=== PATIENT | male | born 1960 | race Caucasian/White ===

== ENCOUNTER → 2018-11-26 09:20 | Outpatient (CLI) | payer BC, SELFPAY ==
[2018-11-26 09:55] LABS: Adenovirus F 40/41, stool Not Detected (NotDetected); Astrovirus Not Detected (NotDetected); Campylobacter Not Detected (NotDetected); Cryptosporidium Not Detected (NotDetected); Cyclospora Cayetanesis Not Detected (NotDetected); Entamoeba histolytica Not Detected (NotDetected); Enteroaggregative E coli Not Detected (NotDetected); Enteropathogenic E coli Not Detected (NotDetected); Enterotoxigenic E coli Not Detected (NotDetected); Giardia lamblia Not Detected (NotDetected); Norovirus Not Detected (NotDetected); Plesimonas Shigalloides, PCR Not Detected (NotDetected); Rotavirus A Not Detected (NotDetected); Salmonella, PCR Not Detected (NotDetected); Sapovirus Not Detected (NotDetected); Shiga-like toxin E coli Not Detected (NotDetected); Shigella Enterovasive E coli Not Detected (NotDetected); Vibrio Cholerae Not Detected (NotDetected); Vibrio, PCR Not Detected (NotDetected); Yersinia Entercolitica, PCR Not Detected (NotDetected)
[2018-11-26 13:57] LABS: Clostridium Difficile A/B, PCR Detected (NotDetected)
[2018-11-30 03:28] LABS: H. pylori Stool Ag, EIA Positive (Negative)
== END ==
PROVIDERS: Visit Provider Dietitian, Registered
DX: K21.9 Gastro-esophageal reflux disease without esophagitis (principal); R19.5 Other fecal abnormalities; Z86.19 Personal history of other infectious and parasitic diseases
CPT/HCPCS: 87177; 87338; 87507

== ENCOUNTER → 2019-05-22 14:19 | Outpatient (CLI) | payer BC, SELFPAY ==
[2019-05-22 14:25] LABS: Adenovirus F 40/41, stool Not Detected (NotDetected); Astrovirus Not Detected (NotDetected); Campylobacter Not Detected (NotDetected); Clostridium Difficile A/B, PCR Not Detected (NotDetected); Cryptosporidium Not Detected (NotDetected); Cyclospora Cayetanesis Not Detected (NotDetected); Entamoeba histolytica Not Detected (NotDetected); Enteroaggregative E coli Not Detected (NotDetected); Enteropathogenic E coli Not Detected (NotDetected); Enterotoxigenic E coli Not Detected (NotDetected); Giardia lamblia Not Detected (NotDetected); Norovirus Not Detected (NotDetected); Plesimonas Shigalloides, PCR Not Detected (NotDetected); Rotavirus A Not Detected (NotDetected); Salmonella, PCR Not Detected (NotDetected); Sapovirus Not Detected (NotDetected); Shiga-like toxin E coli Not Detected (NotDetected); Shigella Enterovasive E coli Not Detected (NotDetected); Vibrio Cholerae Not Detected (NotDetected); Vibrio, PCR Not Detected (NotDetected); Yersinia Entercolitica, PCR Not Detected (NotDetected)
[2019-05-26 07:15] LABS: Calprotectin, Fecal 97 ug/g (0-120)
[2019-05-27 01:29] LABS: H. pylori Stool Ag, EIA Negative (Negative)
== END ==
PROVIDERS: Visit Provider Dietitian, Registered
DX: R19.5 Other fecal abnormalities (principal); K21.9 Gastro-esophageal reflux disease without esophagitis; Z86.19 Personal history of other infectious and parasitic diseases
CPT/HCPCS: 83993; 87177; 87338; 87506

== ENCOUNTER → 2020-05-02 12:52 | Outpatient (CLI) | payer BC, SELFPAY ==
[2020-05-02 14:27] LABS: Blood Urea Nitrogen 24 mg/dl (9-20); Estimated Glomerular Filt Rate 86 ml/min (>60); GFR (African American) 104 ML/MIN (>60)
== END ==
PROVIDERS: Visit Provider Physician Assistant
DX: R10.32 Left lower quadrant pain (principal)
CPT/HCPCS: 36415; 82565; 84520

== ENCOUNTER → 2020-05-03 08:38 | Outpatient (CLI) | payer BC, SELFPAY ==
--- NOTE | 2020-05-03 08:43 | CT_ITS ---
PROCEDURE: CT ABDOMEN PELVIS W CON CLINICAL INDICATION: LLQ ABD PAIN COMPARISON: CT ABDPELW CT ABD PELVIS W/ CONTRAST from 08/27/2016 TECHNIQUE: IV Contrast: 75ML Isovue 370 Oral Contrast None Axial images obtained with sagittal and coronal reformats. All CT scans at the facility use one or more dose reduction, viz: automated exposure control, ma/kV adjustment per patient size (including targeted exams where dose is matched to indication, i.e. head), or iterative reconstruction technique. FINDINGS: LOWER THORAX: No acute finding ABDOMEN & PELVIS: The liver, gallbladder, spleen, adrenal glands, pancreas, has an unremarkable appearance. There is a small hiatal hernia. No renal or ureteral calculi. There is a 3 cm left renal cyst. No evidence appendicitis. There is stranding of the fat lateral to the descending colon at the level of the iliac crest. This fat stranding has a circular target like appearance best demonstrated on series 601, image 33. This is consistent with epiploic appendagitis. No inflamed diverticula are evident at this region. No intestinal obstruction or free air. There is a small umbilical hernia containing fat. Increased density is present in the inguinal region on both sides consistent with prior inguinal hernia repair. There are few small inguinal lymph nodes present. No acute bony findings. IMPRESSION: Epiploic appendagitis involving the descending colon Dictated by: Aung Jean-Baptiste MD 05/04/2020 07:18 Aung Jean-Baptiste MD in [place] 05/04/2020 07:18
== END ==
PROVIDERS: PCP Family Medicine; Visit Provider Physician Assistant
DX: R10.32 Left lower quadrant pain (principal)
CPT/HCPCS: 74177

== ENCOUNTER 2020-06-05 11:32 | Emergency (ER) | payer BC, SELFPAY ==
[2020-06-05 13:00] VITALS: BP 115/77; PULSE 83; RESP 20; TEMP 36.7; O2SAT 98; BMI 27.3
--- NOTE | 2020-06-05 13:12 | HMH.EDUTC ---
[facility] [place] Clinical Impression: Sinusitis Qualifiers: Sinusitis location: unspecified location Chronicity: unspecified Qualified Code(s): J32.9 - Chronic sinusitis, unspecified Disposition: Home, Self-Care Condition on Discharge: Good Instructions: Sinusitis, DI for Sinusitis, Coronavirus Disease 2019, DI for COVID-19 (Suspected or Confirmed ) Additional Instructions: *Monitor Temp, Over the counter Motrin or Tylenol as directed/as needed Tylenol every 4 hours and Motrin every 6 hours (as long as your family doctor has told you that you can take it) for fever or pain. and straight to ER if unable to lower temp less than 101.0 after medication given *Warm salt water gargles may help to soothe the throat *Throat Lozenges *Warm fluids like tea with honey may help to soothe the throat *Sleep elevated *Humidifier/Vaporizer Follow up IMMEDIATELY for new or worsening symptoms or no Noticeable improvement over the next 48-72 hours. 911 for difficulty breathing or swallowing Prescriptions: Azithromycin [Z-Hector 250mg Tab] 250 mg PO DIRECTED #6 tab Prescription Printed Referrals: Herman Atwood MD [Primary Care Provider] - As needed Time of Disposition: 13:21 Medical Decision Making - Les Inquiry Pt receiving controlled substance: No Les was queried for this patient: No Vital Signs: 06/05/20 13:00 Temperature 98.1 F Temperature Source Oral Pulse Rate [Right Brachial] 83 Respiratory Rate 20 Blood Pressure [Right Arm] 115/77 Blood Pressure Mean [Right Arm] 89 Blood Pressure Source [Right Arm] Automatic Cuff Blood Pressure Position [Right Arm] Sitting 02 Sat by Pulse Oximetry 98 Oxygen Delivery Method Room Air [facility] - General Stated complaint: Covid +, fever Time Seen by Provider: 06/05/20 13:12 Mode of Arrival: Ambulatory Source of Information: Patient Limitations: No Limitations Description of Symptoms (Recalled from Triage Doc. by RN): PATIENT REPORTS HE TESTED POSITIVE FOR COVID ON 05/25 THROUGH THE HEALTH DEPARTMENT. C/O FEVER EVERYDAY SINCE HIS DIAGNOSIS HEENT Symptoms (Recalled from RN notes): No Resp Symptoms (Recalled from RN notes): No Skin Symptoms (Recalled from RN notes): No MS Symptoms (Recalled from RN notes): No Functional Status (Recalled from RN notes): WNL - History of Present Illness Provider Complaint: Patient states krzysztof the was recently DX with COVID states that he has continued to have fever on and off at night and having sinus pain and pressure and worried that it is going to move into his chest so he came in to see if he could get something for his sinus infection to help so he can get over the COVID - Related Data Previous Rx's Medication Instructions Recorded Azithromycin [Z-Hector 250mg Tab] 250 mg PO DIRECTED #6 tab 06/05/20 Allergies Allergy/AdvReac Type Severity Reaction Status Date / Time Penicillins [PENICILLINS] Allergy Intermediate RASH/SWEATI Verified 06/05/20 13:10 NG - Worker's Comp Is this a Worker's Comp case?: No [facility] History - Hepatitis A Screen Drug use history?: No High risk sexual behaviors?: No History of sexually transmitted infection?: No Currently employed?: No Childcare worker?: No Do you have indoor plumbing?: Yes Do you have electricity?: Yes Attestation statement:: This patient has been screened for Hepatitis A risk factors. I have reviewed the patient's past medical history: Yes Medical History: Reports:: Cancer - Social History Alcohol Intake: never Occupational Status: other ROS Obtained: Yes All systems reviewed & no additional complaints, Yes Systems reviewed as appropriate & no additional complaints - Constitutional Constitutional: Reports system reviewed and no additional complaints, except as docu, Reports fever(s), Reports headache(s) - ENT Ears, Nose, Mouth, and Throat: Reports sinus pain, Reports sinus pressure Physical Exam - General General appearance: alert, i
[2020-06-05 13:29] VITALS: BP 115/77; PULSE 83; RESP 20; TEMP 36.7; O2SAT 98
== END 2020-06-05 13:32 | disposition home or self-care (01) ==
PROVIDERS: Emergency Provider Nurse Practitioner; PCP Family Medicine
DX: U07.1 COVID-19 (principal); J32.9 Chronic sinusitis, unspecified; Z88.0 Allergy status to penicillin
CPT/HCPCS: 99202; G0463

== ENCOUNTER 2020-06-08 16:29 | Emergency (ER) | payer BC, SELFPAY ==
[2020-06-08 16:33] VITALS: BP 157/79; PULSE 87; RESP 18; TEMP 36.9; O2SAT 93; BMI 26.1
--- NOTE | 2020-06-08 16:46 | XR_ITS ---
PROCEDURE: XR CHEST PORTABLE CLINICAL HISTORY: soa Covid19 patient, shortness of air COMPARISON: CT CHW CT CHEST W/ CONTRAST from 09/11/2016 FINDINGS: The cardiomediastinal silhouette and pulmonary vascularity are within normal limits. The lungs are clear without infiltrates, suspicious nodules, or pleural effusions. No acute bony abnormalities. IMPRESSION: No acute findings. Dictated by: Aung Jean-Baptiste MD 06/08/2020 17:54 Aung Jean-Baptiste MD in [place] 06/08/2020 17:54
[2020-06-08 17:00] VITALS: TEMP 37.9
[2020-06-08 17:01] VITALS: BP 125/76; PULSE 82; RESP 18; O2SAT 94
[2020-06-08 17:12] LABS: Basophils % 0.2 % (0.1-2.0); Hematocrit 39.5 % (42.0-52.0); Hemoglobin 13.3 g/dL (14.1-18.0); Lymphocytes # 0.2 K/mm3 (0.7-4.5); Mean Corpuscular HGB Conc 33.7 g/dL (31.8-35.4); Mean Corpuscular Hemoglobin 31.3 pg (27.0-31.2); Mean Corpuscular Volume 92.8 fl (80-94); Mean Platelet Volume 8.4 fl (7.4-10.4); Monocytes # 0.1 K/mm3 (0.1-1.0); Monocytes % 3.2 % (1.7-9.3); Neutrophils # 3.7 K/mm3 (1.8-7.8); Neutrophils % 90.7 % (37.0-80.0); Platelet Count 107 K/mm3 (142-424); Red Blood Count 4.25 M/mm3 (4.60-6.20); Red Cell Distribution Width 13.2 % (11.5-17.5); White Blood Count 4.1 K/mm3 (4.8-10.8)
[2020-06-08 17:15] LABS: Chloride 94 mmol/L (98-107)
[2020-06-08 17:16] LABS: Potassium 3.3 mmoL/L (3.5-5.1); Sodium 132 mmol/L (136-145)
[2020-06-08 17:18] LABS: MANUAL DIFFERENTIAL MANUAL DIFFERENTIAL (MANUAL DIFF)
[2020-06-08 17:19] LABS: Anion Gap 12.3 mEq/L (5-15); Blood Urea Nitrogen 21 mg/dl (9-20); Carbon Dioxide 29 mmol/L (22.0-30.0); Creatinine Clearance Estimated 96 mL/min (50-200); Estimated Glomerular Filt Rate 86 ml/min (>60); GFR (African American) 104 ML/MIN (>60); Glucose 121 mg/dl (74-100)
[2020-06-08 17:25] LABS: Lymphocytes % 8 % (10-50); Neutrophils % 91 % (42-76); RBC Morphology Normal; Total Cells Counted 100
[2020-06-08 17:26] LABS: Platelet Estimate Slight Decrease
--- NOTE | 2020-06-08 17:26 | HMH.EDFEV ---
ED Disposition Clinical Impression: COVID-19 Disposition: Home, Self-Care Condition on Discharge: Good Additional Instructions: Return to emergency department for worsening difficulty breathing fever chills congestion or any other concerns within the next 8 hours otherwise follow-up with your primary care physician within the next few days maintain quarantine per guidelines Referrals: Herman Atwood MD [Primary Care Provider] - - Critical Care Critical Care Time: No Attestation: On 06/08/20, the high probability of a clinically significant, sudden or life threatening deterioration of the following system(s) required my full and direct attention, intervention and personal management. The time I documented below is in addition to time spent performing reported procedures but includes the following listed in this critical care notation. Medical Decision Making - Medical Records Medical records reviewed: Yes: I reviewed the patient's medical records. - Les Inquiry Pt receiving controlled substance: No Vital Signs: 06/08/20 16:33 06/08/20 17:00 06/08/20 17:01 Temperature 98.4 F 100.2 F H Temperature Source Oral Oral Pulse Rate [Left Radial] 87 82 Respiratory Rate 18 18 Blood Pressure [Right Arm] 157/79 H 125/76 Blood Pressure Mean [Right Arm] 105 92 Blood Pressure Source [Right Arm] Automatic Cuff Blood Pressure Position [Right Arm] Sitting 02 Sat by Pulse Oximetry 93 L 94 L Oxygen Delivery Method Room Air - Lab Data Lab Results 06/08/20 17:05: WBC 4.1 L, RBC 4.25 L, Hgb 13.3 L, Hct 39.5 L, MCV 92.8, MCH 31.3 H, MCHC 33.7, RDW 13.2, Plt Count 107 L, MPV 8.4, Neut % (Auto) 90.7 H, Lymph % (Auto) 6.0 L, [place] % (Auto) 3.2, Eos % (Auto) 0.0 L, Baso % (Auto) 0.2, Neut # (Auto) 3.7, Lymph # (Auto) 0.2 L, [place] # (Auto) 0.1, Eos # (Auto) 0.0, Baso # (Auto) 0.0, Total Counted 100, Neutrophils % (Manual) 91 H, Band Neutrophils % 1.0, Lymphocytes % (Manual) 8 L, Platelet Estimate Slight decrease, RBC Morphology Normal 06/08/20 17:05: Sodium 132 L, Potassium 3.3 L, Chloride 94 L, Carbon Dioxide 29, Anion Gap 12.3, BUN 21 H, Creatinine 0.90, Estimated Creat Clear 96, Estimated GFR 86, Est GFR ( Amer) 104, Glucose 121 H, Calcium 9.0 Result diagrams: 06/08/20 17:05 06/08/20 17:05 Orders (Tests/Meds): ED MEDICATIONS Generic Name Dose Route Start Last Admin Trade Name Freq PRN Reason Stop Dose Admin Sodium Chloride 1,000 mls @ 999 mls/hr 06/08/20 17:00 06/08/20 17:09 Sod Chlor 0.9% 1000ml Bag IV 06/08/20 18:00 999 mls/hr .Q1H1M KIRT Administration Discontinued Medications Generic Name Dose Route Start Last Admin Trade Name Freq PRN Reason Stop Dose Admin Ketorolac Tromethamine 30 mg 06/08/20 17:08 06/08/20 17:10 Ketorolac 30mg/Ml Vial IV 06/08/20 17:09 30 mg ONCE ONE Administration Medical Decision Narrative: 59-year-old male with COVID-19 symptoms. He is in no acute distress nontoxic-appearing sitting comfortably in the bed with normal oxygen levels. I am not concerned for pulmonary embolism at this time. He appears to be mildly dehydrated given IV fluids in the emergency department very mildly hyponatremic. Chest x-ray otherwise has no actionable items. Recommended to continue management quarantine drink fluids and given strict return precautions otherwise Fever HPI - General Chief Complaint: Fever Stated Complaint: weakness, feverish Time Seen by Provider: 06/08/20 16:30 Mode of Arrival: Ambulatory Limitations: No Limitations Description of Symptoms (Recalled from ER Triage Doc. by RN): c/o high and low fevers since he was dx with covid since the . States he can't seem to kick the covid. He is soa and has been for 2 weeks. Has a bad taste in his mouth like he did when he had stem cell cancer transplant. - History of Present Illness HPI Narrative: 59-year-old male has been diagnosed with COVID-19. He says that he is unable to kick it,
[2020-06-08 18:40] VITALS: BP 143/78; PULSE 78; RESP 18; TEMP 37.3; O2SAT 98
== END 2020-06-08 18:43 | disposition home or self-care (01) ==
PROVIDERS: Emergency Provider Emergency Medicine; PCP Family Medicine
DX: U07.1 COVID-19 (principal); E86.0 Dehydration; Z88.0 Allergy status to penicillin
CPT/HCPCS: 71045; 80048; 85007; 85025; 96365; 96375; 99283

== ENCOUNTER 2020-06-13 12:54 | Inpatient (IN) | payer BC, SELFPAY ==
[2020-06-13] VITALS (8 sets, daily range): BP systolic 91–124; BP diastolic 57–87; PULSE 59–104; RESP 17–34; TEMP 35.8–36.9; O2SAT 78–99; BMI 25.8; BMI 27.0
--- NOTE | 2020-06-13 12:55 | XR_ITS ---
PROCEDURE: XR CHEST PORTABLE CLINICAL HISTORY: low SaO2, Covid positive Covid19 pneumonia COMPARISON: CT CHW CT CHEST W/ CONTRAST from 09/11/2016 CR XR CHEST PORTABLE from 06/08/2020 FINDINGS: The cardiomediastinal silhouette and pulmonary vascularity are within normal limits. Developing opacification ground-glass attenuation is present in the left upper, left lower, and right lower lobe consistent with bilateral pneumonia No acute bony abnormalities. IMPRESSION: Bilateral pneumonia with ground-glass attenuation consistent with Covid19 pneumonia Dictated by: Aung Jean-Baptiste MD 06/13/2020 14:12 Aung Jean-Baptiste MD in [place] 06/13/2020 14:12
--- NOTE | 2020-06-13 12:56 | ECG_ITS ---
APPROVED REPORT Exam: Resting ECG HR:97 bpm ECG Measurements Heart Rate 97 AXES IL 134 P 71 QRSd 80 QRS 94 QT 358 T 55 QTc 454 Conclusion Normal sinus rhythm Rightward axis Nonspecific ST abnormality Abnormal ECG Electronically signed by : Nikolas Santana, 06/13/2020 19:36:02
--- NOTE | 2020-06-13 13:00 | PC.NURSE ---
rad at bedside
[2020-06-13 13:23] LABS: Basophils % 0.3 % (0.1-2.0); Eosinophils % 0.2 % (0.1-12.0); Hematocrit 42.8 % (42.0-52.0); Hemoglobin 14.3 g/dL (14.1-18.0); Lymphocytes # 0.2 K/mm3 (0.7-4.5); Lymphocytes % 4.3 % (10-50); Mean Corpuscular HGB Conc 33.4 g/dL (31.8-35.4); Mean Corpuscular Hemoglobin 32.5 pg (27.0-31.2); Mean Corpuscular Volume 97.3 fl (80-94); Monocytes # 0.2 K/mm3 (0.1-1.0); Monocytes % 2.9 % (1.7-9.3); Neutrophils # 5.2 K/mm3 (1.8-7.8); Neutrophils % 92.3 % (37.0-80.0); Platelet Count 82 K/mm3 (142-424); Red Blood Count 4.39 M/mm3 (4.60-6.20); Red Cell Distribution Width 14.6 % (11.5-17.5); White Blood Count 5.6 K/mm3 (4.8-10.8)
[2020-06-13 13:26] LABS: MANUAL DIFFERENTIAL MANUAL DIFFERENTIAL (MANUAL DIFF)
[2020-06-13 13:50] LABS: Lymphocytes % 11 % (10-50); Monocytes % 7 % (2-9); Neutrophils % 82 % (42-76); Platelet Estimate Moderate Decrease; RBC Morphology Normal; Total Cells Counted 100
[2020-06-13 13:53] LABS: Chloride 95 mmol/L (98-107); Sodium 132 mmol/L (136-145)
[2020-06-13 13:56] LABS: Alanine Aminotransferase 53 U/L (12-78); Albumin Level 3.6 g/dl (3.5-5.0); Albumin/Globulin Ratio 0.9 (1.1-1.8); Alkaline Phosphatase 131 U/L (38-126); Anion Gap 11.8 mEq/L (5-15); Aspartate Amino Transferase 64 U/L (17-59); Blood Urea Nitrogen 15 mg/dl (9-20); Carbon Dioxide 28 mmol/L (22.0-30.0); Creatinine Clearance Estimated 86 mL/min (50-200); Estimated Glomerular Filt Rate 76 ml/min (>60); GFR (African American) 92 ML/MIN (>60); Globulin 3.8 g/dL (1.3-3.2); Total Protein,Serum 7.4 g/dl (6.3-8.2)
[2020-06-13 13:57] LABS: Calcium 8.8 mg/dl (8.4-10.2); Glucose 138 mg/dl (74-100)
[2020-06-13 13:58] LABS: Potassium 2.8 mmoL/L (3.5-5.1)
--- NOTE | 2020-06-13 14:19 | CT_ITS ---
PROCEDURE: CT ANGIO CHEST CLINCIAL INDICATION: SOA Shortness of air, Covid19 19 COMPARISON: CT CHW CT CHEST W/ CONTRAST from 09/11/2016 CR XR CHEST PORTABLE from 06/08/2020 TECHNIQUE: IV Contrast: 70ML Isovue 370 Axial images obtained with sagittal and coronal reformats. All CT scans at the facility use one or more dose reduction, viz: automated exposure control, ma/kV adjustment per patient size (including targeted exams where dose is matched to indication, i.e. head), or iterative reconstruction technique. FINDINGS: HEART AND MEDIASTINAL STRUCTURES: No evidence of pulmonary embolus, aortic aneurysm, or aortic dissection. There are some mildly prominent mediastinal lymph nodes in the subcarinal region. LUNGS AND PLEURAL SPACES: Crazy paving pattern is present in the upper lobes peripherally and in both lower lobes consistent with ground-glass opacification superimposed upon septal thickening some which is felt to be chronic based on previous chest x-rays. An 8 mm nodular opacity is present in the left lower lobe image 64 series 3. There is trace left-sided effusion. BONY STRUCTURES: No acute bony abnormalities apparent. UPPER ABDOMEN: There is mild diffuse esophageal thickening. This is greater at the mid distal aspect and could be due to reflux esophagitis. ADDITIONAL FINDINGS: No other significant abnormalities. IMPRESSION: 1. No evidence of pulmonary embolus, aortic aneurysm, or aortic dissection. 2. Crazy paving appearance of the lungs which may be seen with Covid19 pneumonia with superimposed interstitial lung disease 3. Nonspecific 8 mm nodule left lower lobe. Convalescent follow-up suggested. Dictated by: Aung Jean-Baptiste MD 06/13/2020 15:30 Aung Jean-Baptiste MD in [place] 06/13/2020 15:30
--- NOTE | 2020-06-13 14:20 | HMH.EDGENADL ---
ED Disposition Clinical Impression: Acute hypoxemic respiratory failure due to COVID-19, Acute exacerbation of chronic obstructive airways disease Disposition: Admitted As Inpatient Condition on Discharge: Serious Referrals: Herman Atwood MD [Primary Care Provider] - - Critical Care Critical Care Time: No Attestation: On 06/13/20, the high probability of a clinically significant, sudden or life threatening deterioration of the following system(s) required my full and direct attention, intervention and personal management. The time I documented below is in addition to time spent performing reported procedures but includes the following listed in this critical care notation. Medical Decision Making - Medical Records Medical records reviewed: Yes: I reviewed the patient's medical records. - Les Inquiry Pt receiving controlled substance: No Vital Signs: 06/13/20 12:54 06/13/20 13:06 Temperature 98.5 F Temperature Source Oral Pulse Rate [Right Radial] 98 H Respiratory Rate 34 H Blood Pressure [Right Arm] 112/74 Blood Pressure Mean [Right Arm] 86 Blood Pressure Source [Right Arm] Automatic Cuff Blood Pressure Position [Right Arm] Sitting 02 Sat by Pulse Oximetry 90 L 91 L Oxygen Delivery Method Nasal Cannula Nasal Cannula Oxygen Flow Rate (LPM) 4 4 - Lab Data Lab Results 06/13/20 13:04: WBC 5.6, RBC 4.39 L, Hgb 14.3, Hct 42.8, MCV 97.3 H, MCH 32.5 H, MCHC 33.4, RDW 14.6, Plt Count 82 L, MPV 13.0 H, Neut % (Auto) 92.3 H, Lymph % (Auto) 4.3 L, [place] % (Auto) 2.9, Eos % (Auto) 0.2, Baso % (Auto) 0.3, Neut # (Auto) 5.2, Lymph # (Auto) 0.2 L, [place] # (Auto) 0.2, Eos # (Auto) 0.0, Baso # (Auto) 0.0, Total Counted 100, Neutrophils % (Manual) 82 H, Lymphocytes % (Manual) 11, Monocytes % (Manual) 7, Platelet Estimate Moderate decrease, RBC Morphology Normal 06/13/20 13:04: Sodium 132 L, Potassium 2.8 L*, Chloride 95 L, Carbon Dioxide 28, Anion Gap 11.8, BUN 15, Creatinine 1.00, Estimated Creat Clear 86, Estimated GFR 76, Est GFR ( Amer) 92, Glucose 138 H, Calcium 8.8, Total Bilirubin 1.0, AST 64 H, ALT 53, Alkaline Phosphatase 131 H, Total Protein 7.4, Albumin 3.6, Globulin 3.8 H, Albumin/Globulin Ratio 0.9 L 06/13/20 14:24: Specimen Source Right radial, O2 % 4l nc, ABG pH 7.52 H, ABG pCO2 29.7 L, ABG pO2 99.8, ABG HCO3 23.6, ABG Total CO2 24.5, ABG O2 Saturation 98, ABG Base Excess 0.7, Aung Test Acceptable Result diagrams: 06/13/20 13:04 06/13/20 13:04 Orders (Tests/Meds): ED MEDICATIONS Discontinued Medications Generic Name Dose Route Start Last Admin Trade Name Freq PRN Reason Stop Dose Admin Acetaminophen 650 mg 06/13/20 13:34 06/13/20 13:51 Acetaminophen 325mg Tab PO 06/13/20 13:35 650 mg ONCE ONE Administration Dexamethasone Sodium Phosphate 10 mg 06/13/20 14:20 06/13/20 14:42 Dexamethasone 4mg/Ml 5ml Mdv IV 06/13/20 14:21 10 mg ONCE ONE Administration Sodium Chloride 1,000 mls @ 999 mls/hr 06/13/20 13:45 06/13/20 13:52 Sod Chlor 0.9% 1000ml Bag IV 06/13/20 14:45 999 mls/hr .Q1H1M KIRT Administration Iopamidol 70 ml 06/13/20 15:10 06/13/20 15:11 Iopamidol-370 (76%);100ml Bottle IV 06/13/20 15:11 70 ml ONCE ONE Administration Potassium Chloride 40 meq 06/13/20 13:58 06/13/20 14:43 Potassium Chloride 20meq Tab PO 06/13/20 13:59 40 meq ONCE ONE Administration Sodium Chloride 50 ml 06/13/20 15:10 06/13/20 15:11 0.9 % Sodium Chloride 50 Ml Vial IV 06/13/20 15:11 50 ml ONCE ONE Administration Sodium Chloride 10 ml 06/13/20 15:10 06/13/20 15:11 Sodium Chloride 0.9% 10ml Syr (Rad Only) IV 06/13/20 15:11 10 ml ONCE ONE Administration ORDERS Category Date Time Status Full Resp Panel w/COVID ([facility]) Stat Lab 06/13/20 14:21 Received - CT Data CT Scan: Chest Time Received: 15:[address] Reviewed: Yes: I have reviewed the patient's CT results, I have viewed the radiologist's interpretation Findings
--- NOTE | 2020-06-13 14:23 | PC.NURSE ---
covid swab sent to lab at this time
--- NOTE | 2020-06-13 14:26 | PC.NURSE ---
Verbal order given to Resp for ABG
[2020-06-13 14:33] LABS: Adenovirus,PCR Not Detected (NotDetected); Bordetella Pertussis Not Detected (NotDetected); Chlamydophila Pneumoniae, PCR Not Detected (NotDetected); Coronavirus 229E Not Detected (NotDetected); Coronavirus NL63 Not Detected (NotDetected); Coronavirus OC43 Not Detected (NotDetected); Coronovirus HKU1,PCR Not Detected (NotDetected); Human Metapneumovirus Not Detected (NotDetected); Influenza A, PCR Not Detected (NotDetected); Influenza AH1, 2009 Not Detected (NotDetected); Influenza AH1, PCR Not Detected (NotDetected); Influenza AH3,PCR Not Detected (NotDetected); Influenza B, PCR Not Detected (NotDetected); Mycoplasma Pneumoniae, PCR Not Detected (NotDetected); Parainfluenza 1, PCR Not Detected (NotDetected); Parainfluenza 2, PCR Not Detected (NotDetected); Parainfluenza 3, PCR Not Detected (NotDetected); Parainfluenza 4, PCR Not Detected (NotDetected); Respiratory Syncytial Virus Not Detected (NotDetected); Rhinovirus/Enterovirus Not Detected (NotDetected)
[2020-06-13 14:47] LABS: ABG Base Excess 0.7 mmol/L (-2.4-2.3); ABG HCO3 23.6 mmhg (22.0-26.0); ABG Oxygen Saturation 98 % (90-100); ABG PCO2 29.7 mmhg (35.0-45.0); ABG PH 7.52 mmol/L (7.35-7.45); ABG PO2 99.8 mmhg (80-100); ABG TCO2 24.5 mmhg (23-27)
[2020-06-13 14:49] LABS: Allen's Test Acceptable; Source Right Radial
--- NOTE | 2020-06-13 15:00 | PC.NURSE ---
pt to CT
--- NOTE | 2020-06-13 15:59 | PC.NURSE ---
Calling Dr. Atwood at this time
--- NOTE | 2020-06-13 16:01 | PC.NURSE ---
speaking with Dr. Atwood
--- NOTE | 2020-06-13 16:04 | PC.NURSE ---
lab states approx 25 minutes left on covid swab.
--- NOTE | 2020-06-13 16:04 | PC.NURSE ---
notified house of admission
[2020-06-13 16:29] LABS: Coronavirus 19, PCR Detected (NotDetected)
--- NOTE | 2020-06-13 16:36 | P.CONPHA_ITS ---
[facility] [place] Pharm[facility] VTE Monitoring - Patient Demographics Admission date: 06/13/20 Report Date: 06/13/20 Time: 16:36 Allergies/Adverse Reactions: Patient Allergies Penicillins [PENICILLINS] Allergy (Intermediate, Verified 06/05/20 13:10) RASH/SWEATING Height: 1.73 m Weight: 77.111 kg Patient Problems: Current Active Problems Acute hypoxemic respiratory failure due to COVID-19 (Acute) Acute exacerbation of chronic obstructive airways disease (Acute) - VTE Risk Labs: VTE Related Lab Results Hgb 14.3 g/dL (14.1-18.0) 06/13/20 13:04 Hct 42.8 % (42.0-52.0) 06/13/20 13:04 Plt Count 82 K/mm3 (142-424) L 06/13/20 13:04 BUN 15 mg/dl (9-20) 06/13/20 13:04 Creatinine 1.00 mg/dl (0.66-1.25) 06/13/20 13:04 Estimated Creat Clear 86 mL/min (50-200) 06/13/20 13:04 Clinical Trial Participant: No - Prophylaxis VTE Prophylaxis Ordered?: Yes Types of VTE Prophylaxis: TEDS Knee High, Pharmacological Pharmacologic Type: Enoxaparin
--- NOTE | 2020-06-13 16:52 | HMH.HP ---
*Admission Date: 06/13/20 <Heavenly June 06/13/20 17:20> *Chief complaint: Shortness of breath <Heavenly June 06/13/20 17:20> *History of present illness: Mr. Billingsley is a 59-year-old male with a history of irritable bowel syndrome, restless leg syndrome, and lymphoma who presented to [facility] emergency room with progressive shortness of breath over the last 2 to 3 days. He states he has not felt well for about the last 2 weeks. He describes having fevers along with difficulty in breathing. He was Covid positive the end of April as was most of his family. They are all now well. He continued with the fevers and the chills and today has had trouble catching his breath. On arrival to the emergency room his O2 sats were diminished and 78%. O2 sats did improve to 91% on 4 L of oxygen per nasal cannula. He did receive a liter of IV fluids and 10 mg of dexamethasone. With work-up CTA of the chest showed no pulmonary embolus but with a crazy paving appearance of the lungs consistent with COVID-19 pneumonia super imposed on interstitial lung disease; also noted was an 8 mm nodule in the left lower lobe. Laboratory data showed a white blood cell count of 5600 with a hemoglobin of 14.3 and hematocrit of 42.8. Platelet count was low at 82. Blood gases showed a pH of 7.52 PCO2 of 29.7 PO2 of 99.8 and a bicarb of 23.6. This was on oxygen at 4 L. Blood chemistries showed a low potassium of 2.8 and a sodium of 132. He was given 40 mEq of past potassium p.o. BUN was 15 with a creatinine of 1 ;AST elevated at 64 with an ALT of 53. Alkaline phosphatase 131. Covid PCR was positive. Patient was thus admitted with COVID pneumonia with acute hypoxia. <Heavenly June 06/13/20 17:20> [facility] History Medical History: Reports:: Cancer, Gastroesophageal Reflux Disease(GERD) <Heavenly uJne 06/13/20 17:20> *Have you ever received a pneumonia vaccine?: No <Heavenly June 06/13/20 17:20> *Have you received a flu vaccine this season?: No <Heavenly June 06/13/20 17:20> Other Medical History: Reports: Other (Irritable bowel syndrome; restless leg syndrome; lymphoma diagnosed in 2017) <SladeHeavenly 06/13/20 17:20> Other Surgeries: Yes: Hernia Repair <Heavenly June 06/13/20 17:20> - *Social History Smoking Status: Former smoker <JuneHeavenly 06/13/20 17:20> Alcohol Intake: never <JuneHeavenly 06/13/20 17:20> *Occupational Status:: other (not working) <JuneHeavenly 06/13/20 17:20> *Travel in the last 8 weeks: None <June,Heavenly 06/13/20 17:20> Family Hx:: Cancer <JuneHeavenly 06/13/20 17:20> Review of Systems - Constitutional Reports fatigue, Reports fever(s), Reports lack of energy <June,Heavenly 06/13/20 17:20> - Eyes Denies change in vision <June,Heavenly 06/13/20 17:20> - ENT Denies ear pain, Denies post nasal drip, Denies sore throat <JuneHeavenly 06/13/20 17:20> - *Cardiovascular Reports shortness of breath, Reports generalized swelling, Denies chest pain, Denies irregular heart rhythm <JuneHeavenly 06/13/20 17:20> - *Respiratory Reports shortness of breath, Denies chest congestion, Denies cough, Denies coughing up blood <JuneHeavenly 06/13/20 17:20> - *Gastrointestinal Denies abdominal pain, Denies constipation, Denies heartburn, Denies nausea, Denies vomiting <JuneHeavenly 06/13/20 17:20> - *Genitourinary Denies difficulty urinating <JuneHeavenly 06/13/20 17:20> - *Musculoskeletal Denies abnormal walking, Denies joint pain, Denies body aches <June,Heavenly 06/13/20 17:20> - *Neurologic Denies abnormal walking, Denies headache(s), Denies seizure-like activity <SladeHeavenly 06/13/20 17:20> Meds Allergies Allergy/AdvReac Type Severity Reaction Status Date / Time Penicillins [PENICILLINS] Allergy Intermediate RASH/SWEATI Verified 06/05/20 13:10 NG <Herman Atwood - 06/13/20 18:18> Exam Vital signs and Labs for Last 24 Annalise
--- NOTE | 2020-06-13 16:57 | PC.NURSE ---
notified second floor pt is ready for admission, spoke with kota
--- NOTE | 2020-06-13 17:09 | PC.NURSE ---
report given johanarn
--- NOTE | 2020-06-13 17:12 | PC.NURSE ---
patient came from ed by wheelchair
[2020-06-14] VITALS (10 sets, daily range): BP systolic 97–131; BP diastolic 56–79; PULSE 63–83; RESP 17–20; TEMP 36.3–36.6; O2SAT 90–95; BMI 26.9
--- NOTE | 2020-06-14 04:06 | PC.NURSE ---
PT IS RESTING IN BED. NO COMPLAINTS OF DISCOMFORT. AT MIDNIGHT PT HAS WAS MILDLY HYPOTHERMIC WITH A RECTAL TEMP OF 95.8. PT WAS COVERED IN WARM BLANKETS AND THE TEMP IN PT'S ROOM WAS INCREASED. AFTER AN HOUR PT STATED HE WAS STARTING TO SWEAT AND ASKED IF SOME OF THE BLANKETS COULD BE REMOVED. ORAL TEMP WAS RETAKEN AND IT WAS 97.5. O2 SATURATION HAS MAINTAINED 92-94% ON 4 L NC. LUNG SOUNDS DIMINISHED WITH FINE CRACKLES IN THE BASES. ABDOMEN SOFT/ NON TENDER WITH ACTIVE BOWEL SOUNDS. PT HAD A BOWEL MOVEMENT AT THE BEGINNING OF THE SHIFT. WILL CONTINUE TO MONITOR.
[2020-06-14 05:52] LABS: Alanine Aminotransferase 37 U/L (12-78); Alkaline Phosphatase 107 U/L (38-126); Anion Gap 7.3 mEq/L (5-15); Aspartate Amino Transferase 47 U/L (17-59); Bilirubin,Total 0.5 mg/dl (0.2-1.3); Blood Urea Nitrogen 12 mg/dl (9-20); Calcium 8.4 mg/dl (8.4-10.2); Carbon Dioxide 30 mmol/L (22.0-30.0); Chloride 105 mmol/L (98-107); Creatinine Clearance Estimated 150 mL/min (50-200); Estimated Glomerular Filt Rate 137 ml/min (>60); GFR (African American) 166 ML/MIN (>60); Globulin 3.1 g/dL (1.3-3.2); Glucose 158 mg/dl (74-100); Potassium 3.3 mmoL/L (3.5-5.1); Sodium 139 mmol/L (136-145); Total Protein,Serum 6.1 g/dl (6.3-8.2)
[2020-06-14 05:57] LABS: Basophils % 0.1 % (0.1-2.0); Hematocrit 26.4 % (42.0-52.0); Lymphocytes # 0.3 K/mm3 (0.7-4.5); Lymphocytes % 9.5 % (10-50); Mean Corpuscular HGB Conc 34.9 g/dL (31.8-35.4); Mean Corpuscular Volume 91.7 fl (80-94); Mean Platelet Volume 8.9 fl (7.4-10.4); Monocytes # 0.1 K/mm3 (0.1-1.0); Monocytes % 4.1 % (1.7-9.3); Neutrophils # 2.3 K/mm3 (1.8-7.8); Neutrophils % 86.3 % (37.0-80.0); Platelet Count 71 K/mm3 (142-424); Red Blood Count 2.88 M/mm3 (4.60-6.20); Red Cell Distribution Width 14.3 % (11.5-17.5); White Blood Count 2.7 K/mm3 (4.8-10.8)
[2020-06-14 06:01] LABS: Hemoglobin 9.2 g/dL (14.1-18.0); MANUAL DIFFERENTIAL MANUAL DIFFERENTIAL (MANUAL DIFF)
--- NOTE | 2020-06-14 08:38 | HMH.ACPN2 ---
<Heavenly June - Last Filed: 06/14/20 08:38> Internal Medicine - PN: Subj *Date: 06/14/20 *Time: 08:38 Interval history: Patient states he definitely feels better this a.m. He states he is not coughing and therefore cannot produce sputum specimen. He denies chest pain. He still has shortness of breath. He rested some during the night. He was able to eat a good breakfast this morning. Exam Vital signs and Labs for Last 24 Hours: Temp Pulse Resp BP Pulse Ox 97.3 F L 73 20 131/72 90 L 06/14/20 07:32 06/14/20 07:32 06/14/20 07:32 06/14/20 07:32 06/14/20 07:32 Laboratory Results - last 24 hr 06/13/20 13:04: WBC 5.6, RBC 4.39 L, Hgb 14.3, Hct 42.8, MCV 97.3 H, MCH 32.5 H, MCHC 33.4, RDW 14.6, Plt Count 82 L, MPV 13.0 H, Neut % (Auto) 92.3 H, Lymph % (Auto) 4.3 L, [place] % (Auto) 2.9, Eos % (Auto) 0.2, Baso % (Auto) 0.3, Neut # (Auto) 5.2, Lymph # (Auto) 0.2 L, [place] # (Auto) 0.2, Eos # (Auto) 0.0, Baso # (Auto) 0.0, Total Counted 100, Neutrophils % (Manual) 82 H, Lymphocytes % (Manual) 11, Monocytes % (Manual) 7, Platelet Estimate Moderate decrease, RBC Morphology Normal 06/13/20 13:04: Sodium 132 L, Potassium 2.8 L*, Chloride 95 L, Carbon Dioxide 28, Anion Gap 11.8, BUN 15, Creatinine 1.00, Estimated Creat Clear 86, Estimated GFR 76, Est GFR ( Amer) 92, Glucose 138 H, Calcium 8.8, Total Bilirubin 1.0, AST 64 H, ALT 53, Alkaline Phosphatase 131 H, Total Protein 7.4, Albumin 3.6, Globulin 3.8 H, Albumin/Globulin Ratio 0.9 L 06/13/20 14:21: Chlamy pneumoniae PCR Not detected, Adenovirus (PCR) Not detected, B. pertussis DNA (PCR) Not detected, Coronavirus OC43 (PCR) Not detected, Coronavirus HKU1 (PCR) Not detected, Coronavirus 229E (PCR) Not detected, SARS-CoV-2 (PCR) Detected A, Coronavirus NL63 (PCR) Not detected, Human Metapneumovir PCR Not detected, Influenza A (H1) PCR Not detected, Influ A (H1N1/09) PCR Not detected, Influenza A (H3) PCR Not detected, Influenza Type A (PCR) Not detected, Influenza Type B (PCR) Not detected, M. pneumoniae (PCR) Not detected, Parainfluenza 1 (PCR) Not detected, Parainfluenza 2 (PCR) Not detected, Parainfluenza 3 (PCR) Not detected, Parainfluenza 4 (PCR) Not detected, RSV (PCR) Not detected, Entero/Rhino (PCR) Not detected 06/13/20 14:24: Specimen Source Right radial, O2 % 4l nc, ABG pH 7.52 H, ABG pCO2 29.7 L, ABG pO2 99.8, ABG HCO3 23.6, ABG Total CO2 24.5, ABG O2 Saturation 98, ABG Base Excess 0.7, Augn Test Acceptable 06/14/20 05:30: WBC 2.7 L D, RBC 2.88 L D, Hgb 9.2 L D, Hct 26.4 L, MCV 91.7, MCH 32.0 H, MCHC 34.9, RDW 14.3, Plt Count 71 L, MPV 8.9, Neut % (Auto) 86.3 H, Lymph % (Auto) 9.5 L, [place] % (Auto) 4.1, Eos % (Auto) 0.0 L, Baso % (Auto) 0.1, Neut # (Auto) 2.3, Lymph # (Auto) 0.3 L, [place] # (Auto) 0.1, Eos # (Auto) 0.0, Baso # (Auto) 0.0 06/14/20 05:30: Sodium 139, Potassium 3.3 L, Chloride 105, Carbon Dioxide 30, Anion Gap 7.3, BUN 12, Creatinine 0.60 L D, Estimated Creat Clear 150, Estimated GFR 137, Est GFR ( Amer) 166 D, Glucose 158 H, Calcium 8.4, Total Bilirubin 0.5, AST 47 D, ALT 37 D, Alkaline Phosphatase 107, Total Protein 6.1 L, Albumin 3.0 L D, Globulin 3.1, Albumin/Globulin Ratio 1.0 L I & O for Last 24 hours: Intake & Output 06/11/20 06/12/20 06/13/20 06/14/20 11:59 11:59 11:59 11:59 Intake Total 1528 / 1528 Output Total 600 / 600 Balance 928 / 928 Weight 177 lb 15.984 oz - Constitutional no acute distress Comments: Resting with head of bed elevated and appears comfortable. - *Routine Respiratory Exam Present: crackles (Bibasilar) - *Routine Cardiovascular Exam Present: RRR - *Routine Abdominal Exam Present: soft, normoactive bowel sounds. Absent: tenderness, distended - *Routine Extremities Exam Absent: edema, calf tenderness - *Routine Neurological Exam Present: alert, oriented X3 Assessment and Plan (1) Pneumonia due to COVID-19 virus Status: Acute Category: Medical Code(s): U07.1 - COVID-19; J12.82 - Pneumonia
[2020-06-14 08:57] LABS: Lymphocytes % 9 % (10-50); Monocytes % 1 % (2-9); Neutrophils % 90 % (42-76); Platelet Estimate Normal; RBC Morphology Normal; Total Cells Counted 100
--- NOTE | 2020-06-14 15:10 | PC.NURSE ---
Pt has been pleasant and cooperative this shift. A&O X4. No complaints of pain or SOA. Pt is receiving O2 via NC @ 4 LPM with sats. >90%. Lungs CTA. No edema noted. Skin is C/D/I. Pt ambulates independently to/from the bathroom and throughout the room. Pt uses the urinal to void clear, yellow urine without issue. Pt reports 2 loose, brown stools this shift thus far. 18 G peripheral IV in the LT AC is patent and infusing NS @ 100 ML/HR. VSS. Call light within reach. Will continue to monitor.
[2020-06-15] VITALS (9 sets, daily range): BP systolic 112–139; BP diastolic 62–86; PULSE 62–74; RESP 16–22; TEMP 36.2–36.5; O2SAT 90–98; BMI 27.3
[2020-06-15 05:38] LABS: Basophils % 0.1 % (0.1-2.0); Lymphocytes # 0.3 K/mm3 (0.7-4.5); Lymphocytes % 4.3 % (10-50); Mean Corpuscular HGB Conc 35.1 g/dL (31.8-35.4); Mean Corpuscular Hemoglobin 32.9 pg (27.0-31.2); Mean Corpuscular Volume 93.7 fl (80-94); Mean Platelet Volume 9.6 fl (7.4-10.4); Monocytes # 0.2 K/mm3 (0.1-1.0); Neutrophils # 5.3 K/mm3 (1.8-7.8); Neutrophils % 91.7 % (37.0-80.0); Platelet Count 52 K/mm3 (142-424); Red Blood Count 3.52 M/mm3 (4.60-6.20); Red Cell Distribution Width 14.6 % (11.5-17.5); White Blood Count 5.8 K/mm3 (4.8-10.8)
[2020-06-15 05:44] LABS: MANUAL DIFFERENTIAL MANUAL DIFFERENTIAL (MANUAL DIFF)
[2020-06-15 05:47] LABS: Hemoglobin 11.6 g/dL (14.1-18.0)
--- NOTE | 2020-06-15 06:20 | PC.NURSE ---
Pt is A&Ox4. Pt has rested well this shift. Lung sounds diminished t/o. Dry, nonproductive cough noted. Pt continues to tolerate 3L NC w/ o2 sats between 91-93%. Active bowel sounds in all 4 quads. No BM noted this shift. Pt continues to ambulate to and from bathroom independently w/ satisfactory gait and balance. No other acute changes or complaints at this time.
--- NOTE | 2020-06-15 08:10 | HMH.ACPN2 ---
<Heavenly June - Last Filed: 06/15/20 08:17> Internal Medicine - PN: Subj *Date: 06/15/20 *Time: 08:17 Interval history: Patient is definitely feeling better today. He denies shortness of breath and has a minimal cough. He states he did sleep last night. He was able to eat a good breakfast this morning. O2 sats are good on 3 L per nasal cannula. Voiding QS. Exam Vital signs and Labs for Last 24 Hours: Temp Pulse Resp BP Pulse Ox 97.2 F L 74 18 112/62 98 06/15/20 07:47 06/15/20 07:47 06/15/20 07:47 06/15/20 07:47 06/15/20 07:47 Laboratory Results - last 24 hr 06/14/20 05:30: Total Counted 100, Neutrophils % (Manual) 90 H, Lymphocytes % (Manual) 9 L, Monocytes % (Manual) 1 L, Platelet Estimate Normal, RBC Morphology Normal 06/15/20 04:35: WBC 5.8 D, RBC 3.52 L, Hgb 11.6 L D, Hct 33.0 L, MCV 93.7, MCH 32.9 H, MCHC 35.1, RDW 14.6, Plt Count 52 L D, MPV 9.6, Neut % (Auto) 91.7 H, Lymph % (Auto) 4.3 L, [place] % (Auto) 4.0, Eos % (Auto) 0.0 L, Baso % (Auto) 0.1, Neut # (Auto) 5.3, Lymph # (Auto) 0.3 L, [place] # (Auto) 0.2, Eos # (Auto) 0.0, Baso # (Auto) 0.0 I & O for Last 24 hours: Intake & Output 06/12/20 06/13/20 06/14/20 06/15/20 11:59 11:59 11:59 11:59 Intake Total 1528 / 1528 1955 / 1955 Output Total 600 / 600 500 / 500 Balance 928 / 928 1455 / 1455 Weight 177 lb 15.984 oz 180 lb Microbiology Reports for the Last 24 Hours: Microbiology 06/14/20 14:45 Sputum - Expectorated Sputum Gram Stain - Final - Constitutional no acute distress Comments: Have been the bed and is watching TV. Appears comfortable. - *Routine Respiratory Exam Absent: respiratory distress Comments: Much improved today. Minimal fine bibasilar crackles. Moving air well. - *Routine Cardiovascular Exam Present: RRR - *Routine Abdominal Exam Present: soft, normoactive bowel sounds. Absent: tenderness - *Routine Extremities Exam Absent: edema, calf tenderness - *Routine Neurological Exam Present: alert, oriented X3 Assessment and Plan (1) Pneumonia due to COVID-19 virus Status: Acute Category: Medical Code(s): U07.1 - COVID-19; J12.82 - Pneumonia due to coronavirus disease 2019 (2) Acute hypoxemic respiratory failure due to COVID-19 Status: Acute Category: Medical Code(s): U07.1 - COVID-19; J96.01 - Acute respiratory failure with hypoxia (3) Hypokalemia Status: Acute Category: Medical Code(s): E87.6 - Hypokalemia (4) Lymphoma Status: Chronic Category: Medical Code(s): C85.90 - Non-Hodgkin lymphoma, unspecified, unspecified site - Assessment and plan all Dx Assessment and Plan for all problems:: Continue current Covid pneumonia treatment. <Herman Atwood - Last Filed: 06/15/20 09:12> Internal Medicine - PN: Subj *Date: 06/15/20 *Time: 09:09 Exam Vital signs and Labs for Last 24 Hours: Temp Pulse Resp BP Pulse Ox 97.2 F L 74 18 112/62 98 06/15/20 07:47 06/15/20 07:47 06/15/20 07:47 06/15/20 07:47 06/15/20 07:47 Laboratory Results - last 24 hr 06/15/20 04:35: WBC 5.8 D, RBC 3.52 L, Hgb 11.6 L D, Hct 33.0 L, MCV 93.7, MCH 32.9 H, MCHC 35.1, RDW 14.6, Plt Count 52 L D, MPV 9.6, Neut % (Auto) 91.7 H, Lymph % (Auto) 4.3 L, [place] % (Auto) 4.0, Eos % (Auto) 0.0 L, Baso % (Auto) 0.1, Neut # (Auto) 5.3, Lymph # (Auto) 0.3 L, [place] # (Auto) 0.2, Eos # (Auto) 0.0, Baso # (Auto) 0.0, Total Counted 100, Neutrophils % (Manual) 92 H, Lymphocytes % (Manual) 4 L, Monocytes % (Manual) 4, Platelet Estimate Slight decrease, RBC Morphology Normal I & O for Last 24 hours: Intake & Output 06/12/20 06/13/20 06/14/20 06/15/20 11:59 11:59 11:59 11:59 Intake Total 1528 / 1528 1955 / 1955 Output Total 600 / 600 500 / 500 Balance 928 / 928 1455 / 1455 Weight 177 lb 15.984 oz 180 lb Microbiology Reports for the Last 24 Hours: Microbiology 06/14/20 14:45 Sputum - Expectorated Sputum Gram Stain - Final Assessme
[2020-06-15 09:05] LABS: Lymphocytes % 4 % (10-50); Monocytes % 4 % (2-9); Neutrophils % 92 % (42-76); Total Cells Counted 100
[2020-06-15 09:06] LABS: Platelet Estimate Slight Decrease; RBC Morphology Normal
--- NOTE | 2020-06-15 19:00 | PC.NURSE ---
A&OX4. PT HAS TOLERATED 3L NC WELL THROUGHOUT SHIFT. RESPIRATIONS REGULAR AND NONLABORED. LUNG SOUNDS BILATERALLY CLEAR. 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 +2 PULSES NOTED THROUGHOUT. NO EDEMA NOTED. NO PAIN REPORTED THROUGHOUT SHIFT. ACTIVE BOWEL SOUNDS HEARD IN ALL 4 QUADRANTS. SOFT AND NONTENDER ABDOMEN. NO BM REPORTED. PT VOIDS PER TOILET INDEPENDENTLY. PT RECEIVED SEVERAL ANTIBIOTICS TODAY AND TOLERATED ALL WELL. NS INFUSING AT 100ML/HR. PT HAS BEEN UP TO THE CHAIR MOST OF THE DAY. BED IN LOWEST POSITION. CALL LIGHT WITHIN REACH. VSS. WILL CONTINUE TO MONITOR.
--- NOTE | 2020-06-15 22:48 | PC.NURSE ---
[address] TRASH EMPTIED AND GLOVES REFILLED
[2020-06-16] VITALS (8 sets, daily range): BP systolic 101–131; BP diastolic 63–80; PULSE 69–84; RESP 18–22; TEMP 36.3–36.8; O2SAT 90–96; BMI 27.3
--- NOTE | 2020-06-16 03:53 | PC.NURSE ---
Pt has done well this shift. Coarse crackles remain at bilat lungs w/ clear lung sounds in all other lung [place]. Dry, nonproductive cough noted. Pt has used IS multiple times during awake hours, IS @ best= 1750. Pt continues to to tolerate 3LNC w/ o2 sats in the low 90's. Active bowel sounds in all 4 quads, no BM noted this shift. No other acute changes or complaints at this time.
[2020-06-16 05:45] LABS: Basophils % 0.2 % (0.1-2.0); Hematocrit 32.8 % (42.0-52.0); Hemoglobin 11.2 g/dL (14.1-18.0); Lymphocytes # 0.3 K/mm3 (0.7-4.5); Lymphocytes % 6.5 % (10-50); Mean Corpuscular HGB Conc 34.2 g/dL (31.8-35.4); Mean Corpuscular Hemoglobin 32.1 pg (27.0-31.2); Mean Corpuscular Volume 93.8 fl (80-94); Monocytes # 0.2 K/mm3 (0.1-1.0); Monocytes % 3.2 % (1.7-9.3); Neutrophils # 4.6 K/mm3 (1.8-7.8); Neutrophils % 90.1 % (37.0-80.0); Red Cell Distribution Width 14.3 % (11.5-17.5); White Blood Count 5.1 K/mm3 (4.8-10.8)
[2020-06-16 05:46] LABS: Platelet Count 50 K/mm3 (142-424)
[2020-06-16 05:48] LABS: MANUAL DIFFERENTIAL MANUAL DIFFERENTIAL (MANUAL DIFF)
[2020-06-16 05:50] LABS: Blood Urea Nitrogen 13 mg/dl (9-20); Carbon Dioxide 29 mmol/L (22.0-30.0); Chloride 107 mmol/L (98-107); Creatinine Clearance Estimated 151 mL/min (50-200); Estimated Glomerular Filt Rate 137 ml/min (>60); GFR (African American) 166 ML/MIN (>60); Glucose 94 mg/dl (74-100); Sodium 138 mmol/L (136-145)
[2020-06-16 06:14] LABS: Lymphocytes % 8 % (10-50); Neutrophils % 92 % (42-76); Total Cells Counted 100
[2020-06-16 06:15] LABS: Ovalocytes 1+; Platelet Estimate Slight Decrease
--- NOTE | 2020-06-16 06:50 | PC.NURSE ---
[address] TRASH EMPTIED AND WATER REFILLED
--- NOTE | 2020-06-16 06:57 | PC.NURSE ---
Addendum entered by Meena Morillo RN 06/16/20 07:07: MD Clemente returned call, no new orders Original Note: Paged MD Clemente regarding notification result of platelet count of 50. Awaiting for call back at this time
--- NOTE | 2020-06-16 08:17 | XR_ITS ---
PROCEDURE: XR CHEST PORTABLE CLINICAL HISTORY: f/u COVID pneumonia COMPARISON: CR XR CHEST PORTABLE from 06/08/[address] ANGIO CHEST from 06/13/2020 CR XR CHEST PORTABLE from 06/13/2020 FINDINGS: The cardiomediastinal silhouette and pulmonary vascularity are within normal limits. There is slight diffuse increased density in both upper lobes laterally and in both lower lobes consistent with Covid19 pneumonia which appears slightly worse. No acute bony abnormalities. IMPRESSION: Slight worsening bilateral Dictated by: Aung Jean-Baptiste MD 06/16/2020 15:52 Aung Jean-Baptiste MD in [facility] 06/16/2020 15:52
--- NOTE | 2020-06-16 08:17 | HMH.ACPN2 ---
<Angélica Gandara - Last Filed: 06/16/20 08:17> Internal Medicine - PN: Subj *Date: 06/16/20 *Time: 08:17 Interval history: Patient states he feels about the same today. He denies any pain but states he did cough throughout the night and did not rest well. He ate a good breakfast this morning. Exam Vital signs and Labs for Last 24 Hours: Temp Pulse Resp BP Pulse Ox 97.9 F 69 20 122/73 91 L 06/16/20 03:46 06/16/20 03:46 06/16/20 03:46 06/16/20 03:46 06/16/20 06:52 Laboratory Results - last 24 hr 06/15/20 04:35: Total Counted 100, Neutrophils % (Manual) 92 H, Lymphocytes % (Manual) 4 L, Monocytes % (Manual) 4, Platelet Estimate Slight decrease, RBC Morphology Normal 06/16/20 05:35: WBC 5.1, RBC 3.50 L, Hgb 11.2 L, Hct 32.8 L, MCV 93.8, MCH 32.1 H, MCHC 34.2, RDW 14.3, Plt Count 50 L, MPV 11.0 H, Neut % (Auto) 90.1 H, Lymph % (Auto) 6.5 L, [place] % (Auto) 3.2, Eos % (Auto) 0.0 L, Baso % (Auto) 0.2, Neut # (Auto) 4.6, Lymph # (Auto) 0.3 L, [place] # (Auto) 0.2, Eos # (Auto) 0.0, Baso # (Auto) 0.0, Total Counted 100, Neutrophils % (Manual) 92 H, Lymphocytes % (Manual) 8 L, Platelet Estimate Slight decrease, Ovalocytes 1+ 06/16/20 05:35: Sodium 138, Potassium 3.0 L, Chloride 107, Carbon Dioxide 29, Anion Gap 5.0, BUN 13, Creatinine 0.60 L, Estimated Creat Clear 151, Estimated GFR 137, Est GFR ( Amer) 166, Glucose 94, Calcium 8.0 L I & O for Last 24 hours: Intake & Output 06/13/20 06/14/20 06/15/20 06/16/20 11:59 11:59 11:59 11:59 Intake Total 1528 / 1528 1955 / 1955 1250 / 1250 Output Total 600 / 600 500 / 500 400 / 400 Balance 928 / 928 1455 / 1455 850 / 850 Weight 177 lb 15.984 oz 180 lb 180 lb - Constitutional no acute distress - *Routine Respiratory Exam Present: rales (bibasilar) - *Routine Cardiovascular Exam Present: RRR - *Routine Abdominal Exam Present: soft, normoactive bowel sounds. Absent: tenderness - *Routine Extremities Exam Absent: cyanosis, clubbing, edema - *Routine Skin Exam Present: warm. Absent: rash - *Routine Neurological Exam Present: alert, oriented X3 Assessment and Plan (1) Pneumonia due to COVID-19 virus Status: Acute Category: Medical Code(s): U07.1 - COVID-19; J12.82 - Pneumonia due to coronavirus disease 2019 (2) Acute hypoxemic respiratory failure due to COVID-19 Status: Acute Category: Medical Code(s): U07.1 - COVID-19; J96.01 - Acute respiratory failure with hypoxia (3) Hypokalemia Status: Acute Category: Medical Code(s): E87.6 - Hypokalemia (4) Lymphoma Status: Chronic Category: Medical Code(s): C85.90 - Non-Hodgkin lymphoma, unspecified, unspecified site (5) Thrombocytopenia Status: Acute Category: Medical Code(s): D69.6 - Thrombocytopenia, unspecified - Assessment and plan all Dx Assessment and Plan for all problems:: We will get a chest x-ray and try to wean patient's oxygen today. Will increase his potassium today as well. <Herman Atwood - Last Filed: 06/16/20 13:41> Internal Medicine - PN: Subj *Date: 06/16/20 *Time: 13:41 Exam Vital signs and Labs for Last 24 Hours: Temp Pulse Resp BP Pulse Ox 98.2 F 84 18 116/80 93 L 06/16/20 12:00 06/16/20 12:00 06/16/20 12:00 06/16/20 12:00 06/16/20 12:00 Laboratory Results - last 24 hr 06/16/20 05:35: WBC 5.1, RBC 3.50 L, Hgb 11.2 L, Hct 32.8 L, MCV 93.8, MCH 32.1 H, MCHC 34.2, RDW 14.3, Plt Count 50 L, MPV 11.0 H, Neut % (Auto) 90.1 H, Lymph % (Auto) 6.5 L, [place] % (Auto) 3.2, Eos % (Auto) 0.0 L, Baso % (Auto) 0.2, Neut # (Auto) 4.6, Lymph # (Auto) 0.3 L, [place] # (Auto) 0.2, Eos # (Auto) 0.0, Baso # (Auto) 0.0, Total Counted 100, Neutrophils % (Manual) 92 H, Lymphocytes % (Manual) 8 L, Platelet Estimate Slight decrease, Ovalocytes 1+ 06/16/20 05:35: Sodium 138, Potassium 3.0 L, Chloride 107, Carbon Dioxide 29, Anion Gap 5.0, BUN 13, Creatinine 0.60 L, Estimated Creat Clear 151, Estimated GFR 137, Est GFR ( Amer) 166, Gluco
--- NOTE | 2020-06-16 14:47 | HMH.ACPN ---
Internal Medicine - PN: Subj *Date: 06/16/20 *Time: 14:47 Exam Vital signs and Labs for Last 24 Hours: Temp Pulse Resp BP Pulse Ox 98.2 F 84 18 116/80 93 L 06/16/20 12:00 06/16/20 12:00 06/16/20 12:00 06/16/20 12:00 06/16/20 12:00 Laboratory Results - last 24 hr 06/16/20 05:35: WBC 5.1, RBC 3.50 L, Hgb 11.2 L, Hct 32.8 L, MCV 93.8, MCH 32.1 H, MCHC 34.2, RDW 14.3, Plt Count 50 L, MPV 11.0 H, Neut % (Auto) 90.1 H, Lymph % (Auto) 6.5 L, [place] % (Auto) 3.2, Eos % (Auto) 0.0 L, Baso % (Auto) 0.2, Neut # (Auto) 4.6, Lymph # (Auto) 0.3 L, [place] # (Auto) 0.2, Eos # (Auto) 0.0, Baso # (Auto) 0.0, Total Counted 100, Neutrophils % (Manual) 92 H, Lymphocytes % (Manual) 8 L, Platelet Estimate Slight decrease, Ovalocytes 1+ 06/16/20 05:35: Sodium 138, Potassium 3.0 L, Chloride 107, Carbon Dioxide 29, Anion Gap 5.0, BUN 13, Creatinine 0.60 L, Estimated Creat Clear 151, Estimated GFR 137, Est GFR ( Amer) 166, Glucose 94, Calcium 8.0 L I & O for Last 24 hours: Intake & Output 06/13/20 06/14/20 06/15/20 06/16/20 23:59 23:59 23:59 23:59 Intake Total 120 / 120 3003 / 3003 1610 / 1610 960 / 960 Output Total 600 / 600 500 / 500 1000 / 1000 Balance 120 / -180 2403 / 2403 1110 / 1110 -40 / -40 Weight 80.739 kg 80.739 kg 82 kg 81.647 kg Microbiology Reports for the Last 24 Hours: Microbiology 06/14/20 14:45 Sputum - Expectorated Sputum Gram Stain - Final 06/14/20 14:45 Sputum - Expectorated Sputum Sputum Culture - Preliminary Assessment and Plan (1) Pneumonia due to COVID-19 virus Status: Acute Category: Medical Code(s): U07.1 - COVID-19; J12.82 - Pneumonia due to coronavirus disease 2019 (2) Acute hypoxemic respiratory failure due to COVID-19 Status: Acute Category: Medical Code(s): U07.1 - COVID-19; J96.01 - Acute respiratory failure with hypoxia (3) Hypokalemia Status: Acute Category: Medical Code(s): E87.6 - Hypokalemia (4) Lymphoma Status: Chronic Category: Medical Code(s): C85.90 - Non-Hodgkin lymphoma, unspecified, unspecified site (5) Thrombocytopenia Status: Acute Category: Medical Code(s): D69.6 - Thrombocytopenia, unspecified The patient's infection will respond to the chosen ABx?: Yes Is the patient receiving the right drug, dose, and route?: Yes Could a more targeted ABx be ordered?: No
--- NOTE | 2020-06-16 19:30 | PC.NURSE ---
PATIENT IS A&O X4, LUNGS ARE DIMINISHED, PULSES EQUAL. +1 PITTING EDEMA IN BILATERAL LOWER ANKLES AND FEET. PATIENT AMBULATES IN ROOM AND TOLERATES WELL. PATIENT IS ON 2L NC AND TOLERATING WELL. NO CONCERNS AT THIS TIME.
--- NOTE | 2020-06-16 21:49 | PC.NURSE ---
[address] PT REQUESTED BED CHANGE . TRASH AND LINENS EMPTIED
[2020-06-17] VITALS: BP 125/76; PULSE 64; RESP 16; TEMP 36.5; O2SAT 94
[2020-06-17 04:00] VITALS: BP 132/75; PULSE 68; RESP 18; TEMP 36.4; O2SAT 92
[2020-06-17 05:00] VITALS: BMI 27.3
--- NOTE | 2020-06-17 06:52 | PC.NURSE ---
Pt slept well overnight. No complaints reported to staff. Lung sounds diminished t/o. Pt is independent with care. Voiding clear, yellow urine via urinal. Remains on 2LNC with sats in low 90's.
[2020-06-17 08:00] VITALS: BP 134/76; PULSE 85; RESP 18; RESP 19; TEMP 37.3; O2SAT 90; O2SAT 94
--- NOTE | 2020-06-17 08:26 | HMH.ACPN2 ---
<Angélica Gandara - Last Filed: 06/17/20 08:26> Internal Medicine - PN: Subj *Date: 06/17/20 *Time: 08:26 Interval history: Patient is feeling much better this morning. He denies any pain and states that shortness of breath has improved. His cough has also improved. He slept better last night and ate a good breakfast and is anxious to go home. Exam Vital signs and Labs for Last 24 Hours: Temp Pulse Resp BP Pulse Ox 99.2 F 85 18 134/76 90 L 06/17/20 08:00 06/17/20 08:00 06/17/20 08:00 06/17/20 08:00 06/17/20 08:00 I & O for Last 24 hours: Intake & Output 06/14/20 06/15/20 06/16/20 06/17/20 11:59 11:59 11:59 11:59 Intake Total 1528 / 1528 1955 / 1955 2210 / 2210 3352 / 3352 Output Total 600 / 600 500 / 500 1000 / 1000 400 / 400 Balance 928 / 928 1455 / 1455 1210 / 1210 2952 / 2952 Weight 177 lb 15.984 oz 180 lb 180 lb 180 lb 1.177 oz Microbiology Reports for the Last 24 Hours: Microbiology 06/14/20 14:45 Sputum - Expectorated Sputum Gram Stain - Final 06/14/20 14:45 Sputum - Expectorated Sputum Sputum Culture - Preliminary - Constitutional no acute distress - *Routine Respiratory Exam Present: rales (bibasilar rales) - *Routine Cardiovascular Exam Present: RRR - *Routine Abdominal Exam Present: soft, normoactive bowel sounds. Absent: tenderness - *Routine Extremities Exam Absent: cyanosis, clubbing, edema - *Routine Skin Exam Present: warm. Absent: rash - *Routine Neurological Exam Present: alert, oriented X3 Assessment and Plan (1) Pneumonia due to COVID-19 virus Status: Acute Category: Medical Code(s): U07.1 - COVID-19; J12.82 - Pneumonia due to coronavirus disease 2019 (2) Acute hypoxemic respiratory failure due to COVID-19 Status: Acute Category: Medical Code(s): U07.1 - COVID-19; J96.01 - Acute respiratory failure with hypoxia (3) Hypokalemia Status: Acute Category: Medical Code(s): E87.6 - Hypokalemia (4) Lymphoma Status: Chronic Category: Medical Code(s): C85.90 - Non-Hodgkin lymphoma, unspecified, unspecified site (5) Thrombocytopenia Status: Acute Category: Medical Code(s): D69.6 - Thrombocytopenia, unspecified - Assessment and plan all Dx Assessment and Plan for all problems:: Possible discharge home today with oxygen. Will discuss with Dr. Atwood. <Herman Atwood - Last Filed: 06/27/20 14:04> Internal Medicine - PN: Subj *Date: 06/27/20 *Time: 14:03 Exam Vital signs and Labs for Last 24 Hours: Temp Pulse Resp BP Pulse Ox 99.2 F 85 19 134/76 94 L 06/17/20 08:00 06/17/20 08:00 06/17/20 08:00 06/17/20 08:00 06/17/20 08:00 Assessment and Plan (1) Pneumonia due to COVID-19 virus Status: Acute Category: Medical Code(s): U07.1 - COVID-19; J12.82 - Pneumonia due to coronavirus disease 2019 (2) Acute hypoxemic respiratory failure due to COVID-19 Status: Acute Category: Medical Code(s): U07.1 - COVID-19; J96.01 - Acute respiratory failure with hypoxia (3) Hypokalemia Status: Acute Category: Medical Code(s): E87.6 - Hypokalemia (4) Lymphoma Status: Chronic Category: Medical Code(s): C85.90 - Non-Hodgkin lymphoma, unspecified, unspecified site (5) Thrombocytopenia Status: Acute Category: Medical Code(s): D69.6 - Thrombocytopenia, unspecified - Assessment and plan all Dx Assessment and Plan for all problems:: Patient seen and examined this AM. Not yet ready for discharge.
[2020-06-17 08:29] LABS: Anion Gap 4.3 mEq/L (5-15); Blood Urea Nitrogen 11 mg/dl (9-20); Calcium 7.9 mg/dl (8.4-10.2); Carbon Dioxide 31 mmol/L (22.0-30.0); Chloride 107 mmol/L (98-107); Creatinine Clearance Estimated 151 mL/min (50-200); Estimated Glomerular Filt Rate 137 ml/min (>60); GFR (African American) 166 ML/MIN (>60); Glucose 82 mg/dl (74-100); Potassium 3.3 mmoL/L (3.5-5.1); Sodium 139 mmol/L (136-145)
--- NOTE | 2020-06-17 08:56 | SW/DCPLANNER ---
Addendum entered by Zo Christianson 06/17/20 09:45: Sabine Walker stated that information has been reviewed and O2 will be delivered to this patient. Original Note: Patient information and order for home O2 and portable tank has been faxed to [facility]. This patient will discharge home today. I will follow up with Denise once patient information/order is reviewed.
--- NOTE | 2020-06-17 15:57 | HMH.DCSUM ---
General - General Admission date:: 06/13/20 <Herman Atwood - 07/12/20 12:40> 06/13/20 <Angélica Gandara - 06/17/20 16:49> Discharge date: 06/17/20 <Angélica Gandara - 06/17/20 16:49> HPI HPI: Mr. Billingsley is a 59-year-old male with a history of irritable bowel syndrome, restless leg syndrome, and lymphoma who presented to [facility] emergency room with progressive shortness of breath over the last 2 to 3 days. He states he has not felt well for about the last 2 weeks. He describes having fevers along with difficulty in breathing. He was Covid positive the end of April as was most of his family. They are all now well. He continued with the fevers and the chills and today has had trouble catching his breath. On arrival to the emergency room his O2 sats were diminished and 78%. O2 sats did improve to 91% on 4 L of oxygen per nasal cannula. He did receive a liter of IV fluids and 10 mg of dexamethasone. With work-up CTA of the chest showed no pulmonary embolus but with a crazy paving appearance of the lungs consistent with COVID-19 pneumonia super imposed on interstitial lung disease; also noted was an 8 mm nodule in the left lower lobe. Laboratory data showed a white blood cell count of 5600 with a hemoglobin of 14.3 and hematocrit of 42.8. Platelet count was low at 82. Blood gases showed a pH of 7.52 PCO2 of 29.7 PO2 of 99.8 and a bicarb of 23.6. This was on oxygen at 4 L. Blood chemistries showed a low potassium of 2.8 and a sodium of 132. He was given 40 mEq of past potassium p.o. BUN was 15 with a creatinine of 1 ;AST elevated at 64 with an ALT of 53. Alkaline phosphatase 131. Covid PCR was positive. Patient was thus admitted with COVID pneumonia with acute hypoxia. <Angélica Gandara - 06/21/20 12:03> Hospital Course Hospital Course: The patient was admitted and started on Covid protocol. He was also started on IV Zithromax and cefdinir and he was given 40 mEq of potassium for hypokalemia. Duo nebs were started as well. He continued with shortness of breath but denied any chest pain. He was able to eat. His potassium improved. He was able to wean his oxygen to 3 L with sats in the low 90s. A repeat chest x-ray was ordered and showed slight worsening of the bilateral pneumonia. By 06/17/2020 he was feeling much better. His shortness of breath improved as had his cough. He was able to eat and was anxious to go home. He was discharged home with oxygen and will follow-up with Dr. Atwood. <Angélica Gandara - 06/21/20 12:03> Objective Vital signs: Temp Pulse Resp BP Pulse Ox 99.2 F 85 19 134/76 94 L 06/17/20 08:00 06/17/20 08:00 06/17/20 08:00 06/17/20 08:00 06/17/20 08:00 <Herman Atwood - 07/12/20 12:40> Temp Pulse Resp BP Pulse Ox 99.2 F 85 19 134/76 94 L 06/17/20 08:00 06/17/20 08:00 06/17/20 08:00 06/17/20 08:00 06/17/20 08:00 <Angélica Gandara - 06/17/20 16:49> Narrative: - Constitutional no acute distress - *Routine Respiratory Exam Present: rales (bibasilar rales) - *Routine Cardiovascular Exam Present: RRR - *Routine Abdominal Exam Present: soft, normoactive bowel sounds. Absent: tenderness - *Routine Extremities Exam Absent: cyanosis, clubbing, edema - *Routine Skin Exam Present: warm. Absent: rash - *Routine Neurological Exam Present: alert, oriented X3 <Angélica Gandara - 06/21/20 12:03> Results Labs on day of discharge: Labs from last 24 hours 06/17/20 05:30 Sodium 139 Potassium 3.3 L Chloride 107 Carbon Dioxide 31 H Anion Gap 4.3 L BUN 11 Creatinine 0.60 L Estimated Creat Clear 151 Estimated GFR 137 Est GFR ( Amer) 166 Glucose 82 Calcium 7.9 L Preliminary micro results at discharge 06/14/20 14:45 Sputum Culture - Preliminary Sputum - Expectorated Sputum <Angélica Gandara - 06/17/20 16:49> DS: Diagnosis - Discharge Diagnosis (1) Pneumonia d
== END 2020-06-17 11:10 | disposition home or self-care (01) | DRG 177 ==
LOC: ER 16:03 → 2ND 16:32
PROVIDERS: Nurse Practitioner Family; Admitting Provider Family Medicine; Emergency Provider Emergency Medicine; PCP Family Medicine; Visit Provider Family Medicine
DX: U07.1 COVID-19 (principal); J96.01 Acute respiratory failure with hypoxia; J12.82 Pneumonia due to coronavirus disease 2019; C85.90 Non-Hodgkin lymphoma, unspecified, unspecified site; Z87.891 Personal history of nicotine dependence; Z88.0 Allergy status to penicillin
CPT/HCPCS: 71045; 71275; 80048; 80053; 82803; 85007; 85025; 87070; 87205; 87581; 87633; 87798; 93005; 94640; 94761; 96365; 96375; 99285; Q9967; U0003

== ENCOUNTER 2020-06-21 08:53 | Inpatient (IN) | payer BC, SELFPAY ==
[2020-06-21] VITALS (11 sets, daily range): BP systolic 87–118; BP diastolic 50–75; PULSE 71–111; RESP 19–38; TEMP 35.8–37.2; O2SAT 56–97; BMI 27.2; BMI 25.4
--- NOTE | 2020-06-21 09:03 | HMH.EDGENADL ---
ED Disposition Clinical Impression: Pneumonia due to COVID-19 virus, Elevated liver enzymes, Hyperglycemia Respiratory failure with hypoxia Qualifiers: Chronicity: acute Qualified Code(s): J96.01 - Acute respiratory failure with hypoxia Disposition: Admitted As Inpatient Condition on Discharge: Serious Referrals: Herman Atwood MD [Primary Care Provider] - - Critical Care Critical Care Time: No Attestation: On , the high probability of a clinically significant, sudden or life threatening deterioration of the following system(s) required my full and direct attention, intervention and personal management. The time I documented below is in addition to time spent performing reported procedures but includes the following listed in this critical care notation. Medical Decision Making - Medical Records Medical records reviewed: Yes: I reviewed the patient's medical records. MR Comment: Reviewed recent admission for Covid pneumonia. Noted to have some mild hyperglycemia on admission as well. Liver function tests were normal. Treated with remdesivir and steroids, Rocephin and Zithromax. Seen by Dr. Valenzuela for pulmonology. - Les Inquiry Pt receiving controlled substance: No Vital Signs: 06/21/20 09:00 06/21/20 09:24 06/21/20 09:41 Temperature 99.0 F Temperature Source Oral Pulse Rate [Right Radial] 111 H 103 H 106 H Respiratory Rate 38 H 38 H Blood Pressure [Right Arm] 118/70 107/60 L 107/60 L Blood Pressure Mean [Right Arm] 86 75 75 Blood Pressure Source [Right Arm] Automatic Cuff Automatic Cuff Automatic Cuff Blood Pressure Position [Right Arm] Sitting Sitting Sitting 02 Sat by Pulse Oximetry 92 L 94 L 91 L Oxygen Delivery Method Nasal Cannula Nasal Cannula Nasal Cannula Oxygen Flow Rate (LPM) 5 4 5 06/21/20 10:17 Temperature Temperature Source Pulse Rate [Right Radial] 104 H Respiratory Rate Blood Pressure [Right Arm] 116/50 L Blood Pressure Mean [Right Arm] 72 Blood Pressure Source [Right Arm] Automatic Cuff Blood Pressure Position [Right Arm] Sitting 02 Sat by Pulse Oximetry 95 Oxygen Delivery Method Nasal Cannula Oxygen Flow Rate (LPM) 5 - Lab Data Lab Results 06/21/20 09:13: WBC 10.0, RBC 4.33 L, Hgb 13.7 L, Hct 41.3 L, MCV 95.4 H, MCH 31.7 H, MCHC 33.2, RDW 15.2, Plt Count 51 L, MPV 9.3, Neut % (Auto) 94.5 H, Lymph % (Auto) 3.2 L, Mckenzie % (Auto) 1.9, Eos % (Auto) 0.1, Baso % (Auto) 0.1, Neut # (Auto) 9.5 H, Lymph # (Auto) 0.3 L, Mckenzie # (Auto) 0.2, Eos # (Auto) 0.0, Baso # (Auto) 0.0, Total Counted 100, Neutrophils % (Manual) 95 H, Lymphocytes % (Manual) 3 L, Monocytes % (Manual) 2, Platelet Estimate Slight decrease, RBC Morphology Normal 06/21/20 09:13: Sodium 131 L, Potassium 4.3, Chloride 96 L, Carbon Dioxide 27, Anion Gap 12.3, BUN 17, Creatinine 0.90, Estimated Creat Clear 100, Estimated GFR 86, Est GFR ( Amer) 104, Glucose 180 H, Calcium 8.7, Total Bilirubin 1.4 H, AST 141 H, ALT 141 H, Alkaline Phosphatase 143 H, Troponin I < 0.01, Total Protein 6.7, Albumin 3.4 L, Globulin 3.3 H, Albumin/Globulin Ratio 1.0 L Result diagrams: 06/21/20 09:13 06/21/20 09:13 Orders (Tests/Meds): ED MEDICATIONS Generic Name Dose Route Start Last Admin Trade Name Freq PRN Reason Stop Dose Admin Ceftriaxone Sodium 1 gm/ 50 mls @ 100 mls/hr 06/21/20 10:15 Sodium Chloride IV 07/05/20 10:14 Q24H [facility] Protocol Azithromycin 500 mg/ Sodium 250 mls @ 250 mls/hr 06/21/20 10:15 Chloride IV 07/05/20 10:14 Q24H [facility] Protocol ORDERS Category Date Time Status Troponin I Q3H Lab 06/21/20 12:30 Ordered Troponin I Q3H Lab 06/21/20 15:30 Ordered - Radiology Data #1 Image(s): Chest Image Reviewed: Yes I reviewed the patient's radiology image, Yes I have reviewed radiologist's interpretation PROCEDURE: XR CHEST PORTABLE CLINICAL HISTORY: SOA Covid19 pneumonia increasing shortness of air COMPARISON: CR XR CHEST PORTABLE from 06/08/19
--- NOTE | 2020-06-21 09:22 | XR_ITS ---
PROCEDURE: XR CHEST PORTABLE CLINICAL HISTORY: SOA Covid19 pneumonia increasing shortness of air COMPARISON: CR XR CHEST PORTABLE from 06/08/[address] ANGIO CHEST from 06/13/2020 CR XR CHEST PORTABLE from 06/13/2020 CR XR CHEST PORTABLE from 06/16/2020 FINDINGS: The cardiomediastinal silhouette and pulmonary vascularity are within normal limits. Worsening bilateral pneumonia in the mid and lower lung zones. No evidence of pneumothorax. No acute bony abnormalities. IMPRESSION: Worsening bilateral pneumonia Dictated by: Aung Jean-Baptiste MD 06/21/2020 09:59 Aung Jean-Baptiste MD in OV 06/21/2020 09:59
[2020-06-21 09:38] LABS: Basophils % 0.1 % (0.1-2.0); Chloride 96 mmol/L (98-107); Eosinophils % 0.1 % (0.1-12.0); Hematocrit 41.3 % (42.0-52.0); Hemoglobin 13.7 g/dL (14.1-18.0); Lymphocytes # 0.3 K/mm3 (0.7-4.5); Lymphocytes % 3.2 % (10-50); Mean Corpuscular HGB Conc 33.2 g/dL (31.8-35.4); Mean Corpuscular Hemoglobin 31.7 pg (27.0-31.2); Mean Corpuscular Volume 95.4 fl (80-94); Mean Platelet Volume 9.3 fl (7.4-10.4); Monocytes # 0.2 K/mm3 (0.1-1.0); Monocytes % 1.9 % (1.7-9.3); Neutrophils # 9.5 K/mm3 (1.8-7.8); Neutrophils % 94.5 % (37.0-80.0); Platelet Count 51 K/mm3 (142-424); Potassium 4.3 mmoL/L (3.5-5.1); Red Blood Count 4.33 M/mm3 (4.60-6.20); Red Cell Distribution Width 15.2 % (11.5-17.5); Sodium 131 mmol/L (136-145)
[2020-06-21 09:41] LABS: Alanine Aminotransferase 141 U/L (12-78); Albumin Level 3.4 g/dl (3.5-5.0); Alkaline Phosphatase 143 U/L (38-126); Anion Gap 12.3 mEq/L (5-15); Aspartate Amino Transferase 141 U/L (17-59); Bilirubin,Total 1.4 mg/dl (0.2-1.3); Blood Urea Nitrogen 17 mg/dl (9-20); Carbon Dioxide 27 mmol/L (22.0-30.0); Creatinine Clearance Estimated 100 mL/min (50-200); Estimated Glomerular Filt Rate 86 ml/min (>60); GFR (African American) 104 ML/MIN (>60); Globulin 3.3 g/dL (1.3-3.2); Total Protein,Serum 6.7 g/dl (6.3-8.2)
[2020-06-21 09:42] LABS: Calcium 8.7 mg/dl (8.4-10.2); Glucose 180 mg/dl (74-100)
[2020-06-21 09:46] LABS: MANUAL DIFFERENTIAL MANUAL DIFFERENTIAL (MANUAL DIFF)
[2020-06-21 09:53] LABS: Troponin I < 0.01 ng/ml (0.00-0.034)
--- NOTE | 2020-06-21 09:55 | PC.NURSE ---
MONROE GUPTA speaking with Dr. Atwood
[2020-06-21 09:56] LABS: Lymphocytes % 3 % (10-50); Monocytes % 2 % (2-9); Neutrophils % 95 % (42-76); RBC Morphology Normal; Total Cells Counted 100
[2020-06-21 09:58] LABS: Platelet Estimate Slight Decrease
--- NOTE | 2020-06-21 10:07 | PC.NURSE ---
notified care management of admission
--- NOTE | 2020-06-21 10:34 | ECG_ITS ---
APPROVED REPORT Exam: Resting ECG HR:98 bpm ECG Measurements Heart Rate 98 AXES AL 130 P 58 QRSd 80 QRS 56 QT 352 T 51 QTc 449 Conclusion Normal sinus rhythm Nonspecific T wave abnormality Abnormal ECG Electronically signed by : Nikolas Santana, 06/22/2020 05:57:29
--- NOTE | 2020-06-21 11:04 | PC.NURSE ---
notified ER MD of bp 87/57-ER MD gave verbal order for NS IV fluid bolus notified ER MD pt O2 sat drops with any exertions, having a conversation with pt and sat drops from 96% on 5L to 92-91% on 5L per nc, continues with rapid respirations will continue to monitor
--- NOTE | 2020-06-21 11:49 | HMH.HP ---
*Admission Date: 06/21/20 <Heavenly June - 06/21/20 12:14> *Chief complaint: Shortness of breath with decrease of O2 sats in the 60s. <Heavenly June - 06/21/20 12:14> *History of present illness: Mr. Billingsley is a 59-year-old male patient with a history of irritable bowel syndrome, restless leg syndrome, GERD, and lymphoma who was recently discharged from [facility] on 06/17/2020 after a 4-day stay with pneumonia due to Covid 19 with acute hypoxemia respiratory failure who presented again to [facility] emergency room with progressive shortness of breath over the last 48 hours. He states he has been using his oxygen as needed and yesterday found his O2 sats to be in the 60s. This did improve somewhat with nasal oxygen at 3 to 4 L/min. He denies any significant cough or pain. He has been eating as usual without vomiting or diarrhea. With evaluation in the emergency room temperature was 99. Heart rate was tachycardia at 111. Laboratory data revealed white blood cell count of 10,000 with a hemoglobin of 13.7 and hematocrit of 41.3. He had 94.5% neutrophils. Platelet count was noted to be low at 51,000. Electrolytes revealed a sodium of 131 potassium of 4.3. BUN was 17 and creatinine was 0.9. Total bilirubin was slightly elevated at 1.4 with an AST elevated at 141 and ALT elevated at 141. Alkaline phosphatase was also elevated at 143. Troponin I was normal at 0.01. Blood sugar was at 180. He was started on Rocephin and Zithromax. CXR showed worsening bilateral pneumonia. At the time of this exam patient is lying on a stretcher in the emergency room awaiting admission. He appears not to feel well. His breathing is easy and unlabored. He denies any chest pain. O2 sats are running anywhere from 93 to 97 on oxygen at 5 L/min per nasal cannula. Blood pressure is slightly low in the 90s systolic. Also he did receive a liter of IV fluids as a bolus. <Heavenly June - 06/21/20 12:30> [facility] History Medical History: Reports:: Cancer (lymphoma), Gastroesophageal Reflux Disease(GERD) Denies:: Diabetes Mellitus Type 1, Diabetes Mellitus Type 2, MRSA <Heavenly June 01/26/21 12:14> *Have you ever received a pneumonia vaccine?: No <Heavenly June 06/21/20 12:14> *Have you received a flu vaccine this season?: No <Heavenly June 06/21/20 12:14> Other Medical History: Reports: Chemotherapy, Other (Irritable bowel syndrome; restless leg syndrome; lymphoma diagnosed in 2017) <Veronica Junehy 06/21/20 12:14> Other Surgeries: Yes: Hernia Repair <Veronica Junehy 06/21/20 12:14> - *Social History Smoking Status: Former smoker <[facility] 12:14> Alcohol Intake: never <Heavenly June 06/21/20 12:14> *Occupational Status:: employed <Veronica Junehy 06/21/20 12:14> *Travel in the last 8 weeks: None <Veronica Junehy 06/21/20 12:14> Family Hx:: Cancer <Veronica Junehy 06/21/20 12:14> Review of Systems - Constitutional Reports lack of energy, Denies fever(s) <Veronica Junehy 06/21/20 12:14> - Eyes Denies change in vision <SladeHeavenly 06/21/20 12:14> Comments: does wear glasses <SladeHeavenly 06/21/20 12:14> - ENT Denies ear pain, Denies sore throat <JuneHeavenly 06/21/20 12:14> - *Cardiovascular Reports shortness of breath, Denies chest pain <SladeHeavenly 06/21/20 12:14> - *Respiratory Reports cough, Reports shortness of breath <SladeHeavenly 06/21/20 12:14> - *Gastrointestinal Denies abdominal pain, Denies change in stools, Denies nausea, Denies vomiting <Veronica Junehy 06/21/20 12:14> - *Genitourinary Denies difficulty urinating <Veronica Junehy 06/21/20 12:14> - *Musculoskeletal Denies abnormal walking <JnueHeavenly 06/21/20 12:14> - *Neurologic Denies headache(s) <Heavenly June - 06/21/20 12:14> Meds Home Medications Medication Instructions Recorded Confirmed Type No Known Home Medications 06/14/20 06/21/20 History <Rai
--- NOTE | 2020-06-21 12:15 | PC.NURSE ---
contacted second floor to check on status room being ready for pt, steward/stewardess bath states they are waiting on pts assigned room to be cleaned.
--- NOTE | 2020-06-21 12:26 | P.CONPHA_ITS ---
[facility] Pharmacy VTE Monitoring - Patient Demographics Admission date: 06/21/20 Report Date: 06/21/20 Time: 12:27 Allergies/Adverse Reactions: Patient Allergies Penicillins [PENICILLINS] Allergy (Intermediate, Verified 06/05/20 13:10) RASH/SWEATING Height: 1.73 m Weight: 81.193 kg Patient Problems: Current Active Problems Acute exacerbation of chronic obstructive airways disease (Acute) Pneumonia due to COVID-19 virus (Acute) Respiratory failure with hypoxia (Acute) Elevated liver enzymes (Acute) Hyperglycemia (Acute) Hypotension (Acute) - VTE Risk Labs: VTE Related Lab Results Hgb 13.7 g/dL (14.1-18.0) L 06/21/20 09:13 Hct 41.3 % (42.0-52.0) L 06/21/20 09:13 Plt Count 51 K/mm3 (142-424) L 06/21/20 09:13 BUN 17 mg/dl (9-20) 06/21/20 09:13 Creatinine 0.90 mg/dl (0.66-1.25) 06/21/20 09:13 Estimated Creat Clear 100 mL/min (50-200) 06/21/20 09:13 Clinical Trial Participant: No - Prophylaxis VTE Prophylaxis Ordered?: Yes Types of VTE Prophylaxis: TEDS Knee High
[2020-06-21 13:22] LABS: Troponin I < 0.01 ng/ml (0.00-0.034)
--- NOTE | 2020-06-21 14:02 | PC.NURSE ---
Spoke w/ Félix Gamboa RN, made aware that we will be moving pt to 216 because of availability of monitoring. Stat clean ordered for room and housekeeping notified.
--- NOTE | 2020-06-21 14:41 | PC.NURSE ---
report given to NELA Hollis
--- NOTE | 2020-06-21 14:48 | PC.NURSE ---
came from ed by marisela
--- NOTE | 2020-06-21 15:05 | PC.NURSE ---
RESPIRATORY CARE NOTE: 1505- PT WAS GIVEN A SPUTUM CUP AT THIS BY THE RN- PT UNABLE TO PRODUCE SPECIMEN BUT WILL TRY AT A LATER TIME.
--- NOTE | 2020-06-21 17:28 | PC.NURSE ---
Since arriving to floor pt's O2 demands increased, O2 @ 6 L per nasal cannula to maintain sat > 90%. Auscultation of lungs reveal crackles in bilat bases. Abdomen soft, non-tender w/ active BS. Pt reports poor appetite. Has had diarrhea, last BM this morning. Voiding w/o difficulty. No edema noted. Skin intact. Pt has ambulated w/ standby assist to bathroom w/ no safety concerns. Uses call costa appropriately. A&Ox4. Denies pain. Currently sitting up in bed eating dinner tray. Pt BP low, but MAP > 65. Remains afebrile. No needs voiced. VSS
[2020-06-22] VITALS (8 sets, daily range): BP systolic 94–110; BP diastolic 54–75; PULSE 64–89; RESP 16–20; TEMP 36.3–36.8; O2SAT 90–100
--- NOTE | 2020-06-22 04:45 | PC.NURSE ---
AxOx4, remains on 6L NC with O2 sats 90-100%, reports SOA with exertion, fine crackles to bilateral bases, respiratory rate 19-20, HR 80-90, no complaints of chest pain, systolic BP has been greater than 100 this shift, ambulating with SB assist to BR
--- NOTE | 2020-06-22 05:34 | PC.NURSE ---
pt O2 turned down to 5L at this time
--- NOTE | 2020-06-22 09:05 | HMH.ACPN2 ---
<Heavenly June - Last Filed: 06/22/20 09:07> Internal Medicine - PN: Subj *Date: 06/22/20 *Time: 09:07 Interval history: Patient had a diaphoretic spell during the night requiring a linen change. He had another one this morning and really wants to take a shower. He continues to be dyspneic with any exertion. He has been out of bed and ambulated in the room. He has minimal nonproductive cough. He remains on oxygen at 5 to 6 L/min with O2 sats running around 90. He is able to eat. Exam Vital signs and Labs for Last 24 Hours: Temp Pulse Resp BP Pulse Ox 98.2 F 89 18 101/65 L 90 L 06/22/20 08:00 06/22/20 08:00 06/22/20 08:00 06/22/20 08:00 06/22/20 08:00 Laboratory Results - last 24 hr 06/21/20 09:13: WBC 10.0, RBC 4.33 L, Hgb 13.7 L, Hct 41.3 L, MCV 95.4 H, MCH 31.7 H, MCHC 33.2, RDW 15.2, Plt Count 51 L, MPV 9.3, Neut % (Auto) 94.5 H, Lymph % (Auto) 3.2 L, Carolina % (Auto) 1.9, Eos % (Auto) 0.1, Baso % (Auto) 0.1, Neut # (Auto) 9.5 H, Lymph # (Auto) 0.3 L, Carolina # (Auto) 0.2, Eos # (Auto) 0.0, Baso # (Auto) 0.0, Total Counted 100, Neutrophils % (Manual) 95 H, Lymphocytes % (Manual) 3 L, Monocytes % (Manual) 2, Platelet Estimate Slight decrease, RBC Morphology Normal 06/21/20 09:13: Sodium 131 L, Potassium 4.3, Chloride 96 L, Carbon Dioxide 27, Anion Gap 12.3, BUN 17, Creatinine 0.90, Estimated Creat Clear 100, Estimated GFR 86, Est GFR ( Amer) 104, Glucose 180 H, Calcium 8.7, Total Bilirubin 1.4 H, AST 141 H, ALT 141 H, Alkaline Phosphatase 143 H, Troponin I < 0.01, Total Protein 6.7, Albumin 3.4 L, Globulin 3.3 H, Albumin/Globulin Ratio 1.0 L 06/21/20 12:46: Troponin I < 0.01 I & O for Last 24 hours: Intake & Output 06/19/20 06/20/20 06/21/20 06/22/20 11:59 11:59 11:59 11:59 Intake Total 1909 Balance 1909 Weight 179 lb 167 lb 5 oz - Constitutional no acute distress Comments: Alert and oriented. Able to speak in full sentences although it is obviously dyspneic. - *Routine Respiratory Exam Present: diminished air movement (Although improved). Absent: wheezes - *Routine Cardiovascular Exam Present: RRR - *Routine Abdominal Exam Present: soft, normoactive bowel sounds. Absent: tenderness, distended - *Routine Extremities Exam Absent: edema, calf tenderness - *Routine Neurological Exam Present: alert, oriented X3 Assessment and Plan (1) Pneumonia due to COVID-19 virus Status: Acute Category: Medical Code(s): U07.1 - COVID-19; J12.82 - Pneumonia due to coronavirus disease 2019 (2) Elevated liver enzymes Status: Acute Category: Medical Code(s): R74.8 - Abnormal levels of other serum enzymes (3) Hyperglycemia Status: Acute Category: Medical Code(s): R73.9 - Hyperglycemia, unspecified (4) Respiratory failure with hypoxia Status: Acute Qualifiers: Chronicity: acute Qualified Code(s): J96.01 - Acute respiratory failure with hypoxia Category: Medical Code(s): J96.91 - Respiratory failure, unspecified with hypoxia (5) Hypotension Status: Acute Category: Medical Code(s): I95.9 - Hypotension, unspecified - Assessment and plan all Dx Assessment and Plan for all problems:: Continue with current Covid care. We will continue also IV fluids at 100/hr due to marginally low blood pressure. Pulmonology has been consulted. <Herman Atwood - Last Filed: 06/22/20 12:52> Internal Medicine - PN: Subj *Date: 06/22/20 *Time: 12:51 Exam Vital signs and Labs for Last 24 Hours: Temp Pulse Resp BP Pulse Ox 98.2 F 89 18 101/65 L 90 L 06/22/20 08:00 06/22/20 08:00 06/22/20 08:00 06/22/20 08:00 06/22/20 08:00 Laboratory Results - last 24 hr 06/21/20 12:46: Troponin I < 0.01 06/22/20 09:20: Hemoglobin A1c 5.6 06/22/20 09:20: WBC 2.9 L D, RBC 3.47 L, Hgb 10.6 L, Hct 33.2 L, MCV 95.5 H, MCH 30.5, MCHC 31.9, RDW 14.8, Plt Count 41 L*, MPV 10.6 H, Neut % (Auto) 85.7 H, Lymph % (Auto) 10.2, Carolina % (Auto)
[2020-06-22 09:43] LABS: Basophils % 0.1 % (0.1-2.0); Hematocrit 33.2 % (42.0-52.0); Hemoglobin 10.6 g/dL (14.1-18.0); Lymphocytes # 0.3 K/mm3 (0.7-4.5); Lymphocytes % 10.2 % (10-50); Mean Corpuscular HGB Conc 31.9 g/dL (31.8-35.4); Mean Corpuscular Hemoglobin 30.5 pg (27.0-31.2); Mean Corpuscular Volume 95.5 fl (80-94); Mean Platelet Volume 10.6 fl (7.4-10.4); Monocytes # 0.1 K/mm3 (0.1-1.0); Neutrophils # 2.5 K/mm3 (1.8-7.8); Neutrophils % 85.7 % (37.0-80.0); Red Blood Count 3.47 M/mm3 (4.60-6.20); Red Cell Distribution Width 14.8 % (11.5-17.5); White Blood Count 2.9 K/mm3 (4.8-10.8)
[2020-06-22 09:51] LABS: Chloride 108 mmol/L (98-107)
[2020-06-22 09:52] LABS: Hemoglobin A1C 5.6 % (4.0-6.0); Potassium 3.5 mmoL/L (3.5-5.1); Sodium 137 mmol/L (136-145)
[2020-06-22 09:54] LABS: Alanine Aminotransferase 96 U/L (12-78); Aspartate Amino Transferase 66 U/L (17-59); Blood Urea Nitrogen 14 mg/dl (9-20); Creatinine Clearance Estimated 169 mL/min (50-200); Estimated Glomerular Filt Rate 170 ml/min (>60); GFR (African American) 205 ML/MIN (>60)
[2020-06-22 09:55] LABS: Albumin Level 2.7 g/dl (3.5-5.0); Alkaline Phosphatase 104 U/L (38-126); Anion Gap 6.5 mEq/L (5-15); Bilirubin,Total 0.7 mg/dl (0.2-1.3); Calcium 7.9 mg/dl (8.4-10.2); Carbon Dioxide 26 mmol/L (22.0-30.0); Globulin 2.7 g/dL (1.3-3.2); Glucose 164 mg/dl (74-100); Total Protein,Serum 5.4 g/dl (6.3-8.2)
--- NOTE | 2020-06-22 09:55 | HMH.PULMCON ---
*Admission Date: 06/21/20 *Reason for consult:: Acute hypoxic respiratory failure, COVID-19 pneumonia *History of present illness: Mr. Billingsley is 59-year-old male with recent diagnosis of COVID-19 pneumonia admitted to the hospital for 4 days, which he received remdesivir and dexamethasone along with azithromycin and cefdinir and eventually discharged home 4 days later as an oxygen saturations improved on 3 L nasal cannula presented to hospital again with worsening respiratory failure [facility] History Medical History: Reports:: Cancer (lymphoma), Gastroesophageal Reflux Disease(GERD) Denies:: Diabetes Mellitus Type 1, Diabetes Mellitus Type 2, MRSA *Have you ever received a pneumonia vaccine?: Yes *Have you received a flu vaccine this season?: Yes Other Medical History: Reports: Chemotherapy, Other (Irritable bowel syndrome; restless leg syndrome; lymphoma diagnosed in 2017) Other Surgeries: Yes: Hernia Repair - *Social History Smoking Status: Former smoker Alcohol Intake: never *Occupational Status:: employed *Travel in the last 8 weeks: None Family Hx:: No significant family history ROS - Cons Reports body ache(s), Reports chills - Card Reports shortness of breath, Reports shortness of breath with activity, Denies leg swelling - Resp Respiratory: Reports shortness of breath, Reports chest congestion, Reports cough, Reports dyspnea, Reports dyspnea on exertion, Reports excessive phlegm production Meds Home Medications Medication Instructions Recorded Confirmed Type No Known Home Medications 06/14/20 06/21/20 History Allergies Allergy/AdvReac Type Severity Reaction Status Date / Time Penicillins [PENICILLINS] Allergy Intermediate RASH/SWEATI Verified 06/05/20 13:10 NG Exam - Constitutional Constitutional:: Absent: no acute distress - HENMT Exam HENMT: Present: normocephalic - Neck Exam Neck:: Present: normal visual inspection - Respiratory Exam Respiratory:: Present: able to speak in complete sentences Comments: Patient appear to be in mild respiratory distress, on 6 L nasal cannula saturating 85%. Bilateral predominantly lower lobe coarse breath sounds. - Cardiovascular Exam Cardiac:: Present: S1, S2 - GI Exam GI:: Present: soft - Skin Exam Skin: Present: warm, no rash - Neurological Exam Neurological: Present: alert, awake, normal cognition - Extremities Exam Extremities: Present: no cyanosis, no clubbing, no edema Internal Medicine - CN: Reslt - Labs CBC & Chem 7: 06/22/20 09:20 06/22/20 09:20 Labs: BMP 06/22/20 09:20 Sodium 137 Potassium 3.5 Chloride 108 H Cardiac Enzymes 06/21/20 Range/Units 12:46 Troponin I < 0.01 (0.00-0.034) ng/ml Assessment and Plan (1) Pneumonia due to COVID-19 virus Status: Acute Category: Medical Code(s): U07.1 - COVID-19; J12.82 - Pneumonia due to coronavirus disease 2019 (2) Elevated liver enzymes Status: Acute Category: Medical Code(s): R74.8 - Abnormal levels of other serum enzymes (3) Hyperglycemia Status: Acute Category: Medical Code(s): R73.9 - Hyperglycemia, unspecified (4) Respiratory failure with hypoxia Status: Acute Qualifiers: Chronicity: acute Qualified Code(s): J96.01 - Acute respiratory failure with hypoxia Category: Medical Code(s): J96.91 - Respiratory failure, unspecified with hypoxia (5) Hypotension Status: Acute Category: Medical Code(s): I95.9 - Hypotension, unspecified - Assessment and plan all Dx Assessment and Plan for all problems:: #COVID-19 pneumonia: #Hypoxic respiratory failure: 59-year-old male never smoker no prior respiratory complaints before COVID-19 pneumonia, recently admitted for COVID-19 pneumonia, discharged on 3 L nasal cannula presented to the hospital with worsening respiratory failure is with intermittent productive cough. 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
[2020-06-22 12:22] LABS: MANUAL DIFFERENTIAL MANUAL DIFFERENTIAL (MANUAL DIFF); Platelet Count 41 K/mm3 (142-424)
[2020-06-22 12:24] LABS: Lymphocytes % 7 % (10-50); Monocytes % 7 % (2-9); Neutrophils % 86 % (42-76); Platelet Estimate Marked Decrease; RBC Morphology Normal; Total Cells Counted 100
--- NOTE | 2020-06-22 12:49 | CA_ITS ---
APPROVED REPORT EXAM: Comprehensive 2D, Doppler, and color-flow Echocardiogram Plater Hot Dip: Jenny Castaneda CRT Ht: 5 ft 8 in Wt: 167lbs BSA: 1.89 BP: 94/52 mmHg Indications: Covid, COPD, lymphoma, GERD, Chemo 2D Dimensions LVOT 1.93 cm (M/F) 1.5-2.5 M-Mode Dimensions RVDd 4.50 cm (0.9-2.6) LA Diam 4.58 cm (1.9-4.0) LVDd 6.18 cm (3.5-5.7) Ao Diam 4.26 cm (2.0-3.7) LVDs 5.02 cm (3.5-5.7) IVSd 1.04 cm (0.6-1.1) PWd 0.60 cm (0.6-1.1) EF (Teich) 38.10% FS 18.80% EDV (Teich) 192.60 mL ESV (Teich) 119.30 mL LV Diastology E Decel Time 277.00 (160-240 msec) E/A Ratio 0.79 MED E' 8.90 (< 7 cm/sec) MED A' 15.20 cm/s E'/MED E' Ratio 7.03 (>14) LAT E' 11.80 (<10 cm/sec) LAT A' 15.60 cm/s E/LAT E' Ratio 5.31 (>14) Aortic Valve AO Peak GR. 6.50 mmHg Mitral Valve MV A Velocity 80.00 (40-130 cm/s) E/A Ratio 0.79 MV Decel. Time 277.00 (160-240 ms) Pulmonary Valve PV Peak Velocity 65.00 (50-150 cm/s) Tricuspid Valve TR P. Velocity 362.00 cm/s RAP Estimate 10.00 mmHg RVSP 62.60 mmHg Left Ventricle Left atrium is mildly enlarged, left ventricle is normal size, left ventricle wall thickness is upper limit of normal, visually estimated ejection fraction 50% with no regional wall motion abnormality, grade 1 diastolic dysfunction seen with tissue Doppler evidence of raise left atrial pressure. Right Ventricle Right atrium and right ventricle qualitatively normal size and contractility. Aortic Valve Aortic valve is minimally thickened and fibrosed, there is no aortic stenosis or aortic insufficiency. Mitral Valve Mitral valve is grossly normal, there is trace mitral regurgitation. Tricuspid Valve Tricuspid valve is grossly normal, there is mild tricuspid regurgitation, tricuspid regurgitation jet velocity is inadequate for calculation of the right ventricular systolic pressure. Pulmonic Valve Pulmonic valve is poorly visualized. Great Vessels Aortic root is normal size. Pericardium No significant pericardial effusion noted. Conclusion 1. Mildly enlarged left atrium, normal left ventricular size, visually estimated ejection fraction 50% with no regional wall motion abnormality, grade 1 diastolic dysfunction seen without tissue Doppler evidence of raise left atrial pressure. 2. Trace mitral and mild tricuspid regurgitation. 3. No significant pericardial effusion noted. Electronically signed by : Feliciano Roberts, 06/22/2020 18:13:28
--- NOTE | 2020-06-22 14:11 | PC.NURSE ---
Did call and speak with Martha in Dr. Kohli office to make him aware of pts 41 plt count.
[2020-06-22 15:20] LABS: C-Reactive Protein 95.5 mg/L (0-4)
[2020-06-22 15:23] LABS: D-Dimer 7.16 ug/mL (0.0-0.5)
[2020-06-22 15:26] LABS: NT Pro Brain Natriuretic Pep. 668 pg/mL (0-125)
--- NOTE | 2020-06-22 15:50 | HMH.PHACONS ---
- Pharmacy Consult Date: 06/22/20 Time: 15:50 Referring provider: DR. PACHECO Reason for Consult:: VANCOMYCIN DOSING Allergies and ADEs:: Allergies Allergy/AdvReac Type Severity Reaction Status Date / Time Penicillins [PENICILLINS] Allergy Intermediate RASH/SWEATI Verified 06/05/20 13:10 NG Home Medications:: Home Medications Medication Instructions Recorded Confirmed Type No Known Home Medications 06/14/20 06/21/20 History Height: 1.73 m Weight: 75.892 kg Laboratory Results:: Laboratory Results - last 24 hr 06/22/20 09:20: Hemoglobin A1c 5.6 06/22/20 09:20: WBC 2.9 L D, RBC 3.47 L, Hgb 10.6 L, Hct 33.2 L, MCV 95.5 H, MCH 30.5, MCHC 31.9, RDW 14.8, Plt Count 41 L*, MPV 10.6 H, Neut % (Auto) 85.7 H, Lymph % (Auto) 10.2, [place] % (Auto) 4.0, Eos % (Auto) 0.0 L, Baso % (Auto) 0.1, Neut # (Auto) 2.5, Lymph # (Auto) 0.3 L, [place] # (Auto) 0.1, Eos # (Auto) 0.0, Baso # (Auto) 0.0, Total Counted 100, Neutrophils % (Manual) 86 H, Lymphocytes % (Manual) 7 L, Monocytes % (Manual) 7, Platelet Estimate Marked decrease, RBC Morphology Normal 06/22/20 09:20: Sodium 137, Potassium 3.5, Chloride 108 H, Carbon Dioxide 26, Anion Gap 6.5, BUN 14, Creatinine 0.50 L D, Estimated Creat Clear 169, Estimated GFR 170, Est GFR ( Amer) 205 D, Glucose 164 H, Calcium 7.9 L, Total Bilirubin 0.7, AST 66 H D, ALT 96 H D, Alkaline Phosphatase 104, Total Protein 5.4 L, Albumin 2.7 L D, Globulin 2.7, Albumin/Globulin Ratio 1.0 L 06/22/20 14:30: D-Dimer 7.16 H 06/22/20 14:30: NT-Pro-B Natriuret Pep 668 H 06/22/20 14:30: C-Reactive Protein 95.5 H Medical History: Reports:: Cancer (lymphoma), Gastroesophageal Reflux Disease(GERD) Denies:: Diabetes Mellitus Type 1, Diabetes Mellitus Type 2, MRSA Assessment and Plan (1) Pneumonia due to COVID-19 virus Status: Acute Category: Medical Code(s): U07.1 - COVID-19; J12.82 - Pneumonia due to coronavirus disease 2019 (2) Elevated liver enzymes Status: Acute Category: Medical Code(s): R74.8 - Abnormal levels of other serum enzymes (3) Hyperglycemia Status: Acute Category: Medical Code(s): R73.9 - Hyperglycemia, unspecified (4) Respiratory failure with hypoxia Status: Acute Qualifiers: Chronicity: acute Qualified Code(s): J96.01 - Acute respiratory failure with hypoxia Category: Medical Code(s): J96.91 - Respiratory failure, unspecified with hypoxia (5) Hypotension Status: Acute Category: Medical Code(s): I95.9 - Hypotension, unspecified - Assessment and plan all Dx Assessment and Plan for all problems:: BASED ON PATIENT FACTORS, RECOMMEND VANCOMYCIN 1500 MG IV ONCE, THEN VANCOMYCIN 1250 MG IV Q8H. PHARMACY WILL FOLLOW DAILY AND ADJUST APPROPRIATE.
--- NOTE | 2020-06-22 19:02 | PC.NURSE ---
RT collected SPT and sent to lab from 2nd floor at 1800
--- NOTE | 2020-06-22 19:54 | PC.NURSE ---
Pt alert and oriented and able to make needs known. Pt will desat with exertion. Has been on 5-6 L NC. Meds per jul. CB in reach. Has been up to chair most of this shift. VSS
[2020-06-23] VITALS (8 sets, daily range): BP systolic 98–151; BP diastolic 61–71; PULSE 53–75; RESP 18–22; TEMP 36.3–36.5; O2SAT 88–100; BMI 26.2
--- NOTE | 2020-06-23 04:32 | PC.NURSE ---
shift summary pts lung sounds are clear but diminished sats remained 90% or above will resting in bed with a . when the pt would stand to use his bedside urinal his sats would drop to 78-82%, pts sats would recover within 5 minutes. pts respiratory rate maintained 18-24. pts urine is clear and dark yellow in color. pt is alertand oriented X4.
[2020-06-23 05:48] LABS: Alanine Aminotransferase 73 U/L (12-78); Albumin Level 2.3 g/dl (3.5-5.0); Alkaline Phosphatase 74 U/L (38-126); Anion Gap 6.5 mEq/L (5-15); Aspartate Amino Transferase 51 U/L (17-59); Bilirubin,Total 0.6 mg/dl (0.2-1.3); Blood Urea Nitrogen 11 mg/dl (9-20); Calcium 7.7 mg/dl (8.4-10.2); Carbon Dioxide 26 mmol/L (22.0-30.0); Chloride 107 mmol/L (98-107); Creatinine Clearance Estimated 211 mL/min (50-200); Estimated Glomerular Filt Rate 219 ml/min (>60); GFR (African American) 266 ML/MIN (>60); Globulin 2.4 g/dL (1.3-3.2); Glucose 130 mg/dl (74-100); Potassium 4.5 mmoL/L (3.5-5.1); Sodium 135 mmol/L (136-145); Total Protein,Serum 4.7 g/dl (6.3-8.2)
--- NOTE | 2020-06-23 08:44 | HMH.ACPN2 ---
<Angélica Gandara - Last Filed: 06/23/20 08:44> Internal Medicine - PN: Subj *Date: 06/23/20 *Time: 08:44 Interval history: Patient states he feels a little bit better today. His sats drop in the 70s on occasion. He denies any chest pain but does still feel short of breath and has a slight cough. He states he slept off and on throughout the night and he was able to eat some breakfast this morning. Exam Vital signs and Labs for Last 24 Hours: Temp Pulse Resp BP Pulse Ox 97.5 F L 75 20 104/65 L 91 L 06/23/20 08:00 06/23/20 08:00 06/23/20 08:00 06/23/20 08:00 06/23/20 08:00 Laboratory Results - last 24 hr 06/22/20 09:20: Hemoglobin A1c 5.6 06/22/20 09:20: WBC 2.9 L D, RBC 3.47 L, Hgb 10.6 L, Hct 33.2 L, MCV 95.5 H, MCH 30.5, MCHC 31.9, RDW 14.8, Plt Count 41 L*, MPV 10.6 H, Neut % (Auto) 85.7 H, Lymph % (Auto) 10.2, [place] % (Auto) 4.0, Eos % (Auto) 0.0 L, Baso % (Auto) 0.1, Neut # (Auto) 2.5, Lymph # (Auto) 0.3 L, [place] # (Auto) 0.1, Eos # (Auto) 0.0, Baso # (Auto) 0.0, Total Counted 100, Neutrophils % (Manual) 86 H, Lymphocytes % (Manual) 7 L, Monocytes % (Manual) 7, Platelet Estimate Marked decrease, RBC Morphology Normal 06/22/20 09:20: Sodium 137, Potassium 3.5, Chloride 108 H, Carbon Dioxide 26, Anion Gap 6.5, BUN 14, Creatinine 0.50 L D, Estimated Creat Clear 169, Estimated GFR 170, Est GFR ( Amer) 205 D, Glucose 164 H, Calcium 7.9 L, Total Bilirubin 0.7, AST 66 H D, ALT 96 H D, Alkaline Phosphatase 104, Total Protein 5.4 L, Albumin 2.7 L D, Globulin 2.7, Albumin/Globulin Ratio 1.0 L 06/22/20 14:30: D-Dimer 7.16 H 06/22/20 14:30: NT-Pro-B Natriuret Pep 668 H 06/22/20 14:30: C-Reactive Protein 95.5 H 06/23/20 05:25: Sodium 135 L, Potassium 4.5 D, Chloride 107, Carbon Dioxide 26, Anion Gap 6.5, BUN 11, Creatinine 0.40 L, Estimated Creat Clear 211, Estimated GFR 219, Est GFR ( Amer) 266 D, Glucose 130 H D, Calcium 7.7 L, Total Bilirubin 0.6, AST 51, ALT 73, Alkaline Phosphatase 74, Total Protein 4.7 L, Albumin 2.3 L D, Globulin 2.4, Albumin/Globulin Ratio 1.0 L I & O for Last 24 hours: Intake & Output 06/20/20 06/21/20 06/22/20 06/23/20 11:59 11:59 11:59 11:59 Intake Total 1909 / 1909 2870 / 2870 Output Total 300 / 300 Balance 1909 / 1909 2570 / 2570 Weight 179 lb 167 lb 5 oz 173 lb 1 oz Microbiology Reports for the Last 24 Hours: Microbiology 06/22/20 17:43 Sputum - Expectorated Sputum Gram Stain - Final Radiology Reports for the Last 24 Hours: Echo Conclusion 1. Mildly enlarged left atrium, normal left ventricular size, visually estimated ejection fraction 50% with no regional wall motion abnormality, grade 1 diastolic dysfunction seen without tissue Doppler evidence of raise left atrial pressure. 2. Trace mitral and mild tricuspid regurgitation. 3. No significant pericardial effusion noted. - Constitutional no acute distress - *Routine Respiratory Exam Present: rales (bibasilar) - *Routine Cardiovascular Exam Present: RRR - *Routine Abdominal Exam Present: soft, normoactive bowel sounds. Absent: tenderness - *Routine Extremities Exam Absent: cyanosis, clubbing, edema - *Routine Skin Exam Present: warm. Absent: rash - *Routine Neurological Exam Present: alert, oriented X3 Assessment and Plan (1) Pneumonia due to COVID-19 virus Status: Acute Category: Medical Code(s): U07.1 - COVID-19; J12.82 - Pneumonia due to coronavirus disease 2019 (2) Elevated liver enzymes Status: Acute Category: Medical Code(s): R74.8 - Abnormal levels of other serum enzymes (3) Hyperglycemia Status: Acute Category: Medical Code(s): R73.9 - Hyperglycemia, unspecified (4) Respiratory failure with hypoxia Status: Acute Qualifiers: Chronicity: acute Qualified Code(s): J96.01 - Acute respiratory failure with hypoxia Category: Medical Code(s): J96.91 - Respiratory failure, unspecified with hypoxia (5) Hypotension Status: Acute [place]
--- NOTE | 2020-06-23 09:30 | CT_ITS ---
PROCEDURE: CT ANGIO CHEST CLINCIAL INDICATION: Elevated D-Dimer Elevated D-dimer, Covid19 pneumonia COMPARISON: CT CHW CT CHEST W/ CONTRAST from 09/11/[address] ANGIO CHEST from 06/13/2020 TECHNIQUE: IV Contrast: 70ML Isovue 370 Axial images obtained with sagittal and coronal reformats. All CT scans at the facility use one or more dose reduction, viz: automated exposure control, ma/kV adjustment per patient size (including targeted exams where dose is matched to indication, i.e. head), or iterative reconstruction technique. FINDINGS: HEART AND MEDIASTINAL STRUCTURES: No evidence of pulmonary embolus, aortic aneurysm, or aortic dissection.. There are mildly prominent subcarinal lymph nodes measuring up to 2 x 1.4 cm slightly larger compared to the previous exam. LUNGS AND PLEURAL SPACES: COPD changes. Extensive crazy paving pattern in both lung bases with increased reticular markings peripherally in the upper lobes compatible with Covid19 pneumonia not significantly changed since 06/13/2020. Scattered atelectatic changes are present. Trace left-sided effusion. No cavitation BONY STRUCTURES: No acute bony abnormalities apparent. UPPER ABDOMEN: Small hiatal hernia. Gas is present in the esophagus which may be due to reflux. ADDITIONAL FINDINGS: No other significant abnormalities. IMPRESSION: 1. No evidence of pulmonary embolus. 2. Changes consistent with Covid19 pneumonia not significantly changed Dictated by: Aung Jean-Baptiste MD 06/23/2020 17:19 Aung Jean-Baptiste MD in [place] 06/23/2020 17:19
--- NOTE | 2020-06-23 09:31 | HMH.PULMPN ---
Internal Medicine - PN: Subj *Date: 06/23/20 *Time: 13:20 Interval history: No acute respite events overnight. Patient respiratory status remained stable. Exam - Constitutional Constitutional:: Present: no acute distress, comfortable - HENMT Exam HENMT: Present: normocephalic, atraumatic - Neck Exam Neck:: Present: normal visual inspection, thyroid normal - Respiratory Exam Respiratory:: Present: able to speak in complete sentences Comments: In mild respiratory distress. Continue to be on 6 L nasal cannula saturating 85 to 90%. Auscultation revealed bilateral predominantly lower lobe coarse breath sounds unchanged from yesterday. - Cardiovascular Exam Cardiac:: Present: regular rhythm - GI Exam GI:: Present: soft - Skin Exam Skin: Present: warm, no rash - Neurological Exam Neurological: Present: alert, awake, normal cognition - Extremities Exam Extremities: Present: no cyanosis, no clubbing, no edema Assessment and Plan (1) Pneumonia due to COVID-19 virus Status: Acute Category: Medical Code(s): U07.1 - COVID-19; J12.82 - Pneumonia due to coronavirus disease 2019 (2) Elevated liver enzymes Status: Acute Category: Medical Code(s): R74.8 - Abnormal levels of other serum enzymes (3) Hyperglycemia Status: Acute Category: Medical Code(s): R73.9 - Hyperglycemia, unspecified (4) Respiratory failure with hypoxia Status: Acute Qualifiers: Chronicity: acute Qualified Code(s): J96.01 - Acute respiratory failure with hypoxia Category: Medical Code(s): J96.91 - Respiratory failure, unspecified with hypoxia (5) Hypotension Status: Acute Category: Medical Code(s): I95.9 - Hypotension, unspecified - Assessment and plan all Dx Assessment and Plan for all problems:: #COVID-19 pneumonia: #Hypoxic respiratory failure: 59-year-old male never smoker no prior respiratory complaints before COVID-19 pneumonia, recently admitted for COVID-19 pneumonia, discharged on 3 L nasal cannula presented to the hospital with worsening respiratory failure is with intermittent productive cough. 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 Chest x-ray on this admission reviewed, worsening right lower lobe pulmonary endplate. CT from prior admission did not show any evidence of PE however showed bilateral diffuse groundglass opacities with interstitial edema/crazy paving pattern, underlying pulmonary fibrosis / pulmonary edema cannot be completely ruled out. Interval Update: Patient D-dimer elevated at 7.16, will proceed with CTA. Patient echocardiogram showed normal LV systolic function but showed grade 1 diastolic dysfunction. RV size and contractility within normal limits. Patient continued to receive vancomycin and cefepime awaiting cultures, sputum and appropriate sample, will repeat sputum cultures Plan: - CTA - Continue oxygen supplementation with O2 saturation goal of 88 to 92%. - Nasal MRSA PCR - Continue vancomycin and Cefepime awaiting culture results for the treatment of HAP. - Continue remdesivir and dexamethasone for COVID-19 pneumonia - F/U MAYDA, ANCA, CRP, RF,CCP - DuoNebs every 6 hours as needed #Rest of the medical management as per primary team #Thank you for involving pulmonary in this patient care. We will continue to follow.
[2020-06-23 15:49] LABS: Vancomycin,Trough 11.8 ug/mL (5.0-10.0)
--- NOTE | 2020-06-23 15:49 | PC.NURSE ---
PT HAS BEEN SITTING UP IN THE CHAIR MOST OF THE SHIFT. ALERT AND ORIENTED X4. PT'S O2 SATURATION DROPS TO THE 70'S WITH VERY MINIMAL ACTIVITY. PT STATES HE DOES NOT FEEL SOA AT ALL AND STATES HE DOES NOT HURT IN HIS CHEST. PT STATES THE ONE SYMPTOM THAT HE FINDS VERY AGGRAVATING IS THE DRY COUGH. PT IS EATING AND DRINKING WELL. USING URINAL TO VOID. SKIN C/D/I. TEDS NOTED TO BLE. LUNG SOUNDS DIMINISHED. ABDOMEN SOFT/NON TENDER WITH ACTIVE BOWEL SOUNDS. VSS. WILL CONTINUE TO MONITOR.
[2020-06-24] VITALS (9 sets, daily range): BP systolic 93–115; BP diastolic 58–72; PULSE 61–73; RESP 18–22; TEMP 36.1–36.5; O2SAT 90–96; BMI 26.2; BMI 26.0
--- NOTE | 2020-06-24 06:41 | PC.NURSE ---
pt is AxOx4, remains on 4L NC with O2 sats 91-97%, does desat to the mid 70's with exertion, no complaints of chest pain
--- NOTE | 2020-06-24 08:34 | HMH.ACPN2 ---
<Angélica Gandara - Last Filed: 06/24/20 08:34> Internal Medicine - PN: Subj *Date: 06/24/20 *Time: 08:34 Interval history: Patient states he is feeling a little bit better this morning. He is still short of breath with any exertion and has some shortness of breath at rest. His oxygen saturations have been in the 90s on 4 L. He denies any pain and states he slept better other than getting moved in the middle of the night. He did eat breakfast this morning. Exam Vital signs and Labs for Last 24 Hours: Temp Pulse Resp BP Pulse Ox 97.0 F L 64 22 107/59 L 92 L 06/24/20 08:00 06/24/20 08:00 06/24/20 08:00 06/24/20 08:00 06/24/20 08:00 Laboratory Results - last 24 hr 06/23/20 15:25: Vancomycin Trough 11.8 H I & O for Last 24 hours: Intake & Output 06/21/20 06/22/20 06/23/20 06/24/20 11:59 11:59 11:59 11:59 Intake Total 1909 / 1909 2870 / 2870 3506 / 3506 Output Total 300 / 300 1500 / 1500 Balance 1909 / 1909 2570 / 2570 2005 Weight 179 lb 167 lb 5 oz 173 lb 1 oz 173 lb 6 oz - Constitutional no acute distress - *Routine Respiratory Exam Present: rales (bibasilar rales - improved air movement) - *Routine Cardiovascular Exam Present: RRR - *Routine Abdominal Exam Present: soft, normoactive bowel sounds. Absent: tenderness - *Routine Extremities Exam Absent: cyanosis, clubbing, edema - *Routine Skin Exam Present: warm. Absent: rash - *Routine Neurological Exam Present: alert, oriented X3 Assessment and Plan (1) Pneumonia due to COVID-19 virus Status: Acute Category: Medical Code(s): U07.1 - COVID-19; J12.82 - Pneumonia due to coronavirus disease 2019 (2) Elevated liver enzymes Status: Acute Category: Medical Code(s): R74.8 - Abnormal levels of other serum enzymes (3) Hyperglycemia Status: Acute Category: Medical Code(s): R73.9 - Hyperglycemia, unspecified (4) Respiratory failure with hypoxia Status: Acute Qualifiers: Chronicity: acute Qualified Code(s): J96.01 - Acute respiratory failure with hypoxia Category: Medical Code(s): J96.91 - Respiratory failure, unspecified with hypoxia (5) Hypotension Status: Acute Category: Medical Code(s): I95.9 - Hypotension, unspecified - Assessment and plan all Dx Assessment and Plan for all problems:: We will discuss further care with Dr. Atwood and continue Covid protocol. <Herman Atwood - Last Filed: 06/25/20 08:05> Internal Medicine - PN: Subj *Date: 06/25/20 *Time: 08:04 Exam Vital signs and Labs for Last 24 Hours: Temp Pulse Resp BP Pulse Ox 97.5 F L 52 L 22 111/63 97 06/25/20 04:00 06/25/20 04:00 06/25/20 04:00 06/25/20 04:00 06/25/20 04:00 Laboratory Results - last 24 hr 06/22/20 10:35: Anti-Cycl Citrul Peptide 5 06/24/20 09:52: Sodium 137, Potassium 3.2 L D, Chloride 100, Carbon Dioxide 30, Anion Gap 10.2, BUN 13, Creatinine 0.60 L D, Estimated Creat Clear 146, Estimated GFR 137, Est GFR ( Amer) 166 D, Glucose 97, Calcium 8.5 D, Total Bilirubin 0.7, AST 43, ALT 75, Alkaline Phosphatase 98, Total Protein 5.7 L, Albumin 2.9 L D, Globulin 2.8, Albumin/Globulin Ratio 1.0 L 06/25/20 04:30: Sodium 135 L, Potassium 3.7, Chloride 103, Carbon Dioxide 31 H, Anion Gap 4.7 L, BUN 13, Creatinine 0.60 L, Estimated Creat Clear 144, Estimated GFR 137, Est GFR ( Amer) 166, Glucose 99, Calcium 7.9 L, Total Bilirubin 0.6, AST 38, ALT 59, Alkaline Phosphatase 76, Total Protein 4.7 L, Albumin 2.4 L D, Globulin 2.3, Albumin/Globulin Ratio 1.0 L I & O for Last 24 hours: Intake & Output 06/22/20 06/23/20 06/24/20 06/25/20 11:59 11:59 11:59 11:59 Intake Total 1909 2870 / 2870 3866 / 3866 6072 / 6072 Output Total 300 / 300 2700 / 2700 3200 / 3200 Balance 1909 2570 / 2570 1166 / 1166 2872 / 2872 Weight 167 lb 5 oz 173 lb 1 oz 171 lb 15.369 oz 167 lb 7 oz Microbiology Reports for the Last 24 Hours: Microbiology 06/22
--- NOTE | 2020-06-24 09:08 | HMH.PHACONS ---
- Pharmacy Consult Date: 06/24/20 Time: 09:08 Referring provider: DR. PACHECO Reason for Consult:: VANCOMYCIN LEVEL Allergies and ADEs:: Allergies Allergy/AdvReac Type Severity Reaction Status Date / Time Penicillins [PENICILLINS] Allergy Intermediate RASH/SWEATI Verified 06/05/20 13:10 NG Home Medications:: Home Medications Medication Instructions Recorded Confirmed Type No Known Home Medications 06/14/20 06/21/20 History Height: 1.73 m Weight: 78.642 kg Laboratory Results:: Laboratory Results - last 24 hr 06/23/20 15:25: Vancomycin Trough 11.8 H Medical History: Reports:: Cancer (lymphoma), Gastroesophageal Reflux Disease(GERD) Denies:: Diabetes Mellitus Type 1, Diabetes Mellitus Type 2, MRSA Assessment and Plan (1) Pneumonia due to COVID-19 virus Status: Acute Category: Medical Code(s): U07.1 - COVID-19; J12.82 - Pneumonia due to coronavirus disease 2019 (2) Elevated liver enzymes Status: Acute Category: Medical Code(s): R74.8 - Abnormal levels of other serum enzymes (3) Hyperglycemia Status: Acute Category: Medical Code(s): R73.9 - Hyperglycemia, unspecified (4) Respiratory failure with hypoxia Status: Acute Qualifiers: Chronicity: acute Qualified Code(s): J96.01 - Acute respiratory failure with hypoxia Category: Medical Code(s): J96.91 - Respiratory failure, unspecified with hypoxia (5) Hypotension Status: Acute Category: Medical Code(s): I95.9 - Hypotension, unspecified - Assessment and plan all Dx Assessment and Plan for all problems:: BASED ON VANCOMCYIN TROUGH LEVEL OF 11.8 MCG/ML, RECOMMENDED CONTINUING WITH VANCOMYCIN 1250 MG Q8H AT THIS TIME.
[2020-06-24 10:12] LABS: Alanine Aminotransferase 75 U/L (12-78); Albumin Level 2.9 g/dl (3.5-5.0); Alkaline Phosphatase 98 U/L (38-126); Anion Gap 10.2 mEq/L (5-15); Aspartate Amino Transferase 43 U/L (17-59); Bilirubin,Total 0.7 mg/dl (0.2-1.3); Blood Urea Nitrogen 13 mg/dl (9-20); Carbon Dioxide 30 mmol/L (22.0-30.0); Chloride 100 mmol/L (98-107); Creatinine Clearance Estimated 146 mL/min (50-200); Estimated Glomerular Filt Rate 137 ml/min (>60); GFR (African American) 166 ML/MIN (>60); Globulin 2.8 g/dL (1.3-3.2); Glucose 97 mg/dl (74-100); Potassium 3.2 mmoL/L (3.5-5.1); Sodium 137 mmol/L (136-145); Total Protein,Serum 5.7 g/dl (6.3-8.2)
--- NOTE | 2020-06-24 10:22 | SW/DCPLANNER ---
Addendum entered by Zo Christianson 06/27/20 09:34: This patient does have portable O2 tank in his room per nurse ([place]). Addendum entered by Zo Christianson 06/27/20 09:28: This patient will discharge home today. Patient already has home O2 with [facility]. I will make sure patient has a portable O2 tank prior to discharge. Original Note: This patient currently has home O2/portable tank with [facility].
[2020-06-24 10:24] LABS: Calcium 8.5 mg/dl (8.4-10.2)
[2020-06-24 10:40] LABS: Anti-Cyclic Citrullinated Pept 5 units (0-19)
--- NOTE | 2020-06-24 11:10 | HMH.PULMPN ---
Internal Medicine - PN: Subj *Date: 06/24/20 *Time: 11:10 Interval history: No acute respite events overnight. Exam - Constitutional Constitutional:: Present: no acute distress, comfortable - HENMT Exam HENMT: Present: normocephalic - Neck Exam Neck:: Present: normal visual inspection - Respiratory Exam Respiratory:: Present: able to speak in complete sentences, normal respiratory effort, crackles - Cardiovascular Exam Cardiac:: Present: S1, S2 - GI Exam GI:: Present: soft, no hepatosplenomegaly - Skin Exam Skin: Present: warm, no rash - Neurological Exam Neurological: Present: alert, awake, normal cognition - Extremities Exam Extremities: Present: no cyanosis, no clubbing, no edema Assessment and Plan (1) Pneumonia due to COVID-19 virus Status: Acute Category: Medical Code(s): U07.1 - COVID-19; J12.82 - Pneumonia due to coronavirus disease 2019 (2) Elevated liver enzymes Status: Acute Category: Medical Code(s): R74.8 - Abnormal levels of other serum enzymes (3) Hyperglycemia Status: Acute Category: Medical Code(s): R73.9 - Hyperglycemia, unspecified (4) Respiratory failure with hypoxia Status: Acute Qualifiers: Chronicity: acute Qualified Code(s): J96.01 - Acute respiratory failure with hypoxia Category: Medical Code(s): J96.91 - Respiratory failure, unspecified with hypoxia (5) Hypotension Status: Acute Category: Medical Code(s): I95.9 - Hypotension, unspecified - Assessment and plan all Dx Assessment and Plan for all problems:: #COVID-19 pneumonia: #Hypoxic respiratory failure: 59-year-old male never smoker no prior respiratory complaints before COVID-19 pneumonia, recently admitted for COVID-19 pneumonia, discharged on 3 L nasal cannula presented to the hospital with worsening respiratory failure is with intermittent productive cough. 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 Chest x-ray on this admission reviewed, worsening right lower lobe pulmonary endplate. CT from prior admission did not show any evidence of PE however showed bilateral diffuse groundglass opacities with interstitial edema/crazy paving pattern, underlying pulmonary fibrosis / pulmonary edema cannot be completely ruled out. CTA from this admission relatively unchanged from prior no evidence of PE. No obvious evidence of airspace disease noted. Patient continued to have interstitial edema/crazy paving pattern. Patient D-dimer elevated at 7.16, will proceed with CTA. Patient echocardiogram showed normal LV systolic function but showed grade 1 diastolic dysfunction. RV size and contractility within normal limits. Patient continued to receive vancomycin and cefepime awaiting cultures, sputum and appropriate sample, will repeat sputum cultures. Respiratory status improved from yesterday. Now on 4 L nasal cannula saturating 90 to 92%. Plan: - Lasix 40 IV once - Follow with nasal MRSA culture and discontinue vancomycin if negative. - Can de-escalate cefepime to levofloxacin on discharge - Continue oxygen supplementation with O2 saturation goal of 88 to 92%. . - Continue remdesivir and dexamethasone for COVID-19 pneumonia untill discharge - F/U MAYDA, ANCA, CRP, RF,CCP - DuoNebs every 6 hours as needed #Rest of the medical management as per primary team #Thank you for involving pulmonary in this patient care. We will continue to follow.
--- NOTE | 2020-06-24 14:50 | PC.NURSE ---
HE IS AOX4, ABLE TO MAKE NEEDS KNOWN TO STAFF, HAS BEEN UP TO CHAIR FOR MOST OF SHIFT AND TOLERATED WELL. HE STILL REQUIRES 3LNC FOR O2 SUPPORT, BREATH SOUNDS DIMINISHED T/O LUNG GARCIA, HE DENIES N/V/D OR ABD PAIN, ON PALPATION IS ABD IS SOFT AND NON-TENDER, PT HAS TOLERATED DIET AND HAS A NORMAL APPETITE. HE HAS BEEN USING THE URINAL FOR ELIMINATION, PT HAS DIURESED WELL FOLLOWING IV LASIX, PT DENIES ANY PAIN AND HAS NO NEEDS AT THIS TIME, WILL CONTINUE TO MONITOR.
[2020-06-25] VITALS (8 sets, daily range): BP systolic 92–117; BP diastolic 52–66; PULSE 52–68; RESP 18–22; TEMP 36.4–36.7; O2SAT 88–97; BMI 25.3
--- NOTE | 2020-06-25 02:01 | PC.NURSE ---
A&OX4. PT HAS TOLERATED 3L NC WELL THROUGHOUT SHIFT. RESPIRATIONS REGULAR AND UNLABORED. DIMINISHED LUNG SOUNDS NOTED THROUGHOUT. NO COUGH NOTED. HAND ROLL SKINNER EQUAL. +2 PULSES NOTED THROUGHOUT. NO EDEMA NOTED. ACTIVE BOWEL SOUNDS HEARD IN ALL 4 QUADRANTS. SOFT AND NONTENDER ABDOMEN. NO BM REPORTED THUS FAR. PT VOIDS PER URINAL AND TOILET INDEPENDENTLY. NS INFUSING AT 100ML/HR. PT HAS RECEIVED CEFEPIME AND VANC THIS SHIFT AND TOLERATED WELL. NO REPORTS OF PAIN, SOB, OR NAUSEA THUS FAR. PT HAS SLEPT WELL THIS SHIFT. PT HAS REMAINED AFEBRILE. BED IN LOWEST POSITION. CALL LIGHT WITHIN REACH. VSS. WILL CONTINUE TO MONITOR.
[2020-06-25 05:10] LABS: Chloride 103 mmol/L (98-107); Potassium 3.7 mmoL/L (3.5-5.1); Sodium 135 mmol/L (136-145)
[2020-06-25 05:12] LABS: Alanine Aminotransferase 59 U/L (12-78); Alkaline Phosphatase 76 U/L (38-126); Aspartate Amino Transferase 38 U/L (17-59); Bilirubin,Total 0.6 mg/dl (0.2-1.3); Blood Urea Nitrogen 13 mg/dl (9-20); Creatinine Clearance Estimated 144 mL/min (50-200); Estimated Glomerular Filt Rate 137 ml/min (>60); GFR (African American) 166 ML/MIN (>60)
[2020-06-25 05:13] LABS: Albumin Level 2.4 g/dl (3.5-5.0); Anion Gap 4.7 mEq/L (5-15); Calcium 7.9 mg/dl (8.4-10.2); Carbon Dioxide 31 mmol/L (22.0-30.0); Globulin 2.3 g/dL (1.3-3.2); Glucose 99 mg/dl (74-100); Total Protein,Serum 4.7 g/dl (6.3-8.2)
--- NOTE | 2020-06-25 08:39 | PC.NURSE ---
Notified Dr. Atwood of positive MRSA screen at approx 0830
--- NOTE | 2020-06-25 08:43 | PC.NURSE ---
91% on 4 L NC, and denies soa at this time.
--- NOTE | 2020-06-25 08:46 | HMH.ACPN2 ---
Internal Medicine - PN: Subj *Date: 06/25/20 *Time: 08:46 Interval history: He is sleeping better at night. O2 sat still dropped to the low 80s with activity. Still has some dry cough. He is nervous about going home. Exam Vital signs and Labs for Last 24 Hours: Temp Pulse Resp BP Pulse Ox 97.5 F L 68 20 99/55 L 88 L 06/25/20 04:00 06/25/20 08:00 06/25/20 08:00 06/25/20 08:00 06/25/20 08:00 Laboratory Results - last 24 hr 06/22/20 10:35: Anti-Cycl Citrul Peptide 5 06/24/20 09:52: Sodium 137, Potassium 3.2 L D, Chloride 100, Carbon Dioxide 30, Anion Gap 10.2, BUN 13, Creatinine 0.60 L D, Estimated Creat Clear 146, Estimated GFR 137, Est GFR ( Amer) 166 D, Glucose 97, Calcium 8.5 D, Total Bilirubin 0.7, AST 43, ALT 75, Alkaline Phosphatase 98, Total Protein 5.7 L, Albumin 2.9 L D, Globulin 2.8, Albumin/Globulin Ratio 1.0 L 06/25/20 04:30: Sodium 135 L, Potassium 3.7, Chloride 103, Carbon Dioxide 31 H, Anion Gap 4.7 L, BUN 13, Creatinine 0.60 L, Estimated Creat Clear 144, Estimated GFR 137, Est GFR ( Amer) 166, Glucose 99, Calcium 7.9 L, Total Bilirubin 0.6, AST 38, ALT 59, Alkaline Phosphatase 76, Total Protein 4.7 L, Albumin 2.4 L D, Globulin 2.3, Albumin/Globulin Ratio 1.0 L I & O for Last 24 hours: Intake & Output 06/22/20 06/23/20 06/24/20 06/25/20 11:59 11:59 11:59 11:59 Intake Total 1909 2870 / 2870 3866 / 3866 6072 / 6072 Output Total 300 / 300 2700 / 2700 3200 / 3200 Balance 1909 2570 / 2570 1166 / 1166 2872 / 2872 Weight 167 lb 5 oz 173 lb 1 oz 171 lb 15.369 oz 167 lb 7 oz Microbiology Reports for the Last 24 Hours: Microbiology 06/22/20 14:30 Nose - Nasal MRSA Culture - Final 06/22/20 17:43 Sputum - Expectorated Sputum Gram Stain - Final 06/22/20 17:43 Sputum - Expectorated Sputum Sputum Culture - Final Normal Respiratory Rohini Narrative: No respiratory distress at rest. Color is good. Chest with a few scattered rhonchi. No wheezes. Heart is regular. Assessment and Plan (1) Pneumonia due to COVID-19 virus Status: Acute Category: Medical Code(s): U07.1 - COVID-19; J12.82 - Pneumonia due to coronavirus disease 2019 (2) Elevated liver enzymes Status: Acute Category: Medical Code(s): R74.8 - Abnormal levels of other serum enzymes (3) Hyperglycemia Status: Acute Category: Medical Code(s): R73.9 - Hyperglycemia, unspecified (4) Respiratory failure with hypoxia Status: Acute Qualifiers: Chronicity: acute Qualified Code(s): J96.01 - Acute respiratory failure with hypoxia Category: Medical Code(s): J96.91 - Respiratory failure, unspecified with hypoxia (5) Hypotension Status: Acute Category: Medical Code(s): I95.9 - Hypotension, unspecified - Assessment and plan all Dx Assessment and Plan for all problems:: DC IV fluids. Continue antibiotics and remdesivir. Nasal PCR was positive. He is on vancomycin. Possible discharge in the next 1 to 2 days.
[2020-06-25 12:19] LABS: Anti-Cyclic Citrullinated Pept 3 units (0-19)
--- NOTE | 2020-06-25 14:32 | HMH.ACPN ---
Internal Medicine - PN: Subj *Date: 06/25/20 *Time: 14:32 Exam Vital signs and Labs for Last 24 Hours: Temp Pulse Resp BP Pulse Ox 98 F 60 18 107/66 L 88 L 06/25/20 12:00 06/25/20 12:00 06/25/20 12:00 06/25/20 12:00 06/25/20 08:00 Laboratory Results - last 24 hr 06/22/20 14:30: Anti-Cycl Citrul Peptide 3 06/25/20 04:30: Sodium 135 L, Potassium 3.7, Chloride 103, Carbon Dioxide 31 H, Anion Gap 4.7 L, BUN 13, Creatinine 0.60 L, Estimated Creat Clear 144, Estimated GFR 137, Est GFR ( Amer) 166, Glucose 99, Calcium 7.9 L, Total Bilirubin 0.6, AST 38, ALT 59, Alkaline Phosphatase 76, Total Protein 4.7 L, Albumin 2.4 L D, Globulin 2.3, Albumin/Globulin Ratio 1.0 L I & O for Last 24 hours: Intake & Output 06/22/20 06/23/20 06/24/20 06/25/20 23:59 23:59 23:59 23:59 Intake Total 1909 / 2029 4466 / 4466 2220 / 2220 4572 / 4572 Output Total 1800 / 1800 3700 / 3700 1350 / 1350 Balance 1909 2666 / 2666 -1480 / -1480 3222 / 3222 Weight 78.5 kg 78 kg 75.948 kg Microbiology Reports for the Last 24 Hours: Microbiology 06/22/20 14:30 Nose - Nasal MRSA Culture - Final Assessment and Plan (1) Pneumonia due to COVID-19 virus Status: Acute Category: Medical Code(s): U07.1 - COVID-19; J12.82 - Pneumonia due to coronavirus disease 2019 (2) Elevated liver enzymes Status: Acute Category: Medical Code(s): R74.8 - Abnormal levels of other serum enzymes (3) Hyperglycemia Status: Acute Category: Medical Code(s): R73.9 - Hyperglycemia, unspecified (4) Respiratory failure with hypoxia Status: Acute Qualifiers: Chronicity: acute Qualified Code(s): J96.01 - Acute respiratory failure with hypoxia Category: Medical Code(s): J96.91 - Respiratory failure, unspecified with hypoxia (5) Hypotension Status: Acute Category: Medical Code(s): I95.9 - Hypotension, unspecified The patient's infection will respond to the chosen ABx?: Yes Is the patient receiving the right drug, dose, and route?: Yes Could a more targeted ABx be ordered?: No
[2020-06-25 15:50] LABS: Vancomycin,Trough 19.1 ug/mL (5.0-10.0)
--- NOTE | 2020-06-25 19:37 | PC.NURSE ---
Alert and oriented x 4. No acute changes. VSS. Remains on 4 L NC. Refused teds after wearing most of shift r/t them hurting legs. Meds given per jul.
[2020-06-26 03:51] VITALS: BP 111/62; PULSE 64; RESP 18; TEMP 36.5; O2SAT 90
[2020-06-26 05:00] VITALS: BMI 25.7
[2020-06-26 06:06] LABS: Chloride 104 mmol/L (98-107); Potassium 3.5 mmoL/L (3.5-5.1); Sodium 135 mmol/L (136-145)
[2020-06-26 06:09] LABS: Alanine Aminotransferase 71 U/L (12-78); Albumin Level 2.3 g/dl (3.5-5.0); Alkaline Phosphatase 81 U/L (38-126); Anion Gap 4.5 mEq/L (5-15); Aspartate Amino Transferase 45 U/L (17-59); Bilirubin,Total 0.6 mg/dl (0.2-1.3); Blood Urea Nitrogen 13 mg/dl (9-20); Calcium 8.1 mg/dl (8.4-10.2); Carbon Dioxide 30 mmol/L (22.0-30.0); Creatinine Clearance Estimated 169 mL/min (50-200); Estimated Glomerular Filt Rate 170 ml/min (>60); GFR (African American) 205 ML/MIN (>60); Globulin 2.4 g/dL (1.3-3.2); Glucose 81 mg/dl (74-100); Total Protein,Serum 4.7 g/dl (6.3-8.2)
--- NOTE | 2020-06-26 06:56 | PC.NURSE ---
Pt is A&Ox4 and has ambulated in room a few times this shift and tolerated well. Pt started shift on 4LPM NC, able to wean back to 3LPM with sats mid 90s and holding sats well. Pt denies any SOB. Lungs diminished on lung auscultation. HR is RRR and sinus jesus alberto/nsr on tele. VSS, call light within reach. Pt reports he rested well during the night.
[2020-06-26 07:05] VITALS: O2SAT 87
[2020-06-26 08:00] VITALS: BP 109/60; PULSE 62; RESP 20; TEMP 36.5; O2SAT 92
--- NOTE | 2020-06-26 08:14 | HMH.PHACONS ---
- Pharmacy Consult Date: 06/26/20 Time: 08:14 Referring provider: DR. PACHECO Reason for Consult:: VANCOMYCIN TROUGH LEVEL Allergies and ADEs:: Allergies Allergy/AdvReac Type Severity Reaction Status Date / Time Penicillins [PENICILLINS] Allergy Intermediate RASH/SWEATI Verified 06/05/20 13:10 NG Home Medications:: Home Medications Medication Instructions Recorded Confirmed Type No Known Home Medications 06/14/20 06/21/20 History Height: 1.73 m Weight: 76.884 kg Laboratory Results:: Laboratory Results - last 24 hr 06/22/20 14:30: Anti-Cycl Citrul Peptide 3 06/25/20 15:15: Vancomycin Trough 19.1 H 06/26/20 05:45: Sodium 135 L, Potassium 3.5, Chloride 104, Carbon Dioxide 30, Anion Gap 4.5 L, BUN 13, Creatinine 0.50 L, Estimated Creat Clear 169, Estimated GFR 170, Est GFR ( Amer) 205 D, Glucose 81, Calcium 8.1 L, Total Bilirubin 0.6, AST 45, ALT 71, Alkaline Phosphatase 81, Total Protein 4.7 L, Albumin 2.3 L, Globulin 2.4, Albumin/Globulin Ratio 1.0 L Medical History: Reports:: Cancer (lymphoma), Gastroesophageal Reflux Disease(GERD) Denies:: Diabetes Mellitus Type 1, Diabetes Mellitus Type 2, MRSA Assessment and Plan (1) Pneumonia due to COVID-19 virus Status: Acute Category: Medical Code(s): U07.1 - COVID-19; J12.82 - Pneumonia due to coronavirus disease 2019 (2) Elevated liver enzymes Status: Acute Category: Medical Code(s): R74.8 - Abnormal levels of other serum enzymes (3) Hyperglycemia Status: Acute Category: Medical Code(s): R73.9 - Hyperglycemia, unspecified (4) Respiratory failure with hypoxia Status: Acute Qualifiers: Chronicity: acute Qualified Code(s): J96.01 - Acute respiratory failure with hypoxia Category: Medical Code(s): J96.91 - Respiratory failure, unspecified with hypoxia (5) Hypotension Status: Acute Category: Medical Code(s): I95.9 - Hypotension, unspecified - Assessment and plan all Dx Assessment and Plan for all problems:: BASED ON VANCOMYCIN TROUGH LEVEL AND PATIENT FACTORS, RECOMMEND CHANGING INTERVAL TO VANCOMYCIN 1250 MG IV Q12H. PHARMACY WILL CONTINUE TO MONITOR DAILY AND ADJUST APPROPRIATE.
--- NOTE | 2020-06-26 08:45 | HMH.ACPN2 ---
Internal Medicine - PN: Subj *Date: 06/26/20 *Time: 08:45 Interval history: He rested well last night. He has been stable on 4 L of nasal oxygen. He still desaturates with activity but recovers quickly. Cough is improved. Exam Vital signs and Labs for Last 24 Hours: Temp Pulse Resp BP Pulse Ox 97.7 F 62 20 109/60 L 92 L 06/26/20 08:00 06/26/20 08:00 06/26/20 08:00 06/26/20 08:00 06/26/20 08:00 Laboratory Results - last 24 hr 06/22/20 14:30: Anti-Cycl Citrul Peptide 3 06/25/20 15:15: Vancomycin Trough 19.1 H 06/26/20 05:45: Sodium 135 L, Potassium 3.5, Chloride 104, Carbon Dioxide 30, Anion Gap 4.5 L, BUN 13, Creatinine 0.50 L, Estimated Creat Clear 169, Estimated GFR 170, Est GFR ( Amer) 205 D, Glucose 81, Calcium 8.1 L, Total Bilirubin 0.6, AST 45, ALT 71, Alkaline Phosphatase 81, Total Protein 4.7 L, Albumin 2.3 L, Globulin 2.4, Albumin/Globulin Ratio 1.0 L I & O for Last 24 hours: Intake & Output 06/23/20 06/24/20 06/25/20 06/26/20 11:59 11:59 11:59 11:59 Intake Total 2870 / 2870 3866 / 3866 6432 / 6432 1650 / 1650 Output Total 300 / 300 2700 / 2700 3200 / 3200 2250 / 2250 Balance 2570 / 2570 1166 / 1166 3232 / 3232 -600 / -600 Weight 173 lb 1 oz 171 lb 15.369 oz 167 lb 7 oz 169 lb 8 oz Microbiology Reports for the Last 24 Hours: Microbiology 06/22/20 14:30 Nose - Nasal MRSA Culture - Final Narrative: Alert and oriented. Color is good. No respiratory distress. Chest with a few crackles. No wheezes. Extremities no edema. Assessment and Plan (1) Pneumonia due to COVID-19 virus Status: Acute Category: Medical Code(s): U07.1 - COVID-19; J12.82 - Pneumonia due to coronavirus disease 2019 (2) Elevated liver enzymes Status: Acute Category: Medical Code(s): R74.8 - Abnormal levels of other serum enzymes (3) Hyperglycemia Status: Acute Category: Medical Code(s): R73.9 - Hyperglycemia, unspecified (4) Respiratory failure with hypoxia Status: Acute Qualifiers: Chronicity: acute Qualified Code(s): J96.01 - Acute respiratory failure with hypoxia Category: Medical Code(s): J96.91 - Respiratory failure, unspecified with hypoxia (5) Hypotension Status: Acute Category: Medical Code(s): I95.9 - Hypotension, unspecified - Assessment and plan all Dx Assessment and Plan for all problems:: He remains anxious about going home. Discussed disposition and will plan for discharge tomorrow.
[2020-06-26 11:44] VITALS: BP 107/71; PULSE 62; RESP 20; TEMP 36.4; O2SAT 95
--- NOTE | 2020-06-26 15:22 | PC.NURSE ---
Pt alert and oriented and able to make needs known verbally. RR even and unlabored at this time. Pt is in NAD and continues on 3 L NC. Pt has been up to chair all of this shift. Have encouraged use of incentive spirometer. Pt feeds self and is independent to bathroom. Mx continues this shift. S1,S2. Refuses teds. Meds given per jul.
[2020-06-26 16:00] VITALS: BP 101/52; PULSE 65; RESP 18; TEMP 36.8; O2SAT 96
--- NOTE | 2020-06-26 18:40 | PC.NURSE ---
Pt is alert and oriented x 4 and able to make needs known. RR even and unlabored. Pt is on 3 L NC at this time. Pt states he continues to feel improvement. CB in reach. S1,S2 heart sounds. VSS. Meds given per jul. Did do full bed -sheet change. States he had a reg bm this am.
[2020-06-26 20:00] VITALS: BP 109/67; PULSE 54; TEMP 36.3; O2SAT 93; O2SAT 95
[2020-06-27] VITALS: BP 116/68; PULSE 55; RESP 18; TEMP 36.5; O2SAT 92
[2020-06-27 04:00] VITALS: BP 120/70; PULSE 54; RESP 20; TEMP 36.7; O2SAT 96
[2020-06-27 05:00] VITALS: BMI 25.3
[2020-06-27 07:09] VITALS: O2SAT 92
[2020-06-27 08:00] VITALS: BP 105/62; PULSE 57; RESP 18; TEMP 36.6; O2SAT 89
--- NOTE | 2020-06-27 08:00 | PC.NURSE ---
While vitals were obtained, patient's SpO2 was 89% on 3L/NC. Patient stated he just got back from the bathroom and did not feel more short of breath than normal. I waited for about 5 minutes and checked oxygen again and was still at 89%. Nurse was notified and stated that oxygen takes a while to come back up when he goes to the bathroom. Will monitor patient and recheck
[2020-06-27 08:30] VITALS: O2SAT 95
--- NOTE | 2020-06-27 08:58 | P.PN_ITS ---
Internal Medicine - PN: Subj *Date: 06/27/20 *Time: 11:18 Interval history: No acute respiratory events overnight. Exam - Constitutional Constitutional:: Present: no acute distress, comfortable - HENMT Exam HENMT: Present: normocephalic, atraumatic - Eye Exam Eyes:: Present: normal appearance both eyes and related structures - Neck Exam Neck:: Present: normal visual inspection, thyroid normal - Respiratory Exam Respiratory:: Present: able to speak in complete sentences, crackles. Absent: wheezing - Cardiovascular Exam Cardiac:: Present: S1, S2 - GI Exam GI:: Present: soft, no hepatosplenomegaly - Skin Exam Skin: Present: warm, no rash - Neurological Exam Neurological: Present: alert, awake, normal cognition - Extremities Exam Extremities: Present: no cyanosis, no clubbing, no edema Assessment and Plan (1) Pneumonia due to COVID-19 virus Status: Acute Category: Medical Code(s): U07.1 - COVID-19; J12.82 - Pneumonia due to coronavirus disease 2019 (2) Elevated liver enzymes Status: Acute Category: Medical Code(s): R74.8 - Abnormal levels of other serum enzymes (3) Hyperglycemia Status: Acute Category: Medical Code(s): R73.9 - Hyperglycemia, unspecified (4) Respiratory failure with hypoxia Status: Acute Qualifiers: Chronicity: acute Qualified Code(s): J96.01 - Acute respiratory failure with hypoxia Category: Medical Code(s): J96.91 - Respiratory failure, unspecified with hypoxia (5) Hypotension Status: Acute Category: Medical Code(s): I95.9 - Hypotension, unspecified - Assessment and plan all Dx Assessment and Plan for all problems:: #COVID-19 pneumonia: #Hypoxic respiratory failure: 59-year-old male never smoker no prior respiratory complaints before COVID-19 pneumonia, recently admitted for COVID-19 pneumonia, discharged on 3 L nasal cannula presented to the hospital with worsening respiratory failure is with intermittent productive cough. 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 Chest x-ray on this admission reviewed, worsening right lower lobe pulmonary endplate. CT from prior admission did not show any evidence of PE however showed bilateral diffuse groundglass opacities with interstitial edema/crazy paving pattern, underlying pulmonary fibrosis / pulmonary edema cannot be completely ruled out. Patient D-dimer elevated at 7.16, , CTA from this admission relatively unchanged from prior no evidence of PE. No obvious evidence of airspace disease noted. Patient continued to have interstitial edema/crazy paving pattern. Patient echocardiogram showed normal LV systolic function but showed grade 1 diastolic dysfunction. RV size and contractility within normal limits. Patient continued to receive vancomycin and cefepime, sputum culture showed normal respiratory lubna, and appropriate sample. Nasal MRSA culture positive Plan: - Continue vancomycin for total of 7 days, Discontinue Cefepime - Continue oxygen supplementation with O2 saturation goal of 88 to 92%. - Anti-CCP WNL, F/U MAYDA, ANCA, RF -CRP elevated at 95.5. . - Continue remdesivir and dexamethasone for COVID-19 pneumonia untill discharge - DuoNebs every 6 hours as needed, consider discharging on albuterol as needed #Rest of the medical management as per primary team #Thank you for involving pulmonary in this patient care. We will continue to follow.
--- NOTE | 2020-06-27 08:58 | PC.NURSE ---
Pt is A&Ox4 and has ambulated in room and to the BR and tolerated well. Pt has denied any N/V/D, pain, or SOB this shift. Pt has continued on 3LPM NC with sats mid 90s. Lungs diminished on auscultation and audible wheezes when pt ambulates. Pt has had a shower and up to chair this am. Pt reports she has rested well over night. Skin tear to RUE. Steri-strips in place. Call light within reach
--- NOTE | 2020-06-27 09:05 | HMH.ACPN2 ---
<Heavenly June - Last Filed: 06/27/20 09:05> Internal Medicine - PN: Subj *Date: 06/27/20 *Time: 09:05 Interval history: Patient states he is going home today. He feels he is much better than when discharged last week. States his breathing is doing pretty good. He does ambulate room. He has been eating without problems. He did sleep last night. Exam Vital signs and Labs for Last 24 Hours: Temp Pulse Resp BP Pulse Ox 98.1 F 54 L 20 120/70 92 L 06/27/20 04:00 06/27/20 04:00 06/27/20 04:00 06/27/20 04:00 06/27/20 07:09 I & O for Last 24 hours: Intake & Output 06/24/20 06/25/20 06/26/20 06/27/20 11:59 11:59 11:59 11:59 Intake Total 3866 / 3866 6432 / 6432 1650 / 1650 1030 / 1030 Output Total 2700 / 2700 3200 / 3200 2700 / 2700 200 / 200 Balance 1166 / 1166 3232 / 3232 -1050 / -1050 830 / 830 Weight 171 lb 15.369 oz 167 lb 7 oz 169 lb 8 oz 167 lb 2 oz - Constitutional no acute distress Comments: Sitting in chair at bedside putting on his Mike. Appears comfortable. Speaks without dyspnea. - *Routine Respiratory Exam Present: CTA bilaterally (Anteriorly and posteriorly with diminished breath sounds posteriorly) - *Routine Cardiovascular Exam Present: RRR - *Routine Abdominal Exam Present: soft, normoactive bowel sounds. Absent: tenderness - *Routine Extremities Exam Present: edema - *Routine Neurological Exam Present: alert, oriented X3 Assessment and Plan (1) Pneumonia due to COVID-19 virus Status: Acute Category: Medical Code(s): U07.1 - COVID-19; J12.82 - Pneumonia due to coronavirus disease 2019 (2) Elevated liver enzymes Status: Acute Category: Medical Code(s): R74.8 - Abnormal levels of other serum enzymes (3) Hyperglycemia Status: Acute Category: Medical Code(s): R73.9 - Hyperglycemia, unspecified (4) Respiratory failure with hypoxia Status: Acute Qualifiers: Chronicity: acute Qualified Code(s): J96.01 - Acute respiratory failure with hypoxia Category: Medical Code(s): J96.91 - Respiratory failure, unspecified with hypoxia (5) Hypotension Status: Acute Category: Medical Code(s): I95.9 - Hypotension, unspecified <Herman Atwood - Last Filed: 06/27/20 09:56> Internal Medicine - PN: Subj *Date: 06/27/20 *Time: 09:55 Exam Vital signs and Labs for Last 24 Hours: Temp Pulse Resp BP Pulse Ox 98.1 F 54 L 20 120/70 92 L 06/27/20 04:00 06/27/20 04:00 06/27/20 04:00 06/27/20 04:00 06/27/20 07:09 Laboratory Results - last 24 hr 06/27/20 08:36: Sodium 133 L, Potassium 3.4 L, Chloride 99, Carbon Dioxide 30, Anion Gap 7.4, BUN 14, Creatinine 0.60 L, Estimated Creat Clear 140, Estimated GFR 137, Est GFR ( Amer) 166, Glucose 122 H, Calcium 8.7, Total Bilirubin 0.8, AST 45, ALT 74, Alkaline Phosphatase 92, Total Protein 5.4 L, Albumin 2.8 L D, Globulin 2.6, Albumin/Globulin Ratio 1.1 I & O for Last 24 hours: Intake & Output 06/24/20 06/25/20 06/26/20 06/27/20 11:59 11:59 11:59 11:59 Intake Total 3866 / 3866 6432 / 6432 1650 / 1650 1030 / 1030 Output Total 2700 / 2700 3200 / 3200 2700 / 2700 200 / 200 Balance 1166 / 1166 3232 / 3232 -1050 / -1050 830 / 830 Weight 171 lb 15.369 oz 167 lb 7 oz 169 lb 8 oz 167 lb 2 oz Assessment and Plan (1) Pneumonia due to COVID-19 virus Status: Acute Category: Medical Code(s): U07.1 - COVID-19; J12.82 - Pneumonia due to coronavirus disease 2019 (2) Elevated liver enzymes Status: Acute Category: Medical Code(s): R74.8 - Abnormal levels of other serum enzymes (3) Hyperglycemia Status: Acute Category: Medical Code(s): R73.9 - Hyperglycemia, unspecified (4) Respiratory failure with hypoxia Status: Acute Qualifiers: Chronicity: acute Qualified Code(s): J96.01 - Acute respiratory failure with hypoxia Category: Medical Code(s): J96.91 - Respiratory failure, unspecified with hypoxia (5) Hypotension Status: Acut
[2020-06-27 09:06] LABS: Alanine Aminotransferase 74 U/L (12-78); Albumin Level 2.8 g/dl (3.5-5.0); Albumin/Globulin Ratio 1.1 (1.1-1.8); Alkaline Phosphatase 92 U/L (38-126); Anion Gap 7.4 mEq/L (5-15); Aspartate Amino Transferase 45 U/L (17-59); Bilirubin,Total 0.8 mg/dl (0.2-1.3); Blood Urea Nitrogen 14 mg/dl (9-20); Calcium 8.7 mg/dl (8.4-10.2); Carbon Dioxide 30 mmol/L (22.0-30.0); Chloride 99 mmol/L (98-107); Creatinine Clearance Estimated 140 mL/min (50-200); Estimated Glomerular Filt Rate 137 ml/min (>60); GFR (African American) 166 ML/MIN (>60); Globulin 2.6 g/dL (1.3-3.2); Glucose 122 mg/dl (74-100); Potassium 3.4 mmoL/L (3.5-5.1); Sodium 133 mmol/L (136-145); Total Protein,Serum 5.4 g/dl (6.3-8.2)
--- NOTE | 2020-06-27 09:21 | PC.NURSE ---
Pt is A&Ox4 and has ambulated in room and to the BR and tolerated well. Pt has denied any N/V/D, pain, or SOB this shift. Pt has continued on 3LPM NC with sats mid 90s. Lungs diminished on auscultation. Pt reports he rested poorly over night. IV ABX continue. Call light within reach
--- NOTE | 2020-06-27 13:14 | HMH.DCSUM ---
General - General Admission date:: 06/21/20 <Herman Atwood - 07/12/20 12:50> 06/21/20 <SladeHeavenly - 06/27/20 13:24> Discharge date: 06/27/20 <SladeHeavenly - 06/27/20 13:24> HPI HPI: Mr. Billingsley is a 59-year-old male patient with a history of irritable bowel syndrome, restless leg syndrome, GERD, and lymphoma who was recently discharged from [facility] 06[facility]2020 after a 4-day stay with pneumonia due to Covid 19 with acute hypoxemia respiratory failure presented again to [facility] emergency room with progressive shortness of breath over the last 48 hours. He states he has been using his oxygen as needed and yesterday found his O2 sats to be in the 60s. This did improve somewhat with nasal oxygen at 3 to 4 L/min. He denies any significant cough or pain. He has been eating as usual without vomiting or diarrhea. With evaluation in the emergency room temperature was 99. Heart rate was tachycardia at 111. Laboratory data revealed white blood cell count of 10,000 with a hemoglobin of 13.7 and hematocrit of 41.3. He had 94.5% neutrophils. Platelet count was noted to be low at 51,000. Electrolytes revealed a sodium of 131, potassium of 4.3. BUN was 17 and creatinine was 0.9. Total bilirubin was slightly elevated at 1.4 with an AST elevated at 141 and ALT elevated at 141. Alkaline phosphatase was also elevated at 143. Troponin I was normal at 0.01. Blood sugar was at 180. He was started on Rocephin and Zithromax. CXR showed worsening bilateral pneumonia. At the time of this exam patient is lying on a stretcher in the emergency room awaiting admission. He appears not to feel well. His breathing is easy and unlabored. He denies any chest pain. O2 sats are running anywhere from 93 to 97 on oxygen at 5 L/min per nasal cannula. Blood pressure is slightly low in the 90s systolic. Also he did receive a liter of IV fluids as a bolus. <SladeHeavenly - 06/27/20 13:24> Hospital Course Hospital Course: Initially on admission patient was placed on Rocephin and Zithromax. He also received remdesivir. He was started on Combivent inhaler. On admission liver function studies were elevated and this resolved. He was seen by pulmonology with the following plan: Plan: -Continue oxygen supplementation with O2 saturation goal of 88 to 92%. Patient is not attaining the desired saturation of the regukar nasal cannula will escalate to high flow nasal cannula - D- Dimer - BNP - Echocardiogram - Nasal MRSA PCR -Change antibiotics to vancomycin and Cefepime awaiting culture results for the treatment of HAP. - Continue remdesivir and dexamethasone for COVID-19 pneumonia - MAYDA, ANCA, CRP, RF,CCP -DuoNebs every 6 hours as needed Patient did make slow but steady progress.. Echocardiogram showed normal left ventricular systolic function with a grade 1 diastolic dysfunction. IV antibiotics were changed to vancomycin and cefepime. He did receive Lasix IVx1. He began to sleep better. O2 sats continued to drop with any activity. IV fluids were discontinued on 06/25/2020. Blood pressure was stable at this point when previously systolic was in the 90s. Nasal PCR was positive for MRSA and he continued with vancomycin. On 06/26/2020 patient was stable on 4 L of nasal oxygen. He still had some desats with activity but recovered quickly. Cough had improved. On 06/27/2020 sputum culture was noted to be with normal lubna. Patient was feeling much better. He was able to ambulate in the room without difficulty. He was eating without problems. He was sleeping. He was afebrile. On this date he was felt to be stable to be discharged home. He was to continue with oxygen at home as well as steroids, Levaquin x5 more days and to followup with a telehealth visit next week. <Heavenly June - 06/27/20 13:51> Objective Vital signs: Temp Pulse Resp BP Pulse Ox 97.8 F 57 L 18 105/62 L 95 06/27/20 0
[2020-06-27 21:30] LABS: Cytoplasmic (C-ANCA) 1:20 titer (Neg:<1:20)
[2020-06-28 11:14] LABS: Perinuclear (P-ANCA) <1:20 titer (Neg:<1:20)
[2020-07-12 11:10] LABS: Antinuclear Antibodies (ANA) NEGATIVE
== END 2020-06-27 10:55 | disposition home or self-care (01) | DRG 177 ==
LOC: ER 10:01 → 2ND 10:38
PROVIDERS: Internal Medicine Pulmonary Disease; Nurse Practitioner Family; Admitting Provider Family Medicine; Emergency Provider Emergency Medicine; PCP Family Medicine; Visit Provider Family Medicine
DX: U07.1 COVID-19 (principal); J12.82 Pneumonia due to coronavirus disease 2019; J96.01 Acute respiratory failure with hypoxia; C85.90 Non-Hodgkin lymphoma, unspecified, unspecified site; I95.9 Hypotension, unspecified; R74.8 Abnormal levels of other serum enzymes; Z87.891 Personal history of nicotine dependence; J44.9 Chronic obstructive pulmonary disease, unspecified; R73.9 Hyperglycemia, unspecified; Z88.0 Allergy status to penicillin
CPT/HCPCS: 36415; 71045; 71275; 80053; 80202; 83036; 83880; 84484; 85007; 85025; 85378; 86038; 86140; 86200; 86225; 86235; 86256; 86431; 87070; 87081; 87205; 93005; 93306; 94640; 94761; 96365; 96367; 96375; 99284; J0456; J3370; Q9967

== ENCOUNTER 2020-07-09 11:36 | Inpatient (IN) | payer BC, SELFPAY ==
[2020-07-09] VITALS (10 sets, daily range): BP systolic 93–128; BP diastolic 54–73; PULSE 84–114; RESP 18–42; TEMP 36.2–37; O2SAT 82–100; BMI 24.5; BMI 23.8
--- NOTE | 2020-07-09 11:42 | XR_ITS ---
PROCEDURE: XR CHEST PORTABLE Referring Doctor: Man Kirkland Patient Age:59Y CLINICAL HISTORY: soa, recent covid COMPARISON: CT CHW CT CHEST W/ CONTRAST from 09/11/2016 CR XR CHEST PORTABLE from 06/08/2020 CR XR CHEST PORTABLE from 06/13/2020 CR XR CHEST PORTABLE from 06/16/2020 CR XR CHEST PORTABLE from 06/21/[address] ANGIO CHEST from 06/23/2020 FINDINGS: AP portable upright chest performed today and compared to June 21. The there is slightly better expansion with slightly less pronounced interstitial infiltrates and patchy peripheral infiltrate throughout right lung and right base-. Improvement most evident along the lateral aspect of the right lung and right lung base On plain film the left lung appears similar in fact there may be slight additional infiltrate the periphery of the left mid lung, periphery of left upper lobe on plain film as suggested on CT The heart appears slightly larger on today's study with mild cardiomegaly slightly more evident.. . IMPRESSION: Infiltrate throughout the right lung shown improvement since 06/21/2020 the Left lung infiltrate appears similar if not very slight more evident the periphery of left midlung/BESS Mild cardiomegaly slightly more evident today's study Dictated by: Jayson Quintana MD 07/09/2020 15:51 Jayson Quintana MD in [place] 07/09/2020 15:51
--- NOTE | 2020-07-09 11:46 | HMH.EDSOB ---
ED Disposition Clinical Impression: COVID-19 Acute respiratory failure Qualifiers: Respiratory failure complication: hypoxia Qualified Code(s): J96.01 - Acute respiratory failure with hypoxia Disposition: Admitted As Inpatient Condition on Discharge: Fair - Critical Care Critical Care Time: No Attestation: On , the high probability of a clinically significant, sudden or life threatening deterioration of the following system(s) required my full and direct attention, intervention and personal management. The time I documented below is in addition to time spent performing reported procedures but includes the following listed in this critical care notation. Medical Decision Making - Medical Records Medical records reviewed: Yes: I reviewed the patient's medical records. - Les Inquiry Pt receiving controlled substance: No Vital Signs: 07/09/20 11:37 Temperature 97.2 F L Temperature Source Oral Pulse Rate [Radial] 114 H Respiratory Rate 42 H Blood Pressure [Right Arm] 128/73 Blood Pressure Mean [Right Arm] 91 Blood Pressure Position [Right Arm] Sitting 02 Sat by Pulse Oximetry 91 L Oxygen Delivery Method Nasal Cannula Oxygen Flow Rate (LPM) 4 - Lab Data Lab results reviewed: Yes: I reviewed the patient's lab results. Lab Results 07/09/20 11:51: Specimen Source Right radial, O2 % 15l/65, ABG pH 7.53 H, ABG pCO2 25.5 L, ABG pO2 67.6 L, ABG HCO3 20.7 L, ABG Total CO2 21.5 L, ABG O2 Saturation 95, ABG Base Excess -2.1, Aung Test Acceptable, Tidal Volume vapo 07/09/20 12:16: Chlamy pneumoniae PCR Not detected, Adenovirus (PCR) Not detected, B. pertussis DNA (PCR) Not detected, Coronavirus OC43 (PCR) Not detected, Coronavirus HKU1 (PCR) Not detected, Coronavirus 229E (PCR) Not detected, SARS-CoV-2 (PCR) Detected A, Coronavirus NL63 (PCR) Not detected, Human Metapneumovir PCR Not detected, Influenza A (H1) PCR Not detected, Influ A (H1N1/09) PCR Not detected, Influenza A (H3) PCR Not detected, Influenza Type A (PCR) Not detected, Influenza Type B (PCR) Not detected, M. pneumoniae (PCR) Not detected, Parainfluenza 1 (PCR) Not detected, Parainfluenza 2 (PCR) Not detected, Parainfluenza 3 (PCR) Not detected, Parainfluenza 4 (PCR) Not detected, RSV (PCR) Not detected, Entero/Rhino (PCR) Not detected 07/09/20 12:40: WBC 5.6, RBC 3.67 L, Hgb 11.4 L, Hct 34.2 L, MCV 93.0, MCH 31.1, MCHC 33.5, RDW 16.5, Plt Count 104 L, MPV 8.5, Neut % (Auto) 91.8 H, Lymph % (Auto) 5.2 L, [place] % (Auto) 2.4, Eos % (Auto) 0.4, Baso % (Auto) 0.1, Neut # (Auto) 5.2, Lymph # (Auto) 0.3 L, [place] # (Auto) 0.1, Eos # (Auto) 0.0, Baso # (Auto) 0.0, Total Counted 100, Neutrophils % (Manual) 89 H, Band Neutrophils % 3.0, Lymphocytes % (Manual) 5 L, Monocytes % (Manual) 3, Platelet Estimate Slight decrease, RBC Morphology Normal 07/09/20 12:40: Sodium 133 L, Potassium 4.8, Chloride 99, Carbon Dioxide 29, Anion Gap 9.8, BUN 20, Creatinine 0.70, Estimated Creat Clear 116, Estimated GFR 115, Est GFR ( Amer) 139, Glucose 151 H, Calcium 9.2, Total Bilirubin 1.0, AST 123 H, ALT 204 H, Alkaline Phosphatase 144 H, Troponin I 0.18 H, Total Protein 6.6, Albumin 3.3 L, Globulin 3.3 H, Albumin/Globulin Ratio 1.0 L 07/09/20 12:40: Lactate 3.2 H Result diagrams: 07/09/20 12:40 07/09/20 12:40 Orders (Tests/Meds): ED MEDICATIONS Generic Name Dose Route Start Last Admin Trade Name Freq PRN Reason Stop Dose Admin Acetaminophen 650 mg 07/09/20 13:31 Acetaminophen 325mg Tab PO 08/08/20 13:30 Q6HP PRN Mild pain,fever,headache Ascorbic Acid 500 mg 07/09/20 17:00 Ascorbic Acid 500mg Tab PO 08/08/20 16:59 QID KIRT Dexamethasone Sodium Phosphate 6 mg 07/09/20 13:45 Dexamethasone 4mg/Ml 1ml Vial IV 08/08/20 13:44 DAILY [facility] Enoxaparin Sodium 40 mg 07/09/20 13:45 Enoxaparin 40mg/0.4ml Syringe SQ 08/08/20 13:44 DAILY [facility] Ergocalciferol 50,000 unit 07/09/20 13:45 Ergocalciferol 50,000 Units (1.25mg) Capsule PO
--- NOTE | 2020-07-09 11:50 | CT_ITS ---
PROCEDURE: CT ANGIO CHEST Referring Doctor: Man Kirkland Patient Age:59Y CLINCIAL INDICATION: soa - PE? Dyspnea Recent Covd, still positive.. COMPARISON: CT CHW CT CHEST W/ CONTRAST from 09/11/[address] ANGIO CHEST from 06/13/[address] ANGIO CHEST from 06/23/2020 TECHNIQUE: IV Contrast: Bolus administration 70ML Isovue 370 followed by 40 mL normal saline Helical axial images obtained with subsequent thickened axial as well as thick slab volume MIP sagittal and coronal reformats performed sleep lab technologist on CT workstation.. All CT scans at the facility use one or more dose reduction, viz: automated exposure control, ma/kV adjustment per patient size (including targeted exams where dose is matched to indication, i.e. head), or iterative reconstruction technique. FINDINGS: PULMONARY ARTERIES:. Pulmonary embolus clearly evident intraluminal thrombus clearly evident at right.. Ribbon of intraluminal thrombus is seen right isaiah and extends with generous ribbon of thrombus seen extending from right isaiah into the right middle lobe pulmonary artery (involving both medial and lateral segment RML branches). Also this ribbon of thrombus seen extending posteriorly into the superior segment branch RLL. There is also some minimal intraluminal thrombus seen at origin of basilar segments RLL; with possible some scant thrombus at origin of upper lobe pulmonary arteries . No definite intraluminal thrombus at the left pulmonary arteries. Good enhancement here AORTA: No acute finding. No thoracic aortic aneurysm or dissection evident LUNGS: For the most part there has been overall improvement since June 23 CT chest. Diffuse bilateral infiltrates and interstitial infiltrate/diffuse interstitial coarsening appearance has shown slight improvement overall but this is particularly evident throughout the posterior aspect lower lobes.. Also slight improvement of periphery of the right upper lobe. The only new area is seen slight additional infiltrate is seen the periphery of the left upper lobe. . PLEURAL SPACES:. There has been regression of some minimal pleural fluid outlining fissures since previous study as well no significant effusion. No evidence of pneumothorax. HEART: . Normal heart size. No significant pericardial effusion. MEDIASTINAL AND HILAR STRUCTURES: No mediastinal or hilar mass evident. There are some reactive nodes scattered throughout mediastinum with slight more prominent nodes subcarinal region-most likely reactive. BONY STRUCTURES: No acute bony abnormalities apparent.. No bony lesions LYMPH NODES: Slightly prominent nodes are seen at the subcarinal region but these appear similar to previous study most likely reactive nodes. No additional pathologic nodes observed.. UPPER ABDOMEN: No additional findings IMPRESSION: 1. Study Positive For pulmonary Emboli Right Lung Ribbon of intraluminal thrombus begins at the right isaiah-and most evident extending into the RML branches, There is is also involvement of a few RLL branches ( superior segment RLL most notable RLL branch.) Moderate amount of pulmonary thrombus on right The 2. Bilateral pneumonia has shown overall slight improvement since June 23, 2020 . Overall improvement most evident the lower lobes bilaterally, also with improvement at periphery RUL noted . Only small patchy area of new infiltrate in the interval seen at periphery RUL . No remarkable pleural effusions today. Regression of the minimal pleural fluid since prior June 23 study 3.. The mild cardiomegaly. Dictated by: Jayson Quintana MD 07/09/2020 14:42 Jayson Quintana MD in [place] 07/09/2020 14:42
[2020-07-09 12:21] LABS: ABG Base Excess -2.1 mmol/L (-2.4-2.3); ABG HCO3 20.7 mmhg (22.0-26.0); ABG Oxygen Saturation 95 % (90-100); ABG PCO2 25.5 mmhg (35.0-45.0); ABG PH 7.53 mmol/L (7.35-7.45); ABG PO2 67.6 mmhg (80-100); ABG TCO2 21.5 mmhg (23-27); Allen's Test Acceptable
[2020-07-09 12:22] LABS: Source Right Radial
--- NOTE | 2020-07-09 12:35 | PC.NURSE ---
resp placed pt on vapotherm 15L at 65%
[2020-07-09 12:50] LABS: Adenovirus,PCR Not Detected (NotDetected); Bordetella Pertussis Not Detected (NotDetected); Chlamydophila Pneumoniae, PCR Not Detected (NotDetected); Coronavirus 229E Not Detected (NotDetected); Coronavirus NL63 Not Detected (NotDetected); Coronavirus OC43 Not Detected (NotDetected); Coronovirus HKU1,PCR Not Detected (NotDetected); Human Metapneumovirus Not Detected (NotDetected); Influenza A, PCR Not Detected (NotDetected); Influenza AH1, 2009 Not Detected (NotDetected); Influenza AH1, PCR Not Detected (NotDetected); Influenza AH3,PCR Not Detected (NotDetected); Influenza B, PCR Not Detected (NotDetected); Mycoplasma Pneumoniae, PCR Not Detected (NotDetected); Parainfluenza 1, PCR Not Detected (NotDetected); Parainfluenza 2, PCR Not Detected (NotDetected); Parainfluenza 3, PCR Not Detected (NotDetected); Parainfluenza 4, PCR Not Detected (NotDetected); Respiratory Syncytial Virus Not Detected (NotDetected); Rhinovirus/Enterovirus Not Detected (NotDetected)
[2020-07-09 13:11] LABS: Basophils % 0.1 % (0.1-2.0); Eosinophils % 0.4 % (0.1-12.0); Hematocrit 34.2 % (42.0-52.0); Hemoglobin 11.4 g/dL (14.1-18.0); Lymphocytes # 0.3 K/mm3 (0.7-4.5); Lymphocytes % 5.2 % (10-50); Mean Corpuscular HGB Conc 33.5 g/dL (31.8-35.4); Mean Corpuscular Hemoglobin 31.1 pg (27.0-31.2); Mean Platelet Volume 8.5 fl (7.4-10.4); Monocytes # 0.1 K/mm3 (0.1-1.0); Monocytes % 2.4 % (1.7-9.3); Neutrophils # 5.2 K/mm3 (1.8-7.8); Neutrophils % 91.8 % (37.0-80.0); Platelet Count 104 K/mm3 (142-424); Red Blood Count 3.67 M/mm3 (4.60-6.20); Red Cell Distribution Width 16.5 % (11.5-17.5); White Blood Count 5.6 K/mm3 (4.8-10.8)
[2020-07-09 13:12] LABS: MANUAL DIFFERENTIAL MANUAL DIFFERENTIAL (MANUAL DIFF)
[2020-07-09 13:15] LABS: Chloride 99 mmol/L (98-107); Potassium 4.8 mmoL/L (3.5-5.1); Sodium 133 mmol/L (136-145)
[2020-07-09 13:17] LABS: Alanine Aminotransferase 204 U/L (12-78); Aspartate Amino Transferase 123 U/L (17-59); Blood Urea Nitrogen 20 mg/dl (9-20); Creatinine Clearance Estimated 116 mL/min (50-200); Estimated Glomerular Filt Rate 115 ml/min (>60); GFR (African American) 139 ML/MIN (>60)
[2020-07-09 13:18] LABS: Albumin Level 3.3 g/dl (3.5-5.0); Alkaline Phosphatase 144 U/L (38-126); Anion Gap 9.8 mEq/L (5-15); Calcium 9.2 mg/dl (8.4-10.2); Carbon Dioxide 29 mmol/L (22.0-30.0); Globulin 3.3 g/dL (1.3-3.2); Glucose 151 mg/dl (74-100); Total Protein,Serum 6.6 g/dl (6.3-8.2)
[2020-07-09 13:19] LABS: Lymphocytes % 5 % (10-50); Monocytes % 3 % (2-9); Neutrophils % 89 % (42-76); Platelet Estimate Slight Decrease; RBC Morphology Normal; Total Cells Counted 100
[2020-07-09 13:20] LABS: Lactic Acid 3.2 mmol/L (0.7-2.1)
[2020-07-09 13:30] LABS: Troponin I 0.18 ng/ml (0.00-0.034)
[2020-07-09 13:34] LABS: Coronavirus 19, PCR Detected (NotDetected)
--- NOTE | 2020-07-09 13:36 | PC.NURSE ---
notified MD and House of positive covid results
--- NOTE | 2020-07-09 13:39 | PC.NURSE ---
pt going for CT scan
--- NOTE | 2020-07-09 13:57 | HMH.PHACONS ---
- Pharmacy Consult Date: 07/09/20 Time: 13:57 Referring provider: DR. CANDELARIA Reason for Consult:: VANCOMYCIN DOSING Allergies and ADEs:: Allergies Allergy/AdvReac Type Severity Reaction Status Date / Time Penicillins [PENICILLINS] Allergy Intermediate RASH/SWEATI Verified 06/05/20 13:10 NG Home Medications:: Home Medications Medication Instructions Recorded Confirmed Type No Known Home Medications 06/14/20 06/21/20 History Height: 1.73 m Weight: 73.028 kg Laboratory Results:: Laboratory Results - last 24 hr 07/09/20 11:51: Specimen Source Right radial, O2 % 15l/65, ABG pH 7.53 H, ABG pCO2 25.5 L, ABG pO2 67.6 L, ABG HCO3 20.7 L, ABG Total CO2 21.5 L, ABG O2 Saturation 95, ABG Base Excess -2.1, Aung Test Acceptable, Tidal Volume vapo 07/09/20 12:16: Chlamy pneumoniae PCR Not detected, Adenovirus (PCR) Not detected, B. pertussis DNA (PCR) Not detected, Coronavirus OC43 (PCR) Not detected, Coronavirus HKU1 (PCR) Not detected, Coronavirus 229E (PCR) Not detected, SARS-CoV-2 (PCR) Detected A, Coronavirus NL63 (PCR) Not detected, Human Metapneumovir PCR Not detected, Influenza A (H1) PCR Not detected, Influ A (H1N1/09) PCR Not detected, Influenza A (H3) PCR Not detected, Influenza Type A (PCR) Not detected, Influenza Type B (PCR) Not detected, M. pneumoniae (PCR) Not detected, Parainfluenza 1 (PCR) Not detected, Parainfluenza 2 (PCR) Not detected, Parainfluenza 3 (PCR) Not detected, Parainfluenza 4 (PCR) Not detected, RSV (PCR) Not detected, Entero/Rhino (PCR) Not detected 07/09/20 12:40: WBC 5.6, RBC 3.67 L, Hgb 11.4 L, Hct 34.2 L, MCV 93.0, MCH 31.1, MCHC 33.5, RDW 16.5, Plt Count 104 L, MPV 8.5, Neut % (Auto) 91.8 H, Lymph % (Auto) 5.2 L, [place] % (Auto) 2.4, Eos % (Auto) 0.4, Baso % (Auto) 0.1, Neut # (Auto) 5.2, Lymph # (Auto) 0.3 L, [place] # (Auto) 0.1, Eos # (Auto) 0.0, Baso # (Auto) 0.0, Total Counted 100, Neutrophils % (Manual) 89 H, Band Neutrophils % 3.0, Lymphocytes % (Manual) 5 L, Monocytes % (Manual) 3, Platelet Estimate Slight decrease, RBC Morphology Normal 07/09/20 12:40: Sodium 133 L, Potassium 4.8, Chloride 99, Carbon Dioxide 29, Anion Gap 9.8, BUN 20, Creatinine 0.70, Estimated Creat Clear 116, Estimated GFR 115, Est GFR ( Amer) 139, Glucose 151 H, Calcium 9.2, Total Bilirubin 1.0, AST 123 H, ALT 204 H, Alkaline Phosphatase 144 H, Troponin I 0.18 H, Total Protein 6.6, Albumin 3.3 L, Globulin 3.3 H, Albumin/Globulin Ratio 1.0 L 07/09/20 12:40: Lactate 3.2 H Medical History: Reports:: Cancer (lymphoma), Gastroesophageal Reflux Disease(GERD) Denies:: Diabetes Mellitus Type 1, Diabetes Mellitus Type 2, MRSA Assessment and Plan - Assessment and plan all Dx Assessment and Plan for all problems:: Pharmacokinetic dosing service Objective: Patient: Floor: Age: 59 yo Serum creatinine: 0.70 mg/dL Height: 68.0 Inches Weight (kg): 73 Assessment: IBW (kg): 68.40 Dosing wt(kg): 73 Estimated Creatinine clearance (ml/min): 108.6 CRCL method: Cockcroft and Gault using ibw(default). Drug selected: Vancomycin Loading dose (mg): 0 Vd (liters): 51.1 (factor used: 0.7 L/kg) Eros (hr-1): 0.095 Half life (hrs): 7.30 Recommended dose: 1250 mg Interval: 12 hrs Infusion time (hrs): 2.0 Predicted peak (mcg/mL): 32.8 Predicted trough (mcg/mL): 12.69 Total body weight is being used for vancomycin dosing. Recommendations: Give Vancomycin 1250 mg q 12 hrs with an expected Cpeak of 32.8 mcg/ml and an expected Ctrough of 12.69 mcg/ml Thank you for the consult, will continue to follow. Signature: SVETLANA GUZMAND
--- NOTE | 2020-07-09 14:55 | PC.NURSE ---
speaking with Dr. Sanz
--- NOTE | 2020-07-09 15:05 | ECG_ITS ---
APPROVED REPORT Exam: Resting ECG HR:99 bpm ECG Measurements Heart Rate 99 AXES NC 120 P 59 QRSd 84 QRS 18 QT 364 T 38 QTc 467 Conclusion Normal sinus rhythm Nonspecific ST abnormality Abnormal ECG Electronically signed by : Nikolas Santana, 07/10/2020 08:59:28
--- NOTE | 2020-07-09 15:13 | PC.NURSE ---
report to joanie viveros
--- NOTE | 2020-07-09 15:20 | PC.NURSE ---
Pt transferred from ER dept on 10LPM NC tolerated well, remained stable. Upon entering ICU room Pt placed on Vapotherm, tolerating well.
[2020-07-09 15:42] LABS: Troponin I 0.29 ng/ml (0.00-0.034)
[2020-07-09 16:42] LABS: Reflex Lactic Add Lactic Reflex
[2020-07-09 18:00] LABS: Lactic Acid Follow Up (RFLX 1) 1.6 mmol/L (0.7-2.1)
--- NOTE | 2020-07-09 22:54 | PC.NURSE ---
RESPIRATORY CARE NOTE: PT VAPOTHERM WAS DECREASED TO 40% OXYGEN; WHILE STILL RUNNING AT 15 LPM. PT CLAIMS THE HEATED HIGH FLOW IS HELPING RELIEVE HIS NOSE OF PAIN SINCE IT HAS BEEN EXTREMELY DRY DUE TO CONTINUOUS OXYGEN THERAPY AT HOME.
[2020-07-10] VITALS (17 sets, daily range): BP systolic 90–102; BP diastolic 50–64; PULSE 60–90; RESP 20–28; TEMP 35.8–37.3; O2SAT 86–100; BMI 24.1
--- NOTE | 2020-07-10 01:11 | PC.NURSE ---
VS WNL, Vapotherm 15L FiO2 decreased from 45% to 40%, patient is tolerating it well. Fine crackles noted in bilateral bases. 1st dose of Remdesivir & Zosyn started. Patient refused bath this shift. Will continue to monitor.
--- NOTE | 2020-07-10 01:52 | PC.NURSE ---
Patient's O2 Sat decreased into mid 70's with standing at side of bed to use urinal with increased SOA. Respiratory called and increased vapotherm to 20L & FiO2 to 50%. Patient is currently resting in the bed on left side with O2 sats fluctuating from 90-94%. Will continue to monitor.
--- NOTE | 2020-07-10 02:01 | PC.NURSE ---
RESPIRATORY CARE NOTE: PT OXYGEN SAT DECREASED WHEN HE STOOD BY THE BED TO USE THE RESTROOM. RT CAME TO BEDSIDE AND INCREASED VAPOTHERM TO 20 LPM; 50% TO HELP WITH HIS RECOVERY PROCESS. WILL RESUME WEANING OXYGEN AND FLOW WHEN PT FULLY RECOVERS.
--- NOTE | 2020-07-10 04:13 | PC.NURSE ---
RESPIRATORY CARE NOTE: PT WAS TRANSFERRED TO ROOM #264 DUE TO A DEFAULT IN NEGATIVE PRESSURE IN ROOM #266. PT WAS TRANSPORTED ON NON-REBREATHER MASK, AND WAS PLACED BACK ON VAPOTHERM 20 LPM; 50% UPON ARRIVAL TO NEW LOCATION. PT TOLERATED TRANSPORT WELL; OXYGEN SATURATION WAS 93% ON VAPOTHERM WHEN RT LEFT THE ROOM.
--- NOTE | 2020-07-10 04:48 | PC.NURSE ---
Patient moved rooms and tolerated well.
--- NOTE | 2020-07-10 08:25 | HMH.PHAVTE ---
[facility] Pharmacy VTE Monitoring - Patient Demographics Admission date: 07/09/20 Report Date: 07/10/20 Time: 08:25 Allergies/Adverse Reactions: Patient Allergies Penicillins [PENICILLINS] Allergy (Intermediate, Verified 06/05/20 13:10) RASH/SWEATING Height: 1.73 m Weight: 72.212 kg Patient Problems: Current Active Problems COVID-19 (Acute) Acute respiratory failure (Acute) - VTE Risk Labs: VTE Related Lab Results Hgb 11.4 g/dL (14.1-18.0) L 07/09/20 12:40 Hct 34.2 % (42.0-52.0) L 07/09/20 12:40 Plt Count 104 K/mm3 (142-424) L 07/09/20 12:40 BUN 20 mg/dl (9-20) 07/09/20 12:40 Creatinine 0.70 mg/dl (0.66-1.25) 07/09/20 12:40 Estimated Creat Clear 116 mL/min (50-200) 07/09/20 12:40 VTE Score: 7 VTE Risk Level: Moderate Risk - Prophylaxis VTE Prophylaxis Ordered?: Yes Types of VTE Prophylaxis: TEDS Knee High, Pharmacological Location of Applied Device: Bilateral Lower Extremeties Pharmacologic Type: Enoxaparin
[2020-07-10 09:46] LABS: Basophils % 0.3 % (0.1-2.0); Eosinophils % 0.5 % (0.1-12.0); Hematocrit 27.7 % (42.0-52.0); Lymphocytes # 0.4 K/mm3 (0.7-4.5); Lymphocytes % 15.9 % (10-50); Mean Corpuscular Hemoglobin 30.8 pg (27.0-31.2); Mean Corpuscular Volume 93.2 fl (80-94); Mean Platelet Volume 8.8 fl (7.4-10.4); Monocytes # 0.1 K/mm3 (0.1-1.0); Monocytes % 3.8 % (1.7-9.3); Neutrophils % 79.5 % (37.0-80.0); Platelet Count 87 K/mm3 (142-424); Red Blood Count 2.97 M/mm3 (4.60-6.20); Red Cell Distribution Width 16.6 % (11.5-17.5); White Blood Count 2.5 K/mm3 (4.8-10.8)
[2020-07-10 09:50] LABS: Hemoglobin 9.1 g/dL (14.1-18.0)
[2020-07-10 09:53] LABS: Alanine Aminotransferase 128 U/L (12-78); Albumin Level 2.5 g/dl (3.5-5.0); Albumin/Globulin Ratio 0.9 (1.1-1.8); Alkaline Phosphatase 106 U/L (38-126); Anion Gap 4.4 mEq/L (5-15); Aspartate Amino Transferase 78 U/L (17-59); Bilirubin,Total 0.5 mg/dl (0.2-1.3); Blood Urea Nitrogen 15 mg/dl (9-20); Carbon Dioxide 29 mmol/L (22.0-30.0); Chloride 103 mmol/L (98-107); Creatinine Clearance Estimated 115 mL/min (50-200); Estimated Glomerular Filt Rate 115 ml/min (>60); GFR (African American) 139 ML/MIN (>60); Globulin 2.7 g/dL (1.3-3.2); Glucose 97 mg/dl (74-100); Potassium 3.4 mmoL/L (3.5-5.1); Sodium 133 mmol/L (136-145); Total Protein,Serum 5.2 g/dl (6.3-8.2)
[2020-07-10 10:01] LABS: Calcium 7.9 mg/dl (8.4-10.2)
--- NOTE | 2020-07-10 10:15 | HMH.HP ---
*Admission Date: 07/09/20 *Chief complaint: Shortness of breath *History of present illness: Jesus is a 59-year-old white male with a past history of lymphoma and irritable bowel syndrome who has had 2 recent hospitalizations for Covid symptoms. He first began having symptoms the week after [place] and was first admitted on 06/13/2020 and discharged on 06/17/2020 with home oxygen. His shortness of breath worsened after going home and he was again admitted on 06/21/2020 and stayed through 06/27/2020. After this admission he was doing fairly well and during a telehealth office visit on 07/04/2020 he reported improvement in his dyspnea and appetite. He did note a drop in his O2 with activity but quickly rebounded with rest and oxygen. He had no chest pain, cough, or fever. He states about 2 days after speaking with me via telehealth, he began noticing more shortness of breath particularly with activity. Yesterday while taking a shower, his oxygen on room air dropped to 62%. At this point he returned to the emergency room. On work-up, his chest x-ray showed some improvement in the previous pneumonia but his CTA showed a right-sided pulmonary embolus. CTAs on both previous hospitalizations were negative for pulmonary embolus. He has now been readmitted and started on Lovenox for his pulmonary embolus and is also on Vapotherm for his hypoxemia. His PCR Covid swab is still positive. [facility] History Medical History: Reports:: Cancer (lymphoma), Gastroesophageal Reflux Disease(GERD) Denies:: Diabetes Mellitus Type 1, Diabetes Mellitus Type 2, MRSA *Have you ever received a pneumonia vaccine?: No *Have you received a flu vaccine this season?: Yes Other Medical History: Reports: Chemotherapy, Other (Irritable bowel syndrome; restless leg syndrome; lymphoma diagnosed in 2017) Other Surgeries: Yes: Hernia Repair - *Social History Smoking Status: Current every day smoker Tobacco Type: cigarettes # Packs/Day (cigarettes): 0 Alcohol Intake: never *Occupational Status:: unemployed *Travel in the last 8 weeks: None Family Hx:: No significant family history Review of Systems - Constitutional Reports fatigue, Denies anorexia, Denies body ache(s), Denies chills - Eyes Denies change in vision - ENT Denies dizziness, Denies difficulty swallowing, Denies nosebleed, Denies hearing loss - *Cardiovascular Reports shortness of breath with activity, Denies chest pain, Denies leg swelling - *Respiratory Reports cough (dry), Denies chest congestion, Denies coughing up blood - *Gastrointestinal Denies abdominal pain, Denies change in bowel habits, Denies difficulty swallowing, Denies heartburn - *Genitourinary Denies difficulty urinating - *Musculoskeletal Denies joint pain, Denies body aches - Integumentary/Breasts Denies hair loss, Denies change in skin color - *Neurologic Denies abnormal hearing, Denies dizziness, Denies headache(s) - Psychiatric Reports abnormal sleep pattern, Denies confusion, Denies mood swings - Endocrine Denies excessive sweating - Hematologic/Lymphatic Denies easy bruising - Allergic/Immunologic Denies seasonal runny nose Meds Home Medications Medication Instructions Recorded Confirmed Type No Known Home Medications 06/14/20 07/09/20 History Allergies Allergy/AdvReac Type Severity Reaction Status Date / Time Penicillins [PENICILLINS] Allergy Intermediate RASH/SWEATI Verified 06/05/20 13:10 NG Exam Vital signs and Labs for Last 24 Hours: Temp Pulse Resp BP Pulse Ox 98.4 F 80 28 H 94/56 L 99 07/10/20 04:00 07/10/20 08:00 07/10/20 07:53 07/10/20 07:53 07/10/20 07:58 Laboratory Results - last 24 hr 07/09/20 11:51: Specimen Source Right radial, O2 % 15l/65, ABG pH 7.53 H, ABG pCO2 25.5 L, ABG pO2 67.6 L, ABG HCO3 20.7 L, ABG Total CO2 21.5 L, ABG O2 Saturation 95, ABG Base Excess -2.1, Aung Test Acceptable, Tidal Volume vapo 07/09/20 12:16: Chlamy pneumoniae PCR Not detecte
--- NOTE | 2020-07-10 15:44 | PC.NURSE ---
PATIENT IS A&O X 4, LUNGS HAVE CRACKLES AT LOWER LOBES AND DIMINISHED THROUGHOUT. PULSES EQUAL. PATIENT IS TOLERATING VAPOTHERM, WHEN SITTING ON SIDE BED, STANDING TO USE URINAL OR UP TO CHAIR, O2 STATS WILL DROP TO HIGH 70S TO LOW 80S. BP HAVE BEEN IN THE 90S/50S . MD AWARE. PATIENT HAS HAD POOR APPETITE DURING THIS RN SHIFT. NO NEW CONCERNS AT THIS TIME.
--- NOTE | 2020-07-10 18:51 | PC.NURSE ---
WHILE PATIENT IS LAYING ON RIGHT SIDE, HEART RATE DROPS TO 50S. WHEN THIS RN AWAKES PATIENT AND PATIENT BEGINS TO ROLL ONTO BACK, HEART RATE IMMEDIATELY JUMPS TO HIGH 60S TO LOW 70S.
[2020-07-11] VITALS (14 sets, daily range): BP systolic 91–102; BP diastolic 54–66; PULSE 40–81; RESP 17–22; TEMP 35.7–36.4; O2SAT 92–100; BMI 24.3
--- NOTE | 2020-07-11 03:41 | PC.NURSE ---
Patient desats to mid 70's with any activity; with increase difficulty in recovering to normal parameters. Respiratory increased vapotherm to 30L FiO2 45% . Patient's heart rate decreases to low to mid 40's when lying flat or on right side with no s/s of acute distress. When on lying on the left side heart rate decreases to high 40's & low 50's on his left side showing no symptoms of distress at any time.
[2020-07-11 04:54] LABS: Eosinophils % 0.2 % (0.1-12.0); Hemoglobin 9.2 g/dL (14.1-18.0); Lymphocytes # 0.3 K/mm3 (0.7-4.5); Mean Corpuscular Hemoglobin 30.7 pg (27.0-31.2); Mean Platelet Volume 8.9 fl (7.4-10.4)
[2020-07-11 04:59] LABS: Basophils % 0.3 % (0.1-2.0); Mean Corpuscular Volume 92.8 fl (80-94); Monocytes # 0.1 K/mm3 (0.1-1.0); Monocytes % 4.2 % (1.7-9.3); Neutrophils # 1.1 K/mm3 (1.8-7.8); Neutrophils % 74.4 % (37.0-80.0); Platelet Count 64 K/mm3 (142-424); Red Blood Count 3.02 M/mm3 (4.60-6.20); Red Cell Distribution Width 16.3 % (11.5-17.5)
[2020-07-11 05:01] LABS: White Blood Count 1.4 K/mm3 (4.8-10.8)
[2020-07-11 05:24] LABS: Alanine Aminotransferase 92 U/L (12-78); Albumin Level 2.1 g/dl (3.5-5.0); Alkaline Phosphatase 95 U/L (38-126); Anion Gap 5.4 mEq/L (5-15); Aspartate Amino Transferase 49 U/L (17-59); Bilirubin,Total 0.4 mg/dl (0.2-1.3); Blood Urea Nitrogen 15 mg/dl (9-20); Calcium 7.8 mg/dl (8.4-10.2); Carbon Dioxide 26 mmol/L (22.0-30.0); Chloride 110 mmol/L (98-107); Creatinine Clearance Estimated 134 mL/min (50-200); Estimated Glomerular Filt Rate 137 ml/min (>60); GFR (African American) 166 ML/MIN (>60); Globulin 2.1 g/dL (1.3-3.2); Potassium 3.4 mmoL/L (3.5-5.1); Sodium 138 mmol/L (136-145); Total Protein,Serum 4.2 g/dl (6.3-8.2)
[2020-07-11 05:25] LABS: Glucose 126 mg/dl (74-100)
--- NOTE | 2020-07-11 06:02 | PC.NURSE ---
[id number]. Jackie pharmacist contacted this RN and gave authorization to give next dose of vanc per trough results
--- NOTE | 2020-07-11 06:24 | PC.NURSE ---
patient sat up on the side of bed desat to 74% (respiratory called and on standby), stood to use urinal desat to 64%. patient then sat on bedside toilet respiratory increased vapotherm to 40L 100% patients sat increase back 94% and sustained while getting back to bed; patient currently at 98% lying in the bed.
--- NOTE | 2020-07-11 08:44 | HMH.PHACONS ---
- Pharmacy Consult Date: 07/11/20 Time: 08:44 Referring provider: DR. PACHECO Reason for Consult:: VANCOMYCIN TROUGH AND DOSING CHANGE Allergies and ADEs:: Allergies Allergy/AdvReac Type Severity Reaction Status Date / Time Penicillins [PENICILLINS] Allergy Intermediate RASH/SWEATI Verified 06/05/20 13:10 NG Home Medications:: Home Medications Medication Instructions Recorded Confirmed Type No Known Home Medications 06/14/20 07/09/20 History Height: 1.73 m Weight: 72.62 kg Laboratory Results:: Laboratory Results - last 24 hr 07/10/20 09:40: WBC 2.5 L D, RBC 2.97 L, Hgb 9.1 L D, Hct 27.7 L, MCV 93.2, MCH 30.8, MCHC 33.0, RDW 16.6, Plt Count 87 L, MPV 8.8, Neut % (Auto) 79.5, Lymph % (Auto) 15.9, [place] % (Auto) 3.8, Eos % (Auto) 0.5, Baso % (Auto) 0.3, Neut # (Auto) 2.0, Lymph # (Auto) 0.4 L, [place] # (Auto) 0.1, Eos # (Auto) 0.0, Baso # (Auto) 0.0 07/10/20 09:40: Sodium 133 L, Potassium 3.4 L D, Chloride 103, Carbon Dioxide 29, Anion Gap 4.4 L, BUN 15, Creatinine 0.70, Estimated Creat Clear 115, Estimated GFR 115, Est GFR ( Amer) 139, Glucose 97 D, Calcium 7.9 L D, Total Bilirubin 0.5, AST 78 H D, ALT 128 H D, Alkaline Phosphatase 106, Total Protein 5.2 L, Albumin 2.5 L D, Globulin 2.7, Albumin/Globulin Ratio 0.9 L 07/11/20 04:45: WBC 1.4 L* D, RBC 3.02 L, Hgb 9.2 L, Hct 28.0 L, MCV 92.8, MCH 30.7, MCHC 33.0, RDW 16.3, Plt Count 64 L D, MPV 8.9, Neut % (Auto) 74.4, Lymph % (Auto) 21.0, [place] % (Auto) 4.2, Eos % (Auto) 0.2, Baso % (Auto) 0.3, Neut # (Auto) 1.1 L, Lymph # (Auto) 0.3 L, [place] # (Auto) 0.1, Eos # (Auto) 0.0, Baso # (Auto) 0.0 07/11/20 04:45: Sodium 138, Potassium 3.4 L, Chloride 110 H, Carbon Dioxide 26, Anion Gap 5.4, BUN 15, Creatinine 0.60 L, Estimated Creat Clear 134, Estimated GFR 137, Est GFR ( Amer) 166, Glucose 126 H D, Calcium 7.8 L, Total Bilirubin 0.4, AST 49 D, ALT 92 H D, Alkaline Phosphatase 95, Total Protein 4.2 L, Albumin 2.1 L D, Globulin 2.1, Albumin/Globulin Ratio 1.0 L 07/11/20 04:45: Vancomycin Trough 8.0 Medical History: Reports:: Cancer (lymphoma), Gastroesophageal Reflux Disease(GERD) Denies:: Diabetes Mellitus Type 1, Diabetes Mellitus Type 2, MRSA Assessment and Plan (1) Pulmonary embolus Status: Acute Category: Medical Code(s): I26.99 - Other pulmonary embolism without acute cor pulmonale (2) Respiratory failure with hypoxia Status: Acute Qualifiers: Chronicity: acute Qualified Code(s): J96.01 - Acute respiratory failure with hypoxia Category: Medical Code(s): J96.91 - Respiratory failure, unspecified with hypoxia (3) Pneumonia due to COVID-19 virus Status: Acute Category: Medical Code(s): U07.1 - COVID-19; J12.82 - Pneumonia due to coronavirus disease 2019 (4) Elevated liver enzymes Status: Acute Category: Medical Code(s): R74.8 - Abnormal levels of other serum enzymes (5) Thrombocytopenia Status: Acute Category: Medical Code(s): D69.6 - Thrombocytopenia, unspecified (6) Lymphoma Status: Chronic Category: Medical Code(s): C85.90 - Non-Hodgkin lymphoma, unspecified, unspecified site - Assessment and plan all Dx Assessment and Plan for all problems:: BASED ON PATIENT'S VANCOMYCIN TROUGH LEVEL OF 8.0 MCG/ML, RECOMMEND CHANGING VANCOMYCIN DOSING TO 1250 MG Q8H STARTING AT 1300 THIS AFTERNOON. PHARMACY WILL FOLLOW DAILY AND ADJUST APPROPRIATE.
--- NOTE | 2020-07-11 08:51 | PC.NURSE ---
SPOKE WITH [facility]ESS[facility] PT/OT REGARDING GETTING PATIENT SOME RESISTANT BANDS. PER PT REQUEST. SHE STATES THEY WILL GET SOME.
--- NOTE | 2020-07-11 08:59 | HMH.ACPN2 ---
Internal Medicine - PN: Subj *Date: 07/11/20 *Time: 08:59 Interval history: No new complaints this morning. Specifically denies shortness of breath at rest, chest pain, productive cough, appetite is fair. Staff is still documenting hypoxia into the 60s with minimal exertion. He quickly recovers to the mid 90s. Also noted to have bradycardia which seems to be somewhat positional. Exam Vital signs and Labs for Last 24 Hours: Temp Pulse Resp BP Pulse Ox 96.2 F L 56 L 17 98/62 L 92 L 07/11/20 08:00 07/11/20 08:00 07/11/20 08:00 07/11/20 08:00 07/11/20 10:27 Laboratory Results - last 24 hr 07/11/20 04:45: WBC 1.4 L* D, RBC 3.02 L, Hgb 9.2 L, Hct 28.0 L, MCV 92.8, MCH 30.7, MCHC 33.0, RDW 16.3, Plt Count 64 L D, MPV 8.9, Neut % (Auto) 74.4, Lymph % (Auto) 21.0, [place] % (Auto) 4.2, Eos % (Auto) 0.2, Baso % (Auto) 0.3, Neut # (Auto) 1.1 L, Lymph # (Auto) 0.3 L, [place] # (Auto) 0.1, Eos # (Auto) 0.0, Baso # (Auto) 0.0 07/11/20 04:45: Sodium 138, Potassium 3.4 L, Chloride 110 H, Carbon Dioxide 26, Anion Gap 5.4, BUN 15, Creatinine 0.60 L, Estimated Creat Clear 134, Estimated GFR 137, Est GFR ( Amer) 166, Glucose 126 H D, Calcium 7.8 L, Total Bilirubin 0.4, AST 49 D, ALT 92 H D, Alkaline Phosphatase 95, Total Protein 4.2 L, Albumin 2.1 L D, Globulin 2.1, Albumin/Globulin Ratio 1.0 L 07/11/20 04:45: Vancomycin Trough 8.0 07/11/20 04:45: C-Reactive Protein 107.7 H I & O for Last 24 hours: Intake & Output 07/08/20 07/09/20 07/10/20 07/11/20 11:59 11:59 11:59 11:59 Intake Total 2010 2825 / 2825 Output Total 900 / 900 1000 / 1000 Balance 1111 / 1111 1825 / 1825 Weight 161 lb 159 lb 3.2 oz 160 lb 1.6 oz Narrative: He is lying comfortably in bed and tolerating Vapotherm. Color is good. No respiratory distress. Breath sounds have improved with fewer crackles. No wheezes. Heart is bradycardic but regular. Abdomen benign. Assessment and Plan (1) Pulmonary embolus Status: Acute Category: Medical Code(s): I26.99 - Other pulmonary embolism without acute cor pulmonale (2) Respiratory failure with hypoxia Status: Acute Qualifiers: Chronicity: acute Qualified Code(s): J96.01 - Acute respiratory failure with hypoxia Category: Medical Code(s): J96.91 - Respiratory failure, unspecified with hypoxia (3) Pneumonia due to COVID-19 virus Status: Acute Category: Medical Code(s): U07.1 - COVID-19; J12.82 - Pneumonia due to coronavirus disease 2018 (4) Elevated liver enzymes Status: Acute Category: Medical Code(s): R74.8 - Abnormal levels of other serum enzymes (5) Thrombocytopenia Status: Acute Category: Medical Code(s): D69.6 - Thrombocytopenia, unspecified (6) Lymphoma Status: Chronic Category: Medical Code(s): C85.90 - Non-Hodgkin lymphoma, unspecified, unspecified site - Assessment and plan all Dx Assessment and Plan for all problems:: Stable course overnight. Etiology of his bradycardia is not clear. Will check echocardiogram. Etiology of his pancytopenia is unclear. Will discuss with pharmacy if it could be related to Remdesevir. Will discuss with pulmonology as to the benefit of a third round of remdesivir in the setting. His current hypoxemia seems most likely related to the pulmonary embolus as his pneumonia seems to be improving by x-ray. Continue Xarelto for treatment of his pulmonary embolus.
--- NOTE | 2020-07-11 09:09 | CA_ITS ---
APPROVED REPORT EXAM: Comprehensive 2D, Doppler, and color-flow Echocardiogram Development Scientist: Lela Marshall, RT(R) Ht: 5 ft 8 in Wt: 160lbs BSA: 1.86 BP: 110/70 mmHg Indications: smoker, SOB, hx of lymphoma, COVID pneumonia, GERD, patient on vapotherm, PE, bradycardia 2D Dimensions Aortic Root 3.19 cm M: 3.1 - 3.7 LVOT 2.18 cm (M/F) 1.5-2.5 M-Mode Dimensions RVDd 3.20 cm (0.9-2.6) LA Diam 3.07 cm (1.9-4.0) LVDd 5.13 cm (3.5-5.7) Ao Diam 3.55 cm (2.0-3.7) LVDs 3.28 cm (3.5-5.7) IVSd 1.08 cm (0.6-1.1) PWd 0.84 cm (0.6-1.1) EF (Teich) 65.30% FS 36.10% EDV (Teich) 125.50 mL TAPSE 1.50 (<1.7) ESV (Teich) 43.50 mL LV Diastology E Decel Time 197.00 (160-240 msec) E/A Ratio 1.1 MED E' 9.70 (< 7 cm/sec) E'/MED E' Ratio 6.59 (>14) LAT E' 9.20 (<10 cm/sec) E/LAT E' Ratio 6.95 (>14) Mitral Valve MV E Max Adin. 64.00 (40-130 cm/s) MV A Velocity 59.00 (40-130 cm/s) E/A Ratio 1.08 MV Decel. Time 197.00 (160-240 ms) MV PHT 58.00 ms Tricuspid Valve TR P. Velocity 341.00 cm/s RAP Estimate 15.00 mmHg RVSP 61.60 mmHg Left Ventricle Left atrium is mildly enlarged, left ventricle is normal size, mild concentric left ventricular hypertrophy, visually estimated ejection fraction 50% with no obvious regional wall motion abnormality, endocardial surfaces are poorly visualized. Grade 1 diastolic dysfunction seen without tissue Doppler evidence of raise left atrial pressure. Right Ventricle Right atrium and right ventricle are moderately enlarged with normal contractility. Atria Intra-atrial septum is mobile consistent with atrial septal aneurysm, there is flow across the interatrial septum raising the presence of significant intracardiac shunt, repeat study with saline contrast is recommended. Aortic Valve Aortic valve is minimally thickened and fibrosed, there is no aortic stenosis or aortic insufficiency. Mitral Valve Mitral valve is minimally thickened, there is mild mitral regurgitation. Tricuspid Valve Tricuspid valve is grossly normal, there is mild tricuspid regurgitation, calculated right ventricular systolic pressure is 54 mmHg. Pulmonic Valve Pulmonic valve is minimally thickened, there is mild pulmonic insufficiency. Great Vessels Aortic root is normal size. Pericardium No significant pericardial effusion noted. Conclusion 1. Biatrial enlargement, normal left ventricular size, mild concentric left ventricular hypertrophy, visually estimated ejection fraction 50% with no regional wall motion abnormality, grade 1 diastolic dysfunction seen without tissue Doppler evidence of raise left atrial pressure. 2. Mobile interatrial septum with flow across interatrial septum raising the concern for presence of intracardiac shunt, repeat study with saline contrast is recommended. 3. Moderately enlarged right ventricle with normal contractility. 4. Mild mitral and tricuspid regurgitation, calculated right ventricular systolic pressure is 54 mmHg. 5. No significant pericardial effusion noted. Electronically signed by : Feliciano Roberts, 07/11/2020 21:01:51
--- NOTE | 2020-07-11 10:14 | HMH.PULMCON ---
*Admission Date: 07/09/20 *Reason for consult:: Acute hypoxic respiratory failure, pulmonary embolism, COVID-19 pneumonia *History of present illness: Mr. Billingsley is a 67-year-old male with a recent diagnosis of COVID-19 pneumonia admitted to the hospital twice recently received 7 days of vancomycin and cefepime and discharged home with 5 days of levofloxacin presented hospital worsening respiratory failure that is not associated with any productive cough or fevers or chills. Patient admits nonproductive cough. [facility] History Medical History: Reports:: Cancer (lymphoma), Gastroesophageal Reflux Disease(GERD) Denies:: Diabetes Mellitus Type 1, Diabetes Mellitus Type 2, MRSA *Have you ever received a pneumonia vaccine?: No *Have you received a flu vaccine this season?: Yes Other Medical History: Reports: Chemotherapy, Other (Irritable bowel syndrome; restless leg syndrome; lymphoma diagnosed in 2017) Other Surgeries: Yes: Hernia Repair - *Social History Smoking Status: Current every day smoker Tobacco Type: cigarettes # Packs/Day (cigarettes): 0 Alcohol Intake: never *Occupational Status:: unemployed *Travel in the last 8 weeks: None Family Hx:: No significant family history ROS - Cons Reports anorexia, Reports body ache(s), Denies chills - Card Reports shortness of breath with activity, Reports leg swelling - Resp Respiratory: Reports chest congestion, Reports cough, Reports non-productive cough, Reports dyspnea, Reports dyspnea on exertion, Denies coughing up blood - GI Gastrointestingal: Reports: system reviewed and no additional complaints, except as docu - Psych Reports abnormal sleep pattern Meds Home Medications Medication Instructions Recorded Confirmed Type No Known Home Medications 06/14/20 07/09/20 History Allergies Allergy/AdvReac Type Severity Reaction Status Date / Time Penicillins [PENICILLINS] Allergy Intermediate RASH/SWEATI Verified 06/05/20 13:10 NG Exam - Constitutional Constitutional:: Present: no acute distress, comfortable - HENMT Exam HENMT: Present: normocephalic, atraumatic - Neck Exam Neck:: Present: thyroid normal - Respiratory Exam Respiratory:: Present: no respiratory distress, normal respiratory effort, crackles - Cardiovascular Exam Cardiac:: Present: S1, S2 - GI Exam GI:: Present: soft, no hepatosplenomegaly - Neurological Exam Neurological: Present: alert, awake, normal cognition - Extremities Exam Extremities: Present: no cyanosis, no clubbing, edema - Psychiatric Exam Psychiatric: Present: normal affect Internal Medicine - CN: Reslt - Labs CBC & Chem 7: 07/11/20 04:45 07/11/20 04:45 Labs: Short CBC 07/11/20 Range/Units 04:45 WBC 1.4 L* D (4.8-10.8) K/mm3 Hgb 9.2 L (14.1-18.0) g/dL Hct 28.0 L (42.0-52.0) % Plt Count 64 L D (142-424) K/mm3 BMP 07/11/20 04:45 Sodium 138 Potassium 3.4 L Chloride 110 H Carbon Dioxide 26 BUN 15 Creatinine 0.60 L Glucose 126 H D Calcium 7.8 L Liver Function 07/11/20 Range/Units 04:45 Total Bilirubin 0.4 (0.2-1.3) mg/dl AST 49 D (17-59) U/L ALT 92 H D (12-78) U/L Alkaline Phosphatase 95 (38-126) U/L Albumin 2.1 L D (3.5-5.0) g/dl - ABG Interpretation ABG results: 07/09/20 11:51 ABG pH 7.53 H ABG pCO2 25.5 L ABG pO2 67.6 L ABG HCO3 20.7 L ABG Total CO2 21.5 L ABG O2 Saturation 95 ABG Base Excess -2.1 Assessment and Plan (1) Pulmonary embolus Status: Acute Category: Medical Code(s): I26.99 - Other pulmonary embolism without acute cor pulmonale (2) Respiratory failure with hypoxia Status: Acute Qualifiers: Chronicity: acute Qualified Code(s): J96.01 - Acute respiratory failure with hypoxia Category: Medical Code(s): J96.91 - Respiratory failure, unspecified with hypoxia (3) Pneumonia due to COVID-19 virus Status: Acute Category: Medical Code(s): U07.1 - COVID-19; J12.82 -
[2020-07-11 10:50] LABS: C-Reactive Protein 107.7 mg/L (0-4)
--- NOTE | 2020-07-11 11:20 | PC.NURSE ---
DR. PACHECO ORDERED TO DECREASE IVF TO 50ML/HR
--- NOTE | 2020-07-11 14:36 | PC.NURSE ---
VAPOTHERM SETTINGS ARE 25L 50% WITH O2 SAT 90%-92%
--- NOTE | 2020-07-11 15:58 | PC.NURSE ---
Addendum entered by Jody Vazquez RN 07/11/20 17:50: PT HAS DESAT WITH EXERTION, ONE TIME LOW 59%, PULM. IS AWARE. OTHERWISE PT DESATS TO LOW 80'S AND TAKES ABOUT 10 MINUTES TO RECOVER. Original Note: PT HAS DONE WELL TODAY. HAS TRANSFERRED TO BS WITH STANDBY ASSIST. PT HAS HAD 2 BMS TODAY. PT CONT. ON VAPOTHERM (SEE LAST NOTE) PT HAS NOT COMPLAINTS. PT HAS BEEN USING IS APPROPRIATELY. PT HAS DONE ORAL CARE INDEPENDENTLY. PT HAD REQUESTED A BATH ON THIS SHIFT BUT THEN HAS CHANGED HIS MIND D/T BEING SOB WITH EXERTION. PT DENIES WANT FOR HELP WITH BATH. VSS. WILL CONT. TO MONITOR.
[2020-07-12] VITALS (15 sets, daily range): BP systolic 91–105; BP diastolic 53–66; PULSE 50–71; RESP 18–25; TEMP 36.2–36.6; O2SAT 90–99; BMI 23.7
--- NOTE | 2020-07-12 03:51 | PC.NURSE ---
Pt A&O x4 and has slept well through the night. Vapotherm at 25L, 40%. Sats in the low 90s. Pt up to use the BSC and urinal, sats dropped to 80s, pt unsymptomatic, able to recover quickly. No c/o pain or difficulty breathing. Tele is NSR-SB. Bowel sounds x4, abd soft and nontender. VSS, call light in reach, no concerns at this time.
[2020-07-12 05:56] LABS: Eosinophils % 0.2 % (0.1-12.0); Hematocrit 25.9 % (42.0-52.0); Hemoglobin 8.8 g/dL (14.1-18.0); Lymphocytes # 0.4 K/mm3 (0.7-4.5); Lymphocytes % 12.9 % (10-50); Mean Corpuscular HGB Conc 33.8 g/dL (31.8-35.4); Mean Corpuscular Hemoglobin 30.6 pg (27.0-31.2); Mean Corpuscular Volume 90.4 fl (80-94); Mean Platelet Volume 9.7 fl (7.4-10.4); Monocytes # 0.2 K/mm3 (0.1-1.0); Monocytes % 6.1 % (1.7-9.3); Neutrophils # 2.6 K/mm3 (1.8-7.8); Neutrophils % 80.8 % (37.0-80.0); Platelet Count 65 K/mm3 (142-424); Red Blood Count 2.86 M/mm3 (4.60-6.20); Red Cell Distribution Width 16.5 % (11.5-17.5); White Blood Count 3.3 K/mm3 (4.8-10.8)
[2020-07-12 06:03] LABS: Chloride 108 mmol/L (98-107)
[2020-07-12 06:04] LABS: Potassium 3.5 mmoL/L (3.5-5.1); Sodium 137 mmol/L (136-145)
[2020-07-12 06:07] LABS: Anion Gap 4.5 mEq/L (5-15); Blood Urea Nitrogen 19 mg/dl (9-20); Calcium 7.5 mg/dl (8.4-10.2); Carbon Dioxide 28 mmol/L (22.0-30.0); Creatinine Clearance Estimated 158 mL/min (50-200); Estimated Glomerular Filt Rate 170 ml/min (>60); GFR (African American) 205 ML/MIN (>60); Glucose 94 mg/dl (74-100)
--- NOTE | 2020-07-12 08:27 | HMH.ACPN ---
Internal Medicine - PN: Subj *Date: 07/12/20 *Time: 08:27 Exam Vital signs and Labs for Last 24 Hours: Temp Pulse Resp BP Pulse Ox 97.1 F L 59 L 25 H 91/62 L 90 L 07/12/20 08:11 07/12/20 08:11 07/12/20 08:11 07/12/20 08:11 07/12/20 08:11 Laboratory Results - last 24 hr 07/11/20 04:45: C-Reactive Protein 107.7 H 07/12/20 04:54: WBC 3.3 L D, RBC 2.86 L, Hgb 8.8 L, Hct 25.9 L, MCV 90.4, MCH 30.6, MCHC 33.8, RDW 16.5, Plt Count 65 L, MPV 9.7, Neut % (Auto) 80.8 H, Lymph % (Auto) 12.9, [place] % (Auto) 6.1, Eos % (Auto) 0.2, Baso % (Auto) 0.0 L, Neut # (Auto) 2.6, Lymph # (Auto) 0.4 L, [place] # (Auto) 0.2, Eos # (Auto) 0.0, Baso # (Auto) 0.0 07/12/20 04:54: Sodium 137, Potassium 3.5, Chloride 108 H, Carbon Dioxide 28, Anion Gap 4.5 L, BUN 19 D, Creatinine 0.50 L, Estimated Creat Clear 158, Estimated GFR 170, Est GFR ( Amer) 205 D, Glucose 94, Calcium 7.5 L I & O for Last 24 hours: Intake & Output 07/09/20 07/10/20 07/11/20 07/12/20 23:59 23:59 23:59 23:59 Intake Total 360 / 360 3304 / 3304 2482 / 2482 Output Total 1400 / 1900 2625 / 2625 350 / 350 Balance 360 / 60 1904 / 1404 -143 / -143 -350 / -350 Weight 71.214 kg 72.212 kg 73 kg 70.987 kg Microbiology Reports for the Last 24 Hours: Microbiology 07/09/20 12:40 Blood Blood Culture - Preliminary NO GROWTH AFTER 48 HOURS 07/09/20 12:40 Blood Blood Culture - Preliminary NO GROWTH AFTER 48 HOURS Assessment and Plan (1) Pulmonary embolus Status: Acute Category: Medical Code(s): I26.99 - Other pulmonary embolism without acute cor pulmonale (2) Respiratory failure with hypoxia Status: Acute Qualifiers: Chronicity: acute Qualified Code(s): J96.01 - Acute respiratory failure with hypoxia Category: Medical Code(s): J96.91 - Respiratory failure, unspecified with hypoxia (3) Pneumonia due to COVID-19 virus Status: Acute Category: Medical Code(s): U07.1 - COVID-19; J12.82 - Pneumonia due to coronavirus disease 2019 (4) Elevated liver enzymes Status: Acute Category: Medical Code(s): R74.8 - Abnormal levels of other serum enzymes (5) Thrombocytopenia Status: Acute Category: Medical Code(s): D69.6 - Thrombocytopenia, unspecified (6) Lymphoma Status: Chronic Category: Medical Code(s): C85.90 - Non-Hodgkin lymphoma, unspecified, unspecified site The patient's infection will respond to the chosen ABx?: Yes Is the patient receiving the right drug, dose, and route?: Yes Could a more targeted ABx be ordered?: No (BLOOD CULTURES PENDING)
--- NOTE | 2020-07-12 09:21 | CA_ITS ---
APPROVED REPORT EXAM: Comprehensive 2D, Doppler, and color-flow Echocardiogram Pulling Unit Floorhand: Jael Segovia RCS, RVS Ht: 5 ft 8 in Wt: 160lbs BSA: 1.86 BP: 91/62 mmHg Indications: inconclussive TTE for ASD Echo Enhancing Agent Comments: Negative for ASD, no shunt noted with multple attempts utilizing sniff and valsalva maneuvers. Tricuspid Valve TR P. Velocity 324.00 cm/s RAP Estimate 10.00 mmHg RVSP 51.90 mmHg Conclusion 1. Agitated saline contrast study was performed, which failed to identify rumee-wr-kord shunt. Electronically signed by : Feliciano Roberts, 07/12/2020 18:41:35
--- NOTE | 2020-07-12 09:22 | HMH.PULMPN ---
Internal Medicine - PN: Subj *Date: 07/12/20 *Time: 11:11 Interval history: No acute respiratory vents overnight. Assessment and Plan (1) Pulmonary embolus Status: Acute Category: Medical Code(s): I26.99 - Other pulmonary embolism without acute cor pulmonale (2) Respiratory failure with hypoxia Status: Acute Qualifiers: Chronicity: acute Qualified Code(s): J96.01 - Acute respiratory failure with hypoxia Category: Medical Code(s): J96.91 - Respiratory failure, unspecified with hypoxia (3) Pneumonia due to COVID-19 virus Status: Acute Category: Medical Code(s): U07.1 - COVID-19; J12.82 - Pneumonia due to coronavirus disease 2019 (4) Elevated liver enzymes Status: Acute Category: Medical Code(s): R74.8 - Abnormal levels of other serum enzymes (5) Thrombocytopenia Status: Acute Category: Medical Code(s): D69.6 - Thrombocytopenia, unspecified (6) Lymphoma Status: Chronic Category: Medical Code(s): C85.90 - Non-Hodgkin lymphoma, unspecified, unspecified site - Assessment and plan all Dx Assessment and Plan for all problems:: #Acute hypoxic respiratory failure: #COVID-19 pneumonia: #Acute pulmonary embolism likely provoked secondary to COVID-19 pneumonia: 59-year-old with recent diagnosis of COVID-19 pneumonia admitted to the hospital 12 twice with a recent discharge in early June after which he completed 6-day course of vancomycin and cefepime discharge levofloxacin presented to the hospital with worsening respiratory failure not associated with fevers or chills, positive for nonproductive cough. CTA performed admission showed evidence of right-sided pulmonary embolism. Pulmonary parenchymal infiltrates improved from prior. Echocardiogram from this admission pending. Echocardiogram from his recent admission showed increased LV wall thickness with EF of 50% and grade 1 diastolic dysfunction. RVSP from this admission was 62.6. Repeat echocardiogram on admission relatively unchanged RVSP and RV function however also concern for shunt, will perform bubble study Patient COVID-19 PCR still resulted positive. Blood cultures pending. Nasal MRSA PCR from recent admission positive. Patient noted to have low-grade fevers on this admission with a T-max of 99.1 in the last 24 hours. Remdesivir and dexamethasone was discontinued on this admission as patient already received a course of 10 days, however given his persistent elevated CRP at 107 and pulmonary infiltrates / ILD will initiate prednisone 60 mg daily with a slow taper Plan: -Prednisone 60 mg dailyx 5 days with taper thereafter -Lasix 40 mg IV once again today -Limited echo with bubble study and cardiology consult -Afebrile, no evidence of leukocytosis, blood cultures no growth 48 hours. We will stop Zosyn and initiate levofloxacin x 5 days, will closely monitor his respiratory status to decide on stopping vancomycin -Continue full dose anticoagulation for his PE, -Oxygen supplementation to maintain O2 saturation goal of 88 to 92%, currently on high flow nasal cannula 35% 25 L. Will wean to nasal cannula 6 L as tolerated -DuoNebs every 6 hours as needed. #Interstitial lung disease: Patient CT scan also showed background evidence of pulmonary fibrosis possible honeycombing pattern. Patient denies any prior history of pulmonary fibrosis. 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 Autoimmune work-up from the recent hospital admission including anti-CCP and P-ANCA negative, c-ANCA mildly positive at 1 is to 20. Still waiting on MAYDA and RF. No groundglass opacities noted on the CT scan on this admission, however patient CRP is still found to be elevated at 107 on this admission admission, slightly higher from his recent admission will initiate the patient on steroids for post Covid organizing pneumonia Plan - Prednisone 60mg daily x 5 days with taper -We will follow the rest of the autoimmune work-up and monit
--- NOTE | 2020-07-12 10:02 | HMH.ACPN2 ---
Internal Medicine - PN: Subj *Date: 07/12/20 *Time: 08:45 Interval history: States he had night sweats last night but otherwise rested fairly well. He is dyspneic with exertion and O2 sats were documented to drop into the 50s when out of bed on room air. He is tolerating Vapotherm. He has been less bradycardic Exam Vital signs and Labs for Last 24 Hours: Temp Pulse Resp BP Pulse Ox 97.1 F L 61 20 91/62 L 96 07/12/20 08:11 07/12/20 09:06 07/12/20 09:06 07/12/20 08:11 07/12/20 08:33 Laboratory Results - last 24 hr 07/11/20 04:45: C-Reactive Protein 107.7 H 07/12/20 04:54: WBC 3.3 L D, RBC 2.86 L, Hgb 8.8 L, Hct 25.9 L, MCV 90.4, MCH 30.6, MCHC 33.8, RDW 16.5, Plt Count 65 L, MPV 9.7, Neut % (Auto) 80.8 H, Lymph % (Auto) 12.9, Barry % (Auto) 6.1, Eos % (Auto) 0.2, Baso % (Auto) 0.0 L, Neut # (Auto) 2.6, Lymph # (Auto) 0.4 L, Barry # (Auto) 0.2, Eos # (Auto) 0.0, Baso # (Auto) 0.0 07/12/20 04:54: Sodium 137, Potassium 3.5, Chloride 108 H, Carbon Dioxide 28, Anion Gap 4.5 L, BUN 19 D, Creatinine 0.50 L, Estimated Creat Clear 158, Estimated GFR 170, Est GFR ( Amer) 205 D, Glucose 94, Calcium 7.5 L I & O for Last 24 hours: Intake & Output 07/09/20 07/10/20 07/11/20 07/12/20 11:59 11:59 11:59 11:59 Intake Total 2010 2825 / 2825 1310 / 1310 Output Total 900 / 900 1800 / 1800 1675 / 1675 Balance 1111 / 1111 1025 / 1025 -365 / -365 Weight 161 lb 159 lb 3.2 oz 160 lb 1.6 oz 156 lb 8 oz Microbiology Reports for the Last 24 Hours: Microbiology 07/09/20 12:40 Blood Blood Culture - Preliminary NO GROWTH AFTER 48 HOURS 07/09/20 12:40 Blood Blood Culture - Preliminary NO GROWTH AFTER 48 HOURS Radiology Reports for the Last 24 Hours: Echocardiogram raises suspicion of an atrial septal defect. Repeat echo with saline contrast recommended Narrative: He appears comfortable. Color is good. Chest with coarse breath sounds. No wheezes. Heart is regular. Assessment and Plan (1) Pulmonary embolus Status: Acute Category: Medical Code(s): I26.99 - Other pulmonary embolism without acute cor pulmonale (2) Respiratory failure with hypoxia Status: Acute Qualifiers: Chronicity: acute Qualified Code(s): J96.01 - Acute respiratory failure with hypoxia Category: Medical Code(s): J96.91 - Respiratory failure, unspecified with hypoxia (3) Pneumonia due to COVID-19 virus Status: Acute Category: Medical Code(s): U07.1 - COVID-19; J12.82 - Pneumonia due to coronavirus disease 2019 (4) Elevated liver enzymes Status: Acute Category: Medical Code(s): R74.8 - Abnormal levels of other serum enzymes (5) Thrombocytopenia Status: Acute Category: Medical Code(s): D69.6 - Thrombocytopenia, unspecified (6) Lymphoma Status: Chronic Category: Medical Code(s): C85.90 - Non-Hodgkin lymphoma, unspecified, unspecified site - Assessment and plan all Dx Assessment and Plan for all problems:: Respiratory status is stable. Still hypoxic with activity. Further recommendations per Dr. Valenzuela. Leukopenia has improved. Red cells and platelets still low. Plan to repeat echo with saline contrast as recommended.
--- NOTE | 2020-07-12 11:02 | PC.NURSE ---
While pt gets up to use the urinal he becomes very hypoxic and sats drop to 60s. Condom catheter placed on pt per pt request. Draining clear yellow urine to bedside.
[2020-07-12 13:55] LABS: Vancomycin,Trough 19.3 ug/mL (5.0-10.0)
--- NOTE | 2020-07-12 14:04 | P.CONPHA_ITS ---
- Pharmacy Consult Date: 07/12/20 Time: 14:04 Referring provider: DR. PACHECO Reason for Consult:: VANCOMYCIN TROUGH LEVEL AND DOSE CHANGE Allergies and ADEs:: Allergies Allergy/AdvReac Type Severity Reaction Status Date / Time Penicillins [PENICILLINS] Allergy Intermediate RASH/SWEATI Verified 06/05/20 13:10 NG Home Medications:: Home Medications Medication Instructions Recorded Confirmed Type No Known Home Medications 06/14/20 07/09/20 History Height: 1.73 m Weight: 70.987 kg Laboratory Results:: Laboratory Results - last 24 hr 07/12/20 04:54: WBC 3.3 L D, RBC 2.86 L, Hgb 8.8 L, Hct 25.9 L, MCV 90.4, MCH 30.6, MCHC 33.8, RDW 16.5, Plt Count 65 L, MPV 9.7, Neut % (Auto) 80.8 H, Lymph % (Auto) 12.9, Barry % (Auto) 6.1, Eos % (Auto) 0.2, Baso % (Auto) 0.0 L, Neut # (Auto) 2.6, Lymph # (Auto) 0.4 L, Barry # (Auto) 0.2, Eos # (Auto) 0.0, Baso # (Auto) 0.0 07/12/20 04:54: Sodium 137, Potassium 3.5, Chloride 108 H, Carbon Dioxide 28, Anion Gap 4.5 L, BUN 19 D, Creatinine 0.50 L, Estimated Creat Clear 158, Estimated GFR 170, Est GFR ( Amer) 205 D, Glucose 94, Calcium 7.5 L 07/12/20 12:20: Vancomycin Trough 19.3 H Medical History: Reports:: Cancer (lymphoma), Gastroesophageal Reflux Disease(GERD) Denies:: Diabetes Mellitus Type 1, Diabetes Mellitus Type 2, MRSA Assessment and Plan (1) Pulmonary embolus Status: Acute Category: Medical Code(s): I26.99 - Other pulmonary embolism without acute cor pulmonale (2) Respiratory failure with hypoxia Status: Acute Qualifiers: Chronicity: acute Qualified Code(s): J96.01 - Acute respiratory failure with hypoxia Category: Medical Code(s): J96.91 - Respiratory failure, unspecified with hypoxia (3) Pneumonia due to COVID-19 virus Status: Acute Category: Medical Code(s): U07.1 - COVID-19; J12.82 - Pneumonia due to coronavirus disease 2019 (4) Elevated liver enzymes Status: Acute Category: Medical Code(s): R74.8 - Abnormal levels of other serum enzymes (5) Thrombocytopenia Status: Acute Category: Medical Code(s): D69.6 - Thrombocytopenia, unspecified (6) Lymphoma Status: Chronic Category: Medical Code(s): C85.90 - Non-Hodgkin lymphoma, unspecified, unspecified site - Assessment and plan all Dx Assessment and Plan for all problems:: BASED ON PATIENT'S VANCOMYCIN TROUGH LEVEL OF 19.3 MCG/ML TODAY, RECOMMEND CHANGING DOSE OF VANCOMYCIN 1250 MG Q8H TO 1000 MG Q8H STARTING TONIGHT. PHARMACY WILL FOLLOW DAILY AND ADJUST APPROPRIATE.
[2020-07-13] VITALS (13 sets, daily range): BP systolic 85–113; BP diastolic 54–73; PULSE 55–100; RESP 18–34; TEMP 36.4–37; O2SAT 90–100; BMI 21.9
--- NOTE | 2020-07-13 05:16 | PC.NURSE ---
patient desat quickly during partial bath sitting on the side of the bed; respiratory was in unit to make changes as needed. Patient has call light within reach, bed is at lowest level for safety.
--- NOTE | 2020-07-13 09:27 | PC.NURSE ---
Notified lab that labs are ready for pickup
[2020-07-13 09:41] LABS: Basophils % 0.3 % (0.1-2.0); Eosinophils % 0.4 % (0.1-12.0); Hematocrit 27.8 % (42.0-52.0); Lymphocytes # 0.5 K/mm3 (0.7-4.5); Lymphocytes % 9.2 % (10-50); Mean Corpuscular HGB Conc 32.4 g/dL (31.8-35.4); Mean Corpuscular Hemoglobin 30.2 pg (27.0-31.2); Mean Corpuscular Volume 93.2 fl (80-94); Mean Platelet Volume 9.3 fl (7.4-10.4); Monocytes # 0.2 K/mm3 (0.1-1.0); Monocytes % 4.7 % (1.7-9.3); Neutrophils # 4.3 K/mm3 (1.8-7.8); Neutrophils % 85.5 % (37.0-80.0); Platelet Count 74 K/mm3 (142-424); Red Blood Count 2.98 M/mm3 (4.60-6.20); Red Cell Distribution Width 16.7 % (11.5-17.5)
[2020-07-13 09:42] LABS: MANUAL DIFFERENTIAL MANUAL DIFFERENTIAL (MANUAL DIFF)
--- NOTE | 2020-07-13 09:56 | HMH.ACPN2 ---
<Heavenly June - Last Filed: 07/13/20 10:25> Internal Medicine - PN: Subj *Date: 07/13/20 *Time: 10:25 Interval history: Patient feels about the same; desats with any activity. no cough; fair eating; continues with huffman. O2 per vapor therm at 50%; patient wishes to speak to Dr. Atwood about echo and CT scans. CBC this morning shows a white blood cell count of 5000 with a hemoglobin of 9 and hematocrit of 27.8; platelet count has improved to 74,000. Exam Vital signs and Labs for Last 24 Hours: Temp Pulse Resp BP Pulse Ox 97.6 F 82 19 97/58 L 90 L 07/13/20 08:00 07/13/20 08:00 07/13/20 08:00 07/13/20 08:00 07/13/20 08:00 Laboratory Results - last 24 hr 07/12/20 12:20: Vancomycin Trough 19.3 H 07/13/20 09:30: WBC 5.0 D, RBC 2.98 L, Hgb 9.0 L, Hct 27.8 L, MCV 93.2, MCH 30.2, MCHC 32.4, RDW 16.7, Plt Count 74 L, MPV 9.3, Neut % (Auto) 85.5 H, Lymph % (Auto) 9.2 L, [place] % (Auto) 4.7, Eos % (Auto) 0.4, Baso % (Auto) 0.3, Neut # (Auto) 4.3, Lymph # (Auto) 0.5 L, [place] # (Auto) 0.2, Eos # (Auto) 0.0, Baso # (Auto) 0.0 I & O for Last 24 hours: Intake & Output 07/10/20 07/11/20 07/12/20 07/13/20 11:59 11:59 11:59 11:59 Intake Total 2010 2825 / 2825 1410 / 1410 2158 / 2158 Output Total 900 / 900 1800 / 1800 3225 / 3225 2300 / 2300 Balance 1111 / 1111 1025 / 1025 -1815 / -1815 -142 / -142 Weight 159 lb 3.2 oz 160 lb 1.6 oz 156 lb 8 oz 145 lb 0.01 oz - Constitutional no acute distress Comments: Some dyspnea with talking - *Routine Respiratory Exam Present: crackles (Few crackles in bases sure) - *Routine Cardiovascular Exam Present: RRR (Monitor showing sinus bradycardia with occasional PVC) - *Routine Abdominal Exam Present: soft, normoactive bowel sounds. Absent: tenderness - *Routine Extremities Exam Present: full ROM, pulses intact. Absent: edema, calf tenderness - *Routine Neurological Exam Present: alert, oriented X3 Assessment and Plan (1) Pulmonary embolus Status: Acute Category: Medical Code(s): I26.99 - Other pulmonary embolism without acute cor pulmonale (2) Respiratory failure with hypoxia Status: Acute Qualifiers: Chronicity: acute Qualified Code(s): J96.01 - Acute respiratory failure with hypoxia Category: Medical Code(s): J96.91 - Respiratory failure, unspecified with hypoxia (3) Pneumonia due to COVID-19 virus Status: Acute Category: Medical Code(s): U07.1 - COVID-19; J12.82 - Pneumonia due to coronavirus disease 2019 (4) Elevated liver enzymes Status: Acute Category: Medical Code(s): R74.8 - Abnormal levels of other serum enzymes (5) Thrombocytopenia Status: Acute Category: Medical Code(s): D69.6 - Thrombocytopenia, unspecified (6) Lymphoma Status: Chronic Category: Medical Code(s): C85.90 - Non-Hodgkin lymphoma, unspecified, unspecified site - Assessment and plan all Dx Assessment and Plan for all problems:: Pulmonology continues to follow. He remains on IV fluids at 100 NR. Continue with Levaquin, vancomycin, Xarelto, and prednisone. <Herman Atwood - Last Filed: 07/13/20 12:56> Internal Medicine - PN: Subj *Date: 07/13/20 *Time: 12:54 Exam Vital signs and Labs for Last 24 Hours: Temp Pulse Resp BP Pulse Ox 97.6 F 70 19 97/58 L 90 L 07/13/20 08:00 07/13/20 12:00 07/13/20 08:00 07/13/20 08:00 07/13/20 08:00 Laboratory Results - last 24 hr 07/12/20 12:20: Vancomycin Trough 19.3 H 07/13/20 09:30: WBC 5.0 D, RBC 2.98 L, Hgb 9.0 L, Hct 27.8 L, MCV 93.2, MCH 30.2, MCHC 32.4, RDW 16.7, Plt Count 74 L, MPV 9.3, Neut % (Auto) 85.5 H, Lymph % (Auto) 9.2 L, [place] % (Auto) 4.7, Eos % (Auto) 0.4, Baso % (Auto) 0.3, Neut # (Auto) 4.3, Lymph # (Auto) 0.5 L, [place] # (Auto) 0.2, Eos # (Auto) 0.0, Baso # (Auto) 0.0, Total Counted 100, Neutrophils % (Manual) 89 H, Lymphocytes % (Manual) 9 L, Monocytes % (Manual) 2, Platelet Estimate Slight decrease, RBC Morphology Normal I & O for
[2020-07-13 10:15] LABS: Lymphocytes % 9 % (10-50); Monocytes % 2 % (2-9); Neutrophils % 89 % (42-76); RBC Morphology Normal; Total Cells Counted 100
[2020-07-13 10:16] LABS: Platelet Estimate Slight Decrease
--- NOTE | 2020-07-13 10:45 | HMH.PULMPN ---
Internal Medicine - PN: Subj *Date: 07/13/20 *Time: 10:45 Interval history: No acute respiratory events overnight Exam - Constitutional Constitutional:: Present: comfortable Comment:: Mild respiratory distress - HENMT Exam HENMT: Present: atraumatic - Eye Exam Eyes:: Present: eyelids normal - Neck Exam Neck:: Present: thyroid normal - Respiratory Exam Respiratory:: Present: able to speak in complete sentences, normal breath sounds, respiratory distress, crackles - Cardiovascular Exam Cardiac:: Present: S1, S2 - GI Exam GI:: Present: soft, no hepatosplenomegaly - Skin Exam Skin: Present: warm, no rash - Neurological Exam Neurological: Present: alert, awake, normal cognition - Extremities Exam Extremities: Present: no cyanosis, no clubbing, no edema - Psychiatric Exam Psychiatric: Present: normal affect Assessment and Plan (1) Pulmonary embolus Status: Acute Category: Medical Code(s): I26.99 - Other pulmonary embolism without acute cor pulmonale (2) Respiratory failure with hypoxia Status: Acute Qualifiers: Chronicity: acute Qualified Code(s): J96.01 - Acute respiratory failure with hypoxia Category: Medical Code(s): J96.91 - Respiratory failure, unspecified with hypoxia (3) Pneumonia due to COVID-19 virus Status: Acute Category: Medical Code(s): U07.1 - COVID-19; J12.82 - Pneumonia due to coronavirus disease 2019 (4) Elevated liver enzymes Status: Acute Category: Medical Code(s): R74.8 - Abnormal levels of other serum enzymes (5) Thrombocytopenia Status: Acute Category: Medical Code(s): D69.6 - Thrombocytopenia, unspecified (6) Lymphoma Status: Chronic Category: Medical Code(s): C85.90 - Non-Hodgkin lymphoma, unspecified, unspecified site - Assessment and plan all Dx Assessment and Plan for all problems:: #Acute hypoxic respiratory failure: #COVID-19 pneumonia: #Acute pulmonary embolism likely provoked secondary to COVID-19 pneumonia: 59-year-old with recent diagnosis of COVID-19 pneumonia admitted to the hospital 12 twice with a recent discharge in early June after which he completed 6-day course of vancomycin and cefepime discharge levofloxacin presented to the hospital with worsening respiratory failure not associated with fevers or chills, positive for nonproductive cough. CTA performed admission showed evidence of right-sided pulmonary embolism. Pulmonary parenchymal infiltrates improved from prior. Echocardiogram from this admission pending. Echocardiogram from his recent admission showed increased LV wall thickness with EF of 50% and grade 1 diastolic dysfunction. RVSP from this admission was 62.6. Repeat echocardiogram on admission relatively unchanged RVSP and RV function however also concern for shunt however bubble study did not report any right to left-sided shunt. Patient COVID-19 PCR still resulted positive. Blood cultures pending. Nasal MRSA PCR from recent admission positive. Patient noted to have low-grade fevers on this admission with a T-max of 99.1 in the last 24 hours. Remdesivir and dexamethasone was discontinued on this admission as patient already received a course of 10 days. Antibiotics were also deescalated from vancomycin and Zosyn to just levofloxacin to complete a total of 5-day course. However given his persistent elevated CRP at 107 and pulmonary infiltrates / ILD was initiated on prednisone 60 mg daily with a slow taper. Continued to need high oxygen requirements with significant desaturations with exertion. We will closely monitor. 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 Plan: -Prednisone 60 mg daily x 5 days with taper thereafter -Afebrile, no evidence of leukocytosis, blood cultures no growth 48 hours. We will discontinue vancomycin today and continue levofloxacin for total of 5 day
--- NOTE | 2020-07-13 12:59 | DIET.NUTRFU ---
Addendum entered by Sydney Anand 08/03/20 14:06: Continues with poor PO intakes- 25-50%, refused 1 meal today. Weight stable, bowels normal. Diet liberalized from cardiac to no added salt in the effort to encourage intakes. Addendum entered by Sydney Anand 08/01/20 14:40: NPO for heart cath today. Did a little better over the weekend- 75% PO intakes. Weight stable, bowels normal. Continuing to monitor. Addendum entered by Sydney Anand 07/29/20 14:51: Improvement PO intakes- 50-100% past 2 days, weight stable, bowel function normal. Continuing to monitor. Addendum entered by Sydney Anand 07/27/20 14:47: No changes intakes- continues at 50% plus 1-3 energy/protein supplements daily based on pt's appetite. He has been encouraged to request snacks/supplements when not eating enough and states he is doing so. Also states he is having family bring him food when possible. No other nutritional concerns, continuing to monitor and encourage adequate intakes. Addendum entered by Sydney Anand 07/25/20 12:19: Pt has moved out of isolation and states he is doing better, feels his appetite is somewhat returning. He states he has never been a big eater and does enjoy [facility] food, states he just had not been feeling well enough to eat. Also stated mouth sores make chewing uncomfortable, soft/bland foods encouraged. He asked for 2 of 3 daily supplements be removed from diet order. He denied other supplements/snacks offered but stated he will try to eat more of his meals and request snacks/supplements when not hungry/feeling well enough for a meal. Diet education/counseling provided on importance adequate intakes as well as prioritizing protein and hydration. PO intakes 75%, weight stable, normal bowel function, no GI complaints or other nutritional concerns. Order changed to daily protein shake of pt's preference. Continued encouragement and offering snacks/supplements appreciated. Continuing to monitor. Addendum entered by Sydney Anand 07/22/20 11:22: PO intakes 50%, continues with supplements TID. Weight stable, normal bowel function, did have some emesis yesterday, has not had any further c/o GI s/s. Addendum entered by Sydney Anand 07/20/20 11:39: PO intakes slightly increased- 50% + TID supplements. Weight down 13#, question accuracy. Did have a BM 07/17, has not had one since. Please continue to encourage/cue/offer snacks/supplements. Continuing to monitor. Addendum entered by Sydney Anand 07/18/20 14:05: Appetite/PO intakes unchanged- 30%. Weight stable. No BM 4 days. Supplements increased to TID. Continued efforts cueing/encouragement appreciated, continuing to monitor. Addendum entered by Sydney Anand 07/15/20 14:12: Appetite unchanged- intakes 25-50%. Weight back up 9#, bowel function normal. Pt has stated he likes protein shakes, no changes at this time. Will hold of on making supplements TID in the effort to prevent taste burn out. Pt may have additional supplements/snacks/meal replacements my request/RN offer. Continued efforts cueing/encouragement greatly appreciated. Original Note: PO intake avg. 50%, weight loss of 12# t/o stay-4d, bowel function normal. BID protein shakes and moderate soft modifications for ease of eating on diet order, continues on regular diet. Continuing to monitor.
--- NOTE | 2020-07-13 16:44 | PC.NURSE ---
Pt alert and oriented x4. Lungs diminished. He remains on vapotherm at 20L/40% fio2. O2 sats have been in the low-mid 90's. He desats quickly with any exertion, sometimes into the 70's. He removed his condom cath due to it leaking. He now utilizes a urinal at the bedside. He was up to the chair for about 6 hours today and tolerated well. Appetite is fair. He mostly complains that he is really tired . Will continue to monitor.
[2020-07-14] VITALS (13 sets, daily range): BP systolic 101–122; BP diastolic 57–75; PULSE 46–100; RESP 18–30; TEMP 35.7–36.8; O2SAT 81–99; BMI 21.9
--- NOTE | 2020-07-14 06:56 | PC.NURSE ---
Patient has maintained heart rate above 50 the entire shift while lying in any position. Patient showed no s/s of acute distress this shift.
--- NOTE | 2020-07-14 11:03 | HMH.ACPN2 ---
Internal Medicine - PN: Subj *Date: 07/14/20 *Time: 08:55 Interval history: No new problems noted. Still desats easily with light activity but otherwise respiratory status is stable. No significant cough. Appetite is good. Denies chest pain. Exam Vital signs and Labs for Last 24 Hours: Temp Pulse Resp BP Pulse Ox 97.9 F 100 H 30 H 101/57 L 88 L 07/14/20 07:54 07/14/20 08:00 07/14/20 07:54 07/14/20 07:54 07/14/20 08:00 I & O for Last 24 hours: Intake & Output 07/11/20 07/12/20 07/13/20 07/14/20 11:59 11:59 11:59 11:59 Intake Total 2825 / 2825 1410 / 1410 2158 / 2158 1207 / 1207 Output Total 1800 / 1800 3225 / 3225 2300 / 2300 1800 / 1800 Balance 1025 / 1025 -1815 / -1815 -142 / -142 -593 / -593 Weight 160 lb 1.6 oz 156 lb 8 oz 145 lb 0.01 oz 145 lb 0.004 oz Narrative: No respiratory distress. Color is normal. Chest with coarse breath sounds and a few rhonchi. No wheezes. Heart is regular. Extremities no edema. Assessment and Plan (1) Pulmonary embolus Status: Acute Category: Medical Code(s): I26.99 - Other pulmonary embolism without acute cor pulmonale (2) Respiratory failure with hypoxia Status: Acute Qualifiers: Chronicity: acute Qualified Code(s): J96.01 - Acute respiratory failure with hypoxia Category: Medical Code(s): J96.91 - Respiratory failure, unspecified with hypoxia (3) Pneumonia due to COVID-19 virus Status: Acute Category: Medical Code(s): U07.1 - COVID-19; J12.82 - Pneumonia due to coronavirus disease 2019 (4) Elevated liver enzymes Status: Acute Category: Medical Code(s): R74.8 - Abnormal levels of other serum enzymes (5) Thrombocytopenia Status: Acute Category: Medical Code(s): D69.6 - Thrombocytopenia, unspecified (6) Lymphoma Status: Chronic Category: Medical Code(s): C85.90 - Non-Hodgkin lymphoma, unspecified, unspecified site - Assessment and plan all Dx Assessment and Plan for all problems:: Continue same and follow with pulmonology.
--- NOTE | 2020-07-14 13:45 | HMH.PULMPN ---
Internal Medicine - PN: Subj *Date: 07/14/20 *Time: 13:45 Interval history: No acute respiratory events overnight Exam - Constitutional Constitutional:: Present: no acute distress, comfortable - HENMT Exam HENMT: Present: normocephalic, atraumatic - Eye Exam Eyes:: Present: eyelids normal - Neck Exam Neck:: Present: thyroid normal - Respiratory Exam Respiratory:: Present: able to speak in complete sentences, no respiratory distress, normal respiratory effort, crackles - Cardiovascular Exam Cardiac:: Present: S1, S2 - GI Exam GI:: Present: soft - Skin Exam Skin: Present: warm, no rash, dry - Neurological Exam Neurological: Present: alert, awake, normal cognition - Extremities Exam Extremities: Present: no cyanosis, no clubbing, no edema - Psychiatric Exam Psychiatric: Present: normal affect Assessment and Plan (1) Pulmonary embolus Status: Acute Category: Medical Code(s): I26.99 - Other pulmonary embolism without acute cor pulmonale (2) Respiratory failure with hypoxia Status: Acute Qualifiers: Chronicity: acute Qualified Code(s): J96.01 - Acute respiratory failure with hypoxia Category: Medical Code(s): J96.91 - Respiratory failure, unspecified with hypoxia (3) Pneumonia due to COVID-19 virus Status: Acute Category: Medical Code(s): U07.1 - COVID-19; J12.82 - Pneumonia due to coronavirus disease 2019 (4) Elevated liver enzymes Status: Acute Category: Medical Code(s): R74.8 - Abnormal levels of other serum enzymes (5) Thrombocytopenia Status: Acute Category: Medical Code(s): D69.6 - Thrombocytopenia, unspecified (6) Lymphoma Status: Chronic Category: Medical Code(s): C85.90 - Non-Hodgkin lymphoma, unspecified, unspecified site - Assessment and plan all Dx Assessment and Plan for all problems:: #Acute hypoxic respiratory failure: #COVID-19 pneumonia: #Acute pulmonary embolism likely provoked secondary to COVID-19 pneumonia: 59-year-old with recent diagnosis of COVID-19 pneumonia admitted to the hospital 12 twice with a recent discharge in early June after which he completed 6-day course of vancomycin and cefepime discharge levofloxacin presented to the hospital with worsening respiratory failure not associated with fevers or chills, positive for nonproductive cough. CTA performed admission showed evidence of right-sided pulmonary embolism. Pulmonary parenchymal infiltrates improved from prior. Echocardiogram from this admission pending. Echocardiogram from his recent admission showed increased LV wall thickness with EF of 50% and grade 1 diastolic dysfunction. RVSP from this admission was 62.6. Repeat echocardiogram on admission relatively unchanged RVSP and RV function however also concern for shunt however bubble study did not report any right to left-sided shunt. Patient COVID-19 PCR still resulted positive. Blood cultures pending. Nasal MRSA PCR from recent admission positive. Patient noted to have low-grade fevers on this admission with a T-max of 99.1 in the last 24 hours. Remdesivir and dexamethasone was discontinued on this admission as patient already received a course of 10 days. Antibiotics were also deescalated from vancomycin and Zosyn to just levofloxacin to complete a total of 5-day course. However given his persistent elevated CRP at 107 and pulmonary infiltrates / ILD was initiated on prednisone 60 mg daily on 07/12/20 with a slow taper. O2 requirements improved currently on HFNC 25% saturating 94 to 96%. Pt still desaturating with exertion, however denies any worsening resp distress with exertion related desaturations. Plan: -Prednisone 60 mg daily untill 07/17/20 and will taper there after - will wean his O2 as tolerated -Continue levofloxacin for total of 5 days -Continue full dose anticoagulation for his PE, -DuoNebs every 6 hours scheduled #Interstitial lung disease: Patient CT scan also showed background evidence of pulmonary fi
[2020-07-14 16:40] LABS: POC Glucose,Bedside 166 (70-110)
--- NOTE | 2020-07-14 18:01 | PC.NURSE ---
Pt is alert and oriented x4. Scattered rhonchi noted to posterior lung [place]. Diminished throughout. He is currently on 4L NC with O2 sats in the mid 90's. He desats on exertion with O2 falling into the 70's, he takes approx 10-15 minutes to recover. He was up to the chair for about half the shift and tolerated well. He is a standby assist. One loose BM today. He has had 1100 mls of clear, straw colored urine out this shift. Appetite fair. No complaints verbalized. Will continue to monitor.
[2020-07-15] VITALS (17 sets, daily range): BP systolic 100–136; BP diastolic 61–80; PULSE 40–139; RESP 19–28; TEMP 35.6–36.6; O2SAT 88–100; BMI 23.4
--- NOTE | 2020-07-15 08:45 | HMH.ACPN2 ---
Internal Medicine - PN: Subj *Date: 07/15/20 *Time: 08:45 Interval history: No new respiratory complaints. He has been weaned to 5 L NC and maintaining sats in the upper 80s to low 90s. He still desats with activity but recovers relatively quickly. He rested fairly well last night. New complaint today is some irritation of his right eye. He thinks he may have scratched the sclera accidentally. Exam Vital signs and Labs for Last 24 Hours: Temp Pulse Resp BP Pulse Ox 97.6 F 101 H 22 100/61 L 93 L 07/15/20 08:00 07/15/20 08:00 07/15/20 08:00 07/15/20 08:00 07/15/20 08:00 Laboratory Results - last 24 hr 07/14/20 16:32: POC Glucose 166 H I & O for Last 24 hours: Intake & Output 07/12/20 07/13/20 07/14/20 07/15/20 11:59 11:59 11:59 11:59 Intake Total 1410 / 1410 2158 / 2158 1207 / 1207 1552 / 1552 Output Total 3225 / 3225 2300 / 2300 1800 / 1800 1000 / 1000 Balance -1815 / -1815 -142 / -142 -593 / -593 552 / 552 Weight 156 lb 8 oz 145 lb 0.01 oz 145 lb 0.004 oz 154 lb 8 oz Microbiology Reports for the Last 24 Hours: Microbiology 07/09/20 12:40 Blood Blood Culture - Final NO GROWTH AFTER 5 DAYS 07/09/20 12:40 Blood Blood Culture - Final NO GROWTH AFTER 5 DAYS Narrative: No respiratory distress. The sclera of his right eye is mildly injected and watery. No foreign body noted. Chest with a few crackles in the left lung. No wheezes. Heart is regular. Extremities no edema. Assessment and Plan (1) Pulmonary embolus Status: Acute Category: Medical Code(s): I26.99 - Other pulmonary embolism without acute cor pulmonale (2) Respiratory failure with hypoxia Status: Acute Qualifiers: Chronicity: acute Qualified Code(s): J96.01 - Acute respiratory failure with hypoxia Category: Medical Code(s): J96.91 - Respiratory failure, unspecified with hypoxia (3) Pneumonia due to COVID-19 virus Status: Acute Category: Medical Code(s): U07.1 - COVID-19; J12.82 - Pneumonia due to coronavirus disease 2019 (4) Elevated liver enzymes Status: Acute Category: Medical Code(s): R74.8 - Abnormal levels of other serum enzymes (5) Thrombocytopenia Status: Acute Category: Medical Code(s): D69.6 - Thrombocytopenia, unspecified (6) Lymphoma Status: Chronic Category: Medical Code(s): C85.90 - Non-Hodgkin lymphoma, unspecified, unspecified site (7) Corneal abrasion Status: Acute Category: Medical Code(s): S05.00XA - Injury of conjunctiva and corneal abrasion without foreign body, unspecified eye, initial encounter - Assessment and plan all Dx Assessment and Plan for all problems:: He is showing slow but steady progress. We will continue per pulmonology recommendations.
--- NOTE | 2020-07-15 10:46 | HMH.PULMPN ---
Internal Medicine - PN: Subj *Date: 07/15/20 *Time: 10:46 Interval history: No acute respiratory events overnight Exam - Constitutional Constitutional:: Present: comfortable Comment:: Mild respiratory distress - HENMT Exam HENMT: Present: atraumatic - Eye Exam Eyes:: Present: eyelids normal - Neck Exam Neck:: Present: thyroid normal - Respiratory Exam Respiratory:: Present: able to speak in complete sentences, bibailar crackels heard, crackles - Cardiovascular Exam Cardiac:: Present: S1, S2 - GI Exam GI:: Present: soft, no hepatosplenomegaly - Skin Exam Skin: Present: warm, no rash - Neurological Exam Neurological: Present: alert, awake, normal cognition - Extremities Exam Extremities: Present: no cyanosis, no clubbing, no edema - Psychiatric Exam Psychiatric: Present: normal affect Assessment and Plan (1) Pulmonary embolus Status: Acute Category: Medical Code(s): I26.99 - Other pulmonary embolism without acute cor pulmonale (2) Respiratory failure with hypoxia Status: Acute Qualifiers: Chronicity: acute Qualified Code(s): J96.01 - Acute respiratory failure with hypoxia Category: Medical Code(s): J96.91 - Respiratory failure, unspecified with hypoxia (3) Pneumonia due to COVID-19 virus Status: Acute Category: Medical Code(s): U07.1 - COVID-19; J12.82 - Pneumonia due to coronavirus disease 2019 (4) Elevated liver enzymes Status: Acute Category: Medical Code(s): R74.8 - Abnormal levels of other serum enzymes (5) Thrombocytopenia Status: Acute Category: Medical Code(s): D69.6 - Thrombocytopenia, unspecified (6) Lymphoma Status: Chronic Category: Medical Code(s): C85.90 - Non-Hodgkin lymphoma, unspecified, unspecified site - Assessment and plan all Dx Assessment and Plan for all problems:: #Acute hypoxic respiratory failure: #COVID-19 pneumonia: #Acute pulmonary embolism likely provoked secondary to COVID-19 pneumonia: 59-year-old with recent diagnosis of COVID-19 pneumonia admitted to the hospital 12 twice with a recent discharge in early June after which he completed 6-day course of vancomycin and cefepime discharge levofloxacin presented to the hospital with worsening respiratory failure not associated with fevers or chills, positive for nonproductive cough. CTA performed admission showed evidence of right-sided pulmonary embolism. Pulmonary parenchymal infiltrates improved from prior. Echocardiogram from this admission pending. Echocardiogram from his recent admission showed increased LV wall thickness with EF of 50% and grade 1 diastolic dysfunction. RVSP from this admission was 62.6. Repeat echocardiogram on admission relatively unchanged RVSP and RV function however also concern for shunt however bubble study did not report any right to left-sided shunt. Patient COVID-19 PCR still resulted positive. Blood cultures pending. Nasal MRSA PCR from recent admission positive. Patient noted to have low-grade fevers on this admission with a T-max of 99.1 in the last 24 hours. Remdesivir and dexamethasone was discontinued on this admission as patient already received a course of 10 days. Antibiotics were also deescalated from vancomycin and Zosyn to just levofloxacin to complete a total of 5-day course. However given his persistent elevated CRP at 107 and pulmonary infiltrates / ILD was initiated on prednisone 60 mg daily on 07/12/20 with a slow taper. Patient is also 1 significant improved since his admission, initially requiring 40 L 100% FiO2, decreased to 5 to 6 L nasal cannula with saturations maintaining above 88% but however patient still noted to have desaturation with exertion. We will closely monitor. Plan: -Prednisone 60 mg daily untill 07/17/20 and will taper there after - will wean his O2 as tolerated -Continue levofloxacin for total of 5 days -Continue full dose anticoagulation for his PE, -DuoNebs every 6 hours scheduled #Interstitial
--- NOTE | 2020-07-15 18:57 | PC.NURSE ---
pt has done well today. RT increased pt o2 to 5lnc. pt desats to the 70's and takes about 20mins to recover. pt ambulates independently in room. no complaints today. vss. will cont. to monitor
[2020-07-16] VITALS (9 sets, daily range): BP systolic 94–117; BP diastolic 50–74; PULSE 56–109; RESP 18–33; TEMP 36.3–37.2; O2SAT 84–98; BMI 23.8
--- NOTE | 2020-07-16 07:27 | PC.NURSE ---
changed the pulse ox probe at this time.
--- NOTE | 2020-07-16 07:27 | PC.NURSE ---
pt is AxOx4, pt O2 sats on 5L NC was 98-100, at 2320 pt turned down to 4L, O2 sats remained above 90%, pt was able to be decreased to 1L before waking up and moving in bed and sats began to drop, pt had to be turned back up to 5 L, pt states his nose is dry and hard to breathe through, did have some BLE edema at beginning of shift that did improve through the night, lungs diminished on auscultation
--- NOTE | 2020-07-16 08:51 | HMH.ACPN2 ---
Internal Medicine - PN: Subj *Date: 07/16/20 *Time: 11:01 Interval history: States he was cold all night but is now warmed up. He was afebrile through the night. He complains of his nose being stopped up which impedes his breathing but O2 sats have remained above 88% on 5 L of nasal cannula. Staff reports his heart rate has been somewhat erratic ranging from 60-120. He denies palpitations or chest pain. No complaints of eye pain this morning Exam Vital signs and Labs for Last 24 Hours: Temp Pulse Resp BP Pulse Ox 98.6 F 109 H 33 H 114/63 84 L 07/16/20 08:00 07/16/20 08:00 07/16/20 08:00 07/16/20 08:00 07/16/20 08:00 I & O for Last 24 hours: Intake & Output 07/13/20 07/14/20 07/15/20 07/16/20 11:59 11:59 11:59 11:59 Intake Total 2158 / 2158 1207 / 1207 1552 / 1552 600 / 600 Output Total 2300 / 2300 1800 / 1800 1000 / 1000 1575 / 1575 Balance -142 / -142 -593 / -593 552 / 552 -975 / -975 Weight 145 lb 0.01 oz 145 lb 0.004 oz 154 lb 8 oz 157 lb 3 oz Narrative: Color is normal. No respiratory distress. Mild nasal congestion. Chest with few crackles in the left lung. No wheezes. Heart is regular. Extremities with trace pedal edema. Assessment and Plan (1) Pulmonary embolus Status: Acute Category: Medical Code(s): I26.99 - Other pulmonary embolism without acute cor pulmonale (2) Respiratory failure with hypoxia Status: Acute Qualifiers: Chronicity: acute Qualified Code(s): J96.01 - Acute respiratory failure with hypoxia Category: Medical Code(s): J96.91 - Respiratory failure, unspecified with hypoxia (3) Pneumonia due to COVID-19 virus Status: Acute Category: Medical Code(s): U07.1 - COVID-19; J12.82 - Pneumonia due to coronavirus disease 2019 (4) Elevated liver enzymes Status: Acute Category: Medical Code(s): R74.8 - Abnormal levels of other serum enzymes (5) Thrombocytopenia Status: Acute Category: Medical Code(s): D69.6 - Thrombocytopenia, unspecified (6) Lymphoma Status: Chronic Category: Medical Code(s): C85.90 - Non-Hodgkin lymphoma, unspecified, unspecified site (7) Corneal abrasion Status: Acute Category: Medical Code(s): S05.00XA - Injury of conjunctiva and corneal abrasion without foreign body, unspecified eye, initial encounter - Assessment and plan all Dx Assessment and Plan for all problems:: Respiratory status is stable. Will discontinue IV fluids. Encourage out of bed activity. Monitor heart rate.
[2020-07-17] VITALS (12 sets, daily range): BP systolic 109–119; BP diastolic 62–74; PULSE 55–115; RESP 17–35; TEMP 36.4–37.6; O2SAT 90–99; BMI 23.9
--- NOTE | 2020-07-17 05:57 | PC.NURSE ---
pt is AxOx4, has rested well t/o shift, has remained on 3L NC t/o shift with O2 sats 97-99%, 17-22 respiratory rate
--- NOTE | 2020-07-17 09:08 | HMH.ACPN2 ---
Internal Medicine - PN: Subj *Date: 07/17/20 *Time: 09:08 Interval history: New complaint today is his tongue being sore. His eye discomfort has improved. No respiratory distress. He has been sitting up in the chair for several hours during the day and tolerating this well. Exam Vital signs and Labs for Last 24 Hours: Temp Pulse Resp BP Pulse Ox 97.5 F L 101 H 27 H 110/64 93 L 07/17/20 08:00 07/17/20 08:00 07/17/20 08:00 07/17/20 08:00 07/17/20 08:00 I & O for Last 24 hours: Intake & Output 07/14/20 07/15/20 07/16/20 07/17/20 11:59 11:59 11:59 11:59 Intake Total 1207 / 1207 1552 / 1552 720 / 720 600 / 600 Output Total 1800 / 1800 1000 / 1000 1575 / 1575 1200 / 1200 Balance -593 / -593 552 / 552 -855 / -855 -600 / -600 Weight 145 lb 0.004 oz 154 lb 8 oz 157 lb 3 oz 158 lb 3 oz Narrative: Appears in no distress. His tongue is erythematous but no ulcerations or white plaques. Chest with few crackles. No wheezes. Heart is regular. Extremities no edema. Assessment and Plan (1) Pulmonary embolus Status: Acute Category: Medical Code(s): I26.99 - Other pulmonary embolism without acute cor pulmonale (2) Respiratory failure with hypoxia Status: Acute Qualifiers: Chronicity: acute Qualified Code(s): J96.01 - Acute respiratory failure with hypoxia Category: Medical Code(s): J96.91 - Respiratory failure, unspecified with hypoxia (3) Pneumonia due to COVID-19 virus Status: Acute Category: Medical Code(s): U07.1 - COVID-19; J12.82 - Pneumonia due to coronavirus disease 2019 (4) Elevated liver enzymes Status: Acute Category: Medical Code(s): R74.8 - Abnormal levels of other serum enzymes (5) Thrombocytopenia Status: Acute Category: Medical Code(s): D69.6 - Thrombocytopenia, unspecified (6) Lymphoma Status: Chronic Category: Medical Code(s): C85.90 - Non-Hodgkin lymphoma, unspecified, unspecified site (7) Corneal abrasion Status: Acute Category: Medical Code(s): S05.00XA - Injury of conjunctiva and corneal abrasion without foreign body, unspecified eye, initial encounter (8) Stomatitis Status: Acute Category: Medical Code(s): K12.1 - Other forms of stomatitis - Assessment and plan all Dx Assessment and Plan for all problems:: Continue per orders. Magic mouthwash for stomatitis. Continue activity as tolerated.
--- NOTE | 2020-07-17 17:35 | PC.NURSE ---
no acute changes noted. pt cont. on 3lnc. pt desats to low 80's when ambulating in room. pt has sat up in chair for most of shift. vss. will cont. to monitor.
[2020-07-18] VITALS (11 sets, daily range): BP systolic 90–137; BP diastolic 51–73; PULSE 55–110; RESP 20–26; TEMP 37–37.1; O2SAT 90–99; BMI 24.3
--- NOTE | 2020-07-18 04:23 | PC.NURSE ---
pt has remained on 3L NC this shift, does desat with activity but with improved recovery time, desats noted to be low 80's, sats at rest 90-95%, lungs CTA, no complaints of SOA or chest pain, only complaint of pain was his mouth
--- NOTE | 2020-07-18 07:47 | PC.NURSE ---
RESPIRATORY CARE NOTE: OXYGEN WAS INCREASED THROUGHOUT THE NIGHT TO 80% DUE TO DECREASED OXYGEN SATS OF 88%; AT 0745 PT OXYGEN DECREASED BACK DOWN TO 60% BC PT SATS RECOVERED TO 99%. WILL CONTINUE TO MONITOR PT AND OXYGEN
[2020-07-18 07:57] LABS: ABG Base Excess 10.8 mmol/L (-2.4-2.3); ABG HCO3 31.9 mmhg (22.0-26.0); ABG PCO2 31.3 mmhg (35.0-45.0); ABG TCO2 32.9 mmhg (23-27)
--- NOTE | 2020-07-18 07:57 | PC.NURSE ---
RESP CARE NOTE: PT BACK TO BED FROM CHAIR ON 4 LPM NC. PT DESATS TO 50%. ABG COLLECTED AND OXYGEN INCREASED TO 100% NON REBREATHER MASK. OXYGEN SATURATIONS INCREASED TO 98%. LARRY A[employer] ADMINISTRATOR
[2020-07-18 08:03] LABS: ABG Oxygen Saturation 73 % (90-100); ABG PH 7.63 mmol/L (7.35-7.45); ABG PO2 32.7 mmhg (80-100); Allen's Test ACCEPTABLE; Oxygen 4 LPM %; Source Left Radial
--- NOTE | 2020-07-18 08:15 | XR_ITS ---
PROCEDURE: XR CHEST PORTABLE CLINICAL HISTORY: Change is O2 requirments Follow-up pneumonia COMPARISON: CR XR CHEST PORTABLE from 06/16/2020 CR XR CHEST PORTABLE from 06/21/[address] ANGIO CHEST from 07/09/2020 CR XR CHEST PORTABLE from 07/09/2020 FINDINGS: The cardiomediastinal silhouette and pulmonary vascularity are within normal limits. There is worsening consolidation in the left upper lobe. Infiltrate once again noted in the right mid and lower lung zones. No evidence of pneumothorax No acute bony abnormalities. IMPRESSION: Bilateral pneumonia slightly worse on the left Dictated by: Aung Jean-Baptiste MD 07/18/2020 08:41 Aung Jean-Baptiste MD in [facility] 07/18/2020 08:41
--- NOTE | 2020-07-18 08:31 | PC.NURSE ---
Notified Dr Valenzuela of critical abg results at 0809. Dr Valenzuela returned call and stated to order chest xray for pt and to place him on Vapotherm. Md will come and round on pt.
--- NOTE | 2020-07-18 10:29 | PC.NURSE ---
PT ON VAPOTHERM AT THIS TIME PER ANNANGI TO KEEP PT O2 >90%
--- NOTE | 2020-07-18 11:39 | HMH.PULMPN ---
Internal Medicine - PN: Subj *Date: 07/18/20 *Time: 11:39 Interval history: No acute respirations overnight except this morning it patient had an episode of desaturation oxygen requirements were escalated to nonrebreather and eventually to high flow nasal cannula Exam - Constitutional Constitutional:: Present: no acute distress, comfortable - HENMT Exam HENMT: Present: atraumatic - Eye Exam Eyes:: Present: eyelids normal - Neck Exam Neck:: Present: thyroid normal - Respiratory Exam Respiratory:: Present: able to speak in complete sentences Comments: Patient epidermal respiratory chest. Bilateral crackles with prominence of the lower lobe largely unchanged from prior. - Cardiovascular Exam Cardiac:: Present: S1, S2 - GI Exam GI:: Present: soft, no hepatosplenomegaly - Skin Exam Skin: Present: warm, no rash - Neurological Exam Neurological: Present: alert, awake, normal cognition - Extremities Exam Extremities: Present: no cyanosis, no clubbing, edema - Psychiatric Exam Psychiatric: Present: normal affect Assessment and Plan (1) Pulmonary embolus Status: Acute Category: Medical Code(s): I26.99 - Other pulmonary embolism without acute cor pulmonale (2) Respiratory failure with hypoxia Status: Acute Qualifiers: Chronicity: acute Qualified Code(s): J96.01 - Acute respiratory failure with hypoxia Category: Medical Code(s): J96.91 - Respiratory failure, unspecified with hypoxia (3) Pneumonia due to COVID-19 virus Status: Acute Category: Medical Code(s): U07.1 - COVID-19; J12.82 - Pneumonia due to coronavirus disease 2019 (4) Elevated liver enzymes Status: Acute Category: Medical Code(s): R74.8 - Abnormal levels of other serum enzymes (5) Thrombocytopenia Status: Acute Category: Medical Code(s): D69.6 - Thrombocytopenia, unspecified (6) Lymphoma Status: Chronic Category: Medical Code(s): C85.90 - Non-Hodgkin lymphoma, unspecified, unspecified site (7) Corneal abrasion Status: Acute Category: Medical Code(s): S05.00XA - Injury of conjunctiva and corneal abrasion without foreign body, unspecified eye, initial encounter (8) Stomatitis Status: Acute Category: Medical Code(s): K12.1 - Other forms of stomatitis - Assessment and plan all Dx Assessment and Plan for all problems:: #Acute hypoxic respiratory failure: #COVID-19 pneumonia: #Acute pulmonary embolism likely provoked secondary to COVID-19 pneumonia: 59-year-old with recent diagnosis of COVID-19 pneumonia admitted to the hospital 12 twice with a recent discharge in early June after which he completed 6-day course of vancomycin and cefepime discharge levofloxacin presented to the hospital with worsening respiratory failure not associated with fevers or chills, positive for nonproductive cough. CTA performed admission showed evidence of right-sided pulmonary embolism. Pulmonary parenchymal infiltrates improved from prior. Echocardiogram from this admission pending. Echocardiogram from his recent admission showed increased LV wall thickness with EF of 50% and grade 1 diastolic dysfunction. RVSP from this admission was 62.6. Repeat echocardiogram on admission relatively unchanged RVSP and RV function however also concern for shunt however bubble study did not report any right to left-sided shunt. Patient COVID-19 PCR still resulted positive. Blood cultures negative, and the patient's nasal PCR for MRSA positive recent admission antibiotics were discontinued on this admission with only continuation of levofloxacin. Patient also initiated on steroids for organizing pneumonia. Patient oxygen requirements steadily improving except this morning with patient an acute episode of desaturation in which she was escalated high flow nasal cannula currently on 35 L 50% with saturations between 80 to 92%. Patient also appeared to be more equipments as tolerated Plan: -We will continue prednisone 60 mg
--- NOTE | 2020-07-18 15:05 | HMH.ACPN2 ---
Internal Medicine - PN: Subj *Date: 07/18/20 *Time: 15:05 Interval history: Patient seen and examined. Events of this morning reviewed with the patient and his nurse. He apparently had another episode of the setting to the 60s. He was initially placed on nonrebreather and then escalated to Vapotherm. Since then he has felt well with no current complaints of shortness of breath. His appetite is good. No chest pain. Exam Vital signs and Labs for Last 24 Hours: Temp Pulse Resp BP Pulse Ox 98.8 F 95 H 20 137/73 91 L 07/18/20 08:00 07/18/20 08:00 07/18/20 08:00 07/18/20 08:00 07/18/20 08:00 Laboratory Results - last 24 hr 07/18/20 07:42: Specimen Source Left radial, O2 % 4 lpm, ABG pH 7.63 H*, ABG pCO2 31.3 L, ABG pO2 32.7 L, ABG HCO3 31.9 H, ABG Total CO2 32.9 H, ABG O2 Saturation 73 L*, ABG Base Excess 10.8 H, Aung Test Acceptable I & O for Last 24 hours: Intake & Output 07/16/20 07/17/20 07/18/20 07/19/20 11:59 11:59 11:59 11:59 Intake Total 720 / 720 960 / 960 820 / 820 Output Total 1575 / 1575 1200 / 1200 1275 / 1275 800 / 800 Balance -855 / -855 -240 / -240 -455 / -455 -800 / -800 Weight 157 lb 3 oz 158 lb 3 oz 160 lb 2 oz Narrative: He is alert and tolerating the Vapotherm. Color is good. Chest with bibasilar crackles. No wheezes. Heart is regular. Abdomen benign. Extremities no edema. Assessment and Plan (1) Pulmonary embolus Status: Acute Category: Medical Code(s): I26.99 - Other pulmonary embolism without acute cor pulmonale (2) Respiratory failure with hypoxia Status: Acute Qualifiers: Chronicity: acute Qualified Code(s): J96.01 - Acute respiratory failure with hypoxia Category: Medical Code(s): J96.91 - Respiratory failure, unspecified with hypoxia (3) Pneumonia due to COVID-19 virus Status: Acute Category: Medical Code(s): U07.1 - COVID-19; J12.82 - Pneumonia due to coronavirus disease 2019 (4) Elevated liver enzymes Status: Acute Category: Medical Code(s): R74.8 - Abnormal levels of other serum enzymes (5) Thrombocytopenia Status: Acute Category: Medical Code(s): D69.6 - Thrombocytopenia, unspecified (6) Lymphoma Status: Chronic Category: Medical Code(s): C85.90 - Non-Hodgkin lymphoma, unspecified, unspecified site (7) Corneal abrasion Status: Acute Category: Medical Code(s): S05.00XA - Injury of conjunctiva and corneal abrasion without foreign body, unspecified eye, initial encounter (8) Stomatitis Status: Acute Category: Medical Code(s): K12.1 - Other forms of stomatitis - Assessment and plan all Dx Assessment and Plan for all problems:: We will follow with pulmonology. No further recommendations at this time.
--- NOTE | 2020-07-18 19:03 | PC.NURSE ---
HE I SAOX4, ABLE TO MAKE NEEDS KNOWN TO STAFF, HAS REQUIRED VAPOTHERM T/O SHIFT R/T DESATS THIS AM, HE HAS USED THE URINAL AT THE BED SIDE T/O SHIFT INDEPENDENTLY. HAS DENIED N/V/D, A OR ABD PAIN, NO NEEDS AT THIS TIME, VSS, WILL CONTINUE TO MONITOR.
[2020-07-19] VITALS (17 sets, daily range): BP systolic 89–116; BP diastolic 43–69; PULSE 68–120; RESP 17–20; TEMP 36.6–38.1; O2SAT 87–98; BMI 22.1
--- NOTE | 2020-07-19 09:49 | P.PN_ITS ---
Internal Medicine - PN: Subj *Date: 07/19/20 *Time: 08:49 Interval history: He rested well last night. No episodes of hypoxemia although he did not get out of bed yesterday. He denies chest pain or productive cough. Exam Vital signs and Labs for Last 24 Hours: Temp Pulse Resp BP Pulse Ox 99.2 F 90 20 116/69 93 L 07/19/20 07:57 07/19/20 08:00 07/19/20 07:57 07/19/20 07:57 07/19/20 07:59 I & O for Last 24 hours: Intake & Output 07/16/20 07/17/20 07/18/20 07/19/20 11:59 11:59 11:59 11:59 Intake Total 720 / 720 960 / 960 820 / 820 1280 / 1280 Output Total 1575 / 1575 1200 / 1200 1925 / 1925 1570 / 1570 Balance -855 / -855 -240 / -240 -1105 / -1105 -290 / -290 Weight 157 lb 3 oz 158 lb 3 oz 160 lb 2 oz 146 lb 4.8 oz Narrative: Alert and oriented. Chest with bibasilar crackles. No wheezes. Heart is regular. Extremities no edema. Assessment and Plan (1) Pulmonary embolus Status: Acute Category: Medical Code(s): I26.99 - Other pulmonary embolism without acute cor pulmonale (2) Respiratory failure with hypoxia Status: Acute Qualifiers: Chronicity: acute Qualified Code(s): J96.01 - Acute respiratory failure w ith hypoxia Category: Medical Code(s): J96.91 - Respiratory failure, unspecified with hypoxia (3) Pneumonia due to COVID-19 virus Status: Acute Category: Medical Code(s): U07.1 - COVID-19; J12.82 - Pneumonia due to coronavirus disease 2019 (4) Elevated liver enzymes Status: Acute Category: Medical Code(s): R74.8 - Abnormal levels of other serum enzymes (5) Thrombocytopenia Status: Acute Category: Medical Code(s): D69.6 - Thrombocytopenia, unspecified (6) Lymphoma Status: Chronic Category: Medical Code(s): C85.90 - Non-Hodgkin lymphoma, unspecified, unspecified site (7) Corneal abrasion Status: Acute Category: Medical Code(s): S05.00XA - Injury of conjunctiva and corneal abrasion without foreign body, unspecified eye, initial encounter (8) Stomatitis Status: Acute Category: Medical Code(s): K12.1 - Other forms of stomatitis - Assessment and plan all Dx Assessment and Plan for all problems:: Continue per pulmonology recommendations
[2020-07-19 09:51] LABS: Basophils % 0.2 % (0.1-2.0); Eosinophils % 0.2 % (0.1-12.0); Hematocrit 31.6 % (42.0-52.0); Hemoglobin 10.5 g/dL (14.1-18.0); Lymphocytes # 0.4 K/mm3 (0.7-4.5); Lymphocytes % 6.3 % (10-50); Mean Corpuscular HGB Conc 33.3 g/dL (31.8-35.4); Mean Corpuscular Hemoglobin 30.9 pg (27.0-31.2); Mean Corpuscular Volume 92.9 fl (80-94); Mean Platelet Volume 8.8 fl (7.4-10.4); Monocytes # 0.1 K/mm3 (0.1-1.0); Monocytes % 2.2 % (1.7-9.3); Neutrophils # 5.6 K/mm3 (1.8-7.8); Neutrophils % 91.1 % (37.0-80.0); Platelet Count 72 K/mm3 (142-424); Red Blood Count 3.41 M/mm3 (4.60-6.20); Red Cell Distribution Width 17.6 % (11.5-17.5); White Blood Count 6.1 K/mm3 (4.8-10.8)
[2020-07-19 09:52] LABS: MANUAL DIFFERENTIAL MANUAL DIFFERENTIAL (MANUAL DIFF)
[2020-07-19 10:00] LABS: Chloride 90 mmol/L (98-107); Sodium 133 mmol/L (136-145)
[2020-07-19 10:02] LABS: Alanine Aminotransferase 100 U/L (12-78); Aspartate Amino Transferase 103 U/L (17-59); Blood Urea Nitrogen 19 mg/dl (9-20); Creatinine Clearance Estimated 74 mL/min (50-200); Estimated Glomerular Filt Rate 76 ml/min (>60); GFR (African American) 92 ML/MIN (>60)
[2020-07-19 10:03] LABS: Alkaline Phosphatase 152 U/L (38-126); Calcium 8.8 mg/dl (8.4-10.2); Globulin 3.1 g/dL (1.3-3.2); Glucose 107 mg/dl (74-100); Total Protein,Serum 6.1 g/dl (6.3-8.2)
[2020-07-19 10:09] LABS: Carbon Dioxide 39 mmol/L (22.0-30.0)
[2020-07-19 10:14] LABS: Anion Gap 6.6 mEq/L (5-15); Potassium 2.6 mmoL/L (3.5-5.1)
[2020-07-19 10:40] LABS: Anisocytosis 1+; Lymphocytes % 8 % (10-50); Macrocytosis 1+; Monocytes % 2 % (2-9); Neutrophils % 86 % (42-76); Platelet Estimate Slight Decrease; Total Cells Counted 100
--- NOTE | 2020-07-19 13:27 | HMH.PULMPN ---
Internal Medicine - PN: Subj *Date: 07/19/20 *Time: 13:27 Interval history: No acute respite events overnight patient states that his respiratory status remained the same compared to yesterday Exam - Constitutional Constitutional:: Present: comfortable - HENMT Exam HENMT: Present: atraumatic - Eye Exam Eyes:: Present: eyelids normal - Neck Exam Neck:: Present: thyroid normal - Respiratory Exam Respiratory:: Present: bibailar crackels heard, normal respiratory effort Comments: Mild respiratory distress - Cardiovascular Exam Cardiac:: Present: S1, S2 - GI Exam GI:: Present: soft, no hepatosplenomegaly - Skin Exam Skin: Present: warm, no rash - Neurological Exam Neurological: Present: alert, awake, normal cognition - Extremities Exam Extremities: Present: no cyanosis, no clubbing, edema - Psychiatric Exam Psychiatric: Present: normal affect Assessment and Plan (1) Pulmonary embolus Status: Acute Category: Medical Code(s): I26.99 - Other pulmonary embolism without acute cor pulmonale (2) Respiratory failure with hypoxia Status: Acute Qualifiers: Chronicity: acute Qualified Code(s): J96.01 - Acute respiratory failure with hypoxia Category: Medical Code(s): J96.91 - Respiratory failure, unspecified with hypoxia (3) Pneumonia due to COVID-19 virus Status: Acute Category: Medical Code(s): U07.1 - COVID-19; J12.82 - Pneumonia due to coronavirus disease 2019 (4) Elevated liver enzymes Status: Acute Category: Medical Code(s): R74.8 - Abnormal levels of other serum enzymes (5) Thrombocytopenia Status: Acute Category: Medical Code(s): D69.6 - Thrombocytopenia, unspecified (6) Lymphoma Status: Chronic Category: Medical Code(s): C85.90 - Non-Hodgkin lymphoma, unspecified, unspecified site (7) Corneal abrasion Status: Acute Category: Medical Code(s): S05.00XA - Injury of conjunctiva and corneal abrasion without foreign body, unspecified eye, initial encounter (8) Stomatitis Status: Acute Category: Medical Code(s): K12.1 - Other forms of stomatitis - Assessment and plan all Dx Assessment and Plan for all problems:: #Acute hypoxic respiratory failure: #COVID-19 pneumonia: #Acute pulmonary embolism likely provoked secondary to COVID-19 pneumonia: 59-year-old with recent diagnosis of COVID-19 pneumonia admitted to the hospital 12 twice with a recent discharge in early June after which he completed 6-day course of vancomycin and cefepime discharge levofloxacin presented to the hospital with worsening respiratory failure not associated with fevers or chills, positive for nonproductive cough. CTA performed admission showed evidence of right-sided pulmonary embolism. Pulmonary parenchymal infiltrates improved from prior. Echocardiogram from this admission pending. Echocardiogram from his recent admission showed increased LV wall thickness with EF of 50% and grade 1 diastolic dysfunction. RVSP from this admission was 62.6. Repeat echocardiogram on admission relatively unchanged RVSP and RV function however also concern for shunt however bubble study did not report any right to left-sided shunt. Patient has been needing high oxygen requirement since admission, at one point eventually weaned to 5 L nasal cannula however needed to escalate to high flow nasal cannula currently receiving high flow nasal cannula 30 L 60%. Patient afebrile. CBC performed today did not show any evidence of leukocytosis. Patient given Lasix yesterday with improvement in his oxygen requirements. BMP performed today also showed severe hypokalemia 2.6, will hold off on initiating Lasix until his K is repleted. Patient already started on 20 p.o. twice daily potassium replacement, will give additional 40 IV today Plan: -40 mEq of KCl IV supplementation once along with continuation of his 20 p.o. twice daily and follow with BMP scheduled for tomorrow morning. -We will continue pr
--- NOTE | 2020-07-19 15:35 | XR_ITS ---
PROCEDURE: XR CHEST PORTABLE CLINICAL HISTORY: FEVER Covid19 COMPARISON: No exams were available for comparison FINDINGS: The cardiomediastinal silhouette and pulmonary vascularity are within normal limits. Increasing consolidation is present involving the left mid and upper lung zone consistent with worsening left-sided pneumonia. Right-sided pneumonia also noted not significantly changed. No evidence of pneumothorax. No acute bony abnormalities. IMPRESSION: Bilateral pneumonia which is worse on the left Dictated by: Aung Jean-Baptiste MD 07/19/2020 16:24 Aung Jean-Baptiste MD in [facility] 07/19/2020 16:24
--- NOTE | 2020-07-19 16:38 | PC.NURSE ---
HE IS AOX4, ABLE TO MAKE NEEDS KNOWN TO STAFF, WAS UP TO CHAIR FOR ABOUT 2 HOURS THIS SHIFT AND TOLERATED WELL. HE HAS USED INCENTIVE SPIROMETER AT FREQUENT INTERVALS, STILL REQUIRES HIGH FLOW VAPOTHERM FOR O2 SUPPORT, HIS O HAS REMAINED >90%, FIO2 60% @ 30LPM. HE DID DEVELOP A FEVER THIS AFTERNOON AND WAS TREATED WITH TYLENOL 650MG PER JUL, NSR ON TELE WITH HR IN THE 90'S CONSISTENTLY, LUNGS SOUND DIMINISHED BILATERALLY, SPECIMEN CUP AT BEDSIDE AND PT EDUCATED ON NEED FOR URINE SAMPLE. VITAL SIGNS HAVE REMAINED STABLE, CRITICAL K+ REPORTED TO MD PACHECO TOTAL OF 40 MEQ POTASSIUM ADMIN IV, PT TOLERATED WELL, HE DOES BECOME SOA AND TACHYCARDIC UPON EXERTION. USES THE URINAL ON THE SIDE OF THE BED AND BEDSIDE COMMODE FOR ELIMINATION, HE HAS TOLERATED DIET WELL, ABD IS SOFT AND NON-TENDER, BOWEL SOUNDS ACTIVE X4, HE HAS WANTED A SHAKE WITH ALL MEALS AND HAS TOLERATED WELL, NO NEEDS AT THIS TIME,
--- NOTE | 2020-07-19 22:47 | PC.NURSE ---
He continues on the vapotherm on 30LPM 60% FiO2. He is A&Ox4. He has been resting in bed. NSR on telemetry. He is A&Ox4. He denies SOA. Incentive spirometer used after instruction. Denies pain.
[2020-07-20] VITALS (16 sets, daily range): BP systolic 92–108; BP diastolic 58–70; PULSE 67–89; RESP 18–29; TEMP 36.8–39.2; O2SAT 92–99; BMI 22.4
--- NOTE | 2020-07-20 05:47 | PC.NURSE ---
Febrile this am. Acetaminophen given. Some covers removed.
[2020-07-20 08:36] LABS: Chloride 93 mmol/L (98-107); Sodium 132 mmol/L (136-145)
[2020-07-20 08:37] LABS: Potassium 3.3 mmoL/L (3.5-5.1)
[2020-07-20 08:39] LABS: Blood Urea Nitrogen 15 mg/dl (9-20); Creatinine Clearance Estimated 75 mL/min (50-200); Estimated Glomerular Filt Rate 76 ml/min (>60); GFR (African American) 92 ML/MIN (>60)
[2020-07-20 08:40] LABS: Anion Gap 6.3 mEq/L (5-15); Calcium 8.5 mg/dl (8.4-10.2); Carbon Dioxide 36 mmol/L (22.0-30.0); Glucose 102 mg/dl (74-100)
--- NOTE | 2020-07-20 09:59 | PC.NURSE ---
Resp Care Note Oxygen FIO2 decreased to 40% FIO2 per Dr Valenzuela. Plan to continue weaning FIO2 to place pt on a nasal cannula at 6lpm. Daria Esposito HSE COORDINATOR [id number]
--- NOTE | 2020-07-20 10:20 | HMH.PULMPN ---
Internal Medicine - PN: Subj *Date: 07/20/20 *Time: 10:20 Interval history: No acute respite events overnight. Exam - Constitutional Constitutional:: Present: no acute distress, comfortable - HENMT Exam HENMT: Present: atraumatic - Eye Exam Eyes:: Present: eyelids normal - Neck Exam Neck:: Present: thyroid normal - Respiratory Exam Respiratory:: Present: able to speak in complete sentences, no respiratory distress, normal respiratory effort, crackles - Cardiovascular Exam Cardiac:: Present: S1, S2 - GI Exam GI:: Present: soft, no hepatosplenomegaly - Skin Exam Skin: Present: warm, no rash - Neurological Exam Neurological: Present: alert, awake, normal cognition - Extremities Exam Extremities: Present: no cyanosis, no clubbing, edema - Psychiatric Exam Psychiatric: Present: normal affect Assessment and Plan (1) Pulmonary embolus Status: Acute Category: Medical Code(s): I26.99 - Other pulmonary embolism without acute cor pulmonale (2) Respiratory failure with hypoxia Status: Acute Qualifiers: Chronicity: acute Qualified Code(s): J96.01 - Acute respiratory failure with hypoxia Category: Medical Code(s): J96.91 - Respiratory failure, unspecified with hypoxia (3) Pneumonia due to COVID-19 virus Status: Acute Category: Medical Code(s): U07.1 - COVID-19; J12.82 - Pneumonia due to coronavirus disease 2019 (4) Elevated liver enzymes Status: Acute Category: Medical Code(s): R74.8 - Abnormal levels of other serum enzymes (5) Thrombocytopenia Status: Acute Category: Medical Code(s): D69.6 - Thrombocytopenia, unspecified (6) Lymphoma Status: Chronic Category: Medical Code(s): C85.90 - Non-Hodgkin lymphoma, unspecified, unspecified site (7) Corneal abrasion Status: Acute Category: Medical Code(s): S05.00XA - Injury of conjunctiva and corneal abrasion without foreign body, unspecified eye, initial encounter (8) Stomatitis Status: Acute Category: Medical Code(s): K12.1 - Other forms of stomatitis - Assessment and plan all Dx Assessment and Plan for all problems:: #Acute hypoxic respiratory failure: #COVID-19 pneumonia: #Acute pulmonary embolism likely provoked secondary to COVID-19 pneumonia: 59-year-old with recent diagnosis of COVID-19 pneumonia admitted to the hospital 12 twice with a recent discharge in early June after which he completed 6-day course of vancomycin and cefepime discharge levofloxacin presented to the hospital with worsening respiratory failure not associated with fevers or chills, positive for nonproductive cough. CTA performed admission showed evidence of right-sided pulmonary embolism. Pulmonary parenchymal infiltrates improved from prior. Echocardiogram from this admission pending. Echocardiogram from his recent admission showed increased LV wall thickness with EF of 50% and grade 1 diastolic dysfunction. RVSP from this admission was 62.6. Repeat echocardiogram on admission relatively unchanged RVSP and RV function however also concern for shunt however bubble study did not report any right to left-sided shunt. Interval update: Patient respiratory improved from yesterday, this morning saturating 98%, FiO2 decreased from 65 to 40%. Will wean to nasal cannula as tolerated. Potassium repleted, still at 3.4 we will give additional 20 IV replacement and will proceed with 40 of Lasix after that. Patient had a high-grade fever of 102.6 yesterday and blood cultures ordered. Given his improvement in respiratory status we will closely monitor and await his blood cultures. Patient completed his levofloxacin course, will discontinue today and closely monitor his respiratory status and blood cultures to determine the need for further antibiotic course Plan: -Wean O2 requirements as tolerated, currently on 35 L 40% high flow nasal cannula, wean to nasal cannula 6 L as tolerated with O2 saturation goal of 88 to 92% -Follow with chest x-r
--- NOTE | 2020-07-20 10:21 | XR_ITS ---
PROCEDURE: XR CHEST PORTABLE CLINICAL HISTORY: pneumonia Persistent fever, Covid19 COMPARISON: CT CT ANGIO CHEST from 07/09/2020 CR XR CHEST PORTABLE from 07/09/2020 CR XR CHEST PORTABLE from 07/18/2020 CR XR CHEST PORTABLE from 07/19/2020 FINDINGS: The cardiomediastinal silhouette and pulmonary vascularity are within normal limits. Pneumonia is present in the left mid and lower lung zone not significantly changed. Right lower lobe pneumonia also noted unchanged. No effusions. No evidence of pneumothorax. No acute bony abnormalities. IMPRESSION: No change bilateral pneumonia Dictated by: Aung Jean-Baptiste MD 07/20/2020 16:19 Aung Jean-Baptiste MD in [facility] 07/20/2020 16:19
--- NOTE | 2020-07-20 14:35 | HMH.ACPN2 ---
Internal Medicine - PN: Subj *Date: 07/20/20 *Time: 08:43 Interval history: He had a low-grade fever yesterday afternoon and temp up to 102.7 at 4:45 AM this morning. Subjectively, he feels the same. No increased shortness of breath, congestion, headache, abdominal pain, dysuria. He has been stable on his current Vapotherm settings. Exam Vital signs and Labs for Last 24 Hours: Temp Pulse Resp BP Pulse Ox 100.5 F H 72 29 H 108/70 L 96 07/20/20 12:00 07/20/20 12:00 07/20/20 12:00 07/20/20 12:00 07/20/20 12:00 Laboratory Results - last 24 hr 07/20/20 07:55: Sodium 132 L, Potassium 3.3 L D, Chloride 93 L, Carbon Dioxide 36 H, Anion Gap 6.3, BUN 15, Creatinine 1.00, Estimated Creat Clear 75, Estimated GFR 76, Est GFR ( Amer) 92, Glucose 102 H, Calcium 8.5 I & O for Last 24 hours: Intake & Output 07/18/20 07/19/20 07/20/20 07/21/20 11:59 11:59 11:59 11:59 Intake Total 820 / 820 1280 / 1280 680 / 680 0 / 0 Output Total 1925 / 1925 1570 / 1570 650 / 650 800 / 800 Balance -1105 / -1105 -290 / -290 30 / 30 -800 / -800 Weight 160 lb 2 oz 146 lb 4.8 oz 148 lb 2 oz Narrative: He is sitting up in the chair. Alert and in no distress. Chest with bilateral crackles. Heart is regular. Abdomen is soft and nondistended with no tenderness. Extremities no edema. Assessment and Plan (1) Pulmonary embolus Status: Acute Category: Medical Code(s): I26.99 - Other pulmonary embolism without acute cor pulmonale (2) Respiratory failure with hypoxia Status: Acute Qualifiers: Chronicity: acute Qualified Code(s): J96.01 - Acute respiratory failure with hypoxia Category: Medical Code(s): J96.91 - Respiratory failure, unspecified with hypoxia (3) Pneumonia due to COVID-19 virus Status: Acute Category: Medical Code(s): U07.1 - COVID-19; J12.82 - Pneumonia due to coronavirus disease 2019 (4) Elevated liver enzymes Status: Acute Category: Medical Code(s): R74.8 - Abnormal levels of other serum enzymes (5) Thrombocytopenia Status: Acute Category: Medical Code(s): D69.6 - Thrombocytopenia, unspecified (6) Lymphoma Status: Chronic Category: Medical Code(s): C85.90 - Non-Hodgkin lymphoma, unspecified, unspecified site (7) Corneal abrasion Status: Acute Category: Medical Code(s): S05.00XA - Injury of conjunctiva and corneal abrasion without foreign body, unspecified eye, initial encounter (8) Stomatitis Status: Acute Category: Medical Code(s): K12.1 - Other forms of stomatitis - Assessment and plan all Dx Assessment and Plan for all problems:: He is stable clinically. Etiology of fever is not evident. Blood and urine cultures are pending. Chest x-ray continues to show bilateral pneumonic infiltrates, L>R. Will await culture results.
--- NOTE | 2020-07-20 14:51 | PC.NURSE ---
Pt has been pleasant and cooperative this shift. A&O X4. No complaints of pain or SOA. Pt is currently receiving O2 via Vapotherm @ 30 LPM with sats. >90%. Will continue to wean. Lung sounds are diminished. Scattered scabbing noted to lips and nose. No edema noted. Telemetry reveals NSR. Pt uses the urinal to void clear, yellow urine without issue. No BM this shift. Pt turns/repositions and ambulates independently. Pt sat up in the chair for several hours this shift. Appetite is fair and pt eats about 50% of all meals. Specimen cup is at bedside and pt has been instructed to provide a sputum specimen. 20 G peripheral IV in the LT wrist is patent and SL. Temp. at 1200 noted to be 100.5, Tylenol administered. Re-check at 1320 noted to be 98.4. VSS. Call light within reach. Will continue to monitor.
--- NOTE | 2020-07-20 15:00 | PC.NURSE ---
this RN took over care at this time
--- NOTE | 2020-07-20 15:30 | PC.NURSE ---
pt weaned to 3L NC.
--- NOTE | 2020-07-20 16:30 | PC.NURSE ---
O2 sat in low to mid 80s. O2 increased to 5L NC.
--- NOTE | 2020-07-20 18:49 | PC.NURSE ---
O2 sat 98-100% on 5L NC. O2 decreased to 3L NC.
[2020-07-21] VITALS (30 sets, daily range): BP systolic 83–126; BP diastolic 43–72; PULSE 55–147; RESP 20–48; TEMP 36.6–38.5; O2SAT 82–100; BMI 23.2
--- NOTE | 2020-07-21 04:52 | PC.NURSE ---
shift summary patient has remained on 3 l nc throughout shift. patient has periods of desating with activity, sats dropping as low as 78%. patient sats return back up 90 with 20 min. patient denies soa at these times. breath sounds clear with diminished bases. patient has had temperature on and off thoughout shift, responds well to tylenol. has denies nausea, vomiting or diarrhea. void dark yellow urine per urinal.
--- NOTE | 2020-07-21 08:24 | CA_ITS ---
APPROVED REPORT Bilateral Lower Extremity Venous Study for DVT. Heat Sealing Machine Operator: MAIRA Aquino, COVID-19 Findings Color flow duplex of the right lower extremity demonstrates no evidence of superficial venous thrombophlebitis. All visualized right lower extremity veins are clear and compressible. The left Peroneal Vein is dilated with mixed echoes and is not fully compressible. Color flow duplex of the left lower extremity demonstrates non-occlusive DVT involving the following Vein: Peroneal. Conclusion Color flow duplex of the right lower extremity demonstrates no evidence of superficial venous thrombophlebitis. All visualized right lower extremity veins are clear and compressible. The left Peroneal Vein is dilated with mixed echoes and is not fully compressible indicating non-occlusive DVT involving the following Vein: Peroneal. Electronically signed by : Aung Jean-Baptiste MD 07/21/2020 15:58:05
--- NOTE | 2020-07-21 08:35 | HMH.ACPN2 ---
Internal Medicine - PN: Subj *Date: 07/21/20 *Time: 08:35 Interval history: He was weaned to 3 L of nasal oxygen yesterday and has done well through the night. States he slept well. No new complaints this morning. He is continued with intermittent fevers. Exam Vital signs and Labs for Last 24 Hours: Temp Pulse Resp BP Pulse Ox 99.8 F H 110 H 33 H 84/53 L 100 07/21/20 11:54 07/21/20 12:00 07/21/20 11:54 07/21/20 11:54 07/21/20 11:54 Laboratory Results - last 24 hr 07/21/20 10:22: Sodium 135 L, Potassium 4.7 D, Chloride 95 L, Carbon Dioxide 25 D, Anion Gap 19.7 H, BUN 15, Creatinine 1.10, Estimated Creat Clear 70, Estimated GFR 68, Est GFR ( Amer) 83, Glucose 152 H, Calcium 9.5 D 07/21/20 10:36: Total Bilirubin 1.3, Direct Bilirubin 0.2, Conjugated Bilirubin 0.0, Indirect Bilirubin 1.1 H, Unconjugated Bilirubin 1.0, AST 101 H, ALT 151 H D, Alkaline Phosphatase 236 H, Total Protein 7.1, Albumin 3.6 07/21/20 11:15: WBC 14.6 H D, RBC 3.77 L, Hgb 11.3 L, Hct 36.2 L, MCV 96.0 H, MCH 29.9, MCHC 31.2 L, RDW 17.7 H, Plt Count 127 L D, MPV 9.2, Neut % (Auto) 88.9 H, Lymph % (Auto) 8.3 L, [place] % (Auto) 2.4, Eos % (Auto) 0.1, Baso % (Auto) 0.3, Neut # (Auto) 13.0 H, Lymph # (Auto) 1.2, [place] # (Auto) 0.3, Eos # (Auto) 0.0, Baso # (Auto) 0.1, Total Counted 100, Neutrophils % (Manual) 88 H, Lymphocytes % (Manual) 9 L, Monocytes % (Manual) 3, Platelet Estimate Normal, RBC Morphology Normal I & O for Last 24 hours: Intake & Output 07/19/20 07/20/20 07/21/20 07/22/20 11:59 11:59 11:59 11:59 Intake Total 1280 / 1280 680 / 680 480 / 480 Output Total 1570 / 1570 650 / 650 1600 / 1600 Balance -290 / -290 / -1120 / -1120 Weight 146 lb 4.8 oz 148 lb 2 oz 153 lb 4 oz Microbiology Reports for the Last 24 Hours: Microbiology 07/19/20 17:12 Urine,Clean Catch Urine Culture - Preliminary NO GROWTH AFTER 24 HOURS Narrative: Sitting up in bed and appears in no distress. Color is good. Chest with bilateral crackles throughout the lower half of both lung [place]. Heart is regular. Extremities no edema. Assessment and Plan (1) Pulmonary embolus Status: Acute Category: Medical Code(s): I26.99 - Other pulmonary embolism without acute cor pulmonale (2) Respiratory failure with hypoxia Status: Acute Qualifiers: Chronicity: acute Qualified Code(s): J96.01 - Acute respiratory failure with hypoxia Category: Medical Code(s): J96.91 - Respiratory failure, unspecified with hypoxia (3) Pneumonia due to COVID-19 virus Status: Acute Category: Medical Code(s): U07.1 - COVID-19; J12.82 - Pneumonia due to coronavirus disease 2019 (4) Elevated liver enzymes Status: Acute Category: Medical Code(s): R74.8 - Abnormal levels of other serum enzymes (5) Thrombocytopenia Status: Acute Category: Medical Code(s): D69.6 - Thrombocytopenia, unspecified (6) Lymphoma Status: Chronic Category: Medical Code(s): C85.90 - Non-Hodgkin lymphoma, unspecified, unspecified site (7) Corneal abrasion Status: Acute Category: Medical Code(s): S05.00XA - Injury of conjunctiva and corneal abrasion without foreign body, unspecified eye, initial encounter (8) Stomatitis Status: Acute Category: Medical Code(s): K12.1 - Other forms of stomatitis - Assessment and plan all Dx Assessment and Plan for all problems:: He is stable off the Vapotherm and on 3 L of nasal cannula. O2 sats are in the mid 90s. Awaiting blood cultures.
--- NOTE | 2020-07-21 10:35 | XR_ITS ---
PROCEDURE: XR CHEST PORTABLE CLINICAL HISTORY: hypoxia COMPARISON: CT CT ANGIO CHEST from 07/09/2020 CR XR CHEST PORTABLE from 07/18/2020 CR XR CHEST PORTABLE from 07/19/2020 CR XR CHEST PORTABLE from 07/20/2020 FINDINGS: The cardiomediastinal silhouette and pulmonary vascularity are within normal limits. Bilateral pneumonia once again noted left more extensive than right overall not significantly changed. No evidence of pneumothorax. No acute bony abnormalities. IMPRESSION: No change bilateral pneumonia Dictated by: Aung Jean-Baptiste MD 07/21/2020 11:18 Aung Jean-Baptiste MD in [facility] 07/21/2020 11:18
[2020-07-21 10:36] LABS: Chloride 95 mmol/L (98-107)
[2020-07-21 10:37] LABS: Potassium 4.7 mmoL/L (3.5-5.1); Sodium 135 mmol/L (136-145)
[2020-07-21 10:39] LABS: Blood Urea Nitrogen 15 mg/dl (9-20); Creatinine Clearance Estimated 70 mL/min (50-200); Estimated Glomerular Filt Rate 68 ml/min (>60); GFR (African American) 83 ML/MIN (>60)
[2020-07-21 10:40] LABS: Anion Gap 19.7 mEq/L (5-15); Carbon Dioxide 25 mmol/L (22.0-30.0); Glucose 152 mg/dl (74-100)
[2020-07-21 10:42] LABS: Calcium 9.5 mg/dl (8.4-10.2)
[2020-07-21 11:03] LABS: Alanine Aminotransferase 151 U/L (12-78); Aspartate Amino Transferase 101 U/L (17-59)
[2020-07-21 11:04] LABS: Albumin Level 3.6 g/dl (3.5-5.0); Alkaline Phosphatase 236 U/L (38-126); Bilirubin,Direct 0.2 mg/dl (0.0-0.4); Bilirubin,Indirect 1.1 mg/dL (0.0-0.9); Bilirubin,Total 1.3 mg/dl (0.2-1.3); Total Protein,Serum 7.1 g/dl (6.3-8.2)
[2020-07-21 11:53] LABS: Basophils # 0.1 K/mm3 (0-0.2); Basophils % 0.3 % (0.1-2.0); Eosinophils % 0.1 % (0.1-12.0); Hematocrit 36.2 % (42.0-52.0); Hemoglobin 11.3 g/dL (14.1-18.0); Lymphocytes # 1.2 K/mm3 (0.7-4.5); Lymphocytes % 8.3 % (10-50); Mean Corpuscular HGB Conc 31.2 g/dL (31.8-35.4); Mean Corpuscular Hemoglobin 29.9 pg (27.0-31.2); Mean Platelet Volume 9.2 fl (7.4-10.4); Monocytes # 0.3 K/mm3 (0.1-1.0); Monocytes % 2.4 % (1.7-9.3); Neutrophils % 88.9 % (37.0-80.0); Platelet Count 127 K/mm3 (142-424); Red Blood Count 3.77 M/mm3 (4.60-6.20); Red Cell Distribution Width 17.7 % (11.5-17.5); White Blood Count 14.6 K/mm3 (4.8-10.8)
[2020-07-21 12:16] LABS: MANUAL DIFFERENTIAL MANUAL DIFFERENTIAL (MANUAL DIFF)
[2020-07-21 12:56] LABS: Lymphocytes % 9 % (10-50); Monocytes % 3 % (2-9); Neutrophils % 88 % (42-76); Platelet Estimate Normal; RBC Morphology Normal; Total Cells Counted 100
--- NOTE | 2020-07-21 15:41 | HMH.PULMPN ---
Internal Medicine - PN: Subj *Date: 07/21/20 *Time: 15:41 Interval history: Patient clinical status significantly clinically thinks his oxygen requirements and worsening hemodynamics. Exam - Constitutional Constitutional:: Present: comfortable - HENMT Exam HENMT: Present: atraumatic - Eye Exam Eyes:: Present: eyelids normal - Neck Exam Neck:: Present: thyroid normal - Respiratory Exam Respiratory:: Present: bibailar crackels heard, respiratory distress - Cardiovascular Exam Cardiac:: Present: S1, S2 - GI Exam GI:: Present: soft, no hepatosplenomegaly - Skin Exam Skin: Present: warm, no rash - Neurological Exam Neurological: Present: alert, awake, normal cognition - Extremities Exam Extremities: Present: no cyanosis, no clubbing, edema Assessment and Plan (1) Pulmonary embolus Status: Acute Category: Medical Code(s): I26.99 - Other pulmonary embolism without acute cor pulmonale (2) Respiratory failure with hypoxia Status: Acute Qualifiers: Chronicity: acute Qualified Code(s): J96.01 - Acute respiratory failure with hypoxia Category: Medical Code(s): J96.91 - Respiratory failure, unspecified with hypoxia (3) Pneumonia due to COVID-19 virus Status: Acute Category: Medical Code(s): U07.1 - COVID-19; J12.82 - Pneumonia due to coronavirus disease 2019 (4) Elevated liver enzymes Status: Acute Category: Medical Code(s): R74.8 - Abnormal levels of other serum enzymes (5) Thrombocytopenia Status: Acute Category: Medical Code(s): D69.6 - Thrombocytopenia, unspecified (6) Lymphoma Status: Chronic Category: Medical Code(s): C85.90 - Non-Hodgkin lymphoma, unspecified, unspecified site (7) Corneal abrasion Status: Acute Category: Medical Code(s): S05.00XA - Injury of conjunctiva and corneal abrasion without foreign body, unspecified eye, initial encounter (8) Stomatitis Status: Acute Category: Medical Code(s): K12.1 - Other forms of stomatitis - Assessment and plan all Dx Assessment and Plan for all problems:: #Acute hypoxic respiratory failure: #COVID-19 pneumonia: #Acute pulmonary embolism likely provoked secondary to COVID-19 pneumonia: 59-year-old with recent diagnosis of COVID-19 pneumonia admitted to the hospital 12 twice with a recent discharge in early June after which he completed 6-day course of vancomycin and cefepime discharge levofloxacin presented to the hospital with worsening respiratory failure not associated with fevers or chills, positive for nonproductive cough. CTA performed admission showed evidence of right-sided pulmonary embolism. Pulmonary parenchymal infiltrates improved from prior. Echocardiogram from this admission pending. Echocardiogram from his recent admission showed increased LV wall thickness with EF of 50% and grade 1 diastolic dysfunction. RVSP from this admission was 62.6. Repeat echocardiogram on admission relatively unchanged RVSP and RV function however also concern for shunt however bubble study did not report any right to left-sided shunt. Interval update: Patient clinical status significantly worsened today. Patient has been stable overnight on 3 L nasal cannula saturating greater than 92% however this morning patient has an event where he has a febrile episode along with hypoxia and tachycardia during which his oxygen requirements were escalated to high flow nasal cannula, patient needing 100% FiO2 to maintain saturations greater than 90%. Patient has also having febrile episodes for the last 3 which has been closely monitored however today's labs showed worsening leukocytosis and patient also found to have an episode of hypotension needing fluid bolus. Blood cultures positive for staph. epi Will initiate the patient on linezolid and cefepime. Patient nasal MRSA screen positive from prior hospital admission. Plan: - Initiate broad-spectrum antibiotics with linezolid and cefepime - Continue high flow n
--- NOTE | 2020-07-21 17:17 | PC.NURSE ---
1000- Patient began to spike a fever of 100.7, reported chills, shaking vigorously, HR elevated 140-150, repirations labored 30-40, O2 saturations declined, titrated nasal cannula up to 6L but patients saturations remained low 69-72%, Patient placed on vapotherm at this time, treated fever with tylenol per emar, O2 saturations began to improve with vapotherm, Dr Valenzuela notified, given order to give patient morphine 1mg IV x1, Lasix 40mg IV x1, and place patient on bipap if respiratory status does not improve. 1500- Patient blood pressue declined to systolic <90, Map 52, Dr Valenzuela notified, given order to give patient 1 liter bolus of LR 1710- Patient remains hypotensive with systolic<90 and Map <65, Dr Valenzuela updated on patient condition, gave order for additional liter of LR, if patient remains hypotensive to start patient on levophed drip. 1725- Patient is awake and alert, oriented x4, sitting up in bed giving himself a bed bath, second bolus of fluids infusing at this time, BP currently 96/62, HR 71, RR 14, O@ saturations 99% on vapotherm at 80%, denies any SOA or pain at this time, lung sounds diminished t/o, abd soft and nontender, active bowel sounds in all quads, voids per urinal, urine has been yellow and clear, peripheral pulses intact, trace edema to BL ankles, will continue to monitor closely.
--- NOTE | 2020-07-21 20:37 | PC.NURSE ---
blood pressure sustaining either sys below 90 or map below 65. levophed drip initiated at 2 mcq/min per verbal order received per karla dickson rn from dr. gonzales.
--- NOTE | 2020-07-21 20:51 | PC.NURSE ---
o2 sats have maintained 99-100%, o2 titrated down to 5 l nc.
--- NOTE | 2020-07-21 21:13 | PC.NURSE ---
blood pressure remains below ordered parameters. levophed drip increased to 8 mcq/min.
[2020-07-22] VITALS (48 sets, daily range): BP systolic 84–138; BP diastolic 50–87; PULSE 48–150; RESP 16–33; TEMP 36.4–38.8; O2SAT 90–100; BMI 23.7
--- NOTE | 2020-07-22 04:10 | PC.NURSE ---
shift summary 2114 levophed at 4 mcq/min 2330 o2 titrated down to 3 l nc patient sats sustaining 88% so o2 increased back to 5 l nc at 0000 0015 levophed drip drip decreased to 3 mcq/min 0230 levophed drip decreased to 2 mcq/min and o2 titrateds back down to 4 l nc. 0400 o2 titrated down to 3 l nc sats sustaining mid to high 90s at this time, systolic bp >90 and map greater than 65. early in shift patient got up to use the restroom on 5 l nc with sats 98%, sats dropped down to 57% with activity, rr 40 patient able to speak in full sentences and denies soa, after 10 min patient sats back to 87% on 5l nc and at 20 min patient sats mid 90s with rr mid to high 20s.
--- NOTE | 2020-07-22 05:36 | PC.NURSE ---
systolic bp and map teetering along ordered parameters, levophed increased back to 3 mcq/min
--- NOTE | 2020-07-22 06:54 | PC.NURSE ---
upon getting up to use the urinal this am patients o2 sats down into the 50s and sustained for approximately 5 minutes, o2 increased to to 6 l nc. respiratory called to floor to place back on vapotherm, patient sats dropped to 28 percent briefly , color ashen with lips blue, sats slowing began increasing . respiratory placed high flow. sats sustaining in the 50s respiratory called back to unit to increase settings on vapotherm. patient anxious and shivering . patient immediately needed to have bowel movement. sats slow to recover due to increased anxiety. respiratory at bedside.
[2020-07-22 07:37] LABS: ABG Base Excess -8.2 mmol/L (-2.4-2.3); ABG Oxygen Saturation 74 % (90-100); ABG PCO2 24.1 mmhg (35.0-45.0); ABG PH 7.44 mmol/L (7.35-7.45); ABG TCO2 16.7 mmhg (23-27)
[2020-07-22 07:38] LABS: Allen's Test Acceptable; Oxygen 100% %; Source Left Radial
[2020-07-22 07:39] LABS: ABG PO2 40.3 mmhg (80-100)
--- NOTE | 2020-07-22 07:46 | XR_ITS ---
PROCEDURE: XR CHEST PORTABLE CLINICAL HISTORY: increased SOA Worsening shortness of breath COMPARISON: CT CT ANGIO CHEST from 07/09/2020 CR XR CHEST PORTABLE from 07/19/2020 CR XR CHEST PORTABLE from 07/20/2020 CR XR CHEST PORTABLE from 07/21/2020 FINDINGS: The cardiomediastinal silhouette and pulmonary vascularity are within normal limits. Bilateral pneumonia is once again noted involving both mid and lower lung zones unchanged on the right and appears slightly worse on the left. The no evidence of pneumothorax No acute bony abnormalities. IMPRESSION: Bilateral pneumonia slightly worse on the left Dictated by: Aung Jean-Baptiste MD 07/22/2020 08:41 Aung Jean-Baptiste MD in [facility] 07/22/2020 08:41
[2020-07-22 07:49] LABS: Lactate Arterial 9.7 mmol/L (0.4-2.0)
[2020-07-22 08:04] LABS: Basophils % 0.3 % (0.1-2.0); Chloride 99 mmol/L (98-107); Eosinophils % 0.1 % (0.1-12.0); Hematocrit 36.3 % (42.0-52.0); Hemoglobin 11.1 g/dL (14.1-18.0); Lymphocytes # 1.9 K/mm3 (0.7-4.5); Lymphocytes % 14.5 % (10-50); Mean Corpuscular HGB Conc 30.5 g/dL (31.8-35.4); Mean Corpuscular Hemoglobin 29.6 pg (27.0-31.2); Mean Platelet Volume 9.3 fl (7.4-10.4); Monocytes # 0.4 K/mm3 (0.1-1.0); Monocytes % 3.1 % (1.7-9.3); Neutrophils # 10.7 K/mm3 (1.8-7.8); Neutrophils % 81.9 % (37.0-80.0); Platelet Count 130 K/mm3 (142-424); Potassium 4.8 mmoL/L (3.5-5.1); Red Blood Count 3.74 M/mm3 (4.60-6.20); Red Cell Distribution Width 17.7 % (11.5-17.5); Sodium 139 mmol/L (136-145); White Blood Count 13.1 K/mm3 (4.8-10.8)
[2020-07-22 08:06] LABS: Blood Urea Nitrogen 16 mg/dl (9-20); Creatinine Clearance Estimated 88 mL/min (50-200); Estimated Glomerular Filt Rate 86 ml/min (>60); GFR (African American) 104 ML/MIN (>60)
[2020-07-22 08:07] LABS: Alanine Aminotransferase 121 U/L (12-78); Albumin Level 3.5 g/dl (3.5-5.0); Albumin/Globulin Ratio 1.1 (1.1-1.8); Alkaline Phosphatase 213 U/L (38-126); Anion Gap 21.8 mEq/L (5-15); Aspartate Amino Transferase 66 U/L (17-59); Calcium 9.4 mg/dl (8.4-10.2); Carbon Dioxide 23 mmol/L (22.0-30.0); Globulin 3.2 g/dL (1.3-3.2); Glucose 161 mg/dl (74-100); Total Protein,Serum 6.7 g/dl (6.3-8.2)
--- NOTE | 2020-07-22 08:24 | PC.NURSE ---
RESPIRATORY CARE NOTE: OBTAINED ABG AT 0752 THIS AM DUE TO CHANGE IN PT CONDITION, AND DECREASED OXYGEN SATURATION OF 50%. PT ABG SHOWED A SATURATION OF 73%. PT IS MAXED OUT ON VAPOTHERM 40 LPM; 100% AND SATURATION CONTINUES TO BE 70-80%. PT WAS PLACED ON 100 % NON-REBREATHER IN ORDER TO INCREASE OXYGEN SATURATION UNTIL DR ENRIQUEZ CAN ASSESS THE PT. DAMIEN MCLAUGHLIN [employer]
--- NOTE | 2020-07-22 08:38 | HMH.ACPN2 ---
Internal Medicine - PN: Subj *Date: 07/22/20 *Time: 08:38 Interval history: He did well through the night with stable O2 sats on 3 L of nasal cannula. He was started on Levophed for hypotension last evening. While getting up to the bedside this morning the ED desatted to the 50s and became tachycardic. The was placed back on Vapotherm and was only able to get his sats in the 70s. Nonrebreather was then placed over the Vapotherm and sats are now sats are now in the 90s. He denies chest pain. He is still tachypneic but does not feel particular short of breath. Exam Vital signs and Labs for Last 24 Hours: Temp Pulse Resp BP Pulse Ox 99.8 F H 78 22 138/84 100 07/22/20 12:00 07/22/20 12:00 07/22/20 12:00 07/22/20 12:00 07/22/20 13:00 Laboratory Results - last 24 hr 07/22/20 07:39: WBC 13.1 H, RBC 3.74 L, Hgb 11.1 L, Hct 36.3 L, MCV 97.0 H, MCH 29.6, MCHC 30.5 L, RDW 17.7 H, Plt Count 130 L, MPV 9.3, Neut % (Auto) 81.9 H, Lymph % (Auto) 14.5, [place] % (Auto) 3.1, Eos % (Auto) 0.1, Baso % (Auto) 0.3, Neut # (Auto) 10.7 H, Lymph # (Auto) 1.9, [place] # (Auto) 0.4, Eos # (Auto) 0.0, Baso # (Auto) 0.0 07/22/20 07:39: Sodium 139, Potassium 4.8, Chloride 99, Carbon Dioxide 23, Anion Gap 21.8 H, BUN 16, Creatinine 0.90, Estimated Creat Clear 88, Estimated GFR 86, Est GFR ( Amer) 104 D, Glucose 161 H, Calcium 9.4, Total Bilirubin 1.0, AST 66 H D, ALT 121 H, Alkaline Phosphatase 213 H, Total Protein 6.7, Albumin 3.5, Globulin 3.2, Albumin/Globulin Ratio 1.1 07/22/20 07:46: ABG Lactate 9.7 H 07/22/20 08:57: ABG Lactate 2.5 H 07/22/20 : Specimen Source Left radial, O2 % 100%, ABG pH 7.44, ABG pCO2 24.1 L, ABG pO2 40.3 L, ABG HCO3 16.0 L, ABG Total CO2 16.7 L, ABG O2 Saturation 74 L*, ABG Base Excess -8.2 L, Aung Test Acceptable, Tidal Volume Vapo 40l I & O for Last 24 hours: Intake & Output 07/20/20 07/21/20 07/22/20 07/23/20 11:59 11:59 11:59 11:59 Intake Total 680 / 680 480 / 480 360 / 360 Output Total 650 / 650 1600 / 1600 800 / 800 Balance -1120 / -1120 -440 / -440 Weight 148 lb 2 oz 153 lb 4 oz 156 lb 6.194 oz Microbiology Reports for the Last 24 Hours: Microbiology 07/20/20 09:45 Blood Blood Culture - Preliminary Gram Positive Cocci 07/20/20 09:45 Blood Blood Culture - Preliminary NO GROWTH AFTER 48 HOURS 07/19/20 17:12 Urine,Clean Catch Urine Culture - Final NO GROWTH AFTER 48 HOURS Narrative: He is tachypneic but otherwise no distress. Chest reveals bilateral crackles. No wheezes. Heart is tacky but regular. Assessment and Plan (1) Pulmonary embolus Status: Acute Category: Medical Code(s): I26.99 - Other pulmonary embolism without acute cor pulmonale (2) Respiratory failure with hypoxia Status: Acute Qualifiers: Chronicity: acute Qualified Code(s): J96.01 - Acute respiratory failure with hypoxia Category: Medical Code(s): J96.91 - Respiratory failure, unspecified with hypoxia (3) Pneumonia due to COVID-19 virus Status: Acute Category: Medical Code(s): U07.1 - COVID-19; J12.82 - Pneumonia due to coronavirus disease 2019 (4) Elevated liver enzymes Status: Acute Category: Medical Code(s): R74.8 - Abnormal levels of other serum enzymes (5) Thrombocytopenia Status: Acute Category: Medical Code(s): D69.6 - Thrombocytopenia, unspecified (6) Lymphoma Status: Chronic Category: Medical Code(s): C85.90 - Non-Hodgkin lymphoma, unspecified, unspecified site (7) Corneal abrasion Status: Acute Category: Medical Code(s): S05.00XA - Injury of conjunctiva and corneal abrasion without foreign body, unspecified eye, initial encounter (8) Stomatitis Status: Acute Category: Medical Code(s): K12.1 - Other forms of stomatitis - Assessment and plan all Dx Assessment and Plan for all problems:: He appears septic with tachycardia, hypot
[2020-07-22 09:14] LABS: Lactate Arterial 2.5 mmol/L (0.4-2.0)
--- NOTE | 2020-07-22 09:50 | XR_ITS ---
PROCEDURE: XR CHEST PORTABLE PICC PLAC CLINICAL HISTORY: Confirm PICC line placement COMPARISON: CT CT ANGIO CHEST from 07/09/2020 CR XR CHEST PORTABLE from 07/20/2020 CR XR CHEST PORTABLE from 07/21/2020 CR XR CHEST PORTABLE from 07/22/2020 FINDINGS: Right upper extremity PICC line has been inserted. The tip is in good position in the region of the SVC. No change in the bilateral pneumonia left more extensive than right. Normal heart size. IMPRESSION: Right upper extremity PICC line tip in the region of the SVC. Dictated by: Aung Jean-Baptiste MD 07/22/2020 14:28 Aung Jean-Baptiste MD in [facility] 07/22/2020 14:28
[2020-07-22 11:48] LABS: Reflex Lactic Add Lactic Reflex
--- NOTE | 2020-07-22 11:48 | HMH.CNCARD ---
History of Present Illness Consult date: 07/22/20 Requesting physician: Herman Atwood Consult reason: shortness of breath Chief complaint: Covid 19, PE Additional Medical History:: 1. Covid-19 (07/11/20) 2. Pulmonary emboli in the left lobe (07/11/20) a. On Xarelto 15mg BID 3. Nonocclusive DVT (07/11/20) 4. Sinus tachycardia (07/11/20) 5. Sepsis (07/11/20) a. Fever 6. Diastolic dysfunction (07/11/20) a. Echo (07/11/20) b. Mild RV strain due to PE. 7. History of lymphoma 8. Elevated liver enzymes History of present illness: 59-year-old male admitted on 07/11/2020 with COVID-19 pneumonia. Patient had recently been admitted to this facility with Covid in early June after which she completed a 6-day course of antibiotics. Patient arrived to the ED complaining of increased shortness of breath that was not associated with fevers or chills. Patient does complain of productive cough. CTA was performed on admission which showed right-sided pulmonary emboli. Echocardiogram was performed also. Echocardiogram revealed EF 50% with no regional wall abnormality there is grade 1 diastolic dysfunction. RV systolic pressure was noted at 55. Moderately enlarged right ventricle noted there was questionable whether concerned for presence of intracardiac shunt. Limited echo was performed which revealed failure to identify right to left shunt. Patient is under COVID-19 protocol and precautions. This is being managed by PCP and pulmonology. Patient states he seems to be getting worse. He is noted to be on Vapathermia. Patient is noted to be febrile at this time. Patient appears to be septic. WBCs are elevated. Patient is noted to have elevated liver enzymes. Patient denies chest pain, tightness or pressure. Does complain of increased shortness of breath. Cardiology was consulted due to patient having a high heart rate and blood pressure at times. Patient is on Levophed at this time. Patient denies any cardiac history. A follow-up chest x-ray was performed which revealed bilateral pneumonia slightly worse on the left. A venous study was performed which revealed nonocclusive DVT. Patient is currently on Xarelto 15 mg twice daily which is the appropriate regimen for his PE and DVT at this time. Patient denies any bleeding issues. Pt noted to be in sinus tachycardia with a heart rate of 107bpm. Nursing staff states patient's heart rate had been up to 140 bpm at times. Staff also stated patient's blood pressure had been elevated. Will obtain ECG. CXR :IMPRESSION: Bilateral pneumonia slightly worse on the left Echo: Conclusion 1. Biatrial enlargement, normal left ventricular size, mild concentric left ventricular hypertrophy, visually estimated ejection fraction 50% with no regional wall motion abnormality, grade 1 diastolic dysfunction seen without tissue Doppler evidence of raise left atrial pressure. 2. Mobile interatrial septum with flow across interatrial septum raising the concern for presence of intracardiac shunt, repeat study with saline contrast is recommended. 3. Moderately enlarged right ventricle with normal contractility. 4. Mild mitral and tricuspid regurgitation, calculated right ventricular systolic pressure is 54 mmHg. 5. No significant pericardial effusion noted. Venous study:Conclusion Color flow duplex of the right lower extremity demonstrates no evidence of superficial venous thrombophlebitis. All visualized right lower extremity veins are clear and compressible. The left Peroneal Vein is dilated with mixed echoes and is not fully compressible indicating non-occlusive DVT involving the following Vein: Peroneal. Discussed plan of care with Dr. Walker. No additional cardiac testing is recommended at this time. Sinus tachycardia and hypertension can be related to patient being septic. Therefore we would rather not add any new medications or treatment at
--- NOTE | 2020-07-22 12:08 | HMH.PULMPN ---
Internal Medicine - PN: Subj *Date: 07/22/20 *Time: 12:08 Interval history: No acute respiratory events overnight. Patient respiratory status remained stable. Exam - Constitutional Constitutional:: Present: no acute distress, comfortable - HENMT Exam HENMT: Present: atraumatic - Eye Exam Eyes:: Present: eyelids normal - Neck Exam Neck:: Present: thyroid normal - Respiratory Exam Respiratory:: Present: able to speak in complete sentences, respiratory distress, crackles - Cardiovascular Exam Cardiac:: Present: S1, S2 - GI Exam GI:: Present: soft - Skin Exam Skin: Present: warm, no rash - Neurological Exam Neurological: Present: alert, awake, normal cognition - Extremities Exam Extremities: Present: no cyanosis, no clubbing, no edema Assessment and Plan (1) Pulmonary embolus Status: Acute Category: Medical Code(s): I26.99 - Other pulmonary embolism without acute cor pulmonale (2) Respiratory failure with hypoxia Status: Acute Qualifiers: Qualified Code(s): J96.01 - Acute respiratory failure with hypoxia Category: Medical Code(s): J96.91 - Respiratory failure, unspecified with hypoxia (3) Pneumonia due to COVID-19 virus Status: Acute Category: Medical Code(s): U07.1 - COVID-19; J12.82 - Pneumonia due to coronavirus disease 2019 (4) Elevated liver enzymes Status: Acute Category: Medical Code(s): R74.8 - Abnormal levels of other serum enzymes (5) Thrombocytopenia Status: Acute Category: Medical Code(s): D69.6 - Thrombocytopenia, unspecified (6) Lymphoma Status: Chronic Category: Medical Code(s): C85.90 - Non-Hodgkin lymphoma, unspecified, unspecified site (7) Corneal abrasion Status: Acute Category: Medical Code(s): S05.00XA - Injury of conjunctiva and corneal abrasion without foreign body, unspecified eye, initial encounter (8) Stomatitis Status: Acute Category: Medical Code(s): K12.1 - Other forms of stomatitis - Assessment and plan all Dx Assessment and Plan for all problems:: #Acute hypoxic respiratory failure: #COVID-19 pneumonia: #Acute pulmonary embolism likely provoked secondary to COVID-19 pneumonia: 59-year-old with recent diagnosis of COVID-19 pneumonia admitted to the hospital 12 twice with a recent discharge in early June after which he completed 6-day course of vancomycin and cefepime discharge levofloxacin presented to the hospital with worsening respiratory failure not associated with fevers or chills, positive for nonproductive cough. CTA performed admission showed evidence of right-sided pulmonary embolism. Pulmonary parenchymal infiltrates improved from prior. Echocardiogram from this admission pending. Echocardiogram from his recent admission showed increased LV wall thickness with EF of 50% and grade 1 diastolic dysfunction. RVSP from this admission was 62.6. Repeat echocardiogram on admission relatively unchanged RVSP and RV function however also concern for shunt however bubble study did not report any right to left-sided shunt. Patient respiratory status has been fluctuating throughout this hospital admission needing intermittent high flow with high oxygen requirements. Patient also having significant desaturation with exertion and movement during his hospital admission however denied any respiratory distress. Patient started to have low-grade fevers couple of days ago which were closely monitored with repeat blood cultures however patient clinical status decline yesterday leading to hypotension and broad-spectrum antibiotics were initiated on his blood cultures currently showing methicillin-resistant gram-positive cocci likely Staphylococcus. Interval update: Patient clinical status relatively stable since yesterday. Patient was also initiated on vasopressor support to maintain his maps, currently this morning on 6 MCG of norepinephrine, will titrate the dose to a map goal of greater than 85. Received 2 L of bolus since
--- NOTE | 2020-07-22 12:15 | ECG_ITS ---
APPROVED REPORT Exam: Resting ECG HR:107 bpm ECG Measurements Heart Rate 107 AXES [place] 124 P 53 QRSd 72 QRS 49 QT 314 T 31 QTc 419 Conclusion Sinus tachycardia with fusion complexes Low voltage QRS ST & T wave abnormality, consider anterior ischemia Abnormal ECG Electronically signed by : Nikolas Santana, 07/22/2020 17:46:40
--- NOTE | 2020-07-22 14:23 | PC.NURSE ---
RESPIRATORY CARE NOTE: ONCE AGAIN WHEN PT WAS USING BATHROOM HIS OXYGEN SATURATION DECREASED TO LESS THAN 60%; AT THIS TIME 100 % NON-REBREATHER MASK WAS AGAIN PLACED ON PT'S FACE. PT RECOVERED FROM THIS BOUT VERY QUICKLY, AND RT WAS ABLE TO REMOVE THE NON-REBREATHER MASK, AND DECREASE PT OXYGEN TO VAPOTHERM 40 LPM, 60%. WILL CONTINUE TO MONITOR PT MOVING FORWARD, AND WILL WEAN OXYGEN TOLERATED.
[2020-07-22 14:27] LABS: Lactic Acid Follow Up (RFLX 1) 2.7 mmol/L (0.7-2.1)
--- NOTE | 2020-07-22 15:08 | PC.NURSE ---
RESPIRATORY CARE NOTE: PT VAPOTHERM DECREASED TO 30 LPM, 40% AT THIS TIME. WILL CONTINUE TO MONITOR AND WEAN OXYGEN TOLERATED
--- NOTE | 2020-07-22 15:55 | PC.NURSE ---
RESPIRATORY CARE NOTE: VAPOTHERM INCREASED TO 40 LPM, 50% DUE TO DECREASE IN OXYGEN SATURATIONS OF 86-88%. WILL CONTINUE TO WEAN TOLERATED.
--- NOTE | 2020-07-22 16:02 | PC.NURSE ---
0715- This am patient was noted to be tachycardic HR 140-160 per telemetry, RR 30-40, Pt was placed on vapotherm prior to my arrival to unit but was still hypoxic with oxygen saturations 40-50%, at this time 100% NRB placed on top of vapotherm, patient was shaky and chilling, temp obtained at this time and was found to be febrile, treated with tylenol per emar. Second peripheral line placed at this time, labs obtained, abg and CXR ordered.
[2020-07-22 16:07] LABS: Reflex Lactic (2 hrs) Add Lactic Reflex
--- NOTE | 2020-07-22 16:14 | PC.NURSE ---
0752- ABG obtained per RT
--- NOTE | 2020-07-22 16:18 | PC.NURSE ---
0900- Second ABG obtained, Lactic decreased, pt respiratory status has improved at ths time.
--- NOTE | 2020-07-22 16:18 | PC.NURSE ---
Pt is resting comfortably in bed at this time, has been weaned down on vapotherm per RT. Patient is tolerating well at this time, has been febrile for most of the shift, treated with tylenol and ibuprofen per emar, NSR per telemetry at this time with HR 85-89, RR 24, blood pressure has been stable on 6mcg of levophed, PICC line placed this shift, placement confirmed via CXR.
--- NOTE | 2020-07-22 23:24 | PC.NURSE ---
Pt currently sleeping at this time. He has remained afebrile thus far. Has c/o being hot at times. Cool washcloth and fan in place. Pt requested to be shaved this shift. Pt tolerated well. Also partial bath and partial linens changed as pt tolerated. VSS at this time. Levophed infusing @ 5 mcg/min. Pt remains on Vapotherm 35 L @ 50%. O2 sat is currently 98% while sleeping but decline with any activity. Lungs are diminished t/o. No other concerns at this time. Will continue to monitor.
[2020-07-23] VITALS (38 sets, daily range): BP systolic 86–132; BP diastolic 53–82; PULSE 50–95; RESP 19–30; TEMP 35.6–36.7; O2SAT 88–100; BMI 22.7
--- NOTE | 2020-07-23 05:24 | PC.NURSE ---
Pt desat this AM after being placed on bedpan to have BM. O2 declined to 75%. Pt was placed on nonrebreather in addition to vapotherm temporarily. Pt recovered quickly and nonrebreather was removed. He is currently on Vapotherm 20 L @ 40%. He remains afebrile at this time. Levophed gtt is currently infusing @ 3 mcg/min. Pt has urinated per urinal. BM this AM. Pt has not stated any complaints. No other concerns. Will continue to monitor.
--- NOTE | 2020-07-23 06:32 | PC.NURSE ---
levophed titration as follows: 2240: 5 mcg/min 2340: 4 mcg/min 0045: 3 mcg/min 0225: 2 mcg/min 0315: 3 mcg/min 0530: 2 mcg/min 0630: 3 mcg/min
--- NOTE | 2020-07-23 09:45 | PC.NURSE ---
late entry, at 0800 patient drip turned down to 2mcg/min. patient awake with no complaints.
--- NOTE | 2020-07-23 09:46 | HMH.ACPN2 ---
Internal Medicine - PN: Subj *Date: 07/23/20 *Time: 09:46 Interval history: After the events of yesterday morning, his condition stabilized throughout the day. He has remained in bed and does have some mild desaturations with activity in the bed such as using the bedpan. He continues on Vapotherm with occasional supplementation with Ventimask. He continues on Levophed drip at 3 mcg. Appetite is good. Exam Vital signs and Labs for Last 24 Hours: Temp Pulse Resp BP Pulse Ox 96.6 F L 67 20 101/70 L 99 07/23/20 08:00 07/23/20 09:00 07/23/20 09:00 07/23/20 09:00 07/23/20 09:00 Laboratory Results - last 24 hr 07/22/20 14:04: Lactate 2.7 H 07/22/20 16:32: Lactate 2.0 I & O for Last 24 hours: Intake & Output 07/20/20 07/21/20 07/22/20 07/23/20 11:59 11:59 11:59 11:59 Intake Total 680 / 680 480 / 480 360 / 360 738 / 738 Output Total 650 / 650 1600 / 1600 800 / 800 1000 / 1000 Balance 30 / 30 -1120 / -1120 -440 / -440 -262 / -262 Weight 148 lb 2 oz 153 lb 4 oz 156 lb 6.194 oz 150 lb 1 oz Microbiology Reports for the Last 24 Hours: Microbiology 07/20/20 09:45 Blood Blood Culture - Preliminary Staphylococcus epidermidis 07/20/20 09:45 Blood Blood Culture - Preliminary NO GROWTH AFTER 48 HOURS Narrative: Alert and oriented. Color is normal. No respiratory distress. Chest with bilateral coarse rales. Heart is regular. Extremities no edema. Assessment and Plan (1) Pulmonary embolus Status: Acute Category: Medical Code(s): I26.99 - Other pulmonary embolism without acute cor pulmonale (2) Respiratory failure with hypoxia Status: Acute Qualifiers: Chronicity: acute Qualified Code(s): J96.01 - Acute respiratory failure with hypoxia Category: Medical Code(s): J96.91 - Respiratory failure, unspecified with hypoxia (3) Pneumonia due to COVID-19 virus Status: Acute Category: Medical Code(s): U07.1 - COVID-19; J12.82 - Pneumonia due to coronavirus disease 2019 (4) Elevated liver enzymes Status: Acute Category: Medical Code(s): R74.8 - Abnormal levels of other serum enzymes (5) Thrombocytopenia Status: Acute Category: Medical Code(s): D69.6 - Thrombocytopenia, unspecified (6) Lymphoma Status: Chronic Category: Medical Code(s): C85.90 - Non-Hodgkin lymphoma, unspecified, unspecified site (7) Corneal abrasion Status: Acute Category: Medical Code(s): S05.00XA - Injury of conjunctiva and corneal abrasion without foreign body, unspecified eye, initial encounter (8) Stomatitis Status: Acute Category: Medical Code(s): K12.1 - Other forms of stomatitis - Assessment and plan all Dx Assessment and Plan for all problems:: Currently stable. Continue current orders. It has been 8 weeks since his initial infection. Consider moving out of Covid unit onto the MedSurg floor. Answered additional questions regarding intubation and mechanical ventilation. I spoke at length with his sister, Kristan Jackson, last evening and updated his condition.
--- NOTE | 2020-07-23 10:17 | PC.NURSE ---
turned levophed down to 1mcg/min
--- NOTE | 2020-07-23 11:56 | PC.NURSE ---
1030 turned levophed drip off.. transferred patient to new room. noted at [phone] patient bp had systolic of 80s. turned levophed back on to 2mcg/min
--- NOTE | 2020-07-23 17:27 | PC.NURSE ---
turned levophed down to 1mcg/min at 1600, turned off at this time
--- NOTE | 2020-07-23 19:02 | PC.NURSE ---
patient had a good shift. still has scabs to nose and lips. did require a slight increase in flow but could be turned down shortly. off levophed at this time and tolerating well. remained afebrile. vitals have been stabled. wished to stay in bed this shift encouraged to get out of bed tomorrow. rings out as needed.
[2020-07-24] VITALS (23 sets, daily range): BP systolic 91–134; BP diastolic 58–80; PULSE 60–89; RESP 14–37; TEMP 36.7–36.9; O2SAT 85–100; BMI 23.0
--- NOTE | 2020-07-24 01:27 | PC.NURSE ---
Still off Levophed has been able to maintain BP WNL on his own. Decreased O2 during assessment when trying to answer basic questions, leaning forward to have lungs assessed and again when using urinal at bedside. Respiratory called and increased Vapotherm settings to 40L FiO2 90% and has been able to wean patient down to 35L 75% a little higher setting than at beginning of shift (30L 60%). All VS remain WNL and patient shows no s/s of acute distress at this time.
[2020-07-24 06:33] LABS: Basophils % 0.1 % (0.1-2.0); Hematocrit 24.7 % (42.0-52.0); Lymphocytes # 0.3 K/mm3 (0.7-4.5); Lymphocytes % 4.8 % (10-50); Mean Corpuscular HGB Conc 32.6 g/dL (31.8-35.4); Mean Corpuscular Volume 92.1 fl (80-94); Mean Platelet Volume 9.3 fl (7.4-10.4); Monocytes # 0.2 K/mm3 (0.1-1.0); Monocytes % 4.1 % (1.7-9.3); Neutrophils # 5.1 K/mm3 (1.8-7.8); Platelet Count 64 K/mm3 (142-424); Red Blood Count 2.68 M/mm3 (4.60-6.20); Red Cell Distribution Width 17.6 % (11.5-17.5); White Blood Count 5.6 K/mm3 (4.8-10.8)
[2020-07-24 06:39] LABS: Anion Gap 4.6 mEq/L (5-15); Blood Urea Nitrogen 13 mg/dl (9-20); Calcium 8.5 mg/dl (8.4-10.2); Carbon Dioxide 34 mmol/L (22.0-30.0); Chloride 101 mmol/L (98-107); Creatinine Clearance Estimated 109 mL/min (50-200); Estimated Glomerular Filt Rate 115 ml/min (>60); GFR (African American) 139 ML/MIN (>60); Glucose 121 mg/dl (74-100); Potassium 3.6 mmoL/L (3.5-5.1); Sodium 136 mmol/L (136-145)
[2020-07-24 06:49] LABS: MANUAL DIFFERENTIAL MANUAL DIFFERENTIAL (MANUAL DIFF)
[2020-07-24 07:18] LABS: Lymphocytes % 10 % (10-50); Macrocytosis 1+; Neutrophils % 85 % (42-76); Platelet Estimate Slight Decrease; Rouleaux 2+; Total Cells Counted 100
--- NOTE | 2020-07-24 08:16 | PC.NURSE ---
Dr. Atwood @ BS and changed status to acute. Notified wardrobe stylist (Berhane) and entered communication order.
--- NOTE | 2020-07-24 08:54 | HMH.ACPN2 ---
Internal Medicine - PN: Subj *Date: 07/24/20 *Time: 08:54 Interval history: He was moved out of isolation yesterday per protocol. He continues to require Vapotherm at various settings to maintain his sats in the range of 88 to 92%. He still desats with minimal activity. Levophed has been weaned off and systolic blood pressure is ranging 100-110. His right eye has been draining and matted this morning. Exam Vital signs and Labs for Last 24 Hours: Temp Pulse Resp BP Pulse Ox 98.4 F 85 34 H 99/64 L 100 07/24/20 08:00 07/24/20 08:00 07/24/20 08:00 07/24/20 08:00 07/24/20 08:00 Laboratory Results - last 24 hr 07/24/20 05:50: WBC 5.6 D, RBC 2.68 L D, Hgb 8.0 L, Hct 24.7 L, MCV 92.1, MCH 30.0, MCHC 32.6, RDW 17.6 H, Plt Count 64 L D, MPV 9.3, Neut % (Auto) 91.0 H, Lymph % (Auto) 4.8 L, [place] % (Auto) 4.1, Eos % (Auto) 0.0 L, Baso % (Auto) 0.1, Neut # (Auto) 5.1, Lymph # (Auto) 0.3 L, [place] # (Auto) 0.2, Eos # (Auto) 0.0, Baso # (Auto) 0.0, Total Counted 100, Neutrophils % (Manual) 85 H, Band Neutrophils % 5.0, Lymphocytes % (Manual) 10, Platelet Estimate Slight decrease, Macrocytosis 1+, Rouleaux 2+ 07/24/20 05:50: Sodium 136, Potassium 3.6 D, Chloride 101, Carbon Dioxide 34 H D, Anion Gap 4.6 L, BUN 13, Creatinine 0.70 D, Estimated Creat Clear 109, Estimated GFR 115, Est GFR ( Amer) 139 D, Glucose 121 H, Calcium 8.5 I & O for Last 24 hours: Intake & Output 07/21/20 07/22/20 07/23/20 07/24/20 11:59 11:59 11:59 11:59 Intake Total 480 / 480 360 / 360 996 / 996 887 / 887 Output Total 1600 / 1600 800 / 800 1000 / 1000 550 / 550 Balance -1120 / -1120 -440 / -440 -4 / -4 337 / 337 Weight 153 lb 4 oz 156 lb 6.194 oz 150 lb 1 oz 152 lb Microbiology Reports for the Last 24 Hours: Microbiology 07/20/20 09:45 Blood Blood Culture - Preliminary Staphylococcus epidermidis Narrative: No respiratory distress. Conjunctive right is moderately injected. There is some scant purulent drainage. Chest with bilateral coarse rales. No wheezes. Abdomen is soft and nondistended with no tenderness. Extremities with trace ankle edema. Assessment and Plan (1) Pulmonary embolus Status: Acute Category: Medical Code(s): I26.99 - Other pulmonary embolism without acute cor pulmonale (2) Respiratory failure with hypoxia Status: Acute Qualifiers: Chronicity: acute Qualified Code(s): J96.01 - Acute respiratory failure with hypoxia Category: Medical Code(s): J96.91 - Respiratory failure, unspecified with hypoxia (3) Pneumonia due to COVID-19 virus Status: Acute Category: Medical Code(s): U07.1 - COVID-19; J12.82 - Pneumonia due to coronavirus disease 2019 (4) Elevated liver enzymes Status: Acute Category: Medical Code(s): R74.8 - Abnormal levels of other serum enzymes (5) Thrombocytopenia Status: Acute Category: Medical Code(s): D69.6 - Thrombocytopenia, unspecified (6) Lymphoma Status: Chronic Category: Medical Code(s): C85.90 - Non-Hodgkin lymphoma, unspecified, unspecified site (7) Corneal abrasion Status: Acute Category: Medical Code(s): S05.00XA - Injury of conjunctiva and corneal abrasion without foreign body, unspecified eye, initial encounter (8) Stomatitis Status: Acute Category: Medical Code(s): K12.1 - Other forms of stomatitis (9) Conjunctivitis Status: Acute Category: Medical Code(s): H10.9 - Unspecified conjunctivitis - Assessment and plan all Dx Assessment and Plan for all problems:: Start Sodium Sulamyd drops for conjunctivitis. Final blood culture report grew staph epidermidis. He has been afebrile now for 48 hours. Continue current antibiotic regimen.
--- NOTE | 2020-07-24 09:14 | PC.NURSE ---
RT ([place]) decreased Vapotherm to 70% FIO2.
--- NOTE | 2020-07-24 11:11 | HMH.ACPN ---
Internal Medicine - PN: Subj *Date: 07/24/20 *Time: 11:11 Exam Vital signs and Labs for Last 24 Hours: Temp Pulse Resp BP Pulse Ox 98.4 F 74 24 109/72 L 98 07/24/20 08:00 07/24/20 10:00 07/24/20 10:00 07/24/20 10:00 07/24/20 10:00 Laboratory Results - last 24 hr 07/24/20 05:50: WBC 5.6 D, RBC 2.68 L D, Hgb 8.0 L, Hct 24.7 L, MCV 92.1, MCH 30.0, MCHC 32.6, RDW 17.6 H, Plt Count 64 L D, MPV 9.3, Neut % (Auto) 91.0 H, Lymph % (Auto) 4.8 L, [place] % (Auto) 4.1, Eos % (Auto) 0.0 L, Baso % (Auto) 0.1, Neut # (Auto) 5.1, Lymph # (Auto) 0.3 L, [place] # (Auto) 0.2, Eos # (Auto) 0.0, Baso # (Auto) 0.0, Total Counted 100, Neutrophils % (Manual) 85 H, Band Neutrophils % 5.0, Lymphocytes % (Manual) 10, Platelet Estimate Slight decrease, Macrocytosis 1+, Rouleaux 2+ 07/24/20 05:50: Sodium 136, Potassium 3.6 D, Chloride 101, Carbon Dioxide 34 H D, Anion Gap 4.6 L, BUN 13, Creatinine 0.70 D, Estimated Creat Clear 109, Estimated GFR 115, Est GFR ( Amer) 139 D, Glucose 121 H, Calcium 8.5 I & O for Last 24 hours: Intake & Output 07/21/20 07/22/20 07/23/20 07/24/20 23:59 23:59 23:59 23:59 Intake Total 600 / 600 378 / 378 1145 / 1145 360 / 360 Output Total 1400 / 1400 900 / 900 100 / 450 550 / 550 Balance -800 / -800 -522 / -522 1045 / 695 -190 / -190 Weight 69.513 kg 70.936 kg 68.067 kg 68.946 kg Microbiology Reports for the Last 24 Hours: Microbiology 07/20/20 09:45 Blood Blood Culture - Preliminary Staphylococcus epidermidis Assessment and Plan (1) Pulmonary embolus Status: Acute Category: Medical Code(s): I26.99 - Other pulmonary embolism without acute cor pulmonale (2) Respiratory failure with hypoxia Status: Acute Qualifiers: Chronicity: acute Qualified Code(s): J96.01 - Acute respiratory failure with hypoxia Category: Medical Code(s): J96.91 - Respiratory failure, unspecified with hypoxia (3) Pneumonia due to COVID-19 virus Status: Acute Category: Medical Code(s): U07.1 - COVID-19; J12.82 - Pneumonia due to coronavirus disease 2019 (4) Elevated liver enzymes Status: Acute Category: Medical Code(s): R74.8 - Abnormal levels of other serum enzymes (5) Thrombocytopenia Status: Acute Category: Medical Code(s): D69.6 - Thrombocytopenia, unspecified (6) Lymphoma Status: Chronic Category: Medical Code(s): C85.90 - Non-Hodgkin lymphoma, unspecified, unspecified site (7) Corneal abrasion Status: Acute Category: Medical Code(s): S05.00XA - Injury of conjunctiva and corneal abrasion without foreign body, unspecified eye, initial encounter (8) Stomatitis Status: Acute Category: Medical Code(s): K12.1 - Other forms of stomatitis (9) Conjunctivitis Status: Acute Category: Medical Code(s): H10.9 - Unspecified conjunctivitis The patient's infection will respond to the chosen ABx?: Yes Is the patient receiving the right drug, dose, and route?: Yes Could a more targeted ABx be ordered?: No (AFEBRILE NOW, WBC WNL, BLD CX +X1 FOR STAPH EPI)
--- NOTE | 2020-07-24 13:41 | PC.NURSE ---
RT ([place]) @ BS and decreased FIO2 to 65%.
--- NOTE | 2020-07-24 18:13 | PC.NURSE ---
shift note: pt has done well this shift. Vapotherm has been weaned down to 35L/65%. Continues to desat to 70s with activity. NSR on tele. Normotensive. Levo gtt has been OFF since yesterday. Tolerating a reg diet. Had 1 BM today. BLE with 1+ edema from mid calf to toes. No other issues noted.
--- NOTE | 2020-07-24 21:17 | PC.NURSE ---
He is a&Ox4. He denies SOA at rest but reports SOA with exertion. He continues on vapotherm at 35LPM 65%FiO2. Trace edema in BLE. He had 1 loose BM on the BSC. Denies denies pain, nausea, and a headache. He has been taling to his family on the phone. He is a right limb alert r/t a PICC in his RUE.
[2020-07-25] VITALS (38 sets, daily range): BP systolic 95–152; BP diastolic 53–79; PULSE 50–106; RESP 16–26; TEMP 36.3–37.3; O2SAT 73–100; BMI 23.0
[2020-07-25 05:57] LABS: Basophils % 0.1 % (0.1-2.0); Lymphocytes # 0.3 K/mm3 (0.7-4.5); Lymphocytes % 7.7 % (10-50); Mean Corpuscular HGB Conc 32.5 g/dL (31.8-35.4); Mean Corpuscular Hemoglobin 29.8 pg (27.0-31.2); Mean Corpuscular Volume 91.6 fl (80-94); Mean Platelet Volume 9.2 fl (7.4-10.4); Monocytes # 0.2 K/mm3 (0.1-1.0); Monocytes % 4.9 % (1.7-9.3); Neutrophils # 3.5 K/mm3 (1.8-7.8); Neutrophils % 87.2 % (37.0-80.0); Platelet Count 57 K/mm3 (142-424); Red Blood Count 2.46 M/mm3 (4.60-6.20); Red Cell Distribution Width 17.9 % (11.5-17.5)
[2020-07-25 05:58] LABS: Hemoglobin 7.3 g/dL (14.1-18.0)
[2020-07-25 05:59] LABS: Hematocrit 22.5 % (42.0-52.0)
[2020-07-25 06:00] LABS: MANUAL DIFFERENTIAL MANUAL DIFFERENTIAL (MANUAL DIFF)
--- NOTE | 2020-07-25 08:13 | HMH.ACPN2 ---
<Heavenly June - Last Filed: 07/25/20 08:16> Internal Medicine - PN: Subj *Date: 07/25/20 *Time: 08:16 Interval history: Did sleep a little. Has been up to the bedside commode with help. Is dyspneic with any exertion. He denies chest pain. Bowels did move. He is voiding QS. He is eating satisfactory. His sister did come and visit yesterday and brought him some vegetable soup. His mother is also a [place]. Remains on Vapotherm at 65%. Is off of Levophed drip and systolic blood pressure consistently greater than 90. O2 sats are in the high 90s except with any exertion and I do decreased to 70s and 80s. He has been afebrile. Exam Vital signs and Labs for Last 24 Hours: Temp Pulse Resp BP Pulse Ox 97.4 F L 62 26 H 107/62 L 95 07/25/20 04:00 07/25/20 04:00 07/25/20 04:00 07/25/20 04:00 07/25/20 06:18 Laboratory Results - last 24 hr 07/25/20 05:45: WBC 4.0 L D, RBC 2.46 L, Hgb 7.3 L*, Hct 22.5 L*, MCV 91.6, MCH 29.8, MCHC 32.5, RDW 17.9 H, Plt Count 57 L, MPV 9.2, Neut % (Auto) 87.2 H, Lymph % (Auto) 7.7 L, [place] % (Auto) 4.9, Eos % (Auto) 0.0 L, Baso % (Auto) 0.1, Neut # (Auto) 3.5, Lymph # (Auto) 0.3 L, [place] # (Auto) 0.2, Eos # (Auto) 0.0, Baso # (Auto) 0.0 I & O for Last 24 hours: Intake & Output 07/22/20 07/23/20 07/24/20 07/25/20 11:59 11:59 11:59 11:59 Intake Total 360 / 360 996 / 996 887 / 887 1160 / 1160 Output Total 800 / 800 1000 / 1000 550 / 550 280 / 280 Balance -440 / -440 -4 / -4 337 / 337 880 / 880 Weight 156 lb 6.194 oz 150 lb 1 oz 152 lb 152 lb 1 oz - Constitutional no acute distress Comments: In the process of eating his breakfast. Dyspneic with talking. - *Routine Respiratory Exam Present: diminished air movement (Posteriorly) - *Routine Cardiovascular Exam Present: RRR - *Routine Abdominal Exam Present: soft, normoactive bowel sounds. Absent: tenderness - *Routine Extremities Exam Present: edema (Trace bilateral lower legs) - *Routine Neurological Exam Present: alert, oriented X3 Assessment and Plan (1) Pulmonary embolus Status: Acute Category: Medical Code(s): I26.99 - Other pulmonary embolism without acute cor pulmonale (2) Respiratory failure with hypoxia Status: Acute Qualifiers: Chronicity: acute Qualified Code(s): J96.01 - Acute respiratory failure with hypoxia Category: Medical Code(s): J96.91 - Respiratory failure, unspecified with hypoxia (3) Pneumonia due to COVID-19 virus Status: Acute Category: Medical Code(s): U07.1 - COVID-19; J12.82 - Pneumonia due to coronavirus disease 2019 (4) Elevated liver enzymes Status: Acute Category: Medical Code(s): R74.8 - Abnormal levels of other serum enzymes (5) Thrombocytopenia Status: Acute Category: Medical Code(s): D69.6 - Thrombocytopenia, unspecified (6) Lymphoma Status: Chronic Category: Medical Code(s): C85.90 - Non-Hodgkin lymphoma, unspecified, unspecified site (7) Corneal abrasion Status: Acute Category: Medical Code(s): S05.00XA - Injury of conjunctiva and corneal abrasion without foreign body, unspecified eye, initial encounter (8) Stomatitis Status: Acute Category: Medical Code(s): K12.1 - Other forms of stomatitis (9) Conjunctivitis Status: Acute Category: Medical Code(s): H10.9 - Unspecified conjunctivitis (10) Anemia Status: Acute Category: Medical Code(s): D64.9 - Anemia, unspecified - Assessment and plan all Dx Assessment and Plan for all problems:: Hemoglobin is 7.3 with hematocrit of 22.5. Platelet count is 57,000. Patient will need transfusion today. Continue with current antibiotics. Also stool for occult blood and anemia studies. <Herman Atwood - Last Filed: 07/25/20 22:46> Internal Medicine - PN: Subj *Date: 07/25/20 *Time: 22:46 Exam Vital signs and Labs for Last 24 Hours: Temp Pulse Resp BP Pulse Ox 98.2 F 50 L 18 99/59 L 97
[2020-07-25 09:33] LABS: Anisocytosis 1+; Hypochromasia 1+; Lymphocytes % 9 % (10-50); Monocytes % 3 % (2-9); Neutrophils % 88 % (42-76); Total Cells Counted 100
[2020-07-25 09:34] LABS: Macrocytosis 1+; Platelet Estimate Normal
--- NOTE | 2020-07-25 09:38 | PC.NURSE ---
RESPIRATORY CARE NOTE: PT OXYGEN DECREASED TO 55% ON VAPOTHERM AT THIS TIME; WILL CONTINUE TO MONITOR PT AND WEAN OXYGEN TOLERATED
[2020-07-25 10:07] LABS: Vitamin B12 355 pg/mL (239-931)
--- NOTE | 2020-07-25 11:16 | HMH.PNCARD ---
Subjective Date: 07/25/20 Time: 11:00 Principal diagnosis: PE Interval history: 59-year-old male admitted on 07/11/2020 with COVID-19 pneumonia. Patient had recently been admitted to this facility with Covid in early June after which he completed a 6-day course of antibiotics. CTA was performed on admission which showed right-sided pulmonary emboli. Echocardiogram was performed also. Echocardiogram revealed EF 50% with no regional wall abnormality there is grade 1 diastolic dysfunction. RV systolic pressure was noted at 55. Moderately enlarged right ventricle noted there was questionable whether concerned for presence of intracardiac shunt. Limited echo was performed which revealed failure to identify right to left shunt. Patient is under COVID-19 protocol and precautions were lifted per PCP. This is being managed by PCP and pulmonology. Patient states he seems to be feeling somewhat better. He is noted to be on Vapathermia. Patient appears to be septic. WBCs are elevated. Patient is noted to have elevated liver enzymes. Patient denies chest pain, tightness or pressure. Does complain of increased shortness of breath. Cardiology was consulted due to patient having a high heart rate and blood pressure at times. Patient is off the Levophed at this time. Blood pressure remains stable. Patient denies any cardiac history. A follow-up chest x-ray was performed which revealed bilateral pneumonia slightly worse on the left. A venous study was performed which revealed nonocclusive DVT. Patient is currently on Xarelto 15 mg twice daily which is the appropriate regimen for his PE and DVT at this time. H and H are below normal. PCP orderded pt to be transfused 2 units of PRBC. Pt noted to be in sinus rhythm with heart rate of 66bpm with occ PAC and PVC. We will continue to monitor patient's cardiology status. Please notify cardiology of any changes in patient's status. No changes to medication regimen at this time from a cardiology standpoint. Exam Vital signs and Labs for Last 24 Hours: Temp Pulse Resp BP Pulse Ox 97.9 F 76 22 107/64 L 100 07/25/20 08:00 07/25/20 08:34 07/25/20 08:00 07/25/20 08:00 07/25/20 10:00 Laboratory Results - last 24 hr 07/25/20 05:45: WBC 4.0 L D, RBC 2.46 L, Hgb 7.3 L*, Hct 22.5 L*, MCV 91.6, MCH 29.8, MCHC 32.5, RDW 17.9 H, Plt Count 57 L, MPV 9.2, Neut % (Auto) 87.2 H, Lymph % (Auto) 7.7 L, [place] % (Auto) 4.9, Eos % (Auto) 0.0 L, Baso % (Auto) 0.1, Neut # (Auto) 3.5, Lymph # (Auto) 0.3 L, [place] # (Auto) 0.2, Eos # (Auto) 0.0, Baso # (Auto) 0.0, Total Counted 100, Neutrophils % (Manual) 88 H, Lymphocytes % (Manual) 9 L, Monocytes % (Manual) 3, Platelet Estimate Normal, Hypochromasia 1+, Anisocytosis 1+, Macrocytosis 1+ 07/25/20 05:45: Vitamin B12 355 07/25/20 08:55: Blood Type A Positive, Antibody Screen Negative, Crossmatch (AHG) See Detail I & O for Last 24 hours: Intake & Output 07/22/20 07/23/20 07/24/20 07/25/20 23:59 23:59 23:59 23:59 Intake Total 378 / 378 1145 / 1145 1120 / 1120 720 / 720 Output Total 900 / 900 100 / 450 550 / 550 280 / 280 Balance -522 / -522 1045 / 695 570 / 570 440 / 440 Weight 156 lb 6.194 oz 150 lb 1 oz 152 lb 152 lb 1 oz Microbiology Reports for the Last 24 Hours: Microbiology 07/20/20 09:45 Blood Blood Culture - Final NO GROWTH AFTER 5 DAYS - Constitutional moderate distress, average body habitus, cooperative - *Routine HEENT Exam Head: Present: normocephalic ENT: Present: mucous membranes moist - *Routine Neck Exam Present: supple, full ROM, normal carotid upstroke. Absent: JVD, carotid bruit, lymphadenopathy - *Routine Respiratory Exam Present: accessory muscle use, wheezes. Absent: CTA bilaterally - *Routine Cardiovascular Exam Present: RRR, Normal S1, Normal S2. Absent: murmur, bradycardia, tachycardia, irregular rhythm, JVD - *Routine Abdominal Exam Present: soft, normoactive bowel sounds.
[2020-07-25 11:34] LABS: Iron 45 ug/dL (49-181)
[2020-07-25 12:42] LABS: Folate 5.64 ng/mL
--- NOTE | 2020-07-25 13:44 | PC.NURSE ---
RESPIRATORY CARE NOTE: PT VAPOTHERM INCREASED TO 40 LPM; 100% DUE TO DESATURATION WHILE USING THE RESTROOM. PT RECOVERY RATE IS SLOW. WE WILL CONTINUE TO MONITOR PT AND WEAN VAPOTHERM TOLERATED. PER DR. ENRIQUEZ ORDERS- RT IS TO WEAN FLOW RATE FIRST AND THEN OXYGEN AMOUNT. (INFORMATION COMMUNICATED TO RT FROM NELA TYLER.)
--- NOTE | 2020-07-25 15:10 | PC.NURSE ---
Late entry: at approx 1310 the pt called out to have help to use the bsc. pt was assisted up, upon return to the bed pt O2 sats remained low. sats were noted to be 69-72% RT was contacted to adjust Vapotherm settings. pt sats eventually returned to 90's-100 by 1345. will continue to monitor and RT will continue to wean pt o2 down as tolerated.
--- NOTE | 2020-07-25 17:03 | HMH.PULMPN ---
Internal Medicine - PN: Subj *Date: 07/25/20 *Time: 17:03 Interval history: No acute respiratory events over the weekend. Patient hemodynamics and respiratory status improved Exam - Constitutional Constitutional:: Present: no acute distress, comfortable - HENMT Exam HENMT: Present: atraumatic - Eye Exam Eyes:: Present: eyelids normal - Neck Exam Neck:: Present: thyroid normal, no lymphadenopathy - Respiratory Exam Respiratory:: Present: able to speak in complete sentences, respiratory distress, crackles - Cardiovascular Exam Cardiac:: Present: S1, S2 - GI Exam GI:: Present: soft, no hepatosplenomegaly - Skin Exam Skin: Present: warm, no rash - Neurological Exam Neurological: Present: alert, awake, normal cognition - Extremities Exam Extremities: Present: no cyanosis, no clubbing, edema Assessment and Plan (1) Pulmonary embolus Status: Acute Category: Medical Code(s): I26.99 - Other pulmonary embolism without acute cor pulmonale (2) Respiratory failure with hypoxia Status: Acute Qualifiers: Chronicity: acute Qualified Code(s): J96.01 - Acute respiratory failure with hypoxia Category: Medical Code(s): J96.91 - Respiratory failure, unspecified with hypoxia (3) Pneumonia due to COVID-19 virus Status: Acute Category: Medical Code(s): U07.1 - COVID-19; J12.82 - Pneumonia due to coronavirus disease 2019 (4) Elevated liver enzymes Status: Acute Category: Medical Code(s): R74.8 - Abnormal levels of other serum enzymes (5) Thrombocytopenia Status: Acute Category: Medical Code(s): D69.6 - Thrombocytopenia, unspecified (6) Lymphoma Status: Chronic Category: Medical Code(s): C85.90 - Non-Hodgkin lymphoma, unspecified, unspecified site (7) Corneal abrasion Status: Acute Category: Medical Code(s): S05.00XA - Injury of conjunctiva and corneal abrasion without foreign body, unspecified eye, initial encounter (8) Stomatitis Status: Acute Category: Medical Code(s): K12.1 - Other forms of stomatitis (9) Conjunctivitis Status: Acute Category: Medical Code(s): H10.9 - Unspecified conjunctivitis (10) Anemia Status: Acute Category: Medical Code(s): D64.9 - Anemia, unspecified - Assessment and plan all Dx Assessment and Plan for all problems:: #Acute hypoxic respiratory failure: #H/O COVID-19 pneumonia: #Acute pulmonary embolism likely provoked secondary to COVID-19 pneumonia: # HAP: 59-year-old with recent diagnosis of COVID-19 pneumonia admitted to the hospital 12 twice with a recent discharge in early June after which he completed 6-day course of vancomycin and cefepime discharge levofloxacin presented to the hospital with worsening respiratory failure not associated with fevers or chills, positive for nonproductive cough. CTA performed admission showed evidence of right-sided pulmonary embolism. Pulmonary parenchymal infiltrates improved from prior. Echocardiogram from this admission pending. Echocardiogram from his recent admission showed increased LV wall thickness with EF of 50% and grade 1 diastolic dysfunction. RVSP from this admission was 62.6. Repeat echocardiogram on admission relatively unchanged RVSP and RV function however also concern for shunt however bubble study did not report any right to left-sided shunt. Patient respiratory status has been fluctuating throughout this hospital admission needing intermittent high flow with high oxygen requirements. Patient started to have low-grade fevers which were closely monitored with repeat blood cultures however patient clinical status decline and hypotension and broad-spectrum antibiotics were initiated on 07/24/2020 and his blood cultures were positive. Interval update: Patient clinical status significantly improved over the weekend. Hemodynamics improved weaned off pressors. Continue to receive broad-spectrum antibiotics with Linezolid and Cefepime. Patient respiratory status a
--- NOTE | 2020-07-25 18:35 | PC.NURSE ---
pt has rested well this shift. was up to bsc prior to start of dayshift, spoke with Dr Atwood about being able to get up to bsc, MD stated it was ok to be up to bsc. Pt spoke with Dr Valenzuela at approx 1000 and he mentioned to MD he didnt want to get up to bsc, states he is afraid his oxygen levels will drop and he will (statment per MD). PT does appear anxious about moving about in his room. He did get up to BSC this shift at approx 1300, and proceeded to have 30 min of low O2 sats. RT was called and vapotherm was managed until sats improved. Pt has since been able to be weaned down. lungs contain scattered crackles. NAD noted will continue to monitor.,
[2020-07-26] VITALS (11 sets, daily range): BP systolic 85–114; BP diastolic 54–74; PULSE 40–120; RESP 17–32; TEMP 36.6–36.9; O2SAT 86–100; BMI 23.2
--- NOTE | 2020-07-26 03:27 | PC.NURSE ---
RESPIRATORY NOTE Pt was up to bathroom desat 60% vapotherm increased to 40L 100% to recover slowly titrate down currently at 20L 70%
--- NOTE | 2020-07-26 03:53 | PC.NURSE ---
pt A&O x4 and has slept well through the night. Pt had one episode when using the urinal that he desated to the low 70s. Pt was not recovering on his own, RT increased vapotherm settings to 40, 100% until he recovered. Pt now at 20L, 75%, sats in the low 90s. Lung sounds note scattered crackles throughout and diminished. Pt still has blister on lower lip and tip of nose. No c/o pain or difficulty breathing. Pt does become anxious when moving, he expressed that he was afraid to move and not be able to breath again. Bowel sounds x4, abd soft and nontender. VSS, call light in reach, no concerns at this time.
--- NOTE | 2020-07-26 04:29 | PC.NURSE ---
RN aware of vital signs.
--- NOTE | 2020-07-26 06:09 | PC.NURSE ---
Pt had episode of extreme anxiety after sitting up at bedside to use the urinal. O2 fell to low 70s, HR 130s, RR 60. This Rn was unable to calm pt down. RT increased vapotherm to 40L, 100%. Sats remained in the 70s. MD was called, suggested NRB or bipap. NRB was applied. after 15 mins, pt slowly began to recover to the 80s, and eventually back to the 90s. Pt currently on vapotherm at 30L, 100%, sats in the 90s, RR 35, HR 84. Pt is sleeping.
[2020-07-26 06:26] LABS: Basophils % 0.3 % (0.1-2.0); Eosinophils % 0.1 % (0.1-12.0); Hematocrit 33.1 % (42.0-52.0); Hemoglobin 10.8 g/dL (14.1-18.0); Lymphocytes # 0.4 K/mm3 (0.7-4.5); Lymphocytes % 6.1 % (10-50); Mean Corpuscular HGB Conc 32.6 g/dL (31.8-35.4); Mean Corpuscular Hemoglobin 27.8 pg (27.0-31.2); Mean Corpuscular Volume 85.2 fl (80-94); Mean Platelet Volume 8.7 fl (7.4-10.4); Monocytes # 0.2 K/mm3 (0.1-1.0); Monocytes % 3.5 % (1.7-9.3); Neutrophils # 5.6 K/mm3 (1.8-7.8); Neutrophils % 90.1 % (37.0-80.0); Platelet Count 58 K/mm3 (142-424); Red Blood Count 3.88 M/mm3 (4.60-6.20); Red Cell Distribution Width 19.7 % (11.5-17.5); White Blood Count 6.2 K/mm3 (4.8-10.8)
[2020-07-26 06:32] LABS: MANUAL DIFFERENTIAL MANUAL DIFFERENTIAL (MANUAL DIFF)
[2020-07-26 08:27] LABS: Lymphocytes % 7 % (10-50); Monocytes % 1 % (2-9); Neutrophils % 90 % (42-76); Total Cells Counted 100
[2020-07-26 08:28] LABS: Platelet Estimate Marked Decrease; RBC Morphology Normal
--- NOTE | 2020-07-26 09:00 | HMH.ACPN2 ---
<Heavenly June - Last Filed: 07/26/20 09:00> Internal Medicine - PN: Subj *Date: 07/26/20 *Time: 09:00 Interval history: With this visit patient is currently having a DeSat episode after trying to use urinal. This is happened 3 times this morning. He recovers after placement of nonrebreather over Vapotherm at 100%. Patient's respiratory rate was 40+ and heart rate had increased to 130-140 and sinus rhythm. O2 sats were in the low 70s and gradually increased up to 90 again after relaxation. Heart rate also decreased down to 110. Patient unable to answer questions at this point. Nursing documents the patient expresses fears of dying with any type of exertion such as using the bedside commode and sitting on the bedside to use his urinal. Patient did receive 2 units of packed red blood cells yesterday. Exam Vital signs and Labs for Last 24 Hours: Temp Pulse Resp BP Pulse Ox 98.4 F 120 H 17 114/74 92 L 07/26/20 08:00 07/26/20 08:00 07/26/20 08:00 07/26/20 08:00 07/26/20 08:00 Laboratory Results - last 24 hr 07/25/20 05:45: Total Counted 100, Neutrophils % (Manual) 88 H, Lymphocytes % (Manual) 9 L, Monocytes % (Manual) 3, Platelet Estimate Normal, Hypochromasia 1+, Anisocytosis 1+, Macrocytosis 1+ 07/25/20 05:45: Iron 45 L, Folate 5.64 07/25/20 05:45: Vitamin B12 355 07/25/20 08:55: Blood Type A Positive, Antibody Screen Negative, Crossmatch (AHG) See Detail 07/26/20 06:00: WBC 6.2 D, RBC 3.88 L D, Hgb 10.8 L, Hct 33.1 L, MCV 85.2, MCH 27.8, MCHC 32.6, RDW 19.7 H, Plt Count 58 L, MPV 8.7, Neut % (Auto) 90.1 H, Lymph % (Auto) 6.1 L, [place] % (Auto) 3.5, Eos % (Auto) 0.1, Baso % (Auto) 0.3, Neut # (Auto) 5.6, Lymph # (Auto) 0.4 L, [place] # (Auto) 0.2, Eos # (Auto) 0.0, Baso # (Auto) 0.0, Total Counted 100, Neutrophils % (Manual) 90 H, Lymphocytes % (Manual) 7 L, Atypical Lymphs % 2.0, Monocytes % (Manual) 1 L, Platelet Estimate Marked decrease, RBC Morphology Normal I & O for Last 24 hours: Intake & Output 07/23/20 07/24/20 07/25/20 07/26/20 11:59 11:59 11:59 11:59 Intake Total 996 / 996 887 / 887 1480 / 1480 1381 / 1381 Output Total 1000 / 1000 550 / 550 280 / 280 300 / 300 Balance -4 / -4 337 / 337 1200 / 1200 1081 / 1081 Weight 150 lb 1 oz 152 lb 152 lb 1 oz 153 lb 4 oz Microbiology Reports for the Last 24 Hours: Microbiology 07/20/20 09:45 Blood Blood Culture - Final NO GROWTH AFTER 5 DAYS - Constitutional moderate distress Comments: Coughs with decrease in respiratory rate and heart rate within 15 minutes. - *Routine Respiratory Exam Present: diminished air movement (With tachypnea) - *Routine Cardiovascular Exam Present: RRR, tachycardia (Sinus tachycardia) - *Routine Extremities Exam Absent: edema - *Routine Neurological Exam Present: alert Assessment and Plan (1) Pulmonary embolus Status: Acute Category: Medical Code(s): I26.99 - Other pulmonary embolism without acute cor pulmonale (2) Respiratory failure with hypoxia Status: Acute Qualifiers: Chronicity: acute Qualified Code(s): J96.01 - Acute respiratory failure with hypoxia Category: Medical Code(s): J96.91 - Respiratory failure, unspecified with hypoxia (3) Pneumonia due to COVID-19 virus Status: Acute Category: Medical Code(s): U07.1 - COVID-19; J12.82 - Pneumonia due to coronavirus disease 2019 (4) Elevated liver enzymes Status: Acute Category: Medical Code(s): R74.8 - Abnormal levels of other serum enzymes (5) Thrombocytopenia Status: Acute Category: Medical Code(s): D69.6 - Thrombocytopenia, unspecified (6) Lymphoma Status: Chronic Category: Medical Code(s): C85.90 - Non-Hodgkin lymphoma, unspecified, unspecified site (7) Corneal abrasion Status: Acute Category: Medical Code(s): S05.00XA - Injury of conjunctiva and corneal abrasion without foreign body, unspecified eye, initial encounter (8) Stomatitis Status: Acute Ca
--- NOTE | 2020-07-26 09:46 | HMH.PULMPN ---
Internal Medicine - PN: Subj *Date: 07/26/20 *Time: 09:46 Interval history: No acute respiratory events overnight Exam - Constitutional Constitutional:: Present: comfortable - HENMT Exam HENMT: Present: atraumatic - Eye Exam Eyes:: Present: eyelids normal - Neck Exam Neck:: Present: thyroid normal - Respiratory Exam Respiratory:: Present: able to speak in complete sentences, respiratory distress, crackles - Cardiovascular Exam Cardiac:: Present: S1, S2 - GI Exam GI:: Present: soft, no hepatosplenomegaly - Skin Exam Skin: Present: warm, no rash - Neurological Exam Neurological: Present: alert, awake, normal cognition - Extremities Exam Extremities: Present: no cyanosis, no clubbing, edema - Psychiatric Exam Psychiatric: Present: normal affect Assessment and Plan (1) Pulmonary embolus Status: Acute Category: Medical Code(s): I26.99 - Other pulmonary embolism without acute cor pulmonale (2) Respiratory failure with hypoxia Status: Acute Qualifiers: Chronicity: acute Qualified Code(s): J96.01 - Acute respiratory failure with hypoxia Category: Medical Code(s): J96.91 - Respiratory failure, unspecified with hypoxia (3) Pneumonia due to COVID-19 virus Status: Acute Category: Medical Code(s): U07.1 - COVID-19; J12.82 - Pneumonia due to coronavirus disease 2019 (4) Elevated liver enzymes Status: Acute Category: Medical Code(s): R74.8 - Abnormal levels of other serum enzymes (5) Thrombocytopenia Status: Acute Category: Medical Code(s): D69.6 - Thrombocytopenia, unspecified (6) Lymphoma Status: Chronic Category: Medical Code(s): C85.90 - Non-Hodgkin lymphoma, unspecified, unspecified site (7) Corneal abrasion Status: Acute Category: Medical Code(s): S05.00XA - Injury of conjunctiva and corneal abrasion without foreign body, unspecified eye, initial encounter (8) Stomatitis Status: Acute Category: Medical Code(s): K12.1 - Other forms of stomatitis (9) Conjunctivitis Status: Acute Category: Medical Code(s): H10.9 - Unspecified conjunctivitis (10) Anemia Status: Acute Category: Medical Code(s): D64.9 - Anemia, unspecified (11) Anxiety Status: Acute Category: Medical Code(s): F41.9 - Anxiety disorder, unspecified - Assessment and plan all Dx Assessment and Plan for all problems:: #Acute hypoxic respiratory failure: #H/O COVID-19 pneumonia: #Acute pulmonary embolism likely provoked secondary to COVID-19 pneumonia: # HAP: 59-year-old with recent diagnosis of COVID-19 pneumonia admitted to the hospital 12 twice with a recent discharge in early June after which he completed 6-day course of vancomycin and cefepime discharge levofloxacin presented to the hospital with worsening respiratory failure not associated with fevers or chills, positive for nonproductive cough. CTA performed admission showed evidence of right-sided pulmonary embolism. Pulmonary parenchymal infiltrates improved from prior on the CT performed on this admission. Echocardiogram from his recent admission showed increased LV wall thickness with EF of 50% and grade 1 diastolic dysfunction. RVSP from this admission was 62.6. Repeat echocardiogram on admission relatively unchanged RVSP and RV function however also concern for shunt however bubble study did not report any right to left-sided shunt. Patient respiratory status has been fluctuating throughout this hospital admission needing intermittent high flow with high oxygen requirements. Patient started to have low-grade fevers which were closely monitored with repeat blood cultures however patient clinical status decline and hypotension and broad-spectrum antibiotics were initiated on 07/24/2020 and his blood cultures were positive. Patient hemodynamic status significantly improved and wean from pressors on 07/25/2020. Continue to receive saline and cefepime. Awaiting repeat blood cultures. Interval update:
--- NOTE | 2020-07-26 10:44 | HMH.PNCARD ---
Subjective Date: 07/26/20 Time: 10:00 Principal diagnosis: PE Interval history: 59-year-old male admitted on 07/11/2020 with COVID-19 pneumonia. Pt was cleared from Covid-19 after a week stay in the Covid unit. Patient continues to complain of increased shortness of breath. Noted to have a nonrebreather. When patient is up walking to the restroom, his pulse ox will drop into the 80s. Patient becomes anxious when his oxygen saturation drops. Patient was prescribed a low dose antianxiety medication via PCP. Patient stated this has helped slightly. Patient does states he is very fatigued. Patient was giving Lasix due to shortness of breath. Saeed catheter is in place. 800 mL of clear yellow urine draining with no difficulty. CTA was performed on admission which showed right-sided pulmonary emboli. Echocardiogram was performed also. Echocardiogram revealed EF 50% with no regional wall abnormality there is grade 1 diastolic dysfunction. RV systolic pressure was noted at 55. Moderately enlarged right ventricle noted there was questionable whether concerned for presence of intracardiac shunt. Limited echo was performed which revealed failure to identify right to left shunt. Patient denies chest pain, tightness or pressure. Cardiology was consulted due to patient having a high heart rate and blood pressure at times. This usually appears when patient is anxious. Otherwise his vital signs are stable. Patient denies any cardiac history. A follow-up chest x-ray was performed which revealed bilateral pneumonia slightly worse on the left. A venous study was performed which revealed nonocclusive DVT. Patient is currently on Xarelto 15 mg twice daily which is the appropriate regimen for his PE and DVT at this time. Patient was transfused 2 units of PRBC due to low H&H. H&H is noted at 10 today. Pt noted to be in sinus rhythm with heart rate of 66bpm with occ PAC and PVC. We will continue to monitor patient's cardiology status. Please notify cardiology of any changes in patient's status. No changes to medication regimen at this time from a cardiology standpoint. Exam Vital signs and Labs for Last 24 Hours: Temp Pulse Resp BP Pulse Ox 98.4 F 120 H 17 114/74 100 07/26/20 08:00 07/26/20 08:00 07/26/20 08:00 07/26/20 08:00 07/26/20 09:24 Laboratory Results - last 24 hr 07/25/20 05:45: Iron 45 L, Folate 5.64 07/25/20 08:55: Blood Type A Positive, Antibody Screen Negative, Crossmatch (AHG) See Detail 07/26/20 06:00: WBC 6.2 D, RBC 3.88 L D, Hgb 10.8 L, Hct 33.1 L, MCV 85.2, MCH 27.8, MCHC 32.6, RDW 19.7 H, Plt Count 58 L, MPV 8.7, Neut % (Auto) 90.1 H, Lymph % (Auto) 6.1 L, [place] % (Auto) 3.5, Eos % (Auto) 0.1, Baso % (Auto) 0.3, Neut # (Auto) 5.6, Lymph # (Auto) 0.4 L, [place] # (Auto) 0.2, Eos # (Auto) 0.0, Baso # (Auto) 0.0, Total Counted 100, Neutrophils % (Manual) 90 H, Lymphocytes % (Manual) 7 L, Atypical Lymphs % 2.0, Monocytes % (Manual) 1 L, Platelet Estimate Marked decrease, RBC Morphology Normal I & O for Last 24 hours: Intake & Output 07/23/20 07/24/20 07/25/20 07/26/20 23:59 23:59 23:59 23:59 Intake Total 1145 / 1145 1120 / 1120 1980 120 / 120 Output Total 100 / 450 550 / 550 280 / 280 800 / 800 Balance 1045 / 695 570 / 570 1701 / 1701 -680 / -680 Weight 150 lb 1 oz 152 lb 152 lb 1 oz 153 lb 4 oz Microbiology Reports for the Last 24 Hours: Microbiology 07/20/20 09:45 Blood Blood Culture - Final NO GROWTH AFTER 5 DAYS - Constitutional moderate distress, average body habitus, cooperative - *Routine HEENT Exam Head: Present: normocephalic ENT: Present: mucous membranes moist - *Routine Neck Exam Present: supple, full ROM, normal carotid upstroke. Absent: JVD, carotid bruit, lymphadenopathy - *Routine Respiratory Exam Present: rales, diminished air movement Comments: Patient is on a nonrebreather - *Routine Cardiovascular Exam Present: RRR, Norm
[2020-07-27] VITALS (12 sets, daily range): BP systolic 89–139; BP diastolic 65–88; PULSE 60–122; RESP 19–40; TEMP 36.5–37.5; O2SAT 87–99; BMI 23.2
--- NOTE | 2020-07-27 05:12 | PC.NURSE ---
NO ACUTE CHANGES OVERNIGHT. PT RESTED WELL, NO C/O PAIN OR DIFFICULTY BREATHING. VAPOTHERM AT 30L 100%. SATS IN THE MID 90S. LUNGS DIMINISHED THROUGHOUT. PT ABLE TO VOID INDEPENDENTLY WITH URINAL AT BEDSIDE. BOWEL SOUNDS X4. VSS, CALL LIGHT IN REACH, NO CONCERNS AT THIS TIME.
--- NOTE | 2020-07-27 08:05 | HMH.ACPN2 ---
<Angélica Gandara - Last Filed: 07/27/20 08:05> Internal Medicine - PN: Subj *Date: 07/27/20 *Time: 08:05 Interval history: Patient states he is having chills this morning and cannot get warm. He did sleep decently last night. He gets short of breath with any movement or even with talking. He has Vapotherm in place. He denies any pain. He ate most of his breakfast. Exam Vital signs and Labs for Last 24 Hours: Temp Pulse Resp BP Pulse Ox 98.1 F 74 19 89/65 L 97 07/27/20 03:43 07/27/20 06:40 07/27/20 03:43 07/27/20 03:43 07/27/20 06:40 Laboratory Results - last 24 hr 07/26/20 06:00: Total Counted 100, Neutrophils % (Manual) 90 H, Lymphocytes % (Manual) 7 L, Atypical Lymphs % 2.0, Monocytes % (Manual) 1 L, Platelet Estimate Marked decrease, RBC Morphology Normal I & O for Last 24 hours: Intake & Output 07/24/20 07/25/20 07/26/20 07/27/20 11:59 11:59 11:59 11:59 Intake Total 887 / 887 1480 / 1480 1381 / 1381 240 / 240 Output Total 550 / 550 280 / 280 800 / 800 700 / 700 Balance 337 / 337 1200 / 1200 581 / 581 -460 / -460 Weight 152 lb 152 lb 1 oz 153 lb 4 oz 153 lb 3.999 oz - Constitutional no acute distress - *Routine Respiratory Exam Present: rales (bilateral bases) - *Routine Cardiovascular Exam Present: RRR - *Routine Abdominal Exam Present: soft, normoactive bowel sounds. Absent: tenderness - *Routine Extremities Exam Absent: cyanosis, clubbing, edema - *Routine Skin Exam Present: warm. Absent: rash - *Routine Neurological Exam Present: alert, oriented X3 Assessment and Plan (1) Pulmonary embolus Status: Acute Category: Medical Code(s): I26.99 - Other pulmonary embolism without acute cor pulmonale (2) Respiratory failure with hypoxia Status: Acute Qualifiers: Chronicity: acute Qualified Code(s): J96.01 - Acute respiratory failure with hypoxia Category: Medical Code(s): J96.91 - Respiratory failure, unspecified with hypoxia (3) Pneumonia due to COVID-19 virus Status: Acute Category: Medical Code(s): U07.1 - COVID-19; J12.82 - Pneumonia due to coronavirus disease 2019 (4) Elevated liver enzymes Status: Acute Category: Medical Code(s): R74.8 - Abnormal levels of other serum enzymes (5) Thrombocytopenia Status: Acute Category: Medical Code(s): D69.6 - Thrombocytopenia, unspecified (6) Lymphoma Status: Chronic Category: Medical Code(s): C85.90 - Non-Hodgkin lymphoma, unspecified, unspecified site (7) Corneal abrasion Status: Acute Category: Medical Code(s): S05.00XA - Injury of conjunctiva and corneal abrasion without foreign body, unspecified eye, initial encounter (8) Stomatitis Status: Acute Category: Medical Code(s): K12.1 - Other forms of stomatitis (9) Conjunctivitis Status: Acute Category: Medical Code(s): H10.9 - Unspecified conjunctivitis (10) Anemia Status: Acute Category: Medical Code(s): D64.9 - Anemia, unspecified (11) Anxiety Status: Acute Category: Medical Code(s): F41.9 - Anxiety disorder, unspecified - Assessment and plan all Dx Assessment and Plan for all problems:: Patient's oxygen decreases in the 70s even when having a conversation, but normalizes into the 90s when he is lying still and quiet. We will continue current care. Cardiology and pulmonology to follow. <Herman Atwood - Last Filed: 07/27/20 08:47> Internal Medicine - PN: Subj *Date: 07/27/20 *Time: 08:45 Exam Vital signs and Labs for Last 24 Hours: Temp Pulse Resp BP Pulse Ox 99.0 F 122 H 40 H 139/88 87 L 07/27/20 08:00 07/27/20 08:00 07/27/20 08:00 07/27/20 08:00 07/27/20 08:00 I & O for Last 24 hours: Intake & Output 07/24/20 07/25/20 07/26/20 07/27/20 11:59 11:59 11:59 11:59 Intake Total 887 / 887 1480 / 1480 1381 / 1381 240 / 240 Output Total 550 / 550 280 / 280 800 / 800 700 / 700 Balance 337 / 337 1200 / 1200 581 / 581 -460 / -460 Weight 152
--- NOTE | 2020-07-27 08:33 | XR_ITS ---
PROCEDURE: XR CHEST PORTABLE CLINICAL HISTORY: hypoxia Hypoxia, shortness of air COMPARISON: CT CT ANGIO CHEST from 07/09/2020 CR XR CHEST PORTABLE from 07/21/2020 CR XR CHEST PORTABLE PICC PLAC from 07/22/2020 CR XR CHEST PORTABLE from 07/22/2020 FINDINGS: Right upper extremity PICC line is present with tip in the region the SVC. Normal heart size. There is mild diffuse bilateral airspace disease suggesting bilateral pneumonia. There is a mixed response with slight improvement on the left and slight worsening on the right. No evidence of pneumothorax. No effusions. IMPRESSION: Bilateral pneumonia which appears slightly worse on the right and improved on the left Dictated by: Aung Jean-Baptiste MD 07/27/2020 10:22 Aung Jean-Baptiste MD in [facility] 07/27/2020 10:22
--- NOTE | 2020-07-27 09:45 | HMH.PULMPN ---
Internal Medicine - PN: Subj *Date: 07/27/20 *Time: 09:45 Interval history: No acute respiratory events overnight. Exam - Constitutional Constitutional:: Present: comfortable - HENMT Exam HENMT: Present: atraumatic - Eye Exam Eyes:: Present: eyelids normal - Neck Exam Neck:: Present: thyroid normal - Respiratory Exam Respiratory:: Present: respiratory distress, crackles - Cardiovascular Exam Cardiac:: Present: S1, S2 - GI Exam GI:: Present: soft - Skin Exam Skin: Present: warm, no rash - Neurological Exam Neurological: Present: alert, awake, normal cognition - Extremities Exam Extremities: Present: no cyanosis, no clubbing, edema - Psychiatric Exam Psychiatric: Present: normal affect Assessment and Plan (1) Pulmonary embolus Status: Acute Category: Medical Code(s): I26.99 - Other pulmonary embolism without acute cor pulmonale (2) Respiratory failure with hypoxia Status: Acute Qualifiers: Chronicity: acute Qualified Code(s): J96.01 - Acute respiratory failure with hypoxia Category: Medical Code(s): J96.91 - Respiratory failure, unspecified with hypoxia (3) Pneumonia due to COVID-19 virus Status: Acute Category: Medical Code(s): U07.1 - COVID-19; J12.82 - Pneumonia due to coronavirus disease 2019 (4) Elevated liver enzymes Status: Acute Category: Medical Code(s): R74.8 - Abnormal levels of other serum enzymes (5) Thrombocytopenia Status: Acute Category: Medical Code(s): D69.6 - Thrombocytopenia, unspecified (6) Lymphoma Status: Chronic Category: Medical Code(s): C85.90 - Non-Hodgkin lymphoma, unspecified, unspecified site (7) Corneal abrasion Status: Acute Category: Medical Code(s): S05.00XA - Injury of conjunctiva and corneal abrasion without foreign body, unspecified eye, initial encounter (8) Stomatitis Status: Acute Category: Medical Code(s): K12.1 - Other forms of stomatitis (9) Conjunctivitis Status: Acute Category: Medical Code(s): H10.9 - Unspecified conjunctivitis (10) Anemia Status: Acute Category: Medical Code(s): D64.9 - Anemia, unspecified (11) Anxiety Status: Acute Category: Medical Code(s): F41.9 - Anxiety disorder, unspecified (12) Pulmonary hypertension, unspecified Status: Acute Category: Medical Code(s): I27.20 - Pulmonary hypertension, unspecified - Assessment and plan all Dx Assessment and Plan for all problems:: #Acute hypoxic respiratory failure: #H/O COVID-19 pneumonia: #Acute pulmonary embolism likely provoked secondary to COVID-19 pneumonia: # HAP: #Pulmonary hypertension with RVSP of 62 on echocardiogram 59-year-old with recent diagnosis of COVID-19 pneumonia admitted to the hospital 12 twice with a recent discharge in early June after which he completed 6-day course of vancomycin and cefepime discharge levofloxacin presented to the hospital with worsening respiratory failure not associated with fevers or chills, positive for nonproductive cough. CTA performed admission showed evidence of right-sided pulmonary embolism. Pulmonary parenchymal infiltrates improved from prior on the CT performed on this admission. Echocardiogram from his recent admission showed increased LV wall thickness with EF of 50% and grade 1 diastolic dysfunction. RVSP from this admission was 62.6. Repeat echocardiogram on admission relatively unchanged RVSP and RV function however also concern for shunt however bubble study did not report any right to left-sided shunt. Patient respiratory status has been fluctuating throughout this hospital admission needing intermittent high flow with high oxygen requirements. Patient started to have low-grade fevers which were closely monitored with repeat blood cultures however patient clinical status decline and hypotension and broad-spectrum antibiotics were initiated on 07/24/2020 and his blood cultures were positive. Patient hemodynamic status significantly i
--- NOTE | 2020-07-27 11:10 | HMH.PNCARD ---
Subjective Date: 07/27/20 Time: 10:00 Principal diagnosis: PE Interval history: 59-year-old male admitted on 07/11/2020 with COVID-19 pneumonia and pulmonary emboli. Patient continues to complain of increased shortness of breath. Noted to have a nonrebreather. When patient is up walking to the restroom, his pulse ox will drop into the 80s. Patient becomes anxious when his oxygen saturation drops. Patient was prescribed a low dose antianxiety medication via PCP. Patient stated this has helped slightly. Patient does states he is very fatigued. Patient was giving Lasix due to shortness of breath. Saeed catheter is in place. Clear yellow urine draining with no difficulty. CTA was performed on admission which showed right-sided pulmonary emboli. Echocardiogram revealed EF 50% with no regional wall abnormality there is grade 1 diastolic dysfunction. RV systolic pressure was noted at 55. Moderately enlarged right ventricle noted there was questionable whether concerned for presence of intracardiac shunt. Limited echo was performed which revealed failure to identify right to left shunt. Patient noted with pulmonary hypertension. Pulmonology started patient on Sildenafil 10mg TID. Patient denies chest pain, tightness or pressure. Patient appears anxious. States he does understand why he is not feeling better. Otherwise his vital signs are stable. Patient denies any cardiac history. A venous study was performed which revealed nonocclusive DVT. Patient is currently on Xarelto 15 mg twice daily which is the appropriate regimen for his PE and DVT at this time. Patient was transfused 2 units of PRBC due to low H&H. H&H is noted as low. This will need to be closely monitored due to patient being on Xarelto for previous PE. Pt noted to be in sinus rhythm with heart rate of 70bpm with occ PAC and PVC. We'll continue to monitor patient status. Management of pneumonia and pulmonary emboli is deferred to PCP and pulmonary. Please notify cardiology of any changes in patient status. Thank you for allowing cardiology to participate in the care of this patient. Exam Vital signs and Labs for Last 24 Hours: Temp Pulse Resp BP Pulse Ox 99.0 F 122 H 40 H 139/88 87 L 07/27/20 08:00 07/27/20 08:00 07/27/20 08:00 07/27/20 08:00 07/27/20 08:00 I & O for Last 24 hours: Intake & Output 07/24/20 07/25/20 07/26/20 07/27/20 23:59 23:59 23:59 23:59 Intake Total 1120 / 1120 1980 360 / 360 240 / 240 Output Total 550 / 550 280 / 280 1500 / 1500 Balance 570 / 570 1701 / 1701 -1140 / -1140 240 / 240 Weight 152 lb 152 lb 1 oz 153 lb 4 oz 153 lb 3.999 oz Microbiology Reports for the Last 24 Hours: Microbiology 07/25/20 08:55 Blood Blood Culture - Preliminary NO GROWTH AFTER 48 HOURS 07/25/20 09:10 Blood Blood Culture - Preliminary NO GROWTH AFTER 48 HOURS - Constitutional moderate distress, average body habitus, cooperative - *Routine HEENT Exam Head: Present: normocephalic ENT: Present: mucous membranes moist - *Routine Neck Exam Present: full ROM, normal carotid upstroke. Absent: JVD, carotid bruit, lymphadenopathy - *Routine Respiratory Exam Present: accessory muscle use, wheezes - *Routine Cardiovascular Exam Present: RRR, Normal S1, Normal S2. Absent: murmur, bradycardia, irregular rhythm, irregularly irregular, JVD - *Routine Abdominal Exam Present: soft, normoactive bowel sounds. Absent: guarding, firm - *Routine Extremities Exam Present: full ROM, pulses intact. Absent: edema - *Routine Skin Exam Present: intact, dry, warm - *Routine Neurological Exam Present: alert, oriented X3, CN II-XII intact, moving all extremities, normal speech - Routine Psychiatric Exam Present: normal affect, normal thought process Progress Note: A&P (1) Pulmonary embolus Status: Acute (2) Respiratory failure with hypoxia Status: Acute
--- NOTE | 2020-07-27 15:17 | PC.NURSE ---
HE IS AOX4, ABLE OT MAKE NEEDS KNOWN TO STAFF, HAS SAT UP TO CHAIR WITH VISITORS TODAY AND TOLERATED WELL, VAPOTHERM HAS BEEN TITRATED TO 90% AT 20LPM, HE HAS BEEN USING URINAL FOR ELIMINATION, NO NEEDS AT THIS TIME, WILL CONTINUE TO MONITOR.
--- NOTE | 2020-07-27 16:22 | PC.NURSE ---
RN is waiting on the doctor to come in, was told to not get 1600 blood pressure.
--- NOTE | 2020-07-27 17:03 | PC.NURSE ---
1615 PT BP NOTED TO BE 67/46 ON AUTOMATIC CUFF, PT DENIED FEELING ABNORMAL, AND
[2020-07-27 17:41] LABS: Chloride 94 mmol/L (98-107)
[2020-07-27 17:42] LABS: Potassium 4.2 mmoL/L (3.5-5.1); Sodium 134 mmol/L (136-145)
[2020-07-27 17:44] LABS: Blood Urea Nitrogen 17 mg/dl (9-20); Creatinine Clearance Estimated 77 mL/min (50-200); Estimated Glomerular Filt Rate 76 ml/min (>60); GFR (African American) 92 ML/MIN (>60)
[2020-07-27 17:45] LABS: Anion Gap 13.2 mEq/L (5-15); Calcium 8.8 mg/dl (8.4-10.2); Carbon Dioxide 31 mmol/L (22.0-30.0); Glucose 245 mg/dl (74-100)
[2020-07-27 17:46] LABS: ABG Base Excess 0.5 mmol/L (-2.4-2.3); ABG HCO3 23.7 mmhg (22.0-26.0); ABG Oxygen Saturation 92 % (90-100); ABG PCO2 31.1 mmhg (35.0-45.0); ABG PO2 60.9 mmhg (80-100); ABG TCO2 24.6 mmhg (23-27)
[2020-07-27 17:47] LABS: Allen's Test Acceptable; Source Right Radial
--- NOTE | 2020-07-27 17:50 | PC.NURSE ---
1615 PT NOTED TO BE HYPOTENSIVE WITH BP 67/46 ON AUTOMATIC CUFF, MANUAL BP TAKEN AND NOTED TO BE 82/49. PT DENIED FEELING ABNORMAL AND APPEARED ASYMPTOMATIC, PT WAS AWAKE AND ALERT AND COULD ANSWER QUESTIONS APPROPRIATELY. CONTACTED DR ENRIQUEZ AND DR WASHINGTON PATIENT SERVICES SPECIALIST FOR DR PACHECO. DR ENRIQUEZ SAID THAT HE WOULD COME TO CHECK ON PT AND ORDERED A ONE TIME BOLUS OF 250ML OF LR. DR ENRIQUEZ ARRIVED TO FLOOR AT 1630. STATED TO MONITOR BP AND ORDER STAT ABG AND LACTATE. DR WASHINGTON ORDERED STAT CBC AND BMP. DR QURESHI PAGED AGAIN REGARDING CRITICAL LACTATE OF 5.7 AND INFORMED OF PT PERSISTENT HYPOTENSION, DR ENRIQUEZ ORDERED 500 ML BOLUS OF LR NOW AND 500 ML OF LR ADDITIONALLY IF HYPOTENSION PERSISTS AFTER INITIAL BOLUS.
[2020-07-27 17:51] LABS: Lactate Arterial 5.7 mmol/L (0.4-2.0)
[2020-07-27 17:55] LABS: Basophils % 0.1 % (0.1-2.0); Hematocrit 37.3 % (42.0-52.0); Hemoglobin 11.7 g/dL (14.1-18.0); Lymphocytes # 0.4 K/mm3 (0.7-4.5); Lymphocytes % 5.5 % (10-50); Mean Corpuscular HGB Conc 31.4 g/dL (31.8-35.4); Mean Corpuscular Hemoglobin 27.2 pg (27.0-31.2); Mean Corpuscular Volume 86.8 fl (80-94); Mean Platelet Volume 10.8 fl (7.4-10.4); Monocytes # 0.2 K/mm3 (0.1-1.0); Monocytes % 2.2 % (1.7-9.3); Neutrophils # 7.1 K/mm3 (1.8-7.8); Neutrophils % 92.2 % (37.0-80.0); Red Cell Distribution Width 19.4 % (11.5-17.5); White Blood Count 7.7 K/mm3 (4.8-10.8)
[2020-07-27 17:56] LABS: Platelet Count 40 K/mm3 (142-424)
[2020-07-27 17:58] LABS: MANUAL DIFFERENTIAL MANUAL DIFFERENTIAL (MANUAL DIFF)
--- NOTE | 2020-07-27 19:16 | PC.NURSE ---
CONTACTED DR ENRIQUEZ REGARDING SUSTAINED HYPOTENSION; LEVOFED DRIP ORDERED PARAMETERS: SYSTOLIC >90/MAP >60
[2020-07-27 19:37] LABS: Lymphocytes % 5 % (10-50); Monocytes % 2 % (2-9); Neutrophils % 93 % (42-76); Platelet Estimate Moderate Decrease; RBC Morphology Normal; Total Cells Counted 100
[2020-07-28] VITALS (25 sets, daily range): BP systolic 73–113; BP diastolic 33–78; PULSE 68–112; RESP 15–35; TEMP 36.1–37.7; O2SAT 89–100; BMI 22.5
--- NOTE | 2020-07-28 00:19 | PC.NURSE ---
He is A&O4. He denies pain and SOA. He continues on vapotherm @ 20LPM 90FiO2. NSR with inverted T waves on telemetry. He continues on levophed gtt. Have weaned levophed from 8mcg/min to 6mcg/min. He denies any dizziness or feeling of lightheadedness.
--- NOTE | 2020-07-28 08:07 | HMH.ACPN2 ---
<Angélica Gandara - Last Filed: 07/28/20 08:07> Internal Medicine - PN: Subj *Date: 07/28/20 *Time: 08:07 Interval history: Patient states he is feeling about the same today. He got cold overnight and had some chills. His shortness of breath is worse with any movement. He slept better last night and was able to eat all of his breakfast this morning. He denies any pain. Exam Vital signs and Labs for Last 24 Hours: Temp Pulse Resp BP Pulse Ox 97.9 F 104 H 33 H 110/77 98 07/28/20 03:54 07/28/20 08:00 07/28/20 08:00 07/28/20 08:00 07/28/20 08:00 Laboratory Results - last 24 hr 07/27/20 16:19: WBC 7.7, RBC 4.30 L, Hgb 11.7 L, Hct 37.3 L, MCV 86.8, MCH 27.2, MCHC 31.4 L, RDW 19.4 H, Plt Count 40 L* D, MPV 10.8 H, Neut % (Auto) 92.2 H, Lymph % (Auto) 5.5 L, [place] % (Auto) 2.2, Eos % (Auto) 0.0 L, Baso % (Auto) 0.1, Neut # (Auto) 7.1, Lymph # (Auto) 0.4 L, [place] # (Auto) 0.2, Eos # (Auto) 0.0, Baso # (Auto) 0.0, Total Counted 100, Neutrophils % (Manual) 93 H, Lymphocytes % (Manual) 5 L, Monocytes % (Manual) 2, Platelet Estimate Moderate decrease, RBC Morphology Normal 07/27/20 16:19: Sodium 134 L, Potassium 4.2, Chloride 94 L, Carbon Dioxide 31 H, Anion Gap 13.2, BUN 17, Creatinine 1.00, Estimated Creat Clear 77, Estimated GFR 76, Est GFR ( Amer) 92, Glucose 245 H, Calcium 8.8 07/27/20 16:50: Specimen Source Right radial, O2 % 20l 90%, ABG pH 7.50 H, ABG pCO2 31.1 L, ABG pO2 60.9 L, ABG HCO3 23.7, ABG Total CO2 24.6, ABG O2 Saturation 92, ABG Base Excess 0.5, Aung Test Acceptable 07/27/20 16:51: ABG Lactate 5.7 H I & O for Last 24 hours: Intake & Output 07/25/20 07/26/20 07/27/20 07/28/20 11:59 11:59 11:59 11:59 Intake Total 1480 / 1480 1381 / 1381 480 / 480 480 / 480 Output Total 280 / 280 800 / 800 700 / 700 175 / 175 Balance 1200 / 1200 581 / 581 -220 / -220 305 / 305 Weight 152 lb 1 oz 153 lb 4 oz 153 lb 3.999 oz 148 lb 8 oz Microbiology Reports for the Last 24 Hours: Microbiology 07/25/20 08:55 Blood Blood Culture - Preliminary NO GROWTH AFTER 48 HOURS 07/25/20 09:10 Blood Blood Culture - Preliminary NO GROWTH AFTER 48 HOURS - Constitutional no acute distress - *Routine Respiratory Exam Present: rales (bibasilar) - *Routine Cardiovascular Exam Present: RRR, tachycardia - *Routine Abdominal Exam Present: soft, normoactive bowel sounds. Absent: tenderness - *Routine Extremities Exam Present: edema (trace pretibial edema bilaterally). Absent: cyanosis, clubbing - *Routine Skin Exam Present: warm. Absent: rash - *Routine Neurological Exam Present: alert, oriented X3 Assessment and Plan (1) Pulmonary embolus Status: Acute Category: Medical Code(s): I26.99 - Other pulmonary embolism without acute cor pulmonale (2) Respiratory failure with hypoxia Status: Acute Qualifiers: Chronicity: acute Qualified Code(s): J96.01 - Acute respiratory failure with hypoxia Category: Medical Code(s): J96.91 - Respiratory failure, unspecified with hypoxia (3) Pneumonia due to COVID-19 virus Status: Acute Category: Medical Code(s): U07.1 - COVID-19; J12.82 - Pneumonia due to coronavirus disease 2019 (4) Elevated liver enzymes Status: Acute Category: Medical Code(s): R74.8 - Abnormal levels of other serum enzymes (5) Thrombocytopenia Status: Acute Category: Medical Code(s): D69.6 - Thrombocytopenia, unspecified (6) Lymphoma Status: Chronic Category: Medical Code(s): C85.90 - Non-Hodgkin lymphoma, unspecified, unspecified site (7) Corneal abrasion Status: Acute Category: Medical Code(s): S05.00XA - Injury of conjunctiva and corneal abrasion without foreign body, unspecified eye, initial encounter (8) Stomatitis Status: Acute Category: Medical Code(s): K12.1 - Other forms of stomatitis (9) Conjunctivitis Status: Acute Category: Medical Code(s): H10.9 - Unspeci
--- NOTE | 2020-07-28 08:14 | PC.NURSE ---
BP 110/77. Levo gtt decreased to 5mcg/min
[2020-07-28 09:49] LABS: Lactate Dehydrogenase 650 U/L (313-618)
[2020-07-28 09:51] LABS: Alanine Aminotransferase 108 U/L (12-78); Albumin Level 2.8 g/dl (3.5-5.0); Alkaline Phosphatase 205 U/L (38-126); Anion Gap 8.4 mEq/L (5-15); Aspartate Amino Transferase 53 U/L (17-59); Bilirubin,Total 0.8 mg/dl (0.2-1.3); Blood Urea Nitrogen 12 mg/dl (9-20); Calcium 8.8 mg/dl (8.4-10.2); Carbon Dioxide 34 mmol/L (22.0-30.0); Chloride 94 mmol/L (98-107); Creatinine Clearance Estimated 107 mL/min (50-200); Estimated Glomerular Filt Rate 115 ml/min (>60); GFR (African American) 139 ML/MIN (>60); Globulin 2.9 g/dL (1.3-3.2); Glucose 136 mg/dl (74-100); Magnesium 1.7 mg/dl (1.6-2.3); Phosphorous 2.3 mg/dl (2.5-4.5); Potassium 3.4 mmoL/L (3.5-5.1); Sodium 133 mmol/L (136-145); Total Protein,Serum 5.7 g/dl (6.3-8.2)
[2020-07-28 09:56] LABS: C-Reactive Protein 93.9 mg/L (0-4)
[2020-07-28 10:02] LABS: MANUAL DIFFERENTIAL MANUAL DIFFERENTIAL (MANUAL DIFF)
[2020-07-28 10:11] LABS: Basophils % 0.2 % (0.1-2.0); Eosinophils % 0.1 % (0.1-12.0); Hematocrit 35.1 % (42.0-52.0); Hemoglobin 11.2 g/dL (14.1-18.0); Lymphocytes # 0.4 K/mm3 (0.7-4.5); Lymphocytes % 3.8 % (10-50); Mean Corpuscular Hemoglobin 27.9 pg (27.0-31.2); Mean Corpuscular Volume 87.1 fl (80-94); Mean Platelet Volume 9.5 fl (7.4-10.4); Monocytes # 0.2 K/mm3 (0.1-1.0); Monocytes % 2.2 % (1.7-9.3); Neutrophils # 9.3 K/mm3 (1.8-7.8); Neutrophils % 93.7 % (37.0-80.0); Red Blood Count 4.03 M/mm3 (4.60-6.20); Red Cell Distribution Width 19.7 % (11.5-17.5); White Blood Count 9.9 K/mm3 (4.8-10.8)
--- NOTE | 2020-07-28 10:20 | HMH.PNCARD ---
Subjective Date: 07/28/20 Time: 10:20 Principal diagnosis: PE Interval history: This is a 59-year-old white gentleman who was admitted to the hospital on 07/11/2020 for COVID-19 pneumonia and a pulmonary emboli. The patient continues to complain of shortness of breath. He is on a Vapotherm mask today. The patient states that his shortness of breath is no better today than it was yesterday. He states that when he gets up to go to the bathroom his oxygen saturations are still dropping. He states this makes him really anxious and then his oxygen saturations drop even more. The patient has been prescribed an antianxiety medicine by his primary care provider. He denies any chest pain or chest pressure. He was started on sildenafil 10 mg 3 times daily by pulmonology to see if this will help with his shortness of breath and pulmonary hypertension. He is also currently being treated for a PE. He is on Xarelto 15 mg twice daily which he will remain on for 3 weeks and then be converted over to once daily Xarelto. He was transfused with 2 units of packed red blood cells for his anemia. He denies any fever, chills, nausea, vomiting, diarrhea. Exam Vital signs and Labs for Last 24 Hours: Temp Pulse Resp BP Pulse Ox 98.1 F 104 H 33 H 110/77 98 07/28/20 08:00 07/28/20 08:00 07/28/20 08:00 07/28/20 08:00 07/28/20 08:00 Laboratory Results - last 24 hr 07/27/20 16:19: WBC 7.7, RBC 4.30 L, Hgb 11.7 L, Hct 37.3 L, MCV 86.8, MCH 27.2, MCHC 31.4 L, RDW 19.4 H, Plt Count 40 L* D, MPV 10.8 H, Neut % (Auto) 92.2 H, Lymph % (Auto) 5.5 L, [place] % (Auto) 2.2, Eos % (Auto) 0.0 L, Baso % (Auto) 0.1, Neut # (Auto) 7.1, Lymph # (Auto) 0.4 L, [place] # (Auto) 0.2, Eos # (Auto) 0.0, Baso # (Auto) 0.0, Total Counted 100, Neutrophils % (Manual) 93 H, Lymphocytes % (Manual) 5 L, Monocytes % (Manual) 2, Platelet Estimate Moderate decrease, RBC Morphology Normal 07/27/20 16:19: Sodium 134 L, Potassium 4.2, Chloride 94 L, Carbon Dioxide 31 H, Anion Gap 13.2, BUN 17, Creatinine 1.00, Estimated Creat Clear 77, Estimated GFR 76, Est GFR ( Amer) 92, Glucose 245 H, Calcium 8.8 07/27/20 16:50: Specimen Source Right radial, O2 % 20l 90%, ABG pH 7.50 H, ABG pCO2 31.1 L, ABG pO2 60.9 L, ABG HCO3 23.7, ABG Total CO2 24.6, ABG O2 Saturation 92, ABG Base Excess 0.5, Aung Test Acceptable 07/27/20 16:51: ABG Lactate 5.7 H 07/28/20 09:10: Sodium 133 L, Potassium 3.4 L, Chloride 94 L, Carbon Dioxide 34 H, Anion Gap 8.4, BUN 12 D, Creatinine 0.70 D, Estimated Creat Clear 107, Estimated GFR 115, Est GFR ( Amer) 139 D, Glucose 136 H D, Calcium 8.8, Phosphorus 2.3 L, Magnesium 1.7, Total Bilirubin 0.8, AST 53, ALT 108 H, Alkaline Phosphatase 205 H, Total Protein 5.7 L, Albumin 2.8 L, Globulin 2.9, Albumin/Globulin Ratio 1.0 L 07/28/20 09:10: Lactate Dehydrogenase 650 H, C-Reactive Protein 93.9 H I & O for Last 24 hours: Intake & Output 07/25/20 07/26/20 07/27/20 07/28/20 23:59 23:59 23:59 23:59 Intake Total 1980 / 1980 360 / 360 720 / 720 360 / 360 Output Total 280 / 280 1500 / 1500 175 / 175 450 / 450 Balance 1701 / 1701 -1140 / -1140 545 / 545 -90 / -90 Weight 152 lb 1 oz 153 lb 4 oz 153 lb 3.999 oz 148 lb 8 oz Microbiology Reports for the Last 24 Hours: Microbiology 07/25/20 08:55 Blood Blood Culture - Preliminary NO GROWTH AFTER 48 HOURS 07/25/20 09:10 Blood Blood Culture - Preliminary NO GROWTH AFTER 48 HOURS - Constitutional no acute distress, average body habitus - *Routine HEENT Exam Head: Present: normocephalic, atraumatic Eye: Present: EOMI, PERRL ENT: Present: mucous membranes moist - *Routine Neck Exam Present: supple, full ROM, normal carotid upstroke. Absent: JVD, carotid bruit, lymphadenopathy - *Routine Respiratory Exam Present: CTA bilaterally - *Routine Cardiovascular Exam Present: RRR, Normal S1, Normal S2. Absent: murmur - *Routine Abdominal Exam Present: soft
--- NOTE | 2020-07-28 10:26 | PC.NURSE ---
BP 113/73. Levo gtt decreased to 2mcg/min.
[2020-07-28 11:10] LABS: Platelet Count 45 K/mm3 (142-424)
--- NOTE | 2020-07-28 11:16 | PC.NURSE ---
Dr. Atwood notified of platelet count 45
[2020-07-28 11:57] LABS: Lymphocytes % 4 % (10-50); Monocytes % 1 % (2-9); Neutrophils % 95 % (42-76); Platelet Estimate Marked Decrease; Poikilocytosis 1+; Stomatocytes 1+; Total Cells Counted 100
--- NOTE | 2020-07-28 14:18 | PC.NURSE ---
BP 86/52. Levo gtt increased to 5mcg/min.
--- NOTE | 2020-07-28 14:43 | HMH.PULMPN ---
Internal Medicine - PN: Subj *Date: 07/28/20 *Time: 14:43 Interval history: Patient developed new onset hypertension using vasopressor for ministered after sildenafil initial dose. Oxygen requirements remain high. Exam - Constitutional Constitutional:: Present: comfortable - HENMT Exam HENMT: Present: normocephalic, atraumatic - Eye Exam Eyes:: Present: eyelids normal - Neck Exam Neck:: Present: thyroid normal - Respiratory Exam Respiratory:: Present: bibailar crackels heard, respiratory distress - Cardiovascular Exam Cardiac:: Present: S1, S2 - GI Exam GI:: Present: soft - Skin Exam Skin: Present: warm, no rash - Neurological Exam Neurological: Present: alert, awake, normal cognition - Extremities Exam Extremities: Present: no cyanosis, no clubbing, edema Assessment and Plan (1) Pulmonary embolus Status: Acute Category: Medical Code(s): I26.99 - Other pulmonary embolism without acute cor pulmonale (2) Respiratory failure with hypoxia Status: Acute Qualifiers: Chronicity: acute Qualified Code(s): J96.01 - Acute respiratory failure with hypoxia Category: Medical Code(s): J96.91 - Respiratory failure, unspecified with hypoxia (3) Pneumonia due to COVID-19 virus Status: Acute Category: Medical Code(s): U07.1 - COVID-19; J12.82 - Pneumonia due to coronavirus disease 2019 (4) Elevated liver enzymes Status: Acute Category: Medical Code(s): R74.8 - Abnormal levels of other serum enzymes (5) Thrombocytopenia Status: Acute Category: Medical Code(s): D69.6 - Thrombocytopenia, unspecified (6) Lymphoma Status: Chronic Category: Medical Code(s): C85.90 - Non-Hodgkin lymphoma, unspecified, unspecified site (7) Corneal abrasion Status: Acute Category: Medical Code(s): S05.00XA - Injury of conjunctiva and corneal abrasion without foreign body, unspecified eye, initial encounter (8) Stomatitis Status: Acute Category: Medical Code(s): K12.1 - Other forms of stomatitis (9) Conjunctivitis Status: Acute Category: Medical Code(s): H10.9 - Unspecified conjunctivitis (10) Anemia Status: Acute Category: Medical Code(s): D64.9 - Anemia, unspecified (11) Anxiety Status: Acute Category: Medical Code(s): F41.9 - Anxiety disorder, unspecified (12) Pulmonary hypertension, unspecified Status: Acute Category: Medical Code(s): I27.20 - Pulmonary hypertension, unspecified - Assessment and plan all Dx Assessment and Plan for all problems:: #Acute hypoxic respiratory failure: #H/O COVID-19 pneumonia: #Acute pulmonary embolism likely provoked secondary to COVID-19 pneumonia: # HAP: #Pulmonary hypertension with RVSP of 62 on echocardiogram 59-year-old with recent diagnosis of COVID-19 pneumonia admitted to the hospital 12 twice with a recent discharge in early June after which he completed 6-day course of vancomycin and cefepime discharge levofloxacin presented to the hospital with worsening respiratory failure not associated with fevers or chills, positive for nonproductive cough. CTA performed admission showed evidence of right-sided pulmonary embolism. Pulmonary parenchymal infiltrates improved from prior on the CT performed on this admission. Echocardiogram from his recent admission showed increased LV wall thickness with EF of 50% and grade 1 diastolic dysfunction. RVSP from this admission was 62.6. Repeat echocardiogram on admission relatively unchanged RVSP and RV function however also concern for shunt however bubble study did not report any right to left-sided shunt. Patient respiratory status has been fluctuating throughout this hospital admission needing intermittent high flow with high oxygen requirements. Patient started to have low-grade fevers which were closely monitored with repeat blood cultures however patient clinical status decline and hypotension and broad-spectrum antibiotics were initiated on 07/24/2020 and his bl
--- NOTE | 2020-07-28 15:34 | PC.NURSE ---
Milrinone gtt started @ 0.375mcg/kg/min (7.5mL/hr). Levo gtt continues @ 5mcg/min. Will attempt to wean Levo gtt OFF while Milrinone gtt infusing.
[2020-07-28 16:06] LABS: Procalcitonin 0.995 ng/mL (0.0-2.0)
--- NOTE | 2020-07-28 17:17 | PC.NURSE ---
BP 119/84. Levo gtt decreased to 2mcg/min. Milrinone gtt continues @ 0.375mcg/kg/min (7.5mL/hr).
--- NOTE | 2020-07-28 18:29 | PC.NURSE ---
shift note: Pt has done well this shift. He has been OOB to the chair since 11am. Vapotherm is @ 20L/85% with sats in the high 90s. He will desat to low 80s with any activity but recovers quickly. Appetite is good. Eats 100% of meals. Has been NSR to sinus tach on tele. Hypotension noted @ times. Levo gtt is currently @ 2mcg/min and is being weaned. Milrinone gtt continues @ 0.375mcg/kg/min (7.5mL/hr). Goal is to keep MAP>[address] Valenzuela. UOP decreased today. He has voided in urinal twice today (aprox 500mL total). Is A&O. BLE with 2+ pitting edema. No BM today.
--- NOTE | 2020-07-28 20:56 | PC.NURSE ---
Unable to wean off levophed, even with milrinone maxed. BP 59/3, 64/27, 61/33.
[2020-07-29] VITALS (18 sets, daily range): BP systolic 88–116; BP diastolic 46–74; PULSE 67–107; RESP 16–37; TEMP 36.1–37.1; O2SAT 93–100; BMI 22.6
--- NOTE | 2020-07-29 00:14 | PC.NURSE ---
He has been resting in bed. He denies pain. He denies SOA. Continues on a vapotherm at 20PM 80%FiO2.
--- NOTE | 2020-07-29 05:50 | PC.NURSE ---
Have attempted to wean off levophed again. His BP is fluctuating around high 80s, low 90s and MAP between 60-65 but he is asleep.
--- NOTE | 2020-07-29 08:08 | HMH.ACPN2 ---
<Angélica Gandara - Last Filed: 07/29/20 08:08> Internal Medicine - PN: Subj *Date: 07/29/20 *Time: 08:08 Interval history: Patient states he feels about the same today. He was able to get up and sit in a chair yesterday and got short of breath when moving, but was able to recover once he was sitting down. He denies any pain. He states his legs feel weak. He is still on a norepinephrine drip and his blood pressure did improve slightly this morning. Exam Vital signs and Labs for Last 24 Hours: Temp Pulse Resp BP Pulse Ox 97.7 F 74 16 88/54 L 96 07/28/20 20:46 07/29/20 06:39 07/29/20 04:00 07/29/20 06:00 07/29/20 06:39 Laboratory Results - last 24 hr 07/28/20 09:10: Sodium 133 L, Potassium 3.4 L, Chloride 94 L, Carbon Dioxide 34 H, Anion Gap 8.4, BUN 12 D, Creatinine 0.70 D, Estimated Creat Clear 107, Estimated GFR 115, Est GFR ( Amer) 139 D, Glucose 136 H D, Calcium 8.8, Phosphorus 2.3 L, Magnesium 1.7, Total Bilirubin 0.8, AST 53, ALT 108 H, Alkaline Phosphatase 205 H, Total Protein 5.7 L, Albumin 2.8 L, Globulin 2.9, Albumin/Globulin Ratio 1.0 L 07/28/20 09:10: WBC 9.9 D, RBC 4.03 L, Hgb 11.2 L, Hct 35.1 L, MCV 87.1, MCH 27.9, MCHC 32.0, RDW 19.7 H, Plt Count 45 L*, MPV 9.5, Neut % (Auto) 93.7 H, Lymph % (Auto) 3.8 L, [place] % (Auto) 2.2, Eos % (Auto) 0.1, Baso % (Auto) 0.2, Neut # (Auto) 9.3 H, Lymph # (Auto) 0.4 L, [place] # (Auto) 0.2, Eos # (Auto) 0.0, Baso # (Auto) 0.0, Total Counted 100, Neutrophils % (Manual) 95 H, Lymphocytes % (Manual) 4 L, Monocytes % (Manual) 1 L, Platelet Estimate Marked decrease, Poikilocytosis 1+, Stomatocytes 1+ 07/28/20 09:10: Lactate Dehydrogenase 650 H, C-Reactive Protein 93.9 H 07/28/20 09:10: Procalcitonin 0.995 I & O for Last 24 hours: Intake & Output 07/26/20 07/27/20 07/28/20 07/29/20 11:59 11:59 11:59 11:59 Intake Total 1381 / 1381 480 / 480 840 / 840 1660.652 / 1660.652 Output Total 800 / 800 700 / 700 625 / 625 580 / 580 Balance 581 / 581 -220 / -220 215 / 215 1080.652 / 1080.652 Weight 153 lb 4 oz 153 lb 3.999 oz 148 lb 8 oz 149 lb 8 oz - Constitutional no acute distress - *Routine Respiratory Exam Present: rales (bibasilar) - *Routine Cardiovascular Exam Present: RRR, tachycardia (108bmp) - *Routine Abdominal Exam Present: soft, normoactive bowel sounds. Absent: tenderness - *Routine Extremities Exam Present: edema (1+ LE edema bilaterally). Absent: cyanosis, clubbing - *Routine Skin Exam Present: warm. Absent: rash - *Routine Neurological Exam Present: alert, oriented X3 Assessment and Plan (1) Pulmonary embolus Status: Acute Category: Medical Code(s): I26.99 - Other pulmonary embolism without acute cor pulmonale (2) Respiratory failure with hypoxia Status: Acute Qualifiers: Chronicity: acute Qualified Code(s): J96.01 - Acute respiratory failure with hypoxia Category: Medical Code(s): J96.91 - Respiratory failure, unspecified with hypoxia (3) Pneumonia due to COVID-19 virus Status: Acute Category: Medical Code(s): U07.1 - COVID-19; J12.82 - Pneumonia due to coronavirus disease 2019 (4) Elevated liver enzymes Status: Acute Category: Medical Code(s): R74.8 - Abnormal levels of other serum enzymes (5) Thrombocytopenia Status: Acute Category: Medical Code(s): D69.6 - Thrombocytopenia, unspecified (6) Lymphoma Status: Chronic Category: Medical Code(s): C85.90 - Non-Hodgkin lymphoma, unspecified, unspecified site (7) Corneal abrasion Status: Acute Category: Medical Code(s): S05.00XA - Injury of conjunctiva and corneal abrasion without foreign body, unspecified eye, initial encounter (8) Stomatitis Status: Acute Category: Medical Code(s): K12.1 - Other forms of stomatitis (9) Conjunctivitis Status: Acute Category: Medical Code(s): H10.9 - Unspecified conjunctivitis (10) Anemia Status: Acute Category: Medical Code(s): D64.9 - Anemia, unspecified
--- NOTE | 2020-07-29 10:48 | HMH.PNCARD ---
Subjective Date: 07/29/20 Time: 10:00 Principal diagnosis: PE Interval history: 59-year-old male who was admitted to the hospital on 07/11/2020 for COVID-19 pneumonia and a pulmonary emboli. The patient continues to complain of shortness of breath. He is on a Vapotherm mask today. The patient states that his shortness of breath is no better today than it was yesterday. He states that when he gets up to go to the bathroom his oxygen saturations are still dropping. He states this makes him really anxious and then his oxygen saturations drop even more. The patient has been prescribed an antianxiety medicine by his primary care provider. He denies any chest pain or chest pressure. He was started on sildenafil 10 mg 3 times daily by pulmonology to see if this will help with his shortness of breath and pulmonary hypertension. After starting the medication for pulmonary hypertension, patient was noted to be hypotensive. Blood pressure seems to be stabilizing at this time. He is also currently being treated for a PE. He is on Xarelto 15 mg twice daily which he will remain on for 3 weeks and then be converted over to once daily Xarelto. He was transfused with 2 units of packed red blood cells for his anemia a few days ago. Patient needs to be monitored closely due to being on the anticoagulant with low hemoglobin and low platelet count. He denies any fever, chills, nausea, vomiting, diarrhea. Patient is currently on a milrinone drip and norepinephrine drip. These drips are being monitored by pulmonology. Discussed plan of care with Dr. Walker and pulmonary. Patient will be scheduled for a left and right heart catheterization on Saturday. Right heart catheterization is indicated due to pulmonary hypertension. Left heart catheterization is indicated due to his increase severity of shortness of breath and desaturation of oxygen with minimal exertion. Patient is currently on Xarelto due to pulmonary emboli. We will not stop the Xarelto due to the catheterization. Discussed with patient the risk and benefits of undergoing left and right heart catheterization. Patient verbalized understanding. Patient states he just wants to feel better. Patient will need to be n.p.o. Saturday night into Saturday due to anticipated left and right heart catheterization. Continue current medications at this time. Please notify cardiology of any change in patient status. Exam Vital signs and Labs for Last 24 Hours: Temp Pulse Resp BP Pulse Ox 97.7 F 105 H 37 H 106/63 L 93 L 07/29/20 08:00 07/29/20 08:00 07/29/20 08:00 07/29/20 08:00 07/29/20 08:00 Laboratory Results - last 24 hr 07/28/20 09:10: WBC 9.9 D, RBC 4.03 L, Hgb 11.2 L, Hct 35.1 L, MCV 87.1, MCH 27.9, MCHC 32.0, RDW 19.7 H, Plt Count 45 L*, MPV 9.5, Neut % (Auto) 93.7 H, Lymph % (Auto) 3.8 L, [place] % (Auto) 2.2, Eos % (Auto) 0.1, Baso % (Auto) 0.2, Neut # (Auto) 9.3 H, Lymph # (Auto) 0.4 L, [place] # (Auto) 0.2, Eos # (Auto) 0.0, Baso # (Auto) 0.0, Total Counted 100, Neutrophils % (Manual) 95 H, Lymphocytes % (Manual) 4 L, Monocytes % (Manual) 1 L, Platelet Estimate Marked decrease, Poikilocytosis 1+, Stomatocytes 1+ 07/28/20 09:10: Procalcitonin 0.995 I & O for Last 24 hours: Intake & Output 07/26/20 07/27/20 07/28/20 07/29/20 23:59 23:59 23:59 23:59 Intake Total 360 / 360 720 / 720 1900.652 / 1900.652 120 / 120 Output Total 1500 / 1500 175 / 175 790 / 1030 240 / 240 Balance -1140 / -1140 545 / 545 1110.652 / 870.652 -120 / -120 Weight 153 lb 4 oz 153 lb 3.999 oz 148 lb 8 oz 149 lb 8 oz - Constitutional moderate distress, average body habitus, chronically ill appearing, cooperative - *Routine HEENT Exam Head: Present: normocephalic ENT: Present: mucous membranes moist - *Routine Neck Exam Present: supple, full ROM, normal carotid upstroke. Absent: JVD, carotid bruit, lymphadenopathy - *Routine Respiratory Exam Present: wheezes, diminished air movement Comme
--- NOTE | 2020-07-29 12:27 | HMH.PULMPN ---
Internal Medicine - PN: Subj *Date: 07/29/20 *Time: 13:57 Interval history: No acute resp events overnight. Started on Milrinone and weaned of levophed Exam - Constitutional Constitutional:: Present: no acute distress, comfortable - HENMT Exam HENMT: Present: normocephalic, atraumatic - Eye Exam Eyes:: Present: eyelids normal - Neck Exam Neck:: Present: thyroid normal - Respiratory Exam Respiratory:: Present: able to speak in complete sentences, no respiratory distress, crackles - Cardiovascular Exam Cardiac:: Present: S1, S2 - GI Exam GI:: Present: soft - Skin Exam Skin: Present: warm, no rash, dry - Neurological Exam Neurological: Present: alert, awake, normal cognition - Extremities Exam Extremities: Present: no cyanosis, no clubbing, edema - Psychiatric Exam Psychiatric: Present: normal affect Assessment and Plan (1) Pulmonary embolus Status: Acute Category: Medical Code(s): I26.99 - Other pulmonary embolism without acute cor pulmonale (2) Respiratory failure with hypoxia Status: Acute Qualifiers: Chronicity: acute Qualified Code(s): J96.01 - Acute respiratory failure with hypoxia Category: Medical Code(s): J96.91 - Respiratory failure, unspecified with hypoxia (3) Pneumonia due to COVID-19 virus Status: Acute Category: Medical Code(s): U07.1 - COVID-19; J12.82 - Pneumonia due to coronavirus disease 2019 (4) Elevated liver enzymes Status: Acute Category: Medical Code(s): R74.8 - Abnormal levels of other serum enzymes (5) Thrombocytopenia Status: Acute Category: Medical Code(s): D69.6 - Thrombocytopenia, unspecified (6) Lymphoma Status: Chronic Category: Medical Code(s): C85.90 - Non-Hodgkin lymphoma, unspecified, unspecified site (7) Corneal abrasion Status: Acute Category: Medical Code(s): S05.00XA - Injury of conjunctiva and corneal abrasion without foreign body, unspecified eye, initial encounter (8) Stomatitis Status: Acute Category: Medical Code(s): K12.1 - Other forms of stomatitis (9) Conjunctivitis Status: Acute Category: Medical Code(s): H10.9 - Unspecified conjunctivitis (10) Anemia Status: Acute Category: Medical Code(s): D64.9 - Anemia, unspecified (11) Anxiety Status: Acute Category: Medical Code(s): F41.9 - Anxiety disorder, unspecified (12) Pulmonary hypertension, unspecified Status: Acute Category: Medical Code(s): I27.20 - Pulmonary hypertension, unspecified - Assessment and plan all Dx Assessment and Plan for all problems:: #Acute hypoxic respiratory failure: #H/O COVID-19 pneumonia: #Acute pulmonary embolism likely provoked secondary to COVID-19 pneumonia: # HAP: #Pulmonary hypertension with RVSP of 62 on echocardiogram 59-year-old with recent diagnosis of COVID-19 pneumonia admitted to the hospital 12 twice with a recent discharge in early June after which he completed 6-day course of vancomycin and cefepime discharge levofloxacin presented to the hospital with worsening respiratory failure not associated with fevers or chills, positive for nonproductive cough. CTA performed admission showed evidence of right-sided pulmonary embolism. Pulmonary parenchymal infiltrates improved from prior on the CT performed on this admission. Echocardiogram from his recent admission showed increased LV wall thickness with EF of 50% and grade 1 diastolic dysfunction. RVSP from this admission was 62.6. Repeat echocardiogram on admission relatively unchanged RVSP and RV function however also concern for shunt however bubble study did not report any right to left-sided shunt. Patient respiratory status has been fluctuating throughout this hospital admission needing intermittent high flow with high oxygen requirements. Patient started to have low-grade fevers which were closely monitored with repeat blood cultures however patient clinical status decline and hypotension and broad-spectrum anti
[2020-07-29 12:36] LABS: Occult Blood,Stool Negative (Negative)
--- NOTE | 2020-07-29 16:00 | PC.NURSE ---
BP 89/48 (61). Milrinone gtt increased to 0.582 mcg/kg/min (11.7mL/hr).
--- NOTE | 2020-07-29 16:42 | PC.NURSE ---
BP has increased to 92/55 with the increase in Milrinone gtt
--- NOTE | 2020-07-29 17:46 | PC.NURSE ---
shift note: pt has been stable this shift. Remains on Vapotherm 20L/85% with sats in high 90s. Bilateral lungs continue with ronchii. Has been in the chair all day. BLE with 2+ pitting edema. NSR on tele. Hypotension @ times requiring increase in Milrinone gtt, which is currently @ 0.582mcg/kg/min (11.7mL/hr). Levo gtt remains OFF. BP is now 104/76 (85). Goal is to keep MAP>65. No other issues noted.
[2020-07-30] VITALS (29 sets, daily range): BP systolic 77–124; BP diastolic 40–83; PULSE 63–113; RESP 16–35; TEMP 36.4–36.9; O2SAT 91–100; BMI 23.2
--- NOTE | 2020-07-30 04:20 | PC.NURSE ---
2200 milrinone titrated down to 0.5 mcq/kg/min.
--- NOTE | 2020-07-30 04:22 | PC.NURSE ---
0000 milrinone decreased to 0.4 mcq/kg/min
--- NOTE | 2020-07-30 04:23 | PC.NURSE ---
0030 milrinone increased back to 0.5 mcq/kg/min to maintain map greater than 65.
--- NOTE | 2020-07-30 04:24 | PC.NURSE ---
0400 milrinone increased to 0.6 mcq/kg/min for achieved map greater than 65
--- NOTE | 2020-07-30 05:37 | PC.NURSE ---
milrinone increased to .75 mcq/kg/min for map of 55.
--- NOTE | 2020-07-30 08:47 | HMH.ACPN2 ---
Internal Medicine - PN: Subj *Date: 07/30/20 *Time: 08:47 Interval history: He sat up in the chair most of the day yesterday and did well. He is off the Levophed drip and is being titrated on milrinone drip. He rested well last night. Exam Vital signs and Labs for Last 24 Hours: Temp Pulse Resp BP Pulse Ox 98.5 F 103 H 24 96/59 L 98 07/30/20 08:00 07/30/20 08:00 07/30/20 08:00 07/30/20 08:00 07/30/20 08:00 Laboratory Results - last 24 hr 07/29/20 06:48: Stool Occult Blood Negative I & O for Last 24 hours: Intake & Output 07/27/20 07/28/20 07/29/20 07/30/20 11:59 11:59 11:59 11:59 Intake Total 480 / 480 840 / 840 1660.652 / 8921.482 1217 / 1970 Output Total 700 / 700 625 / 625 580 / 580 400 / 400 Balance -220 / -220 215 / 215 1080.652 / 1644.840 0212 / 1570 Weight 153 lb 3.999 oz 148 lb 8 oz 149 lb 8 oz 153 lb 3 oz Narrative: He is dyspneic with conversation but otherwise appears in no distress. Color is good. Chest with bilateral coarse rales with some improved breath sounds on the left. No wheezes. Extremities with trace edema. Assessment and Plan (1) Pulmonary embolus Status: Acute Category: Medical Code(s): I26.99 - Other pulmonary embolism without acute cor pulmonale (2) Respiratory failure with hypoxia Status: Acute Qualifiers: Chronicity: acute Qualified Code(s): J96.01 - Acute respiratory failure with hypoxia Category: Medical Code(s): J96.91 - Respiratory failure, unspecified with hypoxia (3) Pneumonia due to COVID-19 virus Status: Acute Category: Medical Code(s): U07.1 - COVID-19; J12.82 - Pneumonia due to coronavirus disease 2019 (4) Elevated liver enzymes Status: Acute Category: Medical Code(s): R74.8 - Abnormal levels of other serum enzymes (5) Thrombocytopenia Status: Acute Category: Medical Code(s): D69.6 - Thrombocytopenia, unspecified (6) Lymphoma Status: Chronic Category: Medical Code(s): C85.90 - Non-Hodgkin lymphoma, unspecified, unspecified site (7) Corneal abrasion Status: Acute Category: Medical Code(s): S05.00XA - Injury of conjunctiva and corneal abrasion without foreign body, unspecified eye, initial encounter (8) Stomatitis Status: Acute Category: Medical Code(s): K12.1 - Other forms of stomatitis (9) Conjunctivitis Status: Acute Category: Medical Code(s): H10.9 - Unspecified conjunctivitis (10) Anemia Status: Acute Category: Medical Code(s): D64.9 - Anemia, unspecified (11) Anxiety Status: Acute Category: Medical Code(s): F41.9 - Anxiety disorder, unspecified (12) Pulmonary hypertension, unspecified Status: Acute Category: Medical Code(s): I27.20 - Pulmonary hypertension, unspecified - Assessment and plan all Dx Assessment and Plan for all problems:: Continue Zyvox, steroids, aerosols, milrinone drip. Plan for heart cath on Saturday.
--- NOTE | 2020-07-30 16:57 | PC.NURSE ---
PT HAS BEEN SITTING UP IN THE CHAIR MOST OF THE SHIFT. ALERT AND ORIENTED X4. MILRINONE DRIP HAS BEEN TITRATED SLOWLY THIS SHIFT. MAP HAS MAINTAINED > 65 T/O THE SHIFT. DRIP WAS @ 0.125 MCG/MIN FOR A COUPLE OF HOURS THIS AFTERNOON. NOTIFIED AND HE STATED TO STOP THE DRIP FOR NOW AND HE WANTS PT'S MAP >70. NOTIFIED PHYSICIAN SIGN CARPENTER TO LET HIM KNOW WHAT ORDERED. PT HAS BEEN EATING AND DRINKING WELL T/O THE SHIFT. O2 SATURATION HAS MAINTAINED 95-100% ON VAPOTHERM. PT TAKES ALL OF HIS ORAL MEDICATIONS W/O DIFFICULTY. LUNG SOUNDS DIMINISHED WITH FINE CRACKLES. ABDOMEN SOFT/NON TENDER WITH ACTIVE BOWEL SOUNDS. PT GOT UP TO THE BSC AND HAD 1 LOOSE BOWEL MOVEMENT THIS MORNING. 1+ EDEMA NOTED TO BLE. WILL CONTINUE TO MONITOR.
[2020-07-31] VITALS (13 sets, daily range): BP systolic 93–131; BP diastolic 54–88; PULSE 58–105; RESP 24–37; TEMP 36.3–36.6; O2SAT 92–100; BMI 24.0
--- NOTE | 2020-07-31 08:31 | HMH.ACPN2 ---
Internal Medicine - PN: Subj *Date: 07/31/20 *Time: 08:31 Interval history: Remains on Vapotherm with stable sats until he gets up to the bathroom. Sats then dropped into the low 80s and upper 70s. Otherwise no new complaints except for sore tongue. He slept well last night. He is off the milrinone drip. Exam Vital signs and Labs for Last 24 Hours: Temp Pulse Resp BP Pulse Ox 97.7 F 102 H 37 H 131/75 92 L 07/31/20 07:40 07/31/20 08:07 07/31/20 07:40 07/31/20 07:40 07/31/20 07:40 I & O for Last 24 hours: Intake & Output 07/28/20 07/29/20 07/30/20 07/31/20 11:59 11:59 11:59 11:59 Intake Total 840 / 840 1660.652 / 6788.655 8204 / 1970 600 / 600 Output Total 625 / 625 580 / 580 400 / 400 375 / 375 Balance 215 / 215 1080.652 / 5078.840 3688 / 1570 225 / 225 Weight 148 lb 8 oz 149 lb 8 oz 153 lb 3 oz 159 lb 1 oz Microbiology Reports for the Last 24 Hours: Microbiology 07/25/20 08:55 Blood Blood Culture - Final NO GROWTH AFTER 5 DAYS 07/25/20 09:10 Blood Blood Culture - Final NO GROWTH AFTER 5 DAYS Narrative: He is sitting up in the chair this morning. He appears comfortable but somewhat dyspneic with conversation. Chest reveals coarse rales in the right lung. Left lung is relatively clear. Extremities with trace ankle edema Assessment and Plan (1) Pulmonary embolus Status: Acute Category: Medical Code(s): I26.99 - Other pulmonary embolism without acute cor pulmonale (2) Respiratory failure with hypoxia Status: Acute Qualifiers: Chronicity: acute Qualified Code(s): J96.01 - Acute respiratory failure with hypoxia Category: Medical Code(s): J96.91 - Respiratory failure, unspecified with hypoxia (3) Pneumonia due to COVID-19 virus Status: Acute Category: Medical Code(s): U07.1 - COVID-19; J12.82 - Pneumonia due to coronavirus disease 2019 (4) Elevated liver enzymes Status: Acute Category: Medical Code(s): R74.8 - Abnormal levels of other serum enzymes (5) Thrombocytopenia Status: Acute Category: Medical Code(s): D69.6 - Thrombocytopenia, unspecified (6) Lymphoma Status: Chronic Category: Medical Code(s): C85.90 - Non-Hodgkin lymphoma, unspecified, unspecified site (7) Corneal abrasion Status: Acute Category: Medical Code(s): S05.00XA - Injury of conjunctiva and corneal abrasion without foreign body, unspecified eye, initial encounter (8) Stomatitis Status: Acute Category: Medical Code(s): K12.1 - Other forms of stomatitis (9) Conjunctivitis Status: Acute Category: Medical Code(s): H10.9 - Unspecified conjunctivitis (10) Anemia Status: Acute Category: Medical Code(s): D64.9 - Anemia, unspecified (11) Anxiety Status: Acute Category: Medical Code(s): F41.9 - Anxiety disorder, unspecified (12) Pulmonary hypertension, unspecified Status: Acute Category: Medical Code(s): I27.20 - Pulmonary hypertension, unspecified - Assessment and plan all Dx Assessment and Plan for all problems:: Continue per orders with plans for heart cath tomorrow.
--- NOTE | 2020-07-31 15:09 | PC.NURSE ---
Addendum entered by Jody Vazquez RN 07/31/20 15:12: PT TRANSFERRED FROM STEPDOWN TO ACUTE CARE DURING ROUNDS THIS AM PER MD PACHECO - 2550 Original Note: PT HAS DONE WELL THIS SHIFT. NO C/O PAIN OR SOB. PT HAS SAT UP IN THE CHAIR FOR MOST OF SHIFT. PICC LINE IN PLACE, AND IS PATENT. PT VAPOTHERM SETTING ARE CURRENTLY 20L 85%. PT HAS OCCATIONAL DESATS WHEN STANDING UP TO URINATE, DESATS TO LOW 80'S, AND RECOVERS WITHIN 3-5 MINUTES. OTHER VSS. CALL [facility] WITHIN REACH.
[2020-08-01] VITALS (28 sets, daily range): BP systolic 98–135; BP diastolic 66–88; PULSE 60–110; RESP 18–28; TEMP 36.4–36.9; O2SAT 91–99; BMI 22.8
--- NOTE | 2020-08-01 05:46 | PC.NURSE ---
shift assessment- patient has rested well throughout the shift. blood pressures have maintained map greater than 70. o2 sats drop to 78 with short episodes of activity and will recover back into the 90s within 5 min. with more extensive episodes of activity patient desats to 75% and recovers within 10 min. heart rate has remained 55 to 80. consent for bilateral heart cath signed and witnessed
[2020-08-01 06:20] LABS: Anion Gap 7.7 mEq/L (5-15); Blood Urea Nitrogen 20 mg/dl (9-20); Calcium 8.8 mg/dl (8.4-10.2); Carbon Dioxide 33 mmol/L (22.0-30.0); Chloride 98 mmol/L (98-107); Creatinine Clearance Estimated 190 mL/min (50-200); Estimated Glomerular Filt Rate 219 ml/min (>60); GFR (African American) 266 ML/MIN (>60); Glucose 161 mg/dl (74-100); Potassium 4.7 mmoL/L (3.5-5.1); Sodium 134 mmol/L (136-145)
[2020-08-01 06:29] LABS: Basophils % 0.1 % (0.1-2.0); Eosinophils % 0.2 % (0.1-12.0); Hematocrit 31.4 % (42.0-52.0); Hemoglobin 10.4 g/dL (14.1-18.0); Lymphocytes # 0.1 K/mm3 (0.7-4.5); Lymphocytes % 1.6 % (10-50); Mean Corpuscular Hemoglobin 28.8 pg (27.0-31.2); Mean Corpuscular Volume 87.2 fl (80-94); Mean Platelet Volume 9.9 fl (7.4-10.4); Monocytes # 0.2 K/mm3 (0.1-1.0); Monocytes % 2.8 % (1.7-9.3); Neutrophils # 6.9 K/mm3 (1.8-7.8); Neutrophils % 95.4 % (37.0-80.0); Red Blood Count 3.61 M/mm3 (4.60-6.20); Red Cell Distribution Width 19.7 % (11.5-17.5); White Blood Count 7.3 K/mm3 (4.8-10.8)
[2020-08-01 06:42] LABS: Platelet Count 35 K/mm3 (142-424)
[2020-08-01 06:43] LABS: MANUAL DIFFERENTIAL MANUAL DIFFERENTIAL (MANUAL DIFF)
[2020-08-01 07:38] LABS: Hypochromasia 1+; Lymphocytes % 4 % (10-50); Macrocytosis 1+; Microcytosis 1+; Monocytes % 2 % (2-9); Neutrophils % 92 % (42-76); Total Cells Counted 100
[2020-08-01 07:39] LABS: Anisocytosis 1+; Platelet Estimate Marked Decrease
--- NOTE | 2020-08-01 07:47 | P.PN_ITS ---
Subjective Date: 08/01/20 Time: 07:47 Principal diagnosis: PE, recent COVID infection Interval history: 59-year-old white male in bed on high flow nasal cannula at 20 L/min. Patient denies any chest pain, pressure or tightness. He continues to have shortness of breath with conversation. Discussed plans for right and left heart catheterization today all questions answered. Exam Vital signs and Labs for Last 24 Hours: Temp Pulse Resp BP Pulse Ox 98.0 F 64 24 112/66 96 08/01/20 04:00 08/01/20 06:15 08/01/20 04:00 08/01/20 04:00 08/01/20 06:15 Laboratory Results - last 24 hr 08/01/20 06:01: WBC 7.3, RBC 3.61 L, Hgb 10.4 L, Hct 31.4 L, MCV 87.2, MCH 28.8, MCHC 33.0, RDW 19.7 H, Plt Count 35 L*, MPV 9.9, Neut % (Auto) 95.4 H, Lymph % (Auto) 1.6 L, [place] % (Auto) 2.8, Eos % (Auto) 0.2, Baso % (Auto) 0.1, Neut # (Auto) 6.9, Lymph # (Auto) 0.1 L, [place] # (Auto) 0.2, Eos # (Auto) 0.0, Baso # (Auto) 0.0, Total Counted 100, Neutrophils % (Manual) 92 H, Band Neutrophils % 2.0, Lymphocytes % (Manual) 4 L, Monocytes % (Manual) 2, Platelet Estimate Marked decrease, Hypochromasia 1+, Anisocytosis 1+, Microcytosis 1+, Macrocytos is 1+ 08/01/20 06:01: Sodium 134 L, Potassium 4.7, Chloride 98, Carbon Dioxide 33 H, Anion Gap 7.7, BUN 20, Creatinine 0.40 L, Estimated Creat Clear 190, Estimated GFR 219, Est GFR ( Amer) 266, Glucose 161 H, Calcium 8.8 I & O for Last 24 hours: Intake & Output 07/29/20 07/30/20 07/31/20 08/01/20 11:59 11:59 11:59 11:59 Intake Total 1660.652 / 3332.398 8389 / 1970 840 / 840 240 / 240 Output Total 580 / 580 400 / 400 375 / 375 1950 / 1950 Balance 1080.652 / 1331.799 0926 / 1570 465 / 465 -1710 / -1710 Weight 149 lb 8 oz 153 lb 3 oz 159 lb 1 oz 150 lb 8 oz - Constitutional no acute distress - *Routine Respiratory Exam Present: CTA bilaterally - *Routine Cardiovascular Exam Present: RRR - *Routine Extremities Exam Present: edema. Absent: cyanosis, clubbing - *Routine Neurological Exam Present: alert, oriented X3 Progress Note: A&P (1) Pulmonary embolus Status: Acute Assessment and plan: On Xarelto therapy (2) Respiratory failure with hypoxia Status: Acute Assessment and plan: Continues on high flow nasal cannula (3) Pneumonia due to COVID-19 virus Status: Acute Assessment and plan: Antibiotics per pulmonary and PCP (4) Elevated liver enzymes Status: Acute (5) Thrombocytopenia Status: Acute (6) Lymphoma Status: Chronic (7) Corneal abrasion Status: Acute (8) Stomatitis Status: Acute (9) Conjunctivitis Status: Acute (10) Anemia Status: Acute (11) Anxiety Status: Acute (12) Pulmonary hypertension, unspecified Status: Acute Assessment and Plan for All Diagnoses:: Patient will have her right and left heart catheterization today to further evaluate pulmonary pressures as well as investigate possible coronary artery disease as contributing to his shortness of breath. Patient did have mildly elevated troponins early in this admission but likely due to cardiac strain from the pulmonary embolus and recent Covid infection. Further recommendations to follow.
--- NOTE | 2020-08-01 07:49 | HMH.ACPN2 ---
<Cristiana Penn - Last Filed: 08/01/20 07:49> Internal Medicine - PN: Subj *Date: 08/01/20 *Time: 07:49 Interval history: He is resting comfortably in bed this morning. He feels about the same, no better, no worse. He denies any pain. He continues to be SOB with any exertion and with conversation. He is NPO for heart cath. Exam Vital signs and Labs for Last 24 Hours: Temp Pulse Resp BP Pulse Ox 98.0 F 64 24 112/66 96 08/01/20 04:00 08/01/20 06:15 08/01/20 04:00 08/01/20 04:00 08/01/20 06:15 Laboratory Results - last 24 hr 08/01/20 06:01: WBC 7.3, RBC 3.61 L, Hgb 10.4 L, Hct 31.4 L, MCV 87.2, MCH 28.8, MCHC 33.0, RDW 19.7 H, Plt Count 35 L*, MPV 9.9, Neut % (Auto) 95.4 H, Lymph % (Auto) 1.6 L, [place] % (Auto) 2.8, Eos % (Auto) 0.2, Baso % (Auto) 0.1, Neut # (Auto) 6.9, Lymph # (Auto) 0.1 L, [place] # (Auto) 0.2, Eos # (Auto) 0.0, Baso # (Auto) 0.0, Total Counted 100, Neutrophils % (Manual) 92 H, Band Neutrophils % 2.0, Lymphocytes % (Manual) 4 L, Monocytes % (Manual) 2, Platelet Estimate Marked decrease, Hypochromasia 1+, Anisocytosis 1+, Microcytosis 1+, Macrocytosis 1+ 08/01/20 06:01: Sodium 134 L, Potassium 4.7, Chloride 98, Carbon Dioxide 33 H, Anion Gap 7.7, BUN 20, Creatinine 0.40 L, Estimated Creat Clear 190, Estimated GFR 219, Est GFR ( Amer) 266, Glucose 161 H, Calcium 8.8 I & O for Last 24 hours: Intake & Output 07/29/20 07/30/20 07/31/20 08/01/20 11:59 11:59 11:59 11:59 Intake Total 1660.652 / 5575.614 9145 / 1969 840 / 840 240 / 240 Output Total 580 / 580 400 / 400 375 / 375 1949 / 1949 Balance 1080.652 / 5525.165 9885 / 1570 465 / 465 -1710 / -1710 Weight 149 lb 8 oz 153 lb 3 oz 159 lb 1 oz 150 lb 8 oz - Constitutional no acute distress - *Routine HEENT Exam Head: Present: normocephalic, atraumatic ENT: Present: mucous membranes moist - *Routine Respiratory Exam Absent: respiratory distress Comments: good air movement bilaterally with scattered rhonchi R > L - *Routine Cardiovascular Exam Present: RRR - *Routine Abdominal Exam Present: soft, normoactive bowel sounds. Absent: tenderness, distended, guarding, rigid, mass - *Routine Extremities Exam Present: pulses intact Comments: 1+ BLE edema - *Routine Neurological Exam Present: alert, oriented X3, moving all extremities Assessment and Plan (1) Pulmonary embolus Status: Acute Category: Medical Code(s): I26.99 - Other pulmonary embolism without acute cor pulmonale (2) Respiratory failure with hypoxia Status: Acute Category: Medical Code(s): J96.91 - Respiratory failure, unspecified with hypoxia (3) Pneumonia due to COVID-19 virus Status: Acute Category: Medical Code(s): U07.1 - COVID-19; J12.82 - Pneumonia due to coronavirus disease 2019 (4) Elevated liver enzymes Status: Acute Category: Medical Code(s): R74.8 - Abnormal levels of other serum enzymes (5) Thrombocytopenia Status: Acute Category: Medical Code(s): D69.6 - Thrombocytopenia, unspecified (6) Lymphoma Status: Chronic Category: Medical Code(s): C85.90 - Non-Hodgkin lymphoma, unspecified, unspecified site (7) Corneal abrasion Status: Acute Category: Medical Code(s): S05.00XA - Injury of conjunctiva and corneal abrasion without foreign body, unspecified eye, initial encounter (8) Stomatitis Status: Acute Category: Medical Code(s): K12.1 - Other forms of stomatitis (9) Conjunctivitis Status: Acute Category: Medical Code(s): H10.9 - Unspecified conjunctivitis (10) Anemia Status: Acute Category: Medical Code(s): D64.9 - Anemia, unspecified (11) Anxiety Status: Acute Category: Medical Code(s): F41.9 - Anxiety disorder, unspecified (12) Pulmonary hypertension, unspecified Status: Acute Category: Medical Code(s): I27.20 - Pulmonary hypertension, unspecified - Assessment and plan all Dx Assessment and Plan for all problems:: Note further decrease in platelet co
--- NOTE | 2020-08-01 08:58 | P.PN_ITS ---
Internal Medicine - PN: Subj *Date: 08/01/20 *Time: 08:58 Exam Vital signs and Labs for Last 24 Hours: Temp Pulse Resp BP Pulse Ox 97.9 F 71 22 111/70 93 L 08/01/20 08:00 08/01/20 08:00 08/01/20 08:00 08/01/20 08:00 08/01/20 08:00 Laboratory Results - last 24 hr 08/01/20 06:01: WBC 7.3, RBC 3.61 L, Hgb 10.4 L, Hct 31.4 L, MCV 87.2, MCH 28.8, MCHC 33.0, RDW 19.7 H, Plt Count 35 L*, MPV 9.9, Neut % (Auto) 95.4 H, Lymph % (Auto) 1.6 L, [place] % (Auto) 2.8, Eos % (Auto) 0.2, Baso % (Auto) 0.1, Neut # (Auto) 6.9, Lymph # (Auto) 0.1 L, [place] # (Auto) 0.2, Eos # (Auto) 0.0, Baso # (Auto) 0.0, Total Counted 100, Neutrophils % (Manual) 92 H, Band Neutrophils % 2.0, Lymphocytes % (Manual) 4 L, Monocytes % (Manual) 2, Platelet Estimate Marked decrease, Hypochromasia 1+, Anisocytosis 1+, Microcytosis 1+, Macrocytosis 1+ 08/01/20 06:01: Sodium 134 L, Potassium 4.7, Chloride 98, Carbon Dioxide 33 H, Anion Gap 7.7, BUN 20, Creatinine 0.40 L, Estimated Creat Clear 190, Estimated GFR 219, Est GFR ( Amer) 266, Glucose 161 H, Calcium 8.8 I & O for Last 24 hours: Intake & Output 07/29/20 07/30/20 07/31/20 08/01/20 23:59 23:59 23:59 23:59 Intake Total 1297 / 1297 1393 / 1393 480 / 480 0 / 0 Output Total 440 / 640 200 / 200 1725 / 2025 600 / 600 Balance 857 / 657 1193 / 1193 -1245 / -1545 -600 / -600 Weight 67.812 kg 69.485 kg 72.15 kg 68.266 kg Assessment and Plan (1) Pulmonary embolus Status: Acute Category: Medical Code(s): I26.99 - Other pulmonary embolism without acute cor pulmonale (2) Respiratory failure with hypoxia Status: Acute Qualifiers: Chronicity: acute Qualified Code(s): J96.01 - Acute respiratory failure with hypoxia Category: Medical Code(s): J96.91 - Respiratory failure, unspecified with hypoxia (3) Pneumonia due to COVID-19 virus Status: Acute Category: Medical Code(s): U07.1 - COVID-19; J12.82 - Pneumonia due to coronavirus disease 2019 (4) Elevated liver enzymes Status: Acute Category: Medical Code(s): R74.8 - Abnormal levels of other serum enzymes (5) Thrombocytopenia Status: Acute Category: Medical Code(s): D69.6 - Thrombocytopenia, unspecified (6) Lymphoma Status: Chronic Category: Medical Code(s): C85.90 - Non-Hodgkin lymphoma, unspecified, unspecified site (7) Corneal abrasion Status: Acute Category: Medical Code(s): S05.00XA - Injury of conjunctiva and corneal abrasion without foreign body, unspecified eye, initial encounter (8) Stomatitis Status: Acute Category: Medical Code(s): K12.1 - Other forms of stomatitis (9) Conjunctivitis Status: Acute Category: Medical Code(s): H10.9 - Unspecified conjunctivitis (10) Anemia Status: Acute Category: Medical Code(s): D64.9 - Anemia, unspecified (11) Anxiety Status: Acute Category: Medical Code(s): F41.9 - Anxiety disorder, unspecified (12) Pulmonary hypertension, unspecified Status: Acute Category: Medical Code(s): I27.20 - Pulmonary hypertension, unspecified The patient's infection will respond to the chosen ABx?: Yes Is the patient receiving the right drug, dose, and route?: Yes Could a more targeted ABx be ordered?: No (PCP PROPHYLAXIS)
[2020-08-01 10:39] LABS: Chloride 98 mmol/L (98-107); Potassium 4.1 mmoL/L (3.5-5.1); Sodium 136 mmol/L (136-145)
[2020-08-01 10:42] LABS: Anion Gap 8.1 mEq/L (5-15); Blood Urea Nitrogen 18 mg/dl (9-20); Calcium 8.8 mg/dl (8.4-10.2); Carbon Dioxide 34 mmol/L (22.0-30.0); Creatinine Clearance Estimated 126 mL/min (50-200); Estimated Glomerular Filt Rate 137 ml/min (>60); GFR (African American) 166 ML/MIN (>60); Glucose 158 mg/dl (74-100)
[2020-08-01 10:47] LABS: C-Reactive Protein 9.6 mg/L (0-4)
--- NOTE | 2020-08-01 12:00 | IR_ITS ---
APPROVED REPORT Patient Location: Outpatient [employer] Representative: ZULEIKA Cassidy RT (R) PROCEDURES Right heart catheterization Left heart catheterization Left ventriculogram Selective coronary angiogram INDICATION Pulmonary hypertension, Respiratory failure, Biventricular congestive heart failure Informed consent was obtained prior to the procedure. COMPLICATIONS NONE Estimated Blood Loss: LESS THAN 10 ML TECHNIQUE One percent lidocaine was used to anesthetize the right anterior aspect of the right wrist. The right radial artery was accessed via the Seldinger technique and a 6 Slovenian hydrophilic sheath was placed in the right radial artery. Following this one percent lidocaine was used to anesthetize the right anterior aspect of the right neck. The right internal jugular vein was accessed via the Seldinger technique and a 7 Slovenian sheath was placed in the right internal jugular vein. Following this an arterial cocktail was administered using 5000U heparin, 2.5 mg verapamil, 1mg Lidocaine and 800mcg nitroglycerin into the right radial sheath. A trap catheter was used to perform left heart catheterization left ventriculogram and selective coronary angiography while a Outlook-Carlito catheter was used to perform right heart catheterization. Saturations were obtained in the pulmonary artery and right atrium. At the end of the procedure the arterial sheath was removed good hemostasis was achieved using Traclet band. Patient was transferred to the postop holding area in stable condition for venous sheath removal. ANGIOGRAPHIC RESULTS The left main artery Normal The left anterior descending artery Normal The circumflex artery Normal The right coronary artery Dominant normal The [place] ventriculogram reveals Preserved at 55% The left ventricular end-diastolic pressure 10 mmHg Right atrial pressure 3 mmHg Pulmonary pressure 45/20 mmHg Pulmonary artery occlusion pressure 8 mmHg Left ventricular end-diastolic pressure is 10 mmHg Right atrial saturation 71% Pulmonary artery saturation 73% Hemoglobin 10.4 AO saturation 97% Cardiac output by Zofia is 6 L/min Cardiac index 3 Systemic blood pressure 126/84 mmHg IMPRESSION Moderate pulmonary hypertension Normal left-sided filling pressures No evidence of intracardiopulmonary shunt Normal cardiac output and index PLAN 1. Continue treatment of pulmonary embolism and Covid pneumonia with anticoagulation Electronically signed by : Nickolas Walker, 08/01/2020 15:24:30
--- NOTE | 2020-08-01 12:42 | HMH.PULMPN ---
Internal Medicine - PN: Subj *Date: 08/01/20 *Time: 12:42 Interval history: No acute respiratory events overnight. Exam - Constitutional Constitutional:: Present: comfortable, healthy appearing - HENMT Exam HENMT: Present: atraumatic - Eye Exam Eyes:: Present: eyelids normal - Neck Exam Neck:: Present: thyroid normal - Respiratory Exam Respiratory:: Present: able to speak in complete sentences, no respiratory distress, crackles - Cardiovascular Exam Cardiac:: Present: S1, S2 - GI Exam GI:: Present: soft - Skin Exam Skin: Present: warm, no rash - Neurological Exam Neurological: Present: alert, awake, normal cognition - Extremities Exam Extremities: Present: no cyanosis, no clubbing, edema Assessment and Plan (1) Pulmonary embolus Status: Acute Category: Medical Code(s): I26.99 - Other pulmonary embolism without acute cor pulmonale (2) Respiratory failure with hypoxia Status: Acute Qualifiers: Chronicity: acute Qualified Code(s): J96.01 - Acute respiratory failure with hypoxia Category: Medical Code(s): J96.91 - Respiratory failure, unspecified with hypoxia (3) Pneumonia due to COVID-19 virus Status: Acute Category: Medical Code(s): U07.1 - COVID-19; J12.82 - Pneumonia due to coronavirus disease 2019 (4) Elevated liver enzymes Status: Acute Category: Medical Code(s): R74.8 - Abnormal levels of other serum enzymes (5) Thrombocytopenia Status: Acute Category: Medical Code(s): D69.6 - Thrombocytopenia, unspecified (6) Lymphoma Status: Chronic Category: Medical Code(s): C85.90 - Non-Hodgkin lymphoma, unspecified, unspecified site (7) Corneal abrasion Status: Acute Category: Medical Code(s): S05.00XA - Injury of conjunctiva and corneal abrasion without foreign body, unspecified eye, initial encounter (8) Stomatitis Status: Acute Category: Medical Code(s): K12.1 - Other forms of stomatitis (9) Conjunctivitis Status: Acute Category: Medical Code(s): H10.9 - Unspecified conjunctivitis (10) Anemia Status: Acute Category: Medical Code(s): D64.9 - Anemia, unspecified (11) Anxiety Status: Acute Category: Medical Code(s): F41.9 - Anxiety disorder, unspecified (12) Pulmonary hypertension, unspecified Status: Acute Category: Medical Code(s): I27.20 - Pulmonary hypertension, unspecified - Assessment and plan all Dx Assessment and Plan for all problems:: #Acute hypoxic respiratory failure: #H/O COVID-19 pneumonia: #Acute pulmonary embolism likely provoked secondary to COVID-19 pneumonia: #Pulmonary hypertension with RVSP of 62 on echocardiogram 59-year-old with recent diagnosis of COVID-19 pneumonia admitted to the hospital 12 twice with a recent discharge in early June after which he completed 6-day course of vancomycin and cefepime discharge levofloxacin presented to the hospital with worsening respiratory failure not associated with fevers or chills, positive for nonproductive cough. CTA performed admission showed evidence of right-sided pulmonary embolism. Pulmonary parenchymal infiltrates improved from prior on the CT performed on this admission. Echocardiogram from his recent admission showed increased LV wall thickness with EF of 50% and grade 1 diastolic dysfunction. RVSP from this admission was 62.6. Repeat echocardiogram on admission relatively unchanged RVSP and RV function however also concern for shunt however bubble study did not report any right to left-sided shunt. Patient respiratory status has been fluctuating throughout this hospital admission needing intermittent high flow with high oxygen requirements. Patient started to have low-grade fevers which were closely monitored with repeat blood cultures however patient clinical status decline and hypotension and broad-spectrum antibiotics were initiated on 07/24/2020 and his blood cultures were positive. Patient hemodynamic status significantly improved
[2020-08-01 15:08] LABS: CATHL Arterial O2 SAT 73 % (90-100); CATHL Venous O2 SAT 71 % (75-80)
--- NOTE | 2020-08-01 16:26 | PC.NURSE ---
Pt has been pleasant and cooperative this shift. A&O X4. No complaints of pain. Pt complains of SOA with any exertion and de-sats. to mid 80's within seconds. Pt usually recovers within 3-5 minutes of rest. Lung sounds reveal crackles and 2+ pitting edema noted to BLE. Scattered scabbing is noted to lips and bilateral nares. Pt is post-heart catheterization. RT wrist and RT neck cath-site dressing noted to be C/D/I. Pt ambulates with stand-by assistance and uses the urinal to void clear, yellow urine without issue. No BM this shift. 22 G peripheral IV in the LT forearm is patent and SL. PICC to the RT upper arm is patent and SL. VSS. Call light within reach. Will continue to monitor.
[2020-08-02] VITALS (15 sets, daily range): BP systolic 96–136; BP diastolic 58–92; PULSE 62–120; RESP 18–50; TEMP 36.5–36.9; O2SAT 91–99; BMI 22.2
--- NOTE | 2020-08-02 06:28 | PC.NURSE ---
Patient post op day 1 B/L Catherization. Wristlet removed from right wrist at 2030 covered with non adherent bandage and tagaderm. No bleeding noted throughout the shift. Patient VS WNL shows no s/s of acute distress at this time. Vapotherm set at 20L FiO2 75%. Call light within reach, bed at lowest level for safety, will continue to monitor.
[2020-08-02 06:45] LABS: Basophils % 0.1 % (0.1-2.0); Eosinophils % 0.1 % (0.1-12.0); Hematocrit 31.9 % (42.0-52.0); Hemoglobin 10.2 g/dL (14.1-18.0); Lymphocytes # 0.1 K/mm3 (0.7-4.5); Lymphocytes % 1.3 % (10-50); Mean Corpuscular HGB Conc 32.1 g/dL (31.8-35.4); Mean Corpuscular Hemoglobin 28.1 pg (27.0-31.2); Mean Corpuscular Volume 87.6 fl (80-94); Mean Platelet Volume 9.1 fl (7.4-10.4); Monocytes # 0.2 K/mm3 (0.1-1.0); Monocytes % 2.3 % (1.7-9.3); Neutrophils # 6.2 K/mm3 (1.8-7.8); Neutrophils % 96.2 % (37.0-80.0); Red Blood Count 3.64 M/mm3 (4.60-6.20); Red Cell Distribution Width 20.1 % (11.5-17.5); White Blood Count 6.4 K/mm3 (4.8-10.8)
[2020-08-02 06:53] LABS: Platelet Count 38 K/mm3 (142-424)
[2020-08-02 06:55] LABS: MANUAL DIFFERENTIAL MANUAL DIFFERENTIAL (MANUAL DIFF)
[2020-08-02 06:59] LABS: Anion Gap 9.5 mEq/L (5-15); Blood Urea Nitrogen 19 mg/dl (9-20); Calcium 8.8 mg/dl (8.4-10.2); Carbon Dioxide 31 mmol/L (22.0-30.0); Chloride 99 mmol/L (98-107); Creatinine Clearance Estimated 123 mL/min (50-200); Estimated Glomerular Filt Rate 137 ml/min (>60); GFR (African American) 166 ML/MIN (>60); Glucose 140 mg/dl (74-100); Potassium 4.5 mmoL/L (3.5-5.1); Sodium 135 mmol/L (136-145)
--- NOTE | 2020-08-02 08:29 | HMH.ACPN2 ---
<Cristiana Penn - Last Filed: 08/02/20 08:29> Internal Medicine - PN: Subj *Date: 08/02/20 *Time: 08:29 Interval history: Pt continues to be extremely SOB with conversation and desats with any exertion. He denies any pain. He does have an occasionally productive cough. Exam Vital signs and Labs for Last 24 Hours: Temp Pulse Resp BP Pulse Ox 97.9 F 66 24 96/58 L 93 L 08/02/20 04:00 08/02/20 06:05 08/02/20 04:00 08/02/20 04:00 08/02/20 06:05 Laboratory Results - last 24 hr 08/01/20 10:20: Sodium 136, Potassium 4.1, Chloride 98, Carbon Dioxide 34 H, Anion Gap 8.1, BUN 18, Creatinine 0.60 L D, Estimated Creat Clear 126, Estimated GFR 137, Est GFR ( Amer) 166 D, Glucose 158 H, Calcium 8.8 08/01/20 10:20: C-Reactive Protein 9.6 H 08/01/20 15:05: ABG O2 Sat (Measured) 73 L, POC VBG O2 Sat (Cher) 71 L 08/02/20 06:02: WBC 6.4, RBC 3.64 L, Hgb 10.2 L, Hct 31.9 L, MCV 87.6, MCH 28.1, MCHC 32.1, RDW 20.1 H, Plt Count 38 L*, MPV 9.1, Neut % (Auto) 96.2 H, Lymph % (Auto) 1.3 L, [place] % (Auto) 2.3, Eos % (Auto) 0.1, Baso % (Auto) 0.1, Neut # (Auto) 6.2, Lymph # (Auto) 0.1 L, [place] # (Auto) 0.2, Eos # (Auto) 0.0, Baso # (Auto) 0.0 08/02/20 06:02: Sodium 135 L, Potassium 4.5, Chloride 99, Carbon Dioxide 31 H, Anion Gap 9.5, BUN 19, Creatinine 0.60 L, Estimated Creat Clear 123, Estimated GFR 137, Est GFR ( Amer) 166, Glucose 140 H, Calcium 8.8 I & O for Last 24 hours: Intake & Output 07/30/20 07/31/20 08/01/20 08/02/20 11:59 11:59 11:59 11:59 Intake Total 1970 / 1970 840 / 840 240 / 240 240 / 240 Output Total 400 / 400 375 / 375 2350 / 2350 950 / 950 Balance 1570 / 1570 465 / 465 -2110 / -2110 -710 / -710 Weight 153 lb 3 oz 159 lb 1 oz 150 lb 8 oz 147 lb - Constitutional no acute distress Comments: tachypneic after transferring from [facility] back to bed - *Routine HEENT Exam Head: Present: normocephalic, atraumatic ENT: Present: mucous membranes moist - *Routine Respiratory Exam Absent: wheezes Comments: good air movement bilaterally with left lung monroy CTA and few scattered rhonchi to right lung monroy, improved from yesterday; currently tachypneic with increased WOB - *Routine Cardiovascular Exam Present: RRR - *Routine Abdominal Exam Present: soft, normoactive bowel sounds. Absent: tenderness, distended, guarding, rigid, mass - *Routine Extremities Exam Present: full ROM, pulses intact Comments: 1+ BLE edema - *Routine Neurological Exam Present: alert, oriented X3, moving all extremities Assessment and Plan (1) Pulmonary embolus Status: Acute Category: Medical Code(s): I26.99 - Other pulmonary embolism without acute cor pulmonale (2) Respiratory failure with hypoxia Status: Acute Qualifiers: Chronicity: acute Qualified Code(s): J96.01 - Acute respiratory failure with hypoxia Category: Medical Code(s): J96.91 - Respiratory failure, unspecified with hypoxia (3) Pneumonia due to COVID-19 virus Status: Acute Category: Medical Code(s): U07.1 - COVID-19; J12.82 - Pneumonia due to coronavirus disease 2019 (4) Elevated liver enzymes Status: Acute Category: Medical Code(s): R74.8 - Abnormal levels of other serum enzymes (5) Thrombocytopenia Status: Acute Category: Medical Code(s): D69.6 - Thrombocytopenia, unspecified (6) Lymphoma Status: Chronic Category: Medical Code(s): C85.90 - Non-Hodgkin lymphoma, unspecified, unspecified site (7) Corneal abrasion Status: Acute Category: Medical Code(s): S05.00XA - Injury of conjunctiva and corneal abrasion without foreign body, unspecified eye, initial encounter (8) Stomatitis Status: Acute Category: Medical Code(s): K12.1 - Other forms of stomatitis (9) Conjunctivitis Status: Acute Category: Medical Code(s): H10.9 - Unspecified conjunctivitis (10) Anemia Status: Acute Category: Medical Code(s): D64.9 - Anemia, unspecified (11) Anxiety Status: Acute Categ
--- NOTE | 2020-08-02 09:46 | HMH.PULMPN ---
Internal Medicine - PN: Subj *Date: 08/02/20 *Time: 09:47 Interval history: No acute respiratory vents overnight. Patient successfully underwent right and left heart catheterization procedures. Exam - Constitutional Constitutional:: Present: comfortable - HENMT Exam HENMT: Present: normocephalic, atraumatic - Eye Exam Eyes:: Present: eyelids normal - Neck Exam Neck:: Present: thyroid normal - Respiratory Exam Respiratory:: Present: able to speak in complete sentences, respiratory distress, crackles Comments: Mild respiratory distress. Able to talk in complete sentences. - Cardiovascular Exam Cardiac:: Present: S1, S2 - GI Exam GI:: Present: soft, no hepatosplenomegaly - Skin Exam Skin: Present: warm, no rash - Neurological Exam Neurological: Present: alert, awake, normal cognition - Extremities Exam Extremities: Present: no cyanosis, no clubbing - Psychiatric Exam Psychiatric: Present: normal affect, appearance grossly normal Assessment and Plan (1) Pulmonary embolus Status: Acute Category: Medical Code(s): I26.99 - Other pulmonary embolism without acute cor pulmonale (2) Respiratory failure with hypoxia Status: Acute Qualifiers: Chronicity: acute Qualified Code(s): J96.01 - Acute respiratory failure with hypoxia Category: Medical Code(s): J96.91 - Respiratory failure, unspecified with hypoxia (3) Pneumonia due to COVID-19 virus Status: Acute Category: Medical Code(s): U07.1 - COVID-19; J12.82 - Pneumonia due to coronavirus disease 2019 (4) Elevated liver enzymes Status: Acute Category: Medical Code(s): R74.8 - Abnormal levels of other serum enzymes (5) Thrombocytopenia Status: Acute Category: Medical Code(s): D69.6 - Thrombocytopenia, unspecified (6) Lymphoma Status: Chronic Category: Medical Code(s): C85.90 - Non-Hodgkin lymphoma, unspecified, unspecified site (7) Corneal abrasion Status: Acute Category: Medical Code(s): S05.00XA - Injury of conjunctiva and corneal abrasion without foreign body, unspecified eye, initial encounter (8) Stomatitis Status: Acute Category: Medical Code(s): K12.1 - Other forms of stomatitis (9) Conjunctivitis Status: Acute Category: Medical Code(s): H10.9 - Unspecified conjunctivitis (10) Anemia Status: Acute Category: Medical Code(s): D64.9 - Anemia, unspecified (11) Anxiety Status: Acute Category: Medical Code(s): F41.9 - Anxiety disorder, unspecified (12) Pulmonary hypertension, unspecified Status: Acute Category: Medical Code(s): I27.20 - Pulmonary hypertension, unspecified - Assessment and plan all Dx Assessment and Plan for all problems:: #Acute hypoxic respiratory failure: #H/O COVID-19 pneumonia: #Acute pulmonary embolism likely provoked secondary to COVID-19 pneumonia: #Pulmonary hypertension #Organizing pneumonia Mr. Billingsley is a 61-year-old male being admitted and managed for hypoxic respiratory failure. Patient has a recent diagnosis of COVID-19 pneumonia and admitted to the hospital twice and presented to the hospital for the third time on 07/10/2020 worsening hypoxic respiratory failure and found to be having pulmonary embolism and has been managed since then. Patient so far has been treated twice for hospital-acquired pneumonia once with vancomycin and Zosyn on the second time with linezolid and cefepime. Patient also had staph epi bacteremia that has been treated during this hospital admission. Patient's echo from both hospital admissions showed elevated RVSP and given his persistent hypoxia as concern for pulmonary hypertension patient had a right heart cath performed on 08/01/2020 that showed mean PA pressure of 28 (45/20), CO 6L/min with a PVR of 3 hyman . Wedge pressure at 8. Patient initial echocardiogram also concern for atrial septal defect however subsequent bubble study and left heart cath did not show any evidence of shunt. Patient's aortic satura
[2020-08-02 10:07] LABS: Lymphocytes % 5 % (10-50); Monocytes % 4 % (2-9); Neutrophils % 91 % (42-76); Total Cells Counted 100
[2020-08-02 10:08] LABS: Anisocytosis 1+; Hypochromasia 1+; Platelet Estimate Marked Decrease
--- NOTE | 2020-08-02 10:59 | HMH.PNCARD ---
Subjective Date: 08/02/20 Time: 10:59 Principal diagnosis: PE, recent COVID infection Interval history: 59 yo WM in bed in NAD. Still with conversational dyspnea of 2 words. Still on HFNC currently at 30 lpm. Exam Vital signs and Labs for Last 24 Hours: Temp Pulse Resp BP Pulse Ox 98.3 F 100 H 45 H 136/92 H 91 L 08/02/20 08:00 08/02/20 08:27 08/02/20 08:00 08/02/20 08:00 08/02/20 10:00 Laboratory Results - last 24 hr 08/01/20 15:05: ABG O2 Sat (Measured) 73 L, POC VBG O2 Sat (Cher) 71 L 08/02/20 06:02: WBC 6.4, RBC 3.64 L, Hgb 10.2 L, Hct 31.9 L, MCV 87.6, MCH 28.1, MCHC 32.1, RDW 20.1 H, Plt Count 38 L*, MPV 9.1, Neut % (Auto) 96.2 H, Lymph % (Auto) 1.3 L, [place] % (Auto) 2.3, Eos % (Auto) 0.1, Baso % (Auto) 0.1, Neut # (Auto) 6.2, Lymph # (Auto) 0.1 L, [place] # (Auto) 0.2, Eos # (Auto) 0.0, Baso # (Auto) 0.0, Total Counted 100, Neutrophils % (Manual) 91 H, Lymphocytes % (Manual) 5 L, Monocytes % (Manual) 4, Platelet Estimate Marked decrease, Hypochromasia 1+, Anisocytosis 1+ 08/02/20 06:02: Sodium 135 L, Potassium 4.5, Chloride 99, Carbon Dioxide 31 H, Anion Gap 9.5, BUN 19, Creatinine 0.60 L, Estimated Creat Clear 123, Estimated GFR 137, Est GFR ( Amer) 166, Glucose 140 H, Calcium 8.8 I & O for Last 24 hours: Intake & Output 07/30/20 07/31/20 08/01/20 08/02/20 11:59 11:59 11:59 11:59 Intake Total 1970 / 1970 840 / 840 240 / 240 420 / 420 Output Total 400 / 400 375 / 375 2350 / 2350 1650 / 1650 Balance 1570 / 1570 465 / 465 -2110 / -2110 -1230 / -1230 Weight 153 lb 3 oz 159 lb 1 oz 150 lb 8 oz 147 lb - *Routine Respiratory Exam Present: CTA bilaterally - *Routine Cardiovascular Exam Present: RRR - *Routine Extremities Exam Absent: cyanosis, clubbing, edema - *Routine Neurological Exam Present: alert, oriented X3 Progress Note: A&P (1) Pulmonary embolus Status: Acute (2) Respiratory failure with hypoxia Status: Acute (3) Pneumonia due to COVID-19 virus Status: Acute (4) Elevated liver enzymes Status: Acute (5) Thrombocytopenia Status: Acute (6) Lymphoma Status: Chronic (7) Corneal abrasion Status: Acute (8) Stomatitis Status: Acute (9) Conjunctivitis Status: Acute (10) Anemia Status: Acute (11) Anxiety Status: Acute (12) Pulmonary hypertension, unspecified Status: Acute Assessment and Plan for All Diagnoses:: Pulm HTN related to COVID 19 pneumonia and coagulopathy/PE, on Xarelto along with steroids and antibiotics, per Pulmonary. Normal coronary arteries and normal LVEF. Nothing further to add at this time. Please call again if needed.
--- NOTE | 2020-08-02 19:36 | PC.NURSE ---
Pt is A&Ox4. Pt desats to low 60's w/ exertion and takes approx 15-20 min to recover. Lung sounds have been CTA. Non-pitting edema noted to BLE. No other acute changes or complaints at this time.
[2020-08-03] VITALS (16 sets, daily range): BP systolic 95–139; BP diastolic 48–91; PULSE 10–116; RESP 14–42; TEMP 36.6–37.9; O2SAT 75–98; BMI 22.0
--- NOTE | 2020-08-03 01:35 | PC.NURSE ---
Addendum entered by Charlotte Mcbride RN 08/03/20 05:29: pcp was notified at 0130 Original Note: PT IS RESTING IN BED. PT GETS EXTREMELY SOA WITH MINIMAL EXERTION. WHEN PT GOT UP TO THE C THIS SHIFT O2 SATURTION DROPPED TO THE 60'S. WHEN PT GOT BACK TO BED IT TOOK APPROXIMATELY 10 MIN FOR O2 SATURATION TO GET BACK IN THE 80'S. PCP WAS NOTIFIED AT 1330 ABOUT PT'S BP 85/55. PCP STATED TO HOLD VIAGRA FOR NOW UNTIL ROUNDS IN THE MORNING. NSR ON THE MONITOR WITH FREQUENT PVC'S OFF AND ON T/O THE SHIFT. PT STATES HE IS NOT HAVING ANY CHEST PAIN AND STATES I FEEL JUST FINE . PT NEEDS TO BE ENCOURAGED TO TURN AND REPOSITION IN BED. REDNESS/BREAKDOWN NOTED TO THE BUTTOCKS. LUNG SOUNDS DIMINISHED WITH FINE CRACKLES. 1+ NON PITTING EDEMA NOTED TO BLE. WILL CONTINUE TO MONITOR.
--- NOTE | 2020-08-03 08:14 | HMH.ACPN2 ---
<Angélica Gandara - Last Filed: 08/03/20 08:14> Internal Medicine - PN: Subj *Date: 08/03/20 *Time: 08:14 Interval history: Patient states he is not feeling as well this morning. He got up to go to the bathroom and is very short of breath. He states he laid in the bed all day yesterday and wants to try to get up in a chair. He feels very weak this morning and his Vapotherm was increased throughout the night due to low oxygen saturations. His blood pressure has been low and his heart rate has been slightly elevated. He does not feel like eating this morning. Exam Vital signs and Labs for Last 24 Hours: Temp Pulse Resp BP Pulse Ox 97.9 F 108 H 28 H 103/70 L 85 L 08/03/20 03:55 08/03/20 06:08 08/03/20 03:55 08/03/20 03:55 08/03/20 06:07 Laboratory Results - last 24 hr 08/02/20 06:02: Total Counted 100, Neutrophils % (Manual) 91 H, Lymphocytes % (Manual) 5 L, Monocytes % (Manual) 4, Platelet Estimate Marked decrease, Hypochromasia 1+, Anisocytosis 1+ I & O for Last 24 hours: Intake & Output 07/31/20 08/01/20 08/02/20 08/03/20 11:59 11:59 11:59 11:59 Intake Total 840 / 840 240 / 240 420 / 420 360 / 360 Output Total 375 / 375 2350 / 2350 1650 / 1650 300 / 300 Balance 465 / 465 -2110 / -2110 -1230 / -1230 60 / 60 Weight 159 lb 1 oz 150 lb 8 oz 147 lb 145 lb 6 oz - Constitutional no acute distress - *Routine Respiratory Exam Present: rales (bibasilar) Comments: Dyspneic at rest - *Routine Cardiovascular Exam Present: RRR, tachycardia - *Routine Abdominal Exam Present: soft, normoactive bowel sounds. Absent: tenderness - *Routine Extremities Exam Present: edema (bilateral LE edema). Absent: cyanosis, clubbing - *Routine Skin Exam Present: warm. Absent: rash - *Routine Neurological Exam Present: alert, oriented X3 Assessment and Plan (1) Pulmonary embolus Status: Acute Category: Medical Code(s): I26.99 - Other pulmonary embolism without acute cor pulmonale (2) Respiratory failure with hypoxia Status: Acute Qualifiers: Chronicity: acute Qualified Code(s): J96.01 - Acute respiratory failure with hypoxia Category: Medical Code(s): J96.91 - Respiratory failure, unspecified with hypoxia (3) Pneumonia due to COVID-19 virus Status: Acute Category: Medical Code(s): U07.1 - COVID-19; J12.82 - Pneumonia due to coronavirus disease 2019 (4) Elevated liver enzymes Status: Acute Category: Medical Code(s): R74.8 - Abnormal levels of other serum enzymes (5) Thrombocytopenia Status: Acute Category: Medical Code(s): D69.6 - Thrombocytopenia, unspecified (6) Lymphoma Status: Chronic Category: Medical Code(s): C85.90 - Non-Hodgkin lymphoma, unspecified, unspecified site (7) Corneal abrasion Status: Acute Category: Medical Code(s): S05.00XA - Injury of conjunctiva and corneal abrasion without foreign body, unspecified eye, initial encounter (8) Stomatitis Status: Acute Category: Medical Code(s): K12.1 - Other forms of stomatitis (9) Conjunctivitis Status: Acute Category: Medical Code(s): H10.9 - Unspecified conjunctivitis (10) Anemia Status: Acute Category: Medical Code(s): D64.9 - Anemia, unspecified (11) Anxiety Status: Acute Category: Medical Code(s): F41.9 - Anxiety disorder, unspecified (12) Pulmonary hypertension, unspecified Status: Acute Category: Medical Code(s): I27.20 - Pulmonary hypertension, unspecified - Assessment and plan all Dx Assessment and Plan for all problems:: Patient is more short of breath today and requiring higher oxygen requirements. Will discuss further care with Dr. Atwood. Pulmonology to follow. <Herman Atwood - Last Filed: 08/03/20 08:39> Internal Medicine - PN: Subj *Date: 08/03/20 *Time: 08:36 Exam Vital signs and Labs for Last 24 Hours: Temp Pulse Resp BP Pulse Ox 97.9 F 108 H 28 H 103/70 L 85 L 08/03/20 03:55 08/03/20 06:
--- NOTE | 2020-08-03 10:10 | HMH.PULMPN ---
Internal Medicine - PN: Subj *Date: 08/03/20 *Time: 10:10 Interval history: No acute respiratory vents overnight. Patient experienced hypotensive episode after receiving sildenafil overnight that resolved this morning. Exam - Constitutional Constitutional:: Present: no acute distress, comfortable - HENMT Exam HENMT: Present: atraumatic - Eye Exam Eyes:: Present: eyelids normal - Neck Exam Neck:: Present: thyroid normal - Respiratory Exam Respiratory:: Present: respiratory distress, crackles - Cardiovascular Exam Cardiac:: Present: S1, S2 - GI Exam GI:: Present: soft - Skin Exam Skin: Present: warm, no rash - Neurological Exam Neurological: Present: alert, awake, normal cognition - Extremities Exam Extremities: Present: no cyanosis, no clubbing, edema Assessment and Plan (1) Pulmonary embolus Status: Acute Category: Medical Code(s): I26.99 - Other pulmonary embolism without acute cor pulmonale (2) Respiratory failure with hypoxia Status: Acute Qualifiers: Chronicity: acute Qualified Code(s): J96.01 - Acute respiratory failure with hypoxia Category: Medical Code(s): J96.91 - Respiratory failure, unspecified with hypoxia (3) Pneumonia due to COVID-19 virus Status: Acute Category: Medical Code(s): U07.1 - COVID-19; J12.82 - Pneumonia due to coronavirus disease 2019 (4) Elevated liver enzymes Status: Acute Category: Medical Code(s): R74.8 - Abnormal levels of other serum enzymes (5) Thrombocytopenia Status: Acute Category: Medical Code(s): D69.6 - Thrombocytopenia, unspecified (6) Lymphoma Status: Chronic Category: Medical Code(s): C85.90 - Non-Hodgkin lymphoma, unspecified, unspecified site (7) Corneal abrasion Status: Acute Category: Medical Code(s): S05.00XA - Injury of conjunctiva and corneal abrasion without foreign body, unspecified eye, initial encounter (8) Stomatitis Status: Acute Category: Medical Code(s): K12.1 - Other forms of stomatitis (9) Conjunctivitis Status: Acute Category: Medical Code(s): H10.9 - Unspecified conjunctivitis (10) Anemia Status: Acute Category: Medical Code(s): D64.9 - Anemia, unspecified (11) Anxiety Status: Acute Category: Medical Code(s): F41.9 - Anxiety disorder, unspecified (12) Pulmonary hypertension, unspecified Status: Acute Category: Medical Code(s): I27.20 - Pulmonary hypertension, unspecified - Assessment and plan all Dx Assessment and Plan for all problems:: #Acute hypoxic respiratory failure: #H/O COVID-19 pneumonia: #Acute pulmonary embolism likely provoked secondary to COVID-19 pneumonia: #Pulmonary hypertension : #Organizing pneumonia: # ILD: Mr. Billingsley is a 61-year-old male being admitted and managed for hypoxic respiratory failure. Patient has a recent diagnosis of COVID-19 pneumonia and admitted to the hospital twice and presented to the hospital for the third time on 07/10/2020 worsening hypoxic respiratory failure and found to be having pulmonary embolism and has been managed since then. Patient so far has been treated twice for hospital-acquired pneumonia once with vancomycin and Zosyn on the second time with linezolid and cefepime. Patient also had staph epi bacteremia that has been treated during this hospital admission. Patient's echo from both hospital admissions showed elevated RVSP and given his persistent hypoxia as concern for pulmonary hypertension patient had a right heart cath performed on 08/01/2020 that showed mean PA pressure of 28 (45/20), CO 6L/min with a PVR of 3 hyman . Wedge pressure at 8. Patient initial echocardiogram also concern for atrial septal defect however subsequent bubble study and left heart cath did not show any evidence of shunt. Patient's aortic saturations were within normal limits during LHC. However right heart cath at rest still will not rule out exercise-induced pulmonary hypertension & possible R --> L shunting. Give
--- NOTE | 2020-08-03 10:11 | CT_ITS ---
PROCEDURE: CT CHEST WO CON CLINICAL INDICATION: Hypoxia Severe hypoxia COMPARISON: CT CT ANGIO CHEST from 07/09/2020 CR XR CHEST PORTABLE from 07/27/2020 TECHNIQUE: Axial images obtained with sagittal and coronal reformats. All CT scans at the facility use one or more dose reduction, viz: automated exposure control, ma/kV adjustment per patient size (including targeted exams where dose is matched to indication, i.e. head), or iterative reconstruction technique. FINDINGS: HEART AND MEDIASTINAL STRUCTURES: Unremarkable. LUNGS AND PLEURAL SPACES: Right upper extremity PICC line is present with tip region the SVC. Motion artifact obscures fine detail. COPD with diffuse ground-glass attenuation of the mid lower lungs which is worse compared to the previous exam with bronchiectasis in the lung bases. There are trace bilateral effusions. There are some scattered parenchymal opacities and pleural opacities in the upper lobes which may be due to scarring and/or atelectatic change. No central bronchial occlusive change. There is tracheal and bronchial megaly BONY STRUCTURES: No acute bony abnormalities apparent. UPPER ABDOMEN: Small hiatal hernia. ADDITIONAL FINDINGS: No other significant abnormalities. IMPRESSION: Diffuse ground-glass attenuation in the mid and lower lung zones on both sides which appears worse compared to the previous exam consistent with worsening pneumonia or pulmonary edema in a background of COPD. There is bronchiectasis in the lower lobes with trace effusions. Dictated by: Aung Jean-Baptiste MD 08/03/2020 11:27 Aung Jean-Baptiste MD in [facility] 08/03/2020 11:27
--- NOTE | 2020-08-03 17:38 | PC.NURSE ---
Pt is alert and oriented x4. Scattered crackles/rhonchi noted to lungs. He remains on vapotherm with 100% non rebreather. O2 sats have been in the low 90's at rest. He desats to the upper 50's-low 60's with any exertion, even just moving legs. Stage 2 noted to coccyx. Unable to obtain pictures as patient cant tolerate turning or standing for picture. MD aware. Dressing is in place. Scabbing noted to nares, lips and around mouth. He has had 1 loose stool today. Appetite has been poor. Will continue to monitor.
--- NOTE | 2020-08-03 22:14 | PC.NURSE ---
AT THE BEGINNING OF THE SHIFT PT HAD THE NON REBREATHER ON OVER VAPOTHERM. VAPOTHERM AT 25 L AND 60%. O2 SATURATION DROPPED TO THE 70'S JUST WHILE USING THE URINAL WHILE LYING IN BED. RESPIRATORY WAS NOTIFIED ABOUT MAKING ADJUSTMENTS TO THE VAPOTHERM. VAPOTHERM WAS INCREASED TO 25 L AND 100% WITH NON REBREATHER. WHEN PT'S O2 SATURATION WAS OVER 90% NON REBREATHER WAS REMOVED. O2 SATURATION DROPS RAPIDLY WITH VERY MINIMAL EXERTION. NOTIFIED PHYSICIAN CNA AND HE ORDERED LASIX 40 MG IV ONE TIME AND GAVE PERMISSION TO INSERT LAGUNAS CATHETER.
[2020-08-04] VITALS (13 sets, daily range): BP systolic 90–122; BP diastolic 56–84; PULSE 85–127; RESP 15–44; TEMP 36.3–36.6; O2SAT 86–98; BMI 21.2
--- NOTE | 2020-08-04 02:40 | PC.NURSE ---
PT IS SLEEPING ON HIS LEFT SIDE AT THIS TIME. O2 SATURATION HAS IMPROVED SINCE PT HAS RECEIVED THE ONE TIME DOSE OF LASIX. PT HAD 1100 ML'S OF CLEAR/PALE URINE OUT 2 HOURS AFTER HE RECEIVED LASIX. O2 SATURATION 94% ON VAPOTHERM @ 25 L AND 60% FIO2. PT WAS ABLE TO TOLERATE BATH AND LINEN CHANGE WITH NON REBREATHER ON WITH VAPOTHERM BUT PT DID NEED TOTAL ASSISTANCE WITH WASHING AND TURNING FROM SIDE TO SIDE. O2 SATURATION STILL CONTINUES TO DROP TO THE 70'S WITH VERY MINIMAL EXERTION AND PT IS BEGINNING TO FIND IT MORE DIFFICULT TO COMMUNICATE W/O BECOMING SOA. NEW DRESSING WAS APPLIED TO BUTTOCKS. PT GAVE VERBAL CONSENT TO GET PICTURE OF SKIN BREAKDOWN TO THE BUTTOCKS. PT HAS BEEN HYPOTENSIVE OFF AND ON T/O THE SHIFT WHILE ASLEEP BUT PT WILL AWAKEN EASILY AND STATES HE FEELS OKAY. LUNG SOUNDS DIMINISHED WITH CRACKLES ( BILATERAL BASES ) ABDOMEN SOFT/NON TENDER WITH ACTIVE BOWEL SOUNDS. WILL CONTINUE TO MONITOR.
--- NOTE | 2020-08-04 03:17 | PC.WOUNDNOTE ---
Wound Location: Length: Width: Depth: Undermining Y/N: Tunneling cm: Granulation %: Slough/necrotic tissue %: Inflammation/swelling Y/N: Pain and/or tenderness Y/N: Exudate: Serosanguinous Sanguinous Serosanguinous Seropurulent Purulent Color: Clear Yi Cloudy/milky [place] Red Green Yellow Brown [place] Blue Consistency: Thick Thin Amount: None Scant Small Moderate Large Odor Y/N:
[2020-08-04 06:24] LABS: Basophils % 0.2 % (0.1-2.0); Eosinophils % 0.1 % (0.1-12.0); Hematocrit 36.7 % (42.0-52.0); Hemoglobin 11.6 g/dL (14.1-18.0); Lymphocytes # 0.2 K/mm3 (0.7-4.5); Lymphocytes % 1.7 % (10-50); Mean Corpuscular HGB Conc 31.5 g/dL (31.8-35.4); Mean Corpuscular Hemoglobin 27.8 pg (27.0-31.2); Mean Platelet Volume 8.8 fl (7.4-10.4); Monocytes # 0.3 K/mm3 (0.1-1.0); Monocytes % 2.7 % (1.7-9.3); Neutrophils # 8.9 K/mm3 (1.8-7.8); Neutrophils % 95.3 % (37.0-80.0); Red Blood Count 4.17 M/mm3 (4.60-6.20); Red Cell Distribution Width 20.5 % (11.5-17.5); White Blood Count 9.3 K/mm3 (4.8-10.8)
[2020-08-04 07:20] LABS: Platelet Count 48 K/mm3 (142-424)
[2020-08-04 07:21] LABS: MANUAL DIFFERENTIAL MANUAL DIFFERENTIAL (MANUAL DIFF)
--- NOTE | 2020-08-04 08:17 | HMH.ACPN2 ---
<Angélica Gandara - Last Filed: 08/04/20 08:17> Internal Medicine - PN: Subj *Date: 08/04/20 *Time: 08:17 Interval history: The patient had to have a nonrebreather placed over his Vapotherm due to low oxygen saturations. During the night his oxygen dropped to the 70s while using the urinal lying in bed. His nonrebreather was removed when his oxygen saturations improved over 90 but had to be replaced this morning. Patient was given a one-time dose of 40 mg of Lasix IV. He denies any pain this morning but states he is still very short of breath. His oxygen saturation is in the 90s with Vapotherm and nonrebreather. He denies any pain but states he is very weak. Exam Vital signs and Labs for Last 24 Hours: Temp Pulse Resp BP Pulse Ox 97.5 F L 116 H 44 H 122/82 90 L 08/04/20 04:00 08/04/20 08:00 08/04/20 08:00 08/04/20 08:00 08/04/20 08:00 Laboratory Results - last 24 hr 08/04/20 05:54: WBC 9.3 D, RBC 4.17 L, Hgb 11.6 L, Hct 36.7 L, MCV 88.0, MCH 27.8, MCHC 31.5 L, RDW 20.5 H, Plt Count 48 L* D, MPV 8.8, Neut % (Auto) 95.3 H, Lymph % (Auto) 1.7 L, [place] % (Auto) 2.7, Eos % (Auto) 0.1, Baso % (Auto) 0.2, Neut # (Auto) 8.9 H, Lymph # (Auto) 0.2 L, [place] # (Auto) 0.3, Eos # (Auto) 0.0, Baso # (Auto) 0.0 I & O for Last 24 hours: Intake & Output 08/01/20 08/02/20 08/03/20 08/04/20 11:59 11:59 11:59 11:59 Intake Total 240 / 240 420 / 420 720 / 720 120 / 120 Output Total 2350 / 2350 1650 / 1650 600 / 600 2150 / 2150 Balance -2110 / -2110 -1230 / -1230 120 / 120 -2030 / -2030 Weight 150 lb 8 oz 147 lb 145 lb 6 oz 140 lb 7 oz - Constitutional Comments: Does not appear to feel well - *Routine Respiratory Exam Present: decreased breath sounds, rales (bilateral) - *Routine Cardiovascular Exam Present: RRR, tachycardia - *Routine Abdominal Exam Present: soft, normoactive bowel sounds. Absent: tenderness - *Routine Extremities Exam Present: edema. Absent: cyanosis, clubbing - *Routine Skin Exam Present: warm. Absent: rash - *Routine Neurological Exam Present: alert, oriented X3 Assessment and Plan (1) Pulmonary embolus Status: Acute Category: Medical Code(s): I26.99 - Other pulmonary embolism without acute cor pulmonale (2) Respiratory failure with hypoxia Status: Acute Qualifiers: Chronicity: acute Qualified Code(s): J96.01 - Acute respiratory failure with hypoxia Category: Medical Code(s): J96.91 - Respiratory failure, unspecified with hypoxia (3) Pneumonia due to COVID-19 virus Status: Acute Category: Medical Code(s): U07.1 - COVID-19; J12.82 - Pneumonia due to coronavirus disease 2019 (4) Elevated liver enzymes Status: Acute Category: Medical Code(s): R74.8 - Abnormal levels of other serum enzymes (5) Thrombocytopenia Status: Acute Category: Medical Code(s): D69.6 - Thrombocytopenia, unspecified (6) Lymphoma Status: Chronic Category: Medical Code(s): C85.90 - Non-Hodgkin lymphoma, unspecified, unspecified site (7) Corneal abrasion Status: Acute Category: Medical Code(s): S05.00XA - Injury of conjunctiva and corneal abrasion without foreign body, unspecified eye, initial encounter (8) Stomatitis Status: Acute Category: Medical Code(s): K12.1 - Other forms of stomatitis (9) Conjunctivitis Status: Acute Category: Medical Code(s): H10.9 - Unspecified conjunctivitis (10) Anemia Status: Acute Category: Medical Code(s): D64.9 - Anemia, unspecified (11) Anxiety Status: Acute Category: Medical Code(s): F41.9 - Anxiety disorder, unspecified (12) Pulmonary hypertension, unspecified Status: Acute Category: Medical Code(s): I27.20 - Pulmonary hypertension, unspecified - Assessment and plan all Dx Assessment and Plan for all problems:: Patient's respiratory status is declining. Will discuss further care with Dr. Atwood. <Herman Atwood - Last Filed: 08/04/20 22:16> Internal Med
--- NOTE | 2020-08-04 09:09 | HMH.PULMPN ---
Internal Medicine - PN: Subj *Date: 08/04/20 *Time: 10:35 Interval history: No acute respite events overnight. Patient oxygen requirements escalated to 80% high flow nasal cannula overnight. Exam - Constitutional Constitutional:: Present: comfortable - HENMT Exam HENMT: Present: atraumatic - Eye Exam Eyes:: Present: eyelids normal - Neck Exam Neck:: Present: thyroid normal - Respiratory Exam Respiratory:: Present: respiratory distress, crackles Comments: Patient appeared to be in respiratory distress. Unable to speak in complete full sentences without distress. Bilateral coarse breath sounds heard. - Cardiovascular Exam Cardiac:: Present: S1, S2 - GI Exam GI:: Present: soft - Skin Exam Skin: Present: warm, no rash - Neurological Exam Neurological: Present: alert, awake, normal cognition - Extremities Exam Extremities: Present: no cyanosis, no clubbing, edema - Psychiatric Exam Psychiatric: Present: normal affect Assessment and Plan (1) Pulmonary embolus Status: Acute Category: Medical Code(s): I26.99 - Other pulmonary embolism without acute cor pulmonale (2) Respiratory failure with hypoxia Status: Acute Qualifiers: Chronicity: acute Qualified Code(s): J96.01 - Acute respiratory failure with hypoxia Category: Medical Code(s): J96.91 - Respiratory failure, unspecified with hypoxia (3) Pneumonia due to COVID-19 virus Status: Acute Category: Medical Code(s): U07.1 - COVID-19; J12.82 - Pneumonia due to coronavirus disease 2019 (4) Elevated liver enzymes Status: Acute Category: Medical Code(s): R74.8 - Abnormal levels of other serum enzymes (5) Thrombocytopenia Status: Acute Category: Medical Code(s): D69.6 - Thrombocytopenia, unspecified (6) Lymphoma Status: Chronic Category: Medical Code(s): C85.90 - Non-Hodgkin lymphoma, unspecified, unspecified site (7) Corneal abrasion Status: Acute Category: Medical Code(s): S05.00XA - Injury of conjunctiva and corneal abrasion without foreign body, unspecified eye, initial encounter (8) Stomatitis Status: Acute Category: Medical Code(s): K12.1 - Other forms of stomatitis (9) Conjunctivitis Status: Acute Category: Medical Code(s): H10.9 - Unspecified conjunctivitis (10) Anemia Status: Acute Category: Medical Code(s): D64.9 - Anemia, unspecified (11) Anxiety Status: Acute Category: Medical Code(s): F41.9 - Anxiety disorder, unspecified (12) Pulmonary hypertension, unspecified Status: Acute Category: Medical Code(s): I27.20 - Pulmonary hypertension, unspecified - Assessment and plan all Dx Assessment and Plan for all problems:: #Acute hypoxic respiratory failure: #H/O COVID-19 pneumonia: #Acute pulmonary embolism likely provoked secondary to COVID-19 pneumonia: #Pulmonary hypertension : #Organizing pneumonia: # ILD: Mr. Billingsley is a 61-year-old male being admitted and managed for hypoxic respiratory failure. Patient has a recent diagnosis of COVID-19 pneumonia and admitted to the hospital twice and presented to the hospital for the third time on 07/10/2020 worsening hypoxic respiratory failure and found to be having pulmonary embolism and has been managed since then. Patient so far has been treated twice for hospital-acquired pneumonia once with vancomycin and Zosyn on the second time with linezolid and cefepime. Patient also had staph epi bacteremia that has been treated during this hospital admission. Patient's echo from both hospital admissions showed elevated RVSP and given his persistent hypoxia as concern for pulmonary hypertension patient had a right heart cath performed on 08/01/2020 that showed mean PA pressure of 28 (45/20), CO 6L/min with a PVR of 3 hyman . Wedge pressure at 8. Patient initial echocardiogram also concern for atrial septal defect however subsequent bubble study and left heart cath did not show any evidence of shunt. Patient's aortic saturat
[2020-08-04 09:29] LABS: C-Reactive Protein 19.9 mg/L (0-4)
[2020-08-04 10:04] LABS: Erythrocyte Sedimentation Rate 45 mm/hr (0-20)
[2020-08-04 10:32] LABS: Lymphocytes % 3 % (10-50); Monocytes % 2 % (2-9); Neutrophils % 95 % (42-76); Nucleated Red Blood Cells 3; Platelet Estimate Marked Decrease; Total Cells Counted 100
[2020-08-04 10:33] LABS: RBC Morphology Normal
--- NOTE | 2020-08-04 17:42 | PC.NURSE ---
Pt is alert and oriented x 4. He remains on vapotherm at 25L 75% fio2 with O2 sats running low-mid 90's. O2 does drop on exertion into 60's and he's slow to rebound. O2 was mostly in the 90's today as he stayed in bed all day with minimal movement. He was turned as frequently as he would let us. Dressing to coccyx is in place. Saeed is to bedside draining clear, straw colored urine. He has had 900 mls out this shift so far. Scabbing noted to nose, nares and mouth. Picc is patent and flushes easily but no blood return noted. Appetite is very poor. Pt is currently resting in bed with his eyes closed. Will continue to monitor.
[2020-08-05] VITALS (14 sets, daily range): BP systolic 97–136; BP diastolic 46–70; PULSE 90–114; RESP 22–28; TEMP 36.2–37.1; O2SAT 86–97; BMI 20.7
--- NOTE | 2020-08-05 01:17 | PC.NURSE ---
PT IS RESTING FAIR AT THIS TIME. PT STILL DESATS TO THE 70'S WITH VERY MINIMAL EXERTION AND WILL REQUIRE THE 50% VENTI WITH VAPOTHERM FOR O2 SATURATION TO REBOUND TO 90%. VAPOTHERM @ 25 L WITH 7O% FIO2. PT REQUESTED HIS MEDS TO BE CRUSHED MIXED WITH VANILLA PUDDING AT THE BEGINNING OF THE SHIFT. WHILE EATING PUDDING AND DRINKING SIPS OF WATER O2 SATURATION DROPPED TO 79%. PT IS RESTING ON HIS RT SIDE AT THIS TIME. DOES REQUIRE ASSISTANCE WITH REPOSITIONING. PT HAS BEEN NSR/SINUS TACH T/O THE SHIFT. PT STATES HE IS NOT IN ANY PAIN BUT IS QUICK TO SAY HE STILL FEELS VERY SOA. PT CAN ANSWER SIMPLE QUESTION BUT IF HE ATTEMPTS TO SPEAK IN COMPLETE SENTENCES HE DESATS VERY QUICKLY TO THE 70'S. LUNG SOUNDS DIMINISHED WITH CRACKLES IN THE BILATERAL BASES. 1 + EDEMA NOTED TO BILATERAL ANKLES. BREAKDOWN NOTED TO THE LIPS AND NOSE (MOISTURE BARRIER APPLIED) DRESSING NOTED TO COCCYX. WILL CONTINUE TO MONITOR.
--- NOTE | 2020-08-05 08:11 | HMH.ACPN2 ---
<Angélica Gandara - Last Filed: 08/05/20 08:11> Internal Medicine - PN: Subj *Date: 08/05/20 *Time: 08:11 Interval history: Patient states he is not feeling well today. He is more short of breath. Nursing states he is in off and on a Ventimask and nonrebreather. His sats have dropped into the 50s when he takes these off. He states he is very weak but was able to drink a protein shake last night. He denies any pain. Exam Vital signs and Labs for Last 24 Hours: Temp Pulse Resp BP Pulse Ox 97.8 F 95 H 28 H 104/65 L 93 L 08/05/20 03:28 08/05/20 06:24 08/05/20 03:28 08/05/20 03:28 08/05/20 06:24 Laboratory Results - last 24 hr 08/04/20 05:34: ESR 45 H 08/04/20 05:34: C-Reactive Protein 19.9 H D 08/04/20 05:54: Total Counted 100, Neutrophils % (Manual) 95 H, Lymphocytes % (Manual) 3 L, Monocytes % (Manual) 2, Nucleated RBCs 3, Platelet Estimate Marked decrease, RBC Morphology Normal I & O for Last 24 hours: Intake & Output 08/02/20 08/03/20 08/04/20 08/05/20 11:59 11:59 11:59 11:59 Intake Total 420 / 420 720 / 720 120 / 120 240 / 240 Output Total 1650 / 1650 600 / 600 2150 / 2150 900 / 900 Balance -1230 / -1230 120 / 120 -2030 / -2030 -660 / -660 Weight 147 lb 145 lb 6 oz 140 lb 7 oz 137 lb 2 oz Radiology Reports for the Last 24 Hours: Chest CT Diffuse ground-glass attenuation in the mid and lower lung zones on both sides which appears worse compared to the previous exam consistent with worsening pneumonia or pulmonary edema in a background of COPD. There is bronchiectasis in the lower lobes with trace effusions. - Constitutional Comments: Dyspneic at rest - *Routine Respiratory Exam Present: decreased breath sounds, rales (Bibasilar) - *Routine Cardiovascular Exam Present: RRR, tachycardia - *Routine Abdominal Exam Present: soft, normoactive bowel sounds. Absent: tenderness - *Routine Extremities Exam Present: edema. Absent: cyanosis, clubbing - *Routine Skin Exam Present: warm. Absent: rash - *Routine Neurological Exam Present: alert, oriented X3 Assessment and Plan (1) Pulmonary embolus Status: Acute Category: Medical Code(s): I26.99 - Other pulmonary embolism without acute cor pulmonale (2) Respiratory failure with hypoxia Status: Acute Qualifiers: Chronicity: acute Qualified Code(s): J96.01 - Acute respiratory failure with hypoxia Category: Medical Code(s): J96.91 - Respiratory failure, unspecified with hypoxia (3) Pneumonia due to COVID-19 virus Status: Acute Category: Medical Code(s): U07.1 - COVID-19; J12.82 - Pneumonia due to coronavirus disease 2019 (4) Elevated liver enzymes Status: Acute Category: Medical Code(s): R74.8 - Abnormal levels of other serum enzymes (5) Thrombocytopenia Status: Acute Category: Medical Code(s): D69.6 - Thrombocytopenia, unspecified (6) Lymphoma Status: Chronic Category: Medical Code(s): C85.90 - Non-Hodgkin lymphoma, unspecified, unspecified site (7) Corneal abrasion Status: Acute Category: Medical Code(s): S05.00XA - Injury of conjunctiva and corneal abrasion without foreign body, unspecified eye, initial encounter (8) Stomatitis Status: Acute Category: Medical Code(s): K12.1 - Other forms of stomatitis (9) Conjunctivitis Status: Acute Category: Medical Code(s): H10.9 - Unspecified conjunctivitis (10) Anemia Status: Acute Category: Medical Code(s): D64.9 - Anemia, unspecified (11) Anxiety Status: Acute Category: Medical Code(s): F41.9 - Anxiety disorder, unspecified (12) Pulmonary hypertension, unspecified Status: Acute Category: Medical Code(s): I27.20 - Pulmonary hypertension, unspecified - Assessment and plan all Dx Assessment and Plan for all problems:: Respiratory status continues to decline. Pulmonology to follow and will discuss further care with Dr. Atwood. <Herman Atwood - Last Filed: 08/05/20 14:09
--- NOTE | 2020-08-05 13:05 | HMH.PULMPN ---
Internal Medicine - PN: Subj *Date: 08/05/20 *Time: 13:05 Interval history: No acute respite event overnight. Patient remained on stable oxygen requirement since yesterday. Exam - Constitutional Constitutional:: Present: comfortable - HENMT Exam HENMT: Present: atraumatic - Eye Exam Eyes:: Present: eyelids normal - Neck Exam Neck:: Present: thyroid normal - Respiratory Exam Respiratory:: Present: respiratory distress, crackles. Absent: able to speak in complete sentences - Cardiovascular Exam Cardiac:: Present: S1, S2 - GI Exam GI:: Present: soft, no hepatosplenomegaly - Skin Exam Skin: Present: warm, no rash - Neurological Exam Neurological: Present: alert, awake, normal cognition - Extremities Exam Extremities: Present: no cyanosis, no clubbing, edema Assessment and Plan (1) Pulmonary embolus Status: Acute Category: Medical Code(s): I26.99 - Other pulmonary embolism without acute cor pulmonale (2) Respiratory failure with hypoxia Status: Acute Qualifiers: Chronicity: acute Qualified Code(s): J96.01 - Acute respiratory failure with hypoxia Category: Medical Code(s): J96.91 - Respiratory failure, unspecified with hypoxia (3) Pneumonia due to COVID-19 virus Status: Acute Category: Medical Code(s): U07.1 - COVID-19; J12.82 - Pneumonia due to coronavirus disease 2019 (4) Elevated liver enzymes Status: Acute Category: Medical Code(s): R74.8 - Abnormal levels of other serum enzymes (5) Thrombocytopenia Status: Acute Category: Medical Code(s): D69.6 - Thrombocytopenia, unspecified (6) Lymphoma Status: Chronic Category: Medical Code(s): C85.90 - Non-Hodgkin lymphoma, unspecified, unspecified site (7) Corneal abrasion Status: Acute Category: Medical Code(s): S05.00XA - Injury of conjunctiva and corneal abrasion without foreign body, unspecified eye, initial encounter (8) Stomatitis Status: Acute Category: Medical Code(s): K12.1 - Other forms of stomatitis (9) Conjunctivitis Status: Acute Category: Medical Code(s): H10.9 - Unspecified conjunctivitis (10) Anemia Status: Acute Category: Medical Code(s): D64.9 - Anemia, unspecified (11) Anxiety Status: Acute Category: Medical Code(s): F41.9 - Anxiety disorder, unspecified (12) Pulmonary hypertension, unspecified Status: Acute Category: Medical Code(s): I27.20 - Pulmonary hypertension, unspecified - Assessment and plan all Dx Assessment and Plan for all problems:: #Acute hypoxic respiratory failure: #H/O COVID-19 pneumonia: #Acute pulmonary embolism likely provoked secondary to COVID-19 pneumonia: #Pulmonary hypertension : #Organizing pneumonia: # ILD: Mr. Billingsley is a 61-year-old male being admitted and managed for hypoxic respiratory failure. Patient has a recent diagnosis of COVID-19 pneumonia and admitted to the hospital twice and presented to the hospital for the third time on 07/10/2020 worsening hypoxic respiratory failure and found to be having pulmonary embolism and has been managed since then. Patient so far has been treated twice for hospital-acquired pneumonia once with vancomycin and Zosyn on the second time with linezolid and cefepime. Patient also had staph epi bacteremia that has been treated during this hospital admission. Patient's echo from both hospital admissions showed elevated RVSP and given his persistent hypoxia as concern for pulmonary hypertension patient had a right heart cath performed on 08/01/2020 that showed mean PA pressure of 28 (45/20), CO 6L/min with a PVR of 3 hyman . Wedge pressure at 8. Patient initial echocardiogram also concern for atrial septal defect however subsequent bubble study and left heart cath did not show any evidence of shunt. Patient's aortic saturations were within normal limits during LHC. However right heart cath at rest still will not rule out exercise-induced pulmonary hypertension & possible R --> L shunting.
--- NOTE | 2020-08-05 14:04 | DIET.NUTRFU ---
Pt has refused all meals since 08/03 rt weakness/fatigue. Weight down 5#, no BM 48h, low Na and creatinine. Diet liberalized to regular/soft at this time in the effort to encourage intakes, will monitor and alter as indicated. Supplements increased to TID. Continued efforts encouragement/cueing at meal times and replacement meal/supplement offerings with meal refusals appreciated.
--- NOTE | 2020-08-05 19:35 | PC.NURSE ---
patient has been very weak this shift. has had a hard time even taking medications with out becoming exhausted and desating. refusing some meds and requesting to cluster them as much as possible. has refused some turns. required the venti mask most of shift over a 25l 75% vapotherm. takes a while to recover. has refused eating, family did assist with eating a protein shake. bp has been stable. some elevation with heart rate with desats.
[2020-08-06] VITALS (12 sets, daily range): BP systolic 101–137; BP diastolic 68–89; PULSE 80–111; RESP 25–28; TEMP 36.4–36.8; O2SAT 89–98; BMI 20.5
--- NOTE | 2020-08-06 02:06 | PC.NURSE ---
PT IS RESTING IN BED. PT IS REQUIRING THE 50% VENTI MASK WITH VAPOTHERM @ 25 L WITH 65% FIO2 MORE OFTEN TONIGHT THAN LAST NIGHT. PT HAS BECAME REALLY ANXIOUS WHEN THE VENTI MASK HAS BEEN REMOVED THIS SHIFT AND HAS NEEDED TO BE REASSURED THAT HIS O2 SATURATION WAS MAINTAINING 92-95% WITH THE VAPOTHERM AND THE MASK WAS ONLY SUPPOSED TO BE USED FOR SHORT PERIODS WHEN HE BECAME OVEREXERTED. DURING BATH THIS SHIFT WHILE TURNING PT FROM SIDE TO SIDE AND EVERY TIME PT WOULD TAKE A SIP OF WATER PT WOULD DESAT QUICKLY TO THE 70'S. PT HAD A DIFFICULT TIME TAKING HIS MEDS THIS SHIFT EVEN THOUGH THEY WERE CRUSHED IN PUDDING. PT NEEDS CONSTANT ENCOURAGEMENT TO ALLOW STAFF TO TURN AND REPOSITION HIM IN BED. NEW DRESSING APPLIED TO THE COCCYX. ABDOMEN SOFT/NON TENDER WITH HYPOACTIVE BOWEL SOUNDS. LUNG SOUNDS DIMINISHED WITH CRACKLES IN THE BILATERAL BASES. 1+ EDEMA NOTED TO BILATERAL ANKLES. SCABS NOTED TO THE LIP/MOUTH/NOSE. MOISTURE BARRIER APPLIED. ATTEMPTED TO CLEAN PT'S NOSE AND HE STATED IT WAS VERY PAINFUL. BLE ELEVATED. WILL CONTINUE TO MONITOR.
--- NOTE | 2020-08-06 08:52 | HMH.ACPN2 ---
Internal Medicine - PN: Subj *Date: 08/06/20 *Time: 08:52 Interval history: No acute events over night. Oxygen requirements remain the same. Still using Ventimask over Vapotherm. Exam Vital signs and Labs for Last 24 Hours: Temp Pulse Resp BP Pulse Ox 97.7 F 99 H 28 H 101/68 L 93 L 08/06/20 03:19 08/06/20 06:41 08/06/20 03:19 08/06/20 03:19 08/06/20 06:41 I & O for Last 24 hours: Intake & Output 08/03/20 08/04/20 08/05/20 08/06/20 11:59 11:59 11:59 11:59 Intake Total 720 / 720 120 / 120 240 / 240 60 / 60 Output Total 600 / 600 2150 / 2150 1400 / 1400 425 / 425 Balance 120 / 120 -2030 / -2030 -1160 / -1160 -365 / -365 Weight 145 lb 6 oz 140 lb 7 oz 137 lb 2 oz 135 lb 8 oz Microbiology Reports for the Last 24 Hours: Microbiology 07/20/20 09:45 Blood Blood Culture - Final Staphylococcus epidermidis Narrative: He remains anxious and seemed a bit confused initially not understanding why he has a Hoff catheter. His O2 sats started out at 91% and only dropped to 88% with conversation this morning. Lung with bilateral crackles anteriorly. Abdomen soft and NT. Assessment and Plan (1) Pulmonary embolus Status: Acute Category: Medical Code(s): I26.99 - Other pulmonary embolism without acute cor pulmonale (2) Respiratory failure with hypoxia Status: Acute Qualifiers: Chronicity: acute Qualified Code(s): J96.01 - Acute respiratory failure with hypoxia Category: Medical Code(s): J96.91 - Respiratory failure, unspecified with hypoxia (3) Pneumonia due to COVID-19 virus Status: Acute Category: Medical Code(s): U07.1 - COVID-19; J12.82 - Pneumonia due to coronavirus disease 2019 (4) Elevated liver enzymes Status: Acute Category: Medical Code(s): R74.8 - Abnormal levels of other serum enzymes (5) Thrombocytopenia Status: Acute Category: Medical Code(s): D69.6 - Thrombocytopenia, unspecified (6) Lymphoma Status: Chronic Category: Medical Code(s): C85.90 - Non-Hodgkin lymphoma, unspecified, unspecified site (7) Corneal abrasion Status: Acute Category: Medical Code(s): S05.00XA - Injury of conjunctiva and corneal abrasion without foreign body, unspecified eye, initial encounter (8) Stomatitis Status: Acute Category: Medical Code(s): K12.1 - Other forms of stomatitis (9) Conjunctivitis Status: Acute Category: Medical Code(s): H10.9 - Unspecified conjunctivitis (10) Anemia Status: Acute Category: Medical Code(s): D64.9 - Anemia, unspecified (11) Anxiety Status: Acute Category: Medical Code(s): F41.9 - Anxiety disorder, unspecified (12) Pulmonary hypertension, unspecified Status: Acute Category: Medical Code(s): I27.20 - Pulmonary hypertension, unspecified - Assessment and plan all Dx Assessment and Plan for all problems:: Condition is stable but guarded. I spoke with him again this morning about his code status. He is somewhat ambivalent about intubation wanting reassurance that is would only be for a short time which is uncertain. He is going to discuss it further with his family today. Conitnue IV steroids and Sidenafil per Dr. Valenzuela's recommendations. Increase Ativan. Repeat labs in AM.
--- NOTE | 2020-08-06 18:14 | PC.NURSE ---
shift note: Pt was anxious early this morning when talking about POC and code status. Pt calmed down when family @ BS. Vapotherm was increased to 25L/100%. He sats high 90s on 100% FiO2. He also wants a NRB mask in his hand for when he gets anxious and more SOA. Pt wants to be a DNR but when family came to the BS, he said that he got confused and wanted to speak more with his family. For the moment, pt remains a FULL CODE. Pt and family had questions regarding EOL/hospice care. Questions answered. Appetite remains poor. Eats a couple bites of pudding with medications. RR in the 30-50s for most of the day. Increase in Ativan to 0.5mg was somewhat helpful. Has been sinus tach with inverted T waves on tele and normotensive. Is A&O.
--- NOTE | 2020-08-06 23:27 | PC.NURSE ---
Pt desat to 73% while on Vapotherm 25L 100%. NRB 100% placed on pt. Pt recovered quickly. O2 sat currently 98%. Will titrate O2 as pt tolerates.
[2020-08-07] VITALS: BP 124/74; PULSE 104; PULSE 90; RESP 34; TEMP 36.4; O2SAT 100
--- NOTE | 2020-08-07 03:20 | PC.NURSE ---
Pt is resting at this time with Vapotherm @ 25L @ 100%. NRB has been placed on pt at times when needed. Pt gets anxious when O2 desats. He has been tachypneic also. PO medications administered in pudding. Pt tolerated fair. He did decline to take mouthwash. Denies any pain. Pt is Sinus with inverted T waves on telemetry with periods of Sinus tach. No other concerns at this time. Family states they will be here in the AM with breakfast from [facility] per pt request.
[2020-08-07 04:00] VITALS: BP 127/57; PULSE 110; PULSE 98; RESP 36; TEMP 36.4; O2SAT 100
[2020-08-07 05:00] VITALS: BMI 20.3
[2020-08-07 06:06] LABS: Basophils % 0.1 % (0.1-2.0); Eosinophils % 0.1 % (0.1-12.0); Hematocrit 37.5 % (42.0-52.0); Hemoglobin 12.2 g/dL (14.1-18.0); Lymphocytes # 0.2 K/mm3 (0.7-4.5); Mean Corpuscular HGB Conc 32.6 g/dL (31.8-35.4); Mean Corpuscular Hemoglobin 28.1 pg (27.0-31.2); Mean Corpuscular Volume 86.4 fl (80-94); Monocytes # 0.4 K/mm3 (0.1-1.0); Monocytes % 2.4 % (1.7-9.3); Neutrophils # 15.3 K/mm3 (1.8-7.8); Neutrophils % 96.3 % (37.0-80.0); Red Blood Count 4.34 M/mm3 (4.60-6.20); Red Cell Distribution Width 20.1 % (11.5-17.5); White Blood Count 15.9 K/mm3 (4.8-10.8)
[2020-08-07 06:07] LABS: Platelet Count 47 K/mm3 (142-424)
[2020-08-07 06:08] LABS: MANUAL DIFFERENTIAL MANUAL DIFFERENTIAL (MANUAL DIFF)
--- NOTE | 2020-08-07 06:10 | PC.NURSE ---
Pt expressed interest in hospice this AM. Pt has also stated to this nurse and RT that he was ready to go. Pt was encouraged to talk to family about his wishes. Pt's family stated last night that they would be in this AM to bring him breakfast. Code status was not obtained due to pt not able to state where he was this AM. When asked where he was, pt replied [place].
[2020-08-07 06:14] VITALS: PULSE 100; PULSE 93; O2SAT 95
[2020-08-07 06:14] LABS: Chloride 102 mmol/L (98-107); Potassium 5.8 mmoL/L (3.5-5.1); Sodium 136 mmol/L (136-145)
[2020-08-07 06:16] LABS: Alanine Aminotransferase 50 U/L (12-78); Aspartate Amino Transferase 27 U/L (17-59); Blood Urea Nitrogen 48 mg/dl (9-20); Creatinine Clearance Estimated 97 mL/min (50-200); Estimated Glomerular Filt Rate 115 ml/min (>60); GFR (African American) 139 ML/MIN (>60)
[2020-08-07 06:17] LABS: Albumin Level 3.2 g/dl (3.5-5.0); Albumin/Globulin Ratio 1.2 (1.1-1.8); Alkaline Phosphatase 180 U/L (38-126); Anion Gap 10.8 mEq/L (5-15); Calcium 9.4 mg/dl (8.4-10.2); Carbon Dioxide 29 mmol/L (22.0-30.0); Globulin 2.6 g/dL (1.3-3.2); Glucose 177 mg/dl (74-100); Total Protein,Serum 5.8 g/dl (6.3-8.2)
[2020-08-07 06:32] LABS: Lymphocytes % 5 % (10-50); Neutrophils % 93 % (42-76); Platelet Estimate Marked Decrease; RBC Morphology Normal; Total Cells Counted 100; Toxic Granulation 1+
--- NOTE | 2020-08-07 07:29 | PC.NURSE ---
pt states that I'm done and wants to be a DNR. Pt is A&O. States his name and . Reviewed code status with him. He does not want CPR and does not want to be intubated. Pt agreed to sign DNR form. I signed as a witness, as well as Ila Mejia RN. Reviewed hospice services again. He wants to go home with hospice services. Dr. Atwood updated.
[2020-08-07 08:00] VITALS: PULSE 110
--- NOTE | 2020-08-07 08:33 | PC.NURSE ---
PT refused vitals at this time. error in charting nausea.
--- NOTE | 2020-08-07 09:36 | PC.NURSE ---
rounded with Dr. Atwood. Hospice referral made to N.
--- NOTE | 2020-08-07 09:42 | HMH.ACPN2 ---
Internal Medicine - PN: Subj *Date: 08/07/20 *Time: 09:42 Interval history: No acute events overnight. He has decided to be a DNR. He has signed papers this morning. He requests to go home with hospice care. Please refer to nurses notes for details. He reiterates these same wishes to me this morning. Exam Vital signs and Labs for Last 24 Hours: Temp Pulse Resp BP Pulse Ox 97.5 F L 100 H 36 H 127/57 L 95 08/07/20 04:00 08/07/20 06:14 08/07/20 04:00 08/07/20 04:00 08/07/20 06:14 Laboratory Results - last 24 hr 08/07/20 05:55: WBC 15.9 H, RBC 4.34 L, Hgb 12.2 L, Hct 37.5 L, MCV 86.4, MCH 28.1, MCHC 32.6, RDW 20.1 H, Plt Count 47 L*, MPV 10.0, Neut % (Auto) 96.3 H, Lymph % (Auto) 1.0 L, Sibley % (Auto) 2.4, Eos % (Auto) 0.1, Baso % (Auto) 0.1, Neut # (Auto) 15.3 H, Lymph # (Auto) 0.2 L, Sibley # (Auto) 0.4, Eos # (Auto) 0.0, Baso # (Auto) 0.0, Total Counted 100, Neutrophils % (Manual) 93 H, Band Neutrophils % 2.0, Lymphocytes % (Manual) 5 L, Toxic Granulation 1+, Platelet Estimate Marked decrease, RBC Morphology Normal 08/07/20 05:55: Sodium 136, Potassium 5.8 H, Chloride 102, Carbon Dioxide 29, Anion Gap 10.8, BUN 48 H, Creatinine 0.70, Estimated Creat Clear 97, Estimated GFR 115, Est GFR ( Amer) 139, Glucose 177 H, Calcium 9.4, Total Bilirubin 1.0, AST 27, ALT 50, Alkaline Phosphatase 180 H, Total Protein 5.8 L, Albumin 3.2 L, Globulin 2.6, Albumin/Globulin Ratio 1.2 I & O for Last 24 hours: Intake & Output 08/04/20 08/05/20 08/06/20 08/07/20 11:59 11:59 11:59 12:59 Intake Total 120 / 120 240 / 240 60 / 60 Output Total 2150 / 2150 1400 / 1400 625 / 625 600 / 600 Balance -2030 / -2030 -1160 / -1160 -565 / -565 -600 / -600 Weight 140 lb 7 oz 137 lb 2 oz 135 lb 8 oz 134 lb 8 oz Narrative: Vital signs are stable at rest using Vapotherm. He shows moderate respiratory distress. Cannot speak in complete sentences. Assessment and Plan (1) Pulmonary embolus Status: Acute Category: Medical Code(s): I26.99 - Other pulmonary embolism without acute cor pulmonale (2) Respiratory failure with hypoxia Status: Acute Qualifiers: Chronicity: acute Qualified Code(s): J96.01 - Acute respiratory failure with hypoxia Category: Medical Code(s): J96.91 - Respiratory failure, unspecified with hypoxia (3) Pneumonia due to COVID-19 virus Status: Acute Category: Medical Code(s): U07.1 - COVID-19; J12.82 - Pneumonia due to coronavirus disease 2019 (4) Elevated liver enzymes Status: Acute Category: Medical Code(s): R74.8 - Abnormal levels of other serum enzymes (5) Thrombocytopenia Status: Acute Category: Medical Code(s): D69.6 - Thrombocytopenia, unspecified (6) Lymphoma Status: Chronic Category: Medical Code(s): C85.90 - Non-Hodgkin lymphoma, unspecified, unspecified site (7) Corneal abrasion Status: Acute Category: Medical Code(s): S05.00XA - Injury of conjunctiva and corneal abrasion without foreign body, unspecified eye, initial encounter (8) Stomatitis Status: Acute Category: Medical Code(s): K12.1 - Other forms of stomatitis (9) Conjunctivitis Status: Acute Category: Medical Code(s): H10.9 - Unspecified conjunctivitis (10) Anemia Status: Acute Category: Medical Code(s): D64.9 - Anemia, unspecified (11) Anxiety Status: Acute Category: Medical Code(s): F41.9 - Anxiety disorder, unspecified (12) Pulmonary hypertension, unspecified Status: Acute Category: Medical Code(s): I27.20 - Pulmonary hypertension, unspecified - Assessment and plan all Dx Assessment and Plan for all problems:: As noted, he wishes to discontinue active treatment and go home with hospice care. His mother, daughter, brother, and sister are present within this morning and understand his wishes. They would like to speak with a hospice denial management representative to discuss logistics of going home. If all parties are in agreement, will make arrangements for d
[2020-08-07 12:00] VITALS: BP 113/76; PULSE 105; PULSE 80; RESP 38; O2SAT 94
--- NOTE | 2020-08-07 12:46 | PC.NURSE ---
director hospice operations (Dante Garnica) @
[2020-08-07 15:30] VITALS: O2SAT 96
--- NOTE | 2020-08-07 15:56 | PC.NURSE ---
Dr. Bryn matthews. Updated him regarding agitation/restlessness and the need for a prn medication. He ordered Ativan 0.5mg IV x 1 dose. Order faxed to [facility].
--- NOTE | 2020-08-08 07:17 | SW/DCPLANNER ---
PATIENT DISCHARGED WITH HOSPICE CARE AT HOME...
--- NOTE | 2020-08-10 14:46 | HMH.DCSUM ---
General - General Admission date:: 07/09/20 <Herman Atwood - 09/10/20 22:50> 07/09/20 <Angélica Gandara - 08/10/20 15:02> Discharge date: 08/07/20 <NicholAngélica - 08/10/20 15:02> HPI HPI: Jesus is a 59-year-old white male with a past history of lymphoma and irritable bowel syndrome who has had 2 recent hospitalizations for Covid symptoms. He first began having symptoms the week after [place] and was first admitted on 06/13/2020 and discharged on 06/17/2020 with home oxygen. His shortness of breath worsened after going home and he was again admitted on 06/21/2020 and stayed through 06/27/2020. After this admission he was doing fairly well and during a telehealth office visit on 07/04/2020 he reported improvement in his dyspnea and appetite. He did note a drop in his O2 with activity but quickly rebounded with rest and oxygen. He had no chest pain, cough, or fever. He states about 2 days after speaking with me via telehealth, he began noticing more shortness of breath particularly with activity. Yesterday while taking a shower, his oxygen on room air dropped to 62%. At this point he returned to the emergency room. On work-up, his chest x-ray showed some improvement in the previous pneumonia but his CTA showed a right-sided pulmonary embolus. CTAs on both previous hospitalizations were negative for pulmonary embolus. He has now been readmitted and started on Lovenox for his pulmonary embolus and is also on Vapotherm for his hypoxemia. His PCR Covid swab is still positive. <NicholAngélica - 08/10/20 15:02> Hospital Course Hospital Course: Patient was readmitted with acute respiratory failure with hypoxemia related to his pulmonary embolus secondary to COVID-19 pneumonia. He initially tolerated Vapotherm with oxygen saturations in the 90s. He was started on remdesivir and dexamethasone as well as Zosyn and vancomycin to cover for healthcare acquired pneumonia. He was also started on Lovenox for treatment of his pulmonary embolus, however on blood work, his platelet count dropped below 100,000, therefore the Lovenox was discontinued and he was switched to Xarelto. Pulmonology was consulted for further recommendations. He had pancytopenia and the etiology was unclear. It was felt it may be related to the remdesivir. The hose operator discontinued his remdesivir and dexamethasone as his CT did not show any worsening pulmonary infiltrates. He recommended continuing antibiotics and he also added Lasix. He started the patient on oral prednisone as well. His chest CT also showed background evidence of pulmonary fibrosis, however the patient denied any history of pulmonary fibrosis. An autoimmune work-up was ordered. He had some bradycardic episodes, therefore an echo was ordered. He had an echo showing an EF of 50% with grade 1 diastolic dysfunction. There was also concern for the presence of an intracardiac shunt. The echo also showed pulmonary hypertension. The patient's oxygen saturations would drop into the 50s when out of bed on room air. His leukopenia improved and an echo with saline contrast was repeated. It failed to identify a shunt. The patient's blood cultures returned showing no growth. He had no evidence of leukocytosis and was afebrile, therefore his vancomycin was discontinued and he was continued on Levaquin. He was continued on steroids for his pulmonary fibrosis. By 07/15/2020, he was weaned to 5 L of nasal cannula and maintained oxygen saturations in the upper 80s and low 90s. He continued to desat with any activity. He developed some stomatitis and was prescribed Magic mouthwash. He had a repeat chest x-ray on 07/18/20 which showed bilateral pneumonia slightly worse on the left. His respiratory status began declining again and he had to be placed back on high flow nasal cannula. He had a repeat chest x-ray on 07/19/2020 again showing bilateral pneumonia worse on the left. He developed a fever on 07/20/19
== END 2020-08-07 16:35 | disposition hospice, home (50) | DRG 177 ==
LOC: ER 13:38 → ICU 14:42 → 2ND 07-23 10:42
PROVIDERS: Family Medicine; Internal Medicine; Internal Medicine Pulmonary Disease; Nurse Practitioner Family; Admitting Provider Family Medicine; Emergency Provider Emergency Medicine; PCP Family Medicine; Visit Provider Family Medicine
PROC: 4A023N8 Measurement of Cardiac Sampling and Pressure, Bilateral, Percutaneous Approach (ICD-10-PCS; principal; 2020-08-01 09:00)
DX: U07.1 COVID-19 (principal); I26.99 Other pulmonary embolism without acute cor pulmonale; J96.01 Acute respiratory failure with hypoxia; J18.9 Pneumonia, unspecified organism; C85.90 Non-Hodgkin lymphoma, unspecified, unspecified site; I82.452 Acute embolism and thrombosis of left peroneal vein; I27.20 Pulmonary hypertension, unspecified; Z99.81 Dependence on supplemental oxygen; Z72.0 Tobacco use; Z88.0 Allergy status to penicillin; Y95 Nosocomial condition; D69.6 Thrombocytopenia, unspecified; I50.82 Biventricular heart failure; K12.1 Other forms of stomatitis; D64.9 Anemia, unspecified; F41.9 Anxiety disorder, unspecified; S05.01XA Injury of conjunctiva and corneal abrasion without foreign body, right eye, initial encounter
CPT/HCPCS: 36415; 36569; 71045; 71250; 71275; 80048; 80053; 80076; 80202; 82272; 82607; 82746; 82803; 82810; 82962; 83540; 83605; 83615; 83735; 84100; 84145; 84484; 85007; 85014; 85018; 85025; 85048; 85049; 85651; 86140; 86850; 87040; 87077; 87086; 87186; 87581; 87633; 87798; 93005; 93306; 93308; 93460; 93970; 94640; 94760; 94761; 96365; 96372; 99152; 99153; 99284; C1725; C1751; C1769; C1894; G0328; J1644; J1956; J2020; J2260; J2543; J3370; P9016; Q9967